=== PATIENT | female | born 1950 | race Caucasian/White ===

== ENCOUNTER 2024-01-26 17:37 | Emergency (ER) | payer MEDICARE, SELFPAY ==
[2024-01-26 17:51] VITALS: BP 110/70; PULSE 84; TEMP 36.5; O2SAT 95; BMI 40.6
--- NOTE | 2024-01-26 18:09 | XR_ITS ---
[place] [address] Patient Name: VICKY GARCIA MRN: [id number] date: 1950 Sex: F Assigned Patient Location: ER Current Patient Location: ER Accession/Order Number: [id number] Exam Date: 01/26/2024 18:22 Report Date: 01/26/2024 18:50 At the request of: OBINNA HOLLIDAY Procedure: XR knee LT 4V STUDY: XR knee LT 4V, [id number] HISTORY: pain, injury COMPARISON: None FINDINGS: No acute fracture, dislocation, or suspicious osseous lesion. Severe osteoarthritis of the left knee. Medium-sized knee joint effusion without layering fluid level. Several possible small calcified joint bodies. XR/XR knee LT 4V IMPRESSION: Medium-sized knee joint effusion without acute fracture demonstrated. Electronically authenticated by: KELLI MANJARREZ Date: 01/26/2024 18:50
--- NOTE | 2024-01-26 18:13 | ED_ITS ---
HPI HPI - Extremity Injury (Lower) General Chief Complaint: Extremity Injury, Lower Stated Complaint: FALL Time Seen by Provider: 01/26/24 17:51 Source: patient and family (Daughter) Mode of arrival: Wheelchair Limitations: physical limitation History of Present Illness HPI Narrative: 73-year-old female presents to the emergency department with her mother with complaint of left knee pain. Patient states she had a fall 2 days ago. Patient states she walks with a cane, canes which caused her to fall and land directly on the knee. Since then has been having persistent pain. She does take oxycodone which has given her some relief. Also states that her daughter's dog jumped on her, scratching her knee and has an infection. Has been on cephalexin for this. However, ADLs and mobility have been impaired due to the injury to her knee he came in for further evaluation. States she does have history of arthritis, usus-po-rcby. Has received knee injections in the past. Denies a ny motor or sensory changes, paresthesias. Quality:?Blunt trauma Severity:, Moderate Timing:?As above, const Context: Normal setting and activity? Modifying factors:?Pain worse with palpation, movement Associated symptoms: As above Related Data Previous Rx's ?Medication ?Instructions ?Recorded walker #1 ea 01/26/24 Allergies Allergy/AdvReac Type Severity Reaction Status Date / Time ciprofloxacin [From Cipro] AdvReac Severe Verified 01/26/24 17:51 doxycycline AdvReac Severe Verified 01/26/24 17:51 Opioid HPI Opioid Management Most Recent Pain and Opioid Data: No Data to Display Review of Systems ROS Narrative CONST: Denies activity change, weakness MS: +arthralgias.? Denies joint swelling, myalgias, gait problem SKIN: + Redness NEURO: Denies numbness, paresthesias, weakness Exam Narrative Exam Narrative: Vital signs noted Nurses notes reviewed CONST: Nontoxic, well appearing, well nourished, in no distress.? HENT: normocephalic, atraumatic. CV: 2+ palpable left DP pulse MS: Left knee: Patient has some erythema, abrasion to the lateral, inferior, anterior aspect of her kneecap. Patient has some tenderness just inferior and lateral to the kneecap and to the lateral joint line. Range of motion somewhat limited with flexion due to pain. Able to get it to almost 90 degrees. Able to fully extend the knee. No laxity. No ecchymosis, crepitus, deformity, i nstability, warmth.? Strength 5/5 NEURO: Sensory intact throughout and distal to the injury SKIN: intact, warm, dry.? + abrasion PSYCHIATRIC: normal mood, affect Constitutional Vital Signs, click to edit/add: Last Vital Signs Temp 97.7 F 01/26/24 17:51 Pulse 84 01/26/24 17:51 Resp 18 01/26/24 17:51 BP 110/70 01/26/24 17:51 Pulse Ox 95 01/26/24 17:51 O2 Del Method Room Air 01/26/24 17:51 Course Reevaluation(s) Reevaluation #1: Discussed with patient and daughter results, plan, and disposition. They are agreeable with plan. Time: 19:28 Vital Signs Vital signs: Vital Signs Temperature 97.7 F 01/26/24 17:51 Pulse Rate 84 01/26/24 17:51 Respiratory Rate 18 01/26/24 17:51 Blood Pressure 110/70 01/26/24 17:51 Pulse Oximetry 95 01/26/24 17:51 Oxygen Delivery Method Room Air 01/26/24 17:51 Temperature 97.7 F 01/26/24 17:51 Pulse Rate 84 01/26/24 17:51 Respiratory Rate 18 01/26/24 17:51 Blood Pressure 110/70 01/26/24 17:51 Pulse Oximetry 95 01/26/24 17:51 Oxygen Delivery Method Room Air 01/26/24 17:51 MDM - Extremity Injury (Lower) MDM Narrative Medical decision making narrative: This is a pleasant 73-year-old female who presented to the emergency department with daughter with complaint of left knee pain. Complains of injury 2 days ago when she slipped, fell, landing directly on it. Has been having increased pain since making it difficult to perform ADLs. She also has some redness, swelling over the knee from where her dog scratched her. Has been on cephalexin for this. Denies any motor or sensory changes, paresthesias. States chronic history of knee problems. On arrival, afebrile, vital signs are all. On exam nontoxic, well-appearing patient in no distress. She has tenderness to the inferior, anterior lateral region just below her patella. She has some redness over the lateral aspect of the patella. This tissue is soft, not indurated, no fluctuance. MSPs otherwise intact. X-ray imaging of the left knee, per radiologist reveals no acute findings. Favor left knee contusion, internal derangement, history of arthritis Fracture, dislocation less likely based on imaging ED PROCEDURE NOTE: SPLINTING/STRAPPING The ED nurse applied a knee splint/immobilizer to the left knee of the patient. The area was examined post application and there was good alignment and good neurovascular function of the splinted/immobilized body part following the procedure. The patient tolerated the procedure well. Electronically verified by Ethan Gan PA-C Disposition ? The patient was discharged. Plan: Patient will be discharged to home. Condition at time of disposition: stable Prescription sent to pharmacy for a walker. Patient has pain medication at home (oxycodone). Advised to follow up with her orthopedic provider. Advised to return for any worsening and/or development of new, concerning signs or symptoms PLEASE NOTE: Portions of the medical record may have been produced using electronic citrix administrator and may contain errors with respect to translation of words which may not have been identified prior to finalization of the chart. Medical Records Attestation: I reviewed the patient's medical records. Imaging Data left knee xray: Radiologist's impression: ITS Impressions Knee X-Ray 01/26/24 18:09 IMPRESSION: Medium-sized knee joint effusion without acute fracture demonstrated. Electronically authenticated by: KELLI MANJARREZ Date: 01/26/2024 18:50 Discharge Plan Discharge Stand Alone Forms: Portal Instructions Chief Complaint: Extremity Injury, Lower Clinical Impression: Acute internal derangement of knee Qualifiers: Laterality: left Qualified Code(s): M23.92 - Unspecified internal derangement of left knee Contusion of knee Qualifiers: Encounter type: initial encounter Laterality: left Qualified Code(s): S80.02XA - Contusion of left knee, initial encounter Patient Disposition: Home, Self-Care Time of Disposition Decision: 19:26 Condition: Good Mode of Transportation: Private Vehicle Prescriptions / Home Meds: New (DME) walker Misc See Rx Instructions .Route Qty: 1 0RF Rx Instructions: As directed Print Language: Wolof Instructions: Contusion in Adults (ED) Referrals: JAQUAN RICHARD [Primary Care Provider] - 1 week
[2024-01-26 19:44] VITALS: BP 115/65; PULSE 73; O2SAT 98
--- NOTE | 2024-01-28 14:23 | PC.NURSE ---
pt calls and [facility] doesn't fill walker Rx, called [facility] and they don't fill either. Directed to [facility] which is in the same building in the [facility] on [address] in [place], [place]. They don't deal with insurance and it will be $64 in [place]ado.. this was relayed to the patient. Pt wants Rx sent. Prescription faxed to
== END 2024-01-26 19:44 | disposition home or self-care (01) ==
PROVIDERS: Emergency Provider Emergency Medicine; Family Provider Family Medicine; PCP Family Medicine
DX: S80.02XA Contusion of left knee, initial encounter (principal); M23.92 Unspecified internal derangement of left knee; W01.10XA Fall on same level from slipping, tripping and stumbling with subsequent striking against unspecified object, initial encounter
CPT/HCPCS: 73564; 99283

== ENCOUNTER 2024-06-22 18:11 | Emergency (ER) | payer MEDICARE, SELFPAY ==
[2024-06-22 18:36] VITALS: BP 180/110; PULSE 100; TEMP 36.4; O2SAT 96; BMI 40.6
--- OUTSIDE RECORDS SUMMARY | 2024-06-22 18:39 | XMS_ITS | CCD ---
Author Organization [facility] Care Team Providers Care Senior Policy Analyst Name Role Phone PHYSICIAN, DEFAULT Unavailable Unavailable PHYSICIAN, DEFAULT Unavailable Unavailable Vince Asencio Attending Provider Unavailable Jaquan Richard DO Primary Care Provider Jaquan Richard Unavailable Mikael Hughes II Unavailable Jaclyn Munoz Unavailable Kirk Aguilera Jr. Unavailable [phone] MD Vince Asencio Attending Provider DO Jaquan Richard Primary Care Provider DO Jaquan Richard Attending Provider Jaquan Richard DO Primary Care Provider [phone] DO Flex Atkinson Attending Provider [phone] Jaquan Richard DO Primary Care Provider [phone] MD Vince Asencio Attending Provider DO Jaquan Richard Primary Care Provider DO Flex Atkinson Attending Provider [phone] Jaquan Richard DO Primary Care Provider Shahid Cherry Unavailable DO Jaquan Richard Primary Care Provider DO Jaquan Richard Attending Provider Jaquan Richard DO Primary Care Provider [phone] DO Jaquan Richard Primary Care Provider DO Jaquan Richard Attending Provider [phone] DO Lei Saavedra Emergency Provider Free, Text Entry Unavailable Unavailable Brad Marcano Unavailable Unavailable Psych Consult Unavailable Unavailable Kieran Florez Unavailable Unavailable PROVIDER, UNKNOWN Attending Unavailable PROVIDER, UNKNOWN Admitting Unavailable Dr. Redd Corrigan Admitting Unavailab le Patient, Unavailable Referring Unavailable MD BRAD MARCANO Attending Unavaila ble Pending, Provider Primary Care Unavailable DO Jaquan Richard Primary Care Provider MD Mikael Hughes II Attending Provider DO Jaquan Richard Attending Provider [phone] DO Jaquan Richard Primary Care Provider DO Jaquan Richard Attending Provider Janneth, CARLENE Lo Emergency Provider DO Jaquan Richard Primary Care Provider Jaquan Richard DO Primary Care Provider [phone] Jaquan Richard Primary Care Physician KIERAN FLOREZ H Attending Unavailable GENERIC PROVIDER, NO ASSIGNED PCP Primary Care Unavailable DO Jaquan Richard Primary Care Provider [phone] Janneth, CASE MANAGEMENT RN Val Lo Emergency Provider DO Jaquan Richard Attending Provider WILLIAM HOPE Referring Unavailable JAQUAN RICHARD Primary Care Unavailable JAQUAN RICHARD Primary Care Unavailable KIRAN, JALIL Referring Unavailable QIANA, JALIL Attending Unavailable JAQUAN RICHARD Primary Care Unavailable YAMILET KIRANS Attending Unavailable JAQUAN RICHARD Primary Care Unavailable KEYANA SUMMERS Attending Unavailable JAQUAN RICHARD Primary Care Unavailable ALEX JEFFRIES Attending Unavailable QIANA, JALIL Referring Unavailable Jaquan Richard Primary Care Unavailable Val Lagunas Admitting Unavailable Val Lagunas Attending Unavailable Jaquan Richard Attending Unavailable Jaquan Richard Admitting Unavailable Jaquan Richard Primary Care Unavailable Jaquan Richard Attending Unavailable Jaquan Richard Admitting Unavailable Jaquan Richard Primary Care Unavailable Mikael Hughes II Admitting UnavailMikael Brooks II Attending Unavailabl e Jaquan Richard Primary Care Unavailable Lei Saavedra Admitting Unavailable Lei Saavedra Attending Unavailable Val Lagunas Admitting Unavailable Saffle, Val N Attending Unavailable Jaquan Richard Primary Care Unavailable Unavailable Unavailable Unavailable Allergies Allergy Classification Reported Allergen(s) Allergy Type Date of Onset Reaction(s) Facility (14 sources) Adhesive Tape; Translations: [adhesive tape] Propensity to adverse reactions 12-05-19 Redness of Skin; itching [facility] (20 sources) Ciprofloxacin; Translations: [CIPROFLOXACIN] Drug Allergy 04-12-20 17 Shortness of Breath, anaphylaxis, Unknown (qualifier value) [facility] Comment on above: shortness of breath (20 sources) Doxycycline; Translations: [DOXYCYCLINE] Drug Allergy 09-10-20 17 Intolerance, Unknown (qualifier value) [facility] (14 sources) Tetanus Vaccines and Toxoid; Translations: [Tetanus Vaccines and Toxoid] Allergy to substance 12-05-19 Unknown Reaction [facility] (20 sources) Phenytoin; Translations: [PHENYTOIN SODIUM EXTENDED] Drug Allergy 09-10-20 17 Swelling, anaphylaxis, Anaphylaxis (disorder) [facility] (19 sources) Tetanus immune globulin; Translations: [TETANUS IMMUNE GLOBULIN F(AB')2 (EQUINE)] Drug Allergy 09-10-[address] [facility] (20 sources) buPROPion; Translations: [Bupropion] Drug Allergy Unknown (qualifier value) [facility] (20 sources) Cephalexin; Translations: [Cephalexin] Drug Allergy Candidiasis (disorder), Nausea (finding), Diarrhea (finding) [facility] (20 sources) homatropine / HYDROcodone Drug Allergy kept pt awake/alert [facility] Other (20 sources) Lisinopril; Translations: [lisinopril] Drug Allergy 11-30-19 Swelling (morphologic abnormality) [facility] Other Comment on above: leg swelling (20 sources) tetanus toxoid vaccine, inactivated Drug Allergy 11-30-19 24 Unknown, Unknown Reaction [facility] (20 sources) metFORMIN; Translations: [metformin] Drug Allergy 11-30-19 Unknown (qualifier value) [facility] (7 sources) buPROPion Drug Allergy 11-30-19 24 Other, hx of seizures [facility] Comment on above: history of seizures (2 sources) Phenytoin Drug Allergy Swelling, anaphylaxis [facility] (1 source) Tetanus immune globulin Drug Allergy Other [facility] Comment on above: unknown (1 source) Ciprofloxacin Drug Allergy anaphylaxis [facility] Other (1 source) Doxycycline Drug Allergy rash/lips, tongue swollen [facility] Other (1 source) homatropine / HYDROcodone Drug Allergy kept pt awake/alert [facility] Other (1 source) metFORMIN Drug Allergy 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 (1 source) tetanus toxoid vaccine, inactivated; Translations: [tetanus toxoid] Drug Allergy Unknown (qualifier value) [facility] Medications Current Medications Medication Drug Class(es) Dates Sig (Normalized) Sig (Original) 0.25 MG, 0.5 MG Dose 3 ML semaglutide 0.68 MG/ML Pen Injector [Ozempic] (1 source) Start: 04-19-2024 Ozempic 2 mg/3 mL (0.25 mg or 0.5 mg dose) subcutaneous solution Refills(s) 0 Start Date: 04/19/24 Status: Ordered acetaminophen 500 mg oral tablet (5 sources) Start: 06-11-2021 take 1 tablet by mouth every twelve hours Acetaminophen 500 MG 1 tablet as needed Orally BID for 30 days May, Active acetaminophen 325 mg / HYDROcodone bitartrate 5 mg oral tablet (20 sources) Opioid Agonist Start: 04-14-2019 take 1 tablet by mouth four times daily Hydrocodone-Acetami nophen Active 1 TAB Oral Four times daily April 14, 2019 12:26pm Start: 04-14-2019 End: 05-21-2023 Hydrocodone-Acetaminophen Di scontinued 0.5 - 1 TAB PO every 6 to 8 hours April 14, 2019 12:00am May 21, 2023 9:24pm Start: 09-15-2018 [place] 5-325 MG 1/2 to 1 tablet Orally q 6-8 hrs Sep, Active Start: 09-15-2018 [place] 5-325 MG 1/2 to 1 tablet Orally q 6-8 hrs for 30 days Sep, Active Start: 09-15-2018 [place] 5-325 MG 1/2 to 1 tablet Orally q 6-8 hrs for 30 days Sep, Not-Taking End: 04-15-2024 HYDROcodone-Acetaminophen (V ICODIN) 5-300 mg tab Take by mouth as needed. 0 04/15/2024 Discontinued (Course of therapy completed) Comment on above: Take by mouth as nee ded. acetaminophen 325 mg / oxyCODONE hydrochloride 7.5 mg oral tablet (20 sources) Opioid Agonist Start: 04-19-2024 acetaminophen-oxycodo ne 325 mg-7.5 mg oral tablet Refill(s) 0 Start Date: 04/19/24 Status: Ordered Start: 04-11-2024 End: 05-17-2024 take 1 tablet by mouth four times daily Oxycodone-Acetaminophen Active 1 TAB PO Four times daily 09 04May 17, 2024 Start: 04-04-2024 End: 04-04-2024 take 1 tablet by mouth four times daily Oxycodone-Acetaminophen Discontinued 1 T AB PO Four times daily 09 04April 04, 2024 April 04, 2024 8:58am Start: 12-07-2023 End: 04-11-2024 take 1 tablet by mouth four times daily Oxycodone-Acetaminophen Discontinued 1 T AB PO Four times daily 09 04April 04, 2024 April 11, 2024 8:57am Start: 11-30-2023 End: 11-30-2023 take 1 tablet by mouth four times daily Oxycodone-Acetaminophen Discontinued 1 T AB PO Four times daily 09 04November 30, 2023 November 30, 2023 8:57am FreeTextSi tablet Orally qid; Note: Source Status: [id number]; Provider: Carlito Singleton Start: 10-26-2023 End: 12-07-2023 take 1 tablet by mouth four times daily Oxycodone-Acetaminophen Discontinued 1 T AB PO Four times daily 09 04October 26, 2023 November 02, 2023 10:07am FreeTextSi tablet Orally qid; Note: Source Status: [id number]; Provider: Carlito Singleton Start: 10-04-2023 take 1 tablet by isael th every six hours oxyCODONE-Acetaminophen 7.5-325 MG 1 tablet Orally qid for 7 days [id number] Oct, Active Start: 09-28-2023 take 1 tablet by isael th every six hours oxyCODONE-Acetaminophen 7.5-325 MG 1 tablet Orally qid for 7 days [id number] Sep, Active Start: 09-21-2023 take 1 tablet by isael th every six hours oxyCODONE-Acetaminophen 7.5-325 MG 1 tablet Orally qid for 7 days [email or web address] Sep, Active Start: 09-07-2023 take 1 tablet by isael th every six hours oxyCODONE-Acetaminophen 7.5-325 MG 1 tablet Orally qid for 7 days [email or web address] Aug, Active Start: 08-31-2023 take 1 tablet by isael th every six hours oxyCODONE-Acetaminophen 7.5-325 MG 1 tablet Orally qid for 7 days [email or web address] Aug, Active Start: 08-24-2023 take 1 tablet by isael th every six hours oxyCODONE-Acetaminophen 7.5-325 MG 1 tablet Orally qid for 7 days [email or web address] Aug, Active Start: 08-10-2023 take 1 tablet by isael th every six hours oxyCODONE-Acetaminophen 7.5-325 MG 1 tablet Orally qid for 7 days [id number] Jul, Active Start: 07-27-2023 take 1 tablet by isael th every six hours oxyCODONE-Acetaminophen 7.5-325 MG 1 tablet Orally qid for 7 days [id number] Jul, Active Start: 07-20-2023 take 1 tablet by isael th every six hours oxyCODONE-Acetaminophen 7.5-325 MG 1 tablet Orally qid for 7 days [email or web address] Jul, Active Start: 07-13-2023 take 1 tablet by isael th every six hours oxyCODONE-Acetaminophen 7.5-325 MG 1 tablet Orally qid for 7 days [email or web address] Jun, Active Start: 07-06-2023 take 1 tablet by isael th every six hours oxyCODONE-Acetaminophen 7.5-325 MG 1 tablet Orally qid for 7 days [email or web address] Jun, Active Start: 06-22-2023 take 1 tablet by isael th every six hours oxyCODONE-Acetaminophen 7.5-325 MG 1 tablet Orally qid for 7 days [email or web address] Jun, Active Start: 06-15-2023 take 1 tablet by isael th every six hours oxyCODONE-Acetaminophen 7.5-325 MG 1 tablet Orally qid for 7 days [id number] Jun, Active Start: 06-08-2023 take 1 tablet by isael th every six hours oxyCODONE-Acetaminophen 7.5-325 MG 1 tablet Orally qid for 7 days [email or web address] May, Active Start: 05-31-2023 take 1 tablet by isael th every six hours oxyCODONE-Acetaminophen 7.5-325 MG 1 tablet Orally qid for 7 days [email or web address] May, Active Start: 05-19-2023 take 1 tablet by isael th every six hours oxyCODONE-Acetaminophen 7.5-325 MG 1 tablet Orally qid for 7 days [email or web address] May, Active Start: 05-19-2023 End: 05-26-2023 take 1 tablet by mouth every six hours as needed oxycodone-acetaminophen 7.5 mg-300 mg or al tablet ; 1 tab(s) orally every 6 hours, As Needed Quantity: 0 Refills: 0 Ordered: 22-May-2023 Deng Mabry Start: 19-May-2023 End: 26-May-2023 Generic Substitution Allowed Start: 05-12-2023 take 1 tablet by isael th every six hours oxyCODONE-Acetaminophen 7.5-325 MG 1 tablet Orally qid for 7 days [email or web address] Apr, Active Start: 05-05-2023 take 1 tablet by isael th every six hours oxyCODONE-Acetaminophen 7.5-325 MG 1 tablet Orally qid for 7 days [email or web address] Apr, Active Start: 04-28-2023 take 1 tablet by isael th every six hours oxyCODONE-Acetaminophen 7.5-325 MG 1 tablet Orally qid for 7 days [email or web address] Apr, Active Start: 04-15-2023 take 1 tablet by isael th every six hours oxyCODONE-Acetaminophen 7.5-325 MG 1 tablet Orally qid for 7 days [email or web address] Apr, Active Start: 03-23-2023 oxyCODONE-Acet aminophen 5-325 MG 1 tablet Orally q6-8 hrs as needed [email or web address] Mar, Active Start: 02-24-2023 oxyCODONE-Acet aminophen 5-325 MG 1 tablet Orally q6-8 hrs as needed for 30 days [email or web address] Feb, Active Start: 01-20-2023 oxyCODONE-Acet aminophen 5-325 MG 1 tablet Orally q6-8 hrs as needed for 30 days [email or web address] January, Active Start: 12-25-2022 oxyCODONE-Acet aminophen 5-325 MG 1 tablet Orally q6-8 hrs as needed for 30 days [email or web address] Dec, Active Start: 11-27-2022 oxyCODONE-Acet aminophen 5-325 MG 1 tablet Orally q6-8 hrs as needed for 30 days [email or web address] Nov, Active Start: 10-29-2022 oxyCODONE-Acet aminophen 5-325 MG 1 tablet Orally q6-8 hrs as needed for 30 days [email or web address] Oct, Active Start: 09-28-2022 oxyCODONE-Acet aminophen 5-325 MG 1 tablet Orally q6-8 hrs as needed [email or web address] Sep, Active Start: 07-31-2022 oxyCODONE-Acet aminophen 5-325 MG 1 tablet Orally q6-8 hrs as needed for 30 days [email or web address] Jul, Active Start: 07-02-2022 oxyCODONE-Acet aminophen 5-325 MG 1 tablet Orally q6-8 hrs as needed [email or web address] 20 Jun, 2022 Active Start: 03-25-2022 Percocet 5-325 MG 1 tablet Orally q6-8 hrs as needed for 30 days Mar, Active [id number] actuat albuterol 0.09 mg/actuat metered dose inhaler (20 sources) beta2-Adrenergic Agonist Start: 01-21-2024 End: 04-26-2024 Albuterol Sulfate (Ventolin Hfa) 90 mcg/actuation HFA aerosol inhaler Active 2 INH INHALATION Every 4 hours April 26, 2024 11:14am Start: 11-10-2018 Ventolin HFA 1 08 (90 Base) MCG/ACT 2 inhalations Inhalation q4 hours prn prn Oct, Active Start: 06-29-2018 PROAIR HFA 90 mcg/actuation inhaler Start: 06-29-2018 End: 05-20-2024 PROAIR HFA 90 mcg/actuation inhaler take 1 [IU] by inhal ation every six hours as needed Albuterol Sulfate 0.083% 1 unit dose via nebulizer Inhalation q6 hrs PRN Active Albuterol (Eqv-ProAir HFA) 90 mcg/inh inhalation aerosol (1 source) Start: 04-19-2024 Albuterol (Eqv-ProAir HFA) 90 mcg/inh inhalation aerosol Refill(s) 0 Start Date: 04/19/24 Status: Ordered ALPRAZolam 0.5 mg oral tablet (20 sources) Benzodiazepine Start: 04-14-2019 take 0.5 mg by mouth once daily at bedtime Alprazolam Active 0.5 MG Oral Daily at bedtime April 14, 2019 12:26pm Start: 07-19-2018 End: 04-15-2024 take 1 tablet by mouth twice daily Alprazolam Discontinued 0.5 - 1 TAB PO Twice daily April 14, 2019 12:00am May 21, 2023 9:22pm Comment on above: Take 0.5 mg by mouth twice daily as needed. amoxicillin 875 mg oral tablet (19 sources) Penicillin-class Antibacterial Start: take 1 tablet by mouth every twelve hours Amoxicillin 875 MG 1 tablet Orally Twice a day for 10 day(s) Mar, Active Start: 09-15-2021 take 1 tablet by isael th every twelve hours Amoxicillin 875 MG 1 tablet Orally Twice a day for 10 day(s) Sep, Not-Taking atorvastatin 10 mg oral tablet (20 sources) HMG-CoA Reductase Inhibitor Start: 04-26-2024 take 10 mg by mouth once daily Atorvastatin Active 10 MG PO Daily April 26, 2024 11:11am Start: 04-19-2024 atorvastatin 1 0 mg Tab Refills(s) 0 Start Date: 04/19/24 Status: Ordered Start: 11-01-2023 End: 04-26-2024 take 1 tablet by mouth once daily Atorvastatin Discontinued 0 .ROUTE .COMPLEX November 01, 2023 5:24pm April 26, 2024 11:13am Take 1 tablet by mouth once daily for 90 days Start: 11-01-2023 End: 11-01-2023 take 1 tablet by mouth once daily Atorvastatin Discontinued 1 TAB PO Daily November 01, 2023 1:00am November 01, 2023 5:25pm FreeTextSig: Take 1 tablet by mouth once daily; Note: Source Status: Continue; Provider: Gualberto Lyon Start: 04-14-2019 End: 05-21-2023 take 10 mg by mouth once daily at bedtime Atorvastatin Discontinued 10 MG PO Daily at bedtime April 14, 2019 12:00am May 21, 2023 9:22pm Comment on above: Take 10 mg by mouth once daily. cefdinir 300 mg oral capsule (5 sources) Cephalosporin Antibacterial Start: 05-16-2024 take 2 tablets by mouth once daily Cefdinir Active 300 MG PO Daily 06 22May 16, 2024 12:00am take two (300 mg) tablets together once a day for 10 days Start: 10-11-2023 take 2 capsules by m outh every twenty-four hours Cefdinir 300 MG 2 capsules Orally Once a day Sep, Active cholecalciferol 0.1 mg oral capsule (20 sources) Vitamin D Start: 04-14-2019 End: 02-12-2022 cholecalciferol, vitamin D3, 100 mcg (4,000 unit) cap Cholecalciferol (Vitamin D3) Active 4000 UNIT Oral Daily April 14, 2019 12:26pm 0 04/14/2019 Active take 1 capsule by mouth every we ek Vitamin D3 1250 mcg (50,000 intl units) oral capsule ; 1 cap(s) orally once a week Quantity: 0 Refills: 0 Ordered: 22-May-2023 Deng Mabry Generic Substitution Allowed Comment on above: Cholecalciferol (Vit lemus D3) Active 4000 UNIT Oral Daily April 14, 2019 12:26pm Take by mouth. Cholecalciferol (Vitamin D3) (Vitamin D3) 4,000 unit Capsule (1 source) Start: 019 take 1 capsule by mouth once daily Cholecalciferol (Vitamin D3) (Vitamin D3) 4,000 unit Capsule Active 4000 UNIT PO Daily April 14, 2019 12:00am clotrimazole 10 mg oral lozenge (6 sources) Azole Antifungal Start: Clotrimazole 10 MG dissolve 1 del Mouth/Throat five times a day for 7 day(s) Nov, Active 1 ml enoxaparin sodium 100 mg/ml prefilled syringe (17 sources) Low Molecular Weight Heparin Start: 023 End: 023 enoxaparin 100 mg/mL injectable solution ; 100 milligram(s) subcutaneously 2 times a day Quantity: 60 Refills: 1 Ordered: 26-May-2023 Tamiko Herrmann Start: 26-May-2023 End: 24-Jul-2023 Generic Substitution Allowed Comments: It is very important that you take or use this exactly as directed. Do not skip doses or discontinue unless directed by your doctor. Comment on above: It is very important that you take or use this exactly as directed. Do not skip doses or discontinue unless directed by your doctor. ergocalciferol 1.25 mg oral capsule (20 sources) Provitamin D2 Compound Start: 024 ergocalciferol 50,000 intl units Cap Refills(s) 0 Start Date: 04/19/24 Status: Ordered Start: 01-21-2024 End: 04-04-2024 take 1250 ug by mouth every week Ergocalciferol (Vitamin D2) Active 1250 MCG PO every week April 04, 2024 8:57am Start: 06-06-2020 End: 05-21-2023 take 1 capsule by mouth once daily Ergocalciferol (Vitamin D2) (Vitamin D2) 1,250 mcg (50,000 unit) capsule Discontinued 1250 MCG PO Daily June 06, 2020 12:00am May 21, 2023 9:24pm Comment on above: (take by mouth with food 3times a week, ONE CAPSULE ON Mondays, Wed, Fridays) FOR A TOTAL OF 8 WEEKS. folic acid 1 mg oral tablet (20 sources) Start: 04-17-2024 take 1 tablet by mouth once daily folic acid 1 mg tablet Indications: Inflammatory arthritis , DENG positive , Psoriasis Take 1 tablet by mouth once daily. 90 tablet 0 04/17/2024 Active Start: 05-21-2023 End: 01-21-2024 take 5 mg by mouth once daily Folic Acid Discontinued 5 MG PO Daily May 21, 2023 12:00am January 21, 2024 11:23am Start: 04-14-2019 End: 04-15-2024 take 1 mg by mouth once daily Folic Acid Discontinued 1 MG PO Daily April 14, 2019 12:00am May 21, 2023 9:24pm Comment on above: Take 1 tablet by isael th once daily. Take 1 tablet by isael th once daily levothyroxine sodium 0.112 mg oral tablet (20 sources) l-Thyroxine Start: take 1 tablet by mouth once daily in the morning Levothyroxine Active 112 MCG PO .COMPLEX April 26, 2024 11:11am 112 mcg orally TAKE 1 TABLET BY MOUTH ONCE DAILY IN THE MORNING ON AN EMPTY STOMACH; Start: 04-19-2024 levothyroxine 112 mcg (0.112 mg) Tab Refills(s) 0 Start Date: 04/19/24 Status: Ordered Start: 04-17-2024 End: 04-26-2024 take 1 tablet by mouth once daily in the morning Levothyroxine Discontinued 0 .ROUTE .COMPLEX April 17, 2024 3:41pm April 26, 2024 11:13am TAKE 1 TABLET BY MOUTH ONCE DAILY IN THE MORNING ON AN EMPTY STOMACH Start: 01-21-2024 End: 04-17-2024 take 112 ug by mouth once daily before breakfast Levothyroxine Discontinued 112 MCG PO Daily before breakfast January 21, 2024 12:00am April 17, 2024 3:42pm Start: 01-23-2020 End: 01-21-2024 take 100 ug by mouth once daily in the morning Levothyroxine Discontinued 100 MCG PO Every morning January 23, 2020 12:00am January 21, 2024 10:04am Start: 04-14-2019 End: 01-23-2020 take 112 ug by mouth once daily Levothyroxine Disconti nued 112 MCG PO Daily April 14, 2019 12:00am January 23, 2020 7:12pm take 1 tablet by isael th once daily in the morning Levothyroxine Sodium 112 MCG TAKE 1 TABLET BY MOUTH ONCE DAILY IN THE MORNING ON AN EMPTY STOMACH Active Levothyroxine So dium 100 MCG Oral Active Comment on above: Take 112 mcg by mout h daily before breakfast. losartan potassium 50 mg oral tablet (20 sources) Angiotensin 2 Receptor James Start: 05-16-2024 take 1 tablet by mouth twice daily Losartan Active 0 .ROUTE .COMPLEX 180 May 16, 2024 2:48pm Take 1 tablet by mouth twice daily Start: 01-21-2024 End: 05-16-2024 take 50 mg by mouth once daily Losartan Discontinued 5 0 MG PO Daily January 21, 2024 12:00am May 16, 2024 2:50pm Start: 06-15-2019 End: 07-25-2023 take 50 mg by mouth once daily in the morning Losartan Discontinued 50 MG PO Every morning January 23, 2020 12:00am May 21, 2023 9:24pm take 1 tablet by isael th twice daily Losartan Potassium 50 MG Take 1 tablet by mouth twice daily Active Comment on above: TAKE 1 TABLET BY IASEL TH ONCE DAILY FOR 90 DAYS magnesium gluconate 550 mg oral tablet (20 sources) take 1 tablet by mouth every twenty-four hours Magnesium 30 MG 1 tablet with a meal Orally Once a day Active melatonin 3 mg oral tablet (1 source) Start: 05-26-20 End: 06-24-20 23 take 1 tablet by mouth once daily at bedtime as needed melatonin 3 mg oral tablet ; 1 tab(s) orally once a day (at bedtime), As Needed Quantity: 30 Refills: 0 Ordered: 26-May-2023 Tamiko Herrmann Start: 26-May-2023 End: 24-Jun-2023 Generic Substitution Allowed meloxicam 7.5 mg oral tablet (5 sources) Nonsteroidal Anti-inflammatory Drug Start: 06-11-20 21 take 1 tablet by mouth every twenty-four hours Mobic 7.5 MG 1 tablet Orally Once a day for 30 day(s) May, Active methotrexate 2.5 mg oral tablet (20 sources) Folate Analog Metabolic Inhibitor Start: 04-17-20 24 take 8 tablets by mouth every week at mealtime methotrexate 2.5 mg tablet Indications: Inflammatory arthritis , DENG positive , Psoriasis TAKE 8 TABLETS BY MOUTH ONCE A WEEK WITH FOOD. NO ALCOHOL. HOLD IF ILL OR ON ANTIBIOTICS 40 tablet 11 04/17/2024 Active Start: 04-14-2019 End: 05-21-2023 take 1 tablet by mouth every week Methotrexate Sodium Discontinued 10 TAB PO every week April 14, 2019 12:00am May 21, 2023 9:24pm Start: 04-14-2019 End: 04-15-2024 methotrexate 2.5 mg tablet Indications: Inflammatory arthritis , DENG positive , Psoriasis TAKE 10 TABLETS BY MOUTH ONCE A WEEK WITH FOOD. NO ALCOHOL. HOLD IF ILL OR ON ANTIBIOTICS 40 tablet 11 02/14/2022 04/15/2024 Discontinued (Course of therapy completed) Start: 04-14-2019 End: 02-12-2022 methotrexate 2.5 mg tablet Indications: Inflammatory arthritis , DENG positive , Psoriasis TAKE 10 TABLETS BY MOUTH ONCE A WEEK WITH FOOD. NO ALCOHOL. HOLD IF ILL OR ON ANTIBIOTICS 120 tablet 0 11/12/2021 02/12/2022 Discontinued Start: 04-14-2019 End: 02-13-2022 take 3 tablets by mouth every week at mealtime methotrexate 2.5 mg tablet Indications: Inflammatory arthritis , DENG positive , Psoriasis TAKE 10 TABLETS BY MOUTH ONCE A WEEK WITH FOOD. NO ALCOHOL. HOLD IF ILL OR ON ANTIBIOTICS 120 tablet 3 02/12/2022 02/13/2022 Discontinued Comment on above: TAKE 10 TABLETS BY M OUTH ONCE A WEEK WITH FOOD. NO ALCOHOL. HOLD IF ILL OR ON ANTIBIOTICS ozempic (0.25 or 0.5 mg/dose) 2 mg/3ml solution pen-injector (2 sources) Start: 4 Ozempic (0.25 or 0.5 MG/DOSE) 2 MG/3ML 0.25 MG Subcutaneous once weekly for 28 days Oct, Active PARoxetine hydrochloride 10 mg oral tablet (20 sources) Serotonin Reuptake Inhibitor Start: 3 End: 3 take 1 tablet by mouth once daily PARoxetine 10 mg oral tablet ; 1 tab(s) orally once a day Quantity: 30 Refills: 0 Ordered: 26-May-2023 Tamiko Herrmann Start: 26-May-2023 End: 24-Jun-2023 Generic Substitution Allowed Comments: Do not drink alcoholic beverages when taking this medication.Do not take this drug if you are .It is very important that you take or use this exactly as directed. Do not skip doses or discontinue unless directed by your doctor.May cause drowsiness. Alcohol may intensify this effect. Use care when operating dangerous machinery.Obtain medical advice before taking any non-prescription drugs as some may affect the action of this medication.This drug may impair the ability to drive or operate machinery. Use care until you become familiar with its effects. Start: 06-06-2020 End: 01-21-2024 take 20 mg by mouth once daily in the morning Paroxetine Hcl Discontinued 20 MG PO Every morning June 06, 2020 12:00am January 21, 2024 11:24am Start: 06-06-2020 take 30 mg by mouth once daily in the morning Paroxetine Hcl Active 30 MG PO Every morning June 06, 2020 12:00am Start: 04-14-2019 End: 04-15-2024 take 20 mg by mouth once daily in the morning Paroxetine Hcl Discontinued 20 MG PO Every morning April 14, 2019 12:00am June 06, 2020 4:18pm Comment on above: Take 20 mg by mouth once daily. Do not drink alcohol ic beverages when taking this medication.Do not take this drug if you are .It is very important that you take or use this exactly as directed. Do not skip doses or discontinue unless directed by your doctor.May cause drowsiness. Alcohol may intensify this effect. Use care when operating dangerous machinery.Obtain medical advice before taking any non-prescription drugs as some may affect the action of this medication.This drug may impair the ability to drive or operate machinery. Use care until you become familiar with its effects. polyethylene glycol 3350 [id number] mg powder for oral solution (1 source) Osmotic Laxative Start: 3 End: polyethylene glycol 3350 oral powder for reconstitution ; 17 gram(s) orally once a day Quantity: 1 Refills: 0 Ordered: 26-May-2023 Tamiko Herrmann Start: 26-May-2023 End: 24-Jun-2023 Generic Substitution Allowed rivaroxaban 20 mg oral tablet (20 sources) Factor Xa Inhibitor Start: take 1 tablet by mouth once daily Rivaroxaban (Xarelto) 20 mg tablet Active 20 MG PO Daily January 21, 2024 12:00am Xarelto 20 20 On ce PO Daily Active sertraline 25 mg oral tablet (20 sources) Serotonin Reuptake Inhibitor Start: 04-26-2024 take 37.5 mg by mouth once daily Sertraline Active 37.5 MG PO Daily April 26, 2024 11:12am Start: 04-19-2024 sertraline 25 mg Tab Refills(s) 0 Start Date: 04/19/24 Status: Ordered Start: 01-07-2024 End: 04-26-2024 take 1 tablet by mouth once daily Sertraline Discontinued 0 .ROUTE .COMPLEX 45 January 07, 2024 10:30am April 26, 2024 11:13am TAKE 1 & 1/2 (ONE & ONE-HALF) TABLETS BY MOUTH ONCE DAILY Start: 01-07-2024 End: 01-07-2024 take 1 tablet by mouth once daily Sertraline Discontinued 0 PO Daily January 07, 2024 10:29am January 07, 2024 10:31am take 1 and 1/2 of a 25 MG tablet orally daily; Start: 01-07-2024 End: 01-07-2024 take 25 mg by mouth once daily Sertraline Discontinued 25 MG PO Daily January 07, 2024 12:00am January 07, 2024 10:30am Start: 05-26-2023 End: 06-24-2023 Zoloft 25 MG take 1 and 1/2 tablets Orally Once a day for 30 days May, Active Vitamin B12 1000 MCG (20 sources) Start: 03-07-2019 take 1 tablet by isael th once daily Vitamin B12 1000 MCG 1 tablet Orally Once a day Feb, Active Vitamin D 41019 UNIT (20 sources) take 1 capsule by mouth every week Vitamin D 25521 UNIT 1 capsule Orally once a week Active take 1 capsule by mouth once Vit lemus D 96592 UNIT 1 capsule Orally Active Completed/Discontinued Medications Medication Drug Class(es) Dates Sig (Normalized) Sig (Original) amoxicillin 875 mg / clavulanate 125 mg oral tablet (20 sources) Penicillin-class Antibacterial Start: 11-16-2023 End: 01-21-2024 take 1 tablet by mouth twice daily at mealtime Amoxicillin-Pot Clavulanate Discontinued 1 TAB PO Twice daily November 16, 2023 1:00am January 21, 2024 11:22am take with food Start: 10-02-2021 take 1 tablet by isael th twice daily at mealtime Amoxicillin-Pot Clavulanate 875-125 MG 1 tablet Orally two times a day with food for 10 day(s) Sep, Active Calcium Carbonate / vitamin D3 (1 source) End: 02-12-2022 take 2 tablets by mouth once daily CALCIUM CARBONATE/VITAMIN D3 (CALCIUM + D ORAL) Take 2 tablets by mouth once daily. 0 02/12/2022 Discontinued (Discontinued by Patient) Comment on above: Take 2 tablets by mouth once daily. cephalexin 500 mg oral capsule (5 sources) Cephalosporin Antibacterial Start: 01-21-2024 End: 04-26-2024 take 500 mg by mouth four times daily Cephalexin Discontinued 500 MG PO Four times daily 40 January 21, 2024 12:00am April 26, 2024 1:08pm Diclofenac (20 sources) Nonsteroidal Anti-inflammatory Drug Start: 02-17-2022 Voltaren 1 % apply 3-4 grams to the affected area Externally 4-5 times a day for 30 days Feb, Not-Taking/PRN Start: 02-17-2022 Voltaren 1 % a pply 3-4 grams to the affected area Externally 4-5 times a day for 30 days Feb, Not-Taking Start: 02-17-2022 Voltaren 1 % a pply 3-4 grams to the affected area Externally 4-5 times a day for 30 days Feb, Not-Taking furosemide 40 mg oral tablet (20 sources) Loop Diuretic Start: 06-06-2020 End: 05-21-2023 take 40 mg by mouth once daily in the morning Furosemide Discontinued 40 MG PO Every morning June 06, 2020 12:00am May 21, 2023 9:24pm 3 ml sodium hyaluronate 20 mg/ml prefilled syringe (4 sources) Start: 02-29-2024 End: 02-29-2024 hyaluronate sodium, stabilized syrg 3 mL (DUROLANE) hydroCHLOROthiazide 12.5 mg oral tablet (20 sources) Thiazide Diuretic Start: 06-15-2019 End: 04-15-2024 take 12.5 mg by mouth once daily in the morning Hydrochlorothiazide Discontinued 12.5 MG PO Every morning January 23, 2020 12:00am January 21, 2024 11:24am Comment on above: TAKE 1 TABLET BY ISAEL TH ONCE DAILY IN THE MORNING FOR 90 DAYS hydroCHLOROthiazide 12.5 mg / losartan potassium 50 mg oral tablet (20 sources) Thiazide Diuretic, Angiotensin 2 Receptor James Start: 04-14-2019 End: 01-23-2020 take 1 tablet by mouth once daily Losartan-Hydrochloroth iazide Discontinued 1 TAB PO Daily April 14, 2019 12:00am January 23, 2020 7:19pm Start: 06-28-2018 End: 04-15-2024 losartan-hydrochlorothiazide (HYZAAR) 50-12.5 mg per tablet 10 ml lidocaine hydrochloride 10 mg/ml injection (8 sources) Antiarrhythmic, Amide Local Anesthetic Start: 12-22-2023 End: 12-22-2023 lidocaine (PF) 10 mg/mL (1 %) 4 mL injection (XYLOCAINE) Start: 04-20-2023 End: 04-20-2023 lidocaine (PF) 10 mg/mL (1 % ) 4 mL injection (XYLOCAINE) Start: 09-03-2022 End: 09-03-2022 lidocaine (PF) 10 mg/mL (1 % ) 4 mL injection (XYLOCAINE) Start: 09-03-2022 End: 09-03-2022 lidocaine (PF) 10 mg/mL (1 % ) 4 mL injection (XYLOCAINE) Start: 05-27-2022 End: 05-27-2022 lidocaine (PF) 10 mg/mL (1 % ) 4 mL injection (XYLOCAINE) Start: 05-27-2022 End: 05-27-2022 lidocaine (PF) 10 mg/mL (1 % ) 4 mL injection (XYLOCAINE) microencapsulated potassium chloride 10 meq extended release oral tablet (20 sources) Start: 06-06-2020 End: 05-21-2023 take 10-20 mEq by mouth once daily Potassium Chloride Discontinued 10 - 20 MEQ PO Daily June 06, 2020 12:00am May 21, 2023 9:24pm take 1-2 tablets by mouth once daily at mealtime as needed K-Dur 10 meq 1-2 tabs oral qd with food prn prn Not-Taking/PRN predniSONE 20 mg oral tablet (20 sources) Start: 11-05-2023 End: 01-21-2024 take 3 tablets by mouth once daily at mealtime, then take 2 tablets by mouth once daily, then take 1 tablet by mouth once daily at mealtime Prednisone Discontinued 0 PO .with food or milk 31 05December 15, 2023 4:29pm January 21, 2024 10:08am take 3 tablets a day x3 days, 2 tabs a day x3 days and then 1 tab a day x3 days orally WITH FOOD OR MILK; Start: 10-11-2023 take 2 tablets by mo [facility] once daily at mealtime predniSONE 20 MG 2 tablets Orally qd with food or milk for 5 days Oct, Active Start: 07-27-2023 take 1 tablet by isael once daily at mealtime predniSONE 10 MG 1 tablet Orally qd with food or milk for 30 days Jul, Active Start: 07-19-2023 predniSONE 20 MG take 3 tablets Orally x3 days, then 2 tabs x3 days then 1 tab a day x3 days with food or milk for 9 days Jul, Active Start: 05-27-2023 End: 05-30-2023 take 2 tablets by mouth every twenty-four hours predniSONE 20 mg oral tablet ; 2 tab(s) orally every 24 hours -.ADOD 05/27 - .Meds to Beds Quantity: 8 Refills: 0 Ordered: 27-May-2023 Nkechi Cisneros Start: 27-May-2023 End: 30-May-2023 Generic Substitution Allowed Start: 04-15-2023 take 1 tablet by isael th every twenty-four hours predniSONE 20 MG 1 tablet Orally Once a day for 30 days Apr, Not-Taking/PRN Start: 09-30-2022 predniSONE 20 MG 2 tablets a day Orally x5 days with food or milk for 5 days Sep, Active 0.25 mg, 0.5 mg dose 1.5 ml semaglutide 1.34 mg/ml pen injector (20 sources) Start: 07-22-2021 Ozempic (0.25 or 0.5 MG/DOSE) 2 MG/1.5ML 0.25 mg for one month and then increase to 0.5 mg dose Subcutaneous weekly for 30 days Jul, Not-Taking Semaglutide (5 sources) Start: 01-21-2024 End: 04-26-2024 Semaglutide (Ozempic) 0.25 m g or 0.5 mg (2 mg/3 mL) pen injector Discontinued 0.25 MG SUBCUT Once a week January 21, 2024 12:00am April 26, 2024 1:08pm FreeTextSi.25 MG Subcutaneous once weekly; Note: Source Status: Start; Refills: 2; Qty: 3 ml; Provider: Carlito Singleton Start: 01-21-2024 Semaglutide (O zempic) 0.25 mg or 0.5 mg (2 mg/3 mL) pen injector Active 0.25 MG SUBCUT Once a week January 21, 2024 12:00am FreeTextSi.25 MG Subcutaneous once weekly; Note: Source Status: Start; Refills: 2; Qty: 3 ml; Provider: Carlito Singleton sulfamethoxazole 800 mg / trimethoprim 160 mg oral tablet (6 sources) Dihydrofolate Reductase Inhibitor Antibacterial, Sulfonamide Antimicrobial Start: 11-30-2023 End: 01-21-2024 take 1 tablet by mouth twice daily Sulfamethoxazole-Trimethoprim (Bactrim Ds) 800-160 mg tablet Discontinued 1 TAB PO Twice daily 02 07November 30, 2023 12:00am January 21, 2024 11:25am 1 ml triamcinolone acetonide 40 mg/ml injection (20 sources) Corticosteroid Start: 12-22-2023 End: 12-22-2023 triamcinolone acetonide 40 m g injection (KeNALog 40) Start: 04-20-2023 End: 04-20-2023 triamcinolone acetonide 40 m g injection (KeNALog 40) Start: 09-03-2022 End: 09-03-2022 triamcinolone acetonide 40 m g injection (KeNALog 40) Start: 09-03-2022 End: 09-03-2022 triamcinolone acetonide 40 m g injection (KeNALog 40) Start: 05-27-2022 End: 05-27-2022 triamcinolone acetonide 40 m g injection (KeNALog 40) Start: 05-27-2022 End: 05-27-2022 triamcinolone acetonide 40 m g injection (KeNALog 40) Start: 02-17-2022 Kenalog-40 Aug, 80 mg Start: 11-13-2021 Kenalog -40 mg Nov, 120 mg Start: 08-28-2021 Kenalog -40 mg Aug, 120 mg Start: 06-11-2021 Kenalog -40 mg May, 120 mg vit B complex no.12/niacin,B3, (VITAMIN B COMPLEX NO.12-NIACIN ORAL) (1 source) End: 02-12-2022 vit B complex no.12/niacin,B3, (VITAMIN B COMPLEX NO.12-NIACIN ORAL) Take by mouth. 0 02/12/2022 Discontinued (Discontinued by Patient) Comment on above: Take by mouth. vitamin b12 0.1 mg oral tablet (20 sources) Vitamin B12 Start: 04-14-2019 End: 05-21-2023 take 1 tablet by mouth once daily Cyanocobalamin (Vitamin B-12) (Vitamin B-12) 100 mcg Tablet Discontinued 100 MCG PO Daily April 14, 2019 12:00am May 21, 2023 9:24pm Start: 03-07-2019 take 1 tablet by isael th every twenty-four hours Vitamin B12 1000 MCG 1 tablet Orally Once a day Feb, Active take 1 tablet by mouth once isma y Vitamin B12 1000 mcg oral tablet ; 1 tab(s) orally once a day Quantity: 0 Refills: 0 Ordered: 22-May-2023 Deng Mabry Generic Substitution Allowed Problems Active Problems Problem Classification Problem Date Documented Da te Episodic/Chronic Allergic reactions (3 sources) Allergy status to other antibiotic agents status; Translations: [Allergy status to other drugs, medicaments and biological substances status] Onset: 05-27-2023 Episodic Anxiety disorders (20 sources) Anxiety; Translations: [Anxiety disorder, unspecified] Onset: 06-23-2021 Resolved: 03-25-2022 Chronic Asthma (20 sources) Asthma; Translations: [Unspecified asthma, uncomplicated] Onset: 09-01-2021 Resolved: 03-18-2022 Chronic Biliary tract disease (1 source) Gallstone 04-19-2024 Episodic Cardiac dysrhythmias (20 sources) Atrial fibrillation; Translations: [Unspecified atrial fibrillation] Onset: 09-01-2021 Resolved: 09-01-2021 Chronic Congestive heart failure; nonhypertensive (8 sources) Right ventricular failure; Translations: [Right heart failure, unspecified] 05-22-2023 Chronic Coronary atherosclerosis and other heart disease (1 source) Other forms of acute ischemic heart disease; Translations: [Other forms of acute ischemic heart disease] Onset: 05-27-2023 Chronic Deficiency and other anemia (2 sources) Anemia of chronic disease; Translations: [Anemia in other chronic diseases classified elsewhere] Chronic Deficiency and other anemia (1 source) Anemia in other chronic diseases classified elsewhere; Translations: [Anemia of chronic disease] Onset: 04-13-2024 Chronic Diabetes mellitus with complications (2 sources) Diabetes mellitus with complications 05-22-2023 Diabetes mellitus without complication (20 sources) Type 2 diabetes mellitus without complication; Translations: [Type 2 diabetes mellitus without complications] Onset: 07-22-2021 Resolved: 11-13-2021 Chronic Diseases of white blood cells (20 sources) Leukocytosis; Translations: [Elevated white blood cell count, unspecified] Onset: 09-01-2021 Resolved: 09-01-2021 Chronic Disorders of lipid metabolism (20 sources) Hyperlipidemia; Translations: [Hyperlipidemia, unspecified] Onset: 07-22-2021 Resolved: 03-25-2022 Chronic Epilepsy; convulsions (20 sources) Seizure disorder; Translations: [Epilepsy, unspecified, not intractable, without status epilepticus] Onset: 07-22-2021 Resolved: 07-22-2021 Chronic Essential hypertension (20 sources) Hypertensive disorder; Translations: [Essential (primary) hypertension] Onset: 07-22-2021 Resolved: 12-03-2021 Chronic Genitourinary symptoms and ill-defined conditions (2 sources) Hematuria, unspecified Onset: 09-01-2021 Resolved: 09-01-2021 Episodic Gout and other crystal arthropathies (1 source) Gout 04-19-2024 Chronic Headache; including migraine (12 sources) Tension-type headache; Translations: [Tension-type headache, unspecified, not intractable] 12-05-2021 Chronic Malaise and fatigue (20 sources) Chronic fatigue syndrome; Translations: [Chronic fatigue, unspecified] Chronic Malaise and fatigue (4 sources) Asthenia; Translations: [Weakness] 05-02-2024 Episodic Menopausal disorders (1 source) Hormone replacement therapy; Translations: [Hormone replacement therapy] Onset: 05-27-2023 Episodic Mood disorders (20 sources) Major depressive disorder, single episode, unspecified; Translations: [Depression] Onset: 11-20-2021 Resolved: 03-25-2022 Chronic Nutritional deficiencies (20 sources) Vitamin D deficiency; Translations: [Vitamin D deficiency, unspecified] Onset: 08-28-2021 Resolved: 11-13-2021 Chronic Nutritional deficiencies (2 sources) Cobalamin deficiency; Translations: [Deficiency of other specified B group vitamins] Onset: 04-13-2024 02-03-2024 Episodic Osteoarthritis (20 sources) Arthritis; Translations: [Unspecified osteoarthritis, unspecified site] Onset: 04-12-2017 Resolved: 11-13-2021 Chronic Other aftercare (1 source) Patient encounter status; Translations: [Encounter for therapeutic drug monitoring] 05-24-2023 Episodic Other aftercare (10 sources) Long-term current use of systemic steroid; Translations: [retirement (current) use of systemic steroids] Episodic Other aftercare (1 source) retirement (current) use of systemic steroids Episodic Other and ill-defined heart disease (1 source) Hemodynamic instability 05-23-2023 Chronic Other circulatory disease (12 sources) Orthostatic hypotension; Translations: [Orthostatic hypotension] 12-05-2021 Episodic Other circulatory disease (1 source) Hemodynamic instability; Translations: [Other symptoms involving cardiovascular system] 05-23-2023 Episodic Other connective tissue disease (20 sources) Fibromyalgia; Translations: [Fibromyalgia] Onset: 04-12-2017 Episodic Other connective tissue disease (12 sources) Swelling of lower limb; Translations: [Other specified soft tissue disorders] 01-23-2020 Episodic Other connective tissue disease (2 sources) Fibromyalgia; Translations: [Fibromyalgia] Onset: 05-27-2023 Episodic Other connective tissue disease (1 source) Synovial cyst of popliteal space [Solares], left knee Episodic Other connective tissue disease (1 source) Synovial cyst of knee; Translations: [Synovial cyst of popliteal space [Solares], unspecified knee] 02-04-2024 Episodic Other connective tissue disease (3 sources) Synovial cyst of popliteal space [Solares], unspecified knee; Translations: [Synovial cyst of popliteal space] 02-12-2024 Episodic Other connective tissue disease (2 sources) Rotator cuff arthropathy of right shoulder; Translations: [Unspecified rotator cuff tear or rupture of right shoulder, not specified as traumatic] 05-02-2024 Episodic Other connective tissue disease (2 sources) Unspecified rotator cuff tear or rupture of right shoulder, not specified as traumatic; Translations: [Other specified arthropathy, shoulder region] 05-02-2024 Episodic Other diseases of bladder and urethra (20 sources) Overactive bladder; Translations: [Other specified disorders of bladder] Chronic Other ear and sense organ disorders (1 source) Hearing loss 04-19-2024 Chronic Other female genital disorders (20 sources) Vaginal bleeding; Translations: [Abnormal uterine and vaginal bleeding, unspecified] Chronic Other female genital disorders (20 sources) Endometrial hyperplasia; Translations: [Endometrial hyperplasia, unspecified] Chronic Other gastrointestinal disorders (1 source) Diarrhea, unspecified; Translations: [Diarrhea, unspecified] Onset: 05-27-2023 Episodic Other hematologic conditions (20 sources) Macrocytosis; Translations: [Other specified diseases of blood and blood-forming organs] Chronic Other hematologic conditions (5 sources) Other specified diseases of blood and blood-forming organs; Translations: [Other specified diseases of blood and blood-forming organs] Onset: 09-01-2021 Resolved: 09-01-2021 Chronic Other inflammatory condition of skin (20 sources) Psoriasis; Translations: [Psoriasis, unspecified] Onset: 04-12-2017 Chronic Other inflammatory condition of skin (20 sources) Psoriatic arthritis; Translations: [Arthropathic psoriasis, unspecified] 04-19-2024 Chronic Other inflammatory condition of skin (11 sources) Arthropathic psoriasis, unspecified; Translations: [Psoriatic arthropathy] Onset: 09-01-2021 Resolved: 09-01-2021 Chronic Other inflammatory condition of skin (1 source) Psoriasis, unspecified; Translations: [Psoriasis, unspecified] Onset: 05-27-2023 Chronic Other injuries and conditions due to external causes (5 sources) Abrasion; Translations: [Other injury of unspecified body region, initial encounter] 01-21-2024 Episodic Other injuries and conditions due to external causes (2 sources) Other injury of unspecified body region, initial encounter; Translations: [Abrasion or friction burn of other, multiple, and unspecified sites, without mention of infection] 01-21-2024 Episodic Other lower respiratory disease (8 sources) Hypoxia; Translations: [Hypoxemia] 05-22-2023 Episodic Other lower respiratory disease (6 sources) Cough; Translations: [Cough] 04-26-2024 Episodic Other nervous system disorders (1 source) Other chronic pain; Translations: [Other chronic pain] Onset: 05-27-2023 Chronic Other nervous system disorders (20 sources) Nervous system symptoms; Translations: [Other abnormalities of gait and mobility] Episodic Other nervous system disorders (20 sources) Abnormal gait; Translations: [Unsteadiness on feet] 05-02-2024 Episodic Other nervous system disorders (5 sources) Impairment of balance; Translations: [Other abnormalities of gait and mobility] 01-21-2024 Episodic Other nervous system disorders (2 sources) Other abnormalities of gait and mobility; Translations: [Other symptoms involving nervous and musculoskeletal systems] 01-21-2024 Episodic Other nervous system disorders (2 sources) Unsteadiness on feet; Translations: [Abnormality of gait] 05-02-2024 Episodic Other non-traumatic joint disorders (2 sources) Multiple stiff joints; Translations: [Stiffness of unspecified joint, not elsewhere classified] Episodic Other non-traumatic joint disorders (1 source) Shoulder pain; Translations: [Pain in right shoulder] Episodic Other non-traumatic joint disorders (20 sources) Pain in right knee; Translations: [Pain in joint, lower leg] Onset: 09-11-2017 Episodic Other non-traumatic joint disorders (4 sources) Pain in unspecified knee Onset: 11-20-2021 Resolved: 03-25-2022 Episodic Other non-traumatic joint disorders (2 sources) Pain in unspecified joint Episodic Other non-traumatic joint disorders (5 sources) Pain in left knee; Translations: [Pain in joint, lower leg] 01-21-2024 Episodic Other non-traumatic joint disorders (6 sources) Pain in right shoulder; Translations: [Right shoulder pain] 04-26-2024 Episodic Other nutritional; endocrine; and metabolic disorders (20 sources) Body mass index 40+ - severely obese; Translations: [Body mass index (BMI) 40.0-44.9, adult] Chronic Other nutritional; endocrine; and metabolic disorders (20 sources) Metabolic syndrome X; Translations: [Metabolic syndrome] Chronic Other nutritional; endocrine; and metabolic disorders (1 source) Metabolic syndrome Onset: 07-22-2021 Resolved: 07-22-2021 Chronic Other nutritional; endocrine; and metabolic disorders (1 source) Body mass index (BMI) 40.0-44.9, adult; Translations: [Body mass index [BMI] 40.0-44.9, adult] Onset: 05-27-2023 Chronic Other nutritional; endocrine; and metabolic disorders (1 source) Morbid (severe) obesity due to excess calories; Translations: [Morbid (severe) obesity due to excess calories] Onset: 05-27-2023 Chronic Other screening for suspected conditions (not mental disorders or infectious disease) (6 sources) Other specified abnormal findings of blood chemistry; Translations: [Other abnormal blood chemistry] Onset: 04-13-2024 Episodic Other upper respiratory infections (4 sources) Acute sinusitis, unspecified; Translations: [Acute pharyngitis, unspecified] Onset: 10-02-2021 Resolved: 03-25-2022 Episodic Pulmonary heart disease (11 sources) Saddle embolus of pulmonary artery; Translations: [Saddle embolus of pulmonary artery without acute cor pulmonale] Onset: 05-27-2023 05-22-2023 Chronic Pulmonary heart disease (17 sources) Pulmonary embolism; Translations: [Other pulmonary embolism and infarction] Onset: 05-22-2023 05-22-2023 Episodic Residual codes; unclassified (20 sources) Obstructive sleep apnea syndrome; Translations: [Obstructive sleep apnea (adult) (pediatric)] Chronic Residual codes; unclassified (4 sources) Obstructive sleep apnea (adult) (pediatric); Translations: [Obstructive sleep apnea (adult) (pediatric)] Onset: 07-22-2021 Resolved: 11-13-2021 Chronic Residual codes; unclassified (1 source) Sleep apnea 04-19-2024 Chronic Residual codes; unclassified (20 sources) Amnesia; Translations: [Other amnesia] Episodic Residual codes; unclassified (4 sources) Edema, unspecified Onset: 09-01-2021 Resolved: 11-20-2021 Episodic Residual codes; unclassified (1 source) Acquired absence of other specified parts of digestive tract; Translations: [Acquired absence of other specified parts of digestive tract] Onset: 05-27-2023 Episodic Respiratory failure; insufficiency; arrest (adult) (1 source) Acute respiratory failure with hypoxia; Translations: [Acute respiratory failure with hypoxia] Onset: 05-27-2023 Episodic Rheumatoid arthritis and related disease (6 sources) Rheumatoid arthritis; Translations: [Rheumatoid arthritis, unspecified] 04-26-2024 Chronic Screening and history of mental health and substance abuse codes (1 source) Personal history of nicotine dependence; Translations: [Personal history of nicotine dependence] Onset: 05-27-2023 Episodic Skin and subcutaneous tissue infections (6 sources) Cellulitis and abscess of finger; Translations: [Cellulitis of unspecified finger] 11-30-2023 Episodic Spondylosis; intervertebral disc disorders; other back problems (5 sources) Degeneration of intervertebral disc; Translations: [Cervical spondylosis] 04-19-2024 Chronic Spondylosis; intervertebral disc disorders; other back problems (20 sources) Chronic low back pain; Translations: [Chronic bilateral low back pain without sciatica] Onset: 04-12-2017 Resolved: 10-29-2021 Episodic Substance-related disorders (17 sources) Tobacco dependence in remission; Translations: [Nicotine dependence, cigarettes, in remission] Onset: 04-12-2017 04-12-2017 Chronic Substance-related disorders (1 source) Opioid use, unspecified, uncomplicated Episodic Syncope (12 sources) Near syncope; Translations: [Syncope and collapse] 12-05-2021 Episodic Thyroid disorders (20 sources) Hypothyroidism; Translations: [Hypothyroidism, unspecified] Onset: 07-22-2021 Resolved: 09-01-2021 Chronic Unclassified (2 sources) PULMONARY EMBOLUS 05-22-2023 Comment on above: PULMONARY EMBOLUS Unclassified (2 sources) Body mass index [BMI] 40.0-44.9, adult 05-24-2023 Unclassified (1 source) [facility] DC 9//PE WITH RV STRAIN, GOING HOME WITH LOVENOX FOR 4-6 WEEKS, WITH PLANNED TRANS/SEE SOARIAN 05-26-2023 Comment on above: [facility] DC 9/13/PE WITH RV STRAIN, GOING HOME WITH LOVENOX FOR 4-6 WEEKS, WITH PLANNED TRANS/SEE SOARIAN Unclassified (1 source) Pulmonary embolism with acute cor pulmonale 05-22-2023 Unclassified (1 source) Anticoagulation management encounter 05-24-2023 Unclassified (1 source) Acidosis, unspecified; Translations: [Acidosis, unspecified] Onset: 05-27-2023 Unclassified (1 source) Unilateral primary osteoarthritis, right knee; Translations: [Unilateral primary osteoarthritis, right knee] Onset: 08-27-2023 Past or Other Problems Problem Classification Problem Date Documented Date Episodic/Chronic Diabetes mellitus without complication (4 sources) Hyperglycemia, unspecified; Translations: [Hyperglycemia, unspecified] Onset: 09-01-2021 Resolved: 09-01-2021 Episodic Headache; including migraine (1 source) Headache; including migraine Onset: 09-01-2021 Resolved: 09-01-2021 Immunizations and screening for infectious disease (20 sources) Anti-nuclear factor positive; Translations: [Other specified abnormal immunological findings in serum] Onset: 04-12-2017 Episodic Nonspecific chest pain (2 sources) Chest pain, unspecified; Translations: [Chest pain, unspecified] Onset: 05-21-2023 Episodic Other aftercare (18 sources) H/O: high risk medication; Translations: [Other termination clerk (current) drug therapy] Onset: 04-12-2017 Episodic Other aftercare (5 sources) Other termination clerk (current) drug therapy; Translations: [Other correction (current) drug therapy] Onset: 05-27-2023 Episodic Other connective tissue disease (19 sources) Pain of bilateral hands; Translations: [Pain in right hand] Onset: 04-12-2017 Episodic Other hematologic conditions (20 sources) ESR raised; Translations: [Elevated erythrocyte sedimentation rate] Onset: 04-12-2017 Episodic Other hematologic conditions (1 source) Elevated erythrocyte sedimentation rate; Translations: [Elevated sed rate] Onset: 04-12-2017 Episodic Other lower respiratory disease (1 source) Shortness of breath; Translations: [Shortness of breath] Onset: 05-21-2023 Episodic Other non-traumatic joint disorders (18 sources) Bilateral wrist pain; Translations: [Pain in right wrist] Onset: 06-13-2018 Episodic Other nutritional; endocrine; and metabolic disorders (18 sources) Hyperuricemia; Translations: [Hyperuricemia without signs of inflammatory arthritis and tophaceous disease] Onset: 04-12-2017 04-12-2017 Episodic Other nutritional; endocrine; and metabolic disorders (1 source) Abnormal weight gain Onset: 07-22-2021 Resolved: 07-22-2021 Episodic Other nutritional; endocrine; and metabolic disorders (1 source) Hyperuricemia without signs of inflammatory arthritis and tophaceous disease; Translations: [Hyperuricemia] Onset: 04-12-2017 Episodic Unclassified (20 sources) Lumbar pain M54.50 Onset: 11-20-2021 Resolved: 05-04-2022 Unclassified (1 source) Cough R05.9 Onset: 10-02-2021 Resolved: 10-02-2021 Unclassified (1 source) Other low back pain M54.59 Results Test Name Value Interpretation Reference Range Facility A1C with Estimated Average G luon 05-18-2024 Glucose [Mass/Vol] 143 mg/dL Normal [facility] Comment on above: Result Comment: PERF ORMED BY: [place] [address] PATHOLOGIST MEDICAL PHYSICS TEACHER RENNY PEREZ M.D. Performed By: #### C MP, CK, HS TROP, CBC, BNP #### [facility] [address] [place] [address] HbA1c (Bld) [Mass fraction] 6.6 % High 4.3-5.6 [facility] Comment on above: Result Comment: Incr eased risk for diabetes: 5.7 - 6.4 diabetes: >6.4 glycemic control for adults with diabetes: <7.0 Performed By: #### C MP, CK, HS TROP, CBC, BNP #### [facility] [address] [place] [address] Cholesterol [Mass/volume] in Serum or PlasmaOrdered By: Jaquan Richard on 05-18-2024 Cholesterol [Mass/Vol] 195 mg/dL Normal 140-200 [facility] Comment on above: Chol less than 200 m g/dl low riskChol 201-239 mg/dl borderline riskChol 240 mg/dl and greater high risk Result Comment: Chol less than 200 mg/dl low risk Chol 201-239 mg/dl borderline risk Chol 240 mg/dl and greater high risk Performed By: #### F OL, LIPID, T3F, A1C WTH eA, T4F, TSH3 #### [facility] [address] [place] [address] [place] Cholesterol in LDL Calc [Mas s/Vol]Ordered By: Jaquan Richard on 05-18-2024 Cholesterol in LDL [Mass/Vol] 108 mg/dL High 0-100 [facility] Comment on above: LDL ATP III CLASSIFI CATIONLDL less than 100 mg/dL OptimalLDL 100-129 mg/dL Near or above optimalLDL 130-159 mg/dL Borderline highLDL 160-189 mg/dL HighLDL greater than 189 mg/dL Very high Cholesterol in VLDL Calc [Ma ss/Vol]Ordered By: Jaquan Richard on 05-18-2024 Cholesterol in VLDL [Mass/Vol] 26 mg/dL [facility] Folateon 05-18-2024 Folate 15.4 ng/mL Normal >5.9 [facility] Comment on above: Result Comment: Katie te reference range: >5.9 ng/ml The WHO technical consultation on folate and vitamin b12 deficiencies has determined that folate concentrations less than 4 ng/ml are considered deficient. Performed By: #### F OL, LIPID, T3F, A1C WTH eA, T4F, TSH3 #### [facility] [address] [place] [id number] [facility] Folate [Mass/volume] in Seru m or PlasmaOrdered By: Jaquan Richard on 05-18-2024 Folate [Mass/Vol] 15.4 ng/mL >5.9 [facility] Comment on above: Folate reference ran ge: >5.9 ng/mlThe WHO technical consultation on folate and vitamin [id number] has determined that folate concentrations lessthan 4 ng/ml are considered deficient. Lipid Panelon 05-18-2024 LDL Cholesterol,Calculated 108 mg/dL High 0-100 [facility] Comment on above: Result Comment: LDL ATP III CLASSIFICATION LDL less than 100 mg/dL Optimal LDL 100-129 mg/dL Near or above optimal LDL 130-159 mg/dL Borderline high LDL 160-189 mg/dL High LDL greater than 189 mg/dL Very high Performed By: #### F OL, LIPID, T3F, A1C WTH eA, T4F, TSH3 #### [facility] [address] [place] [address] [place] Triglyceride w/Reflex 134 mg/dL Normal 0-149 [facility] Comment on above: Result Comment: TRIG ATP III CLASSIFICATION TRIG less than 150 mg/dL Normal TRIG 150-199 mg/dL Borderline high TRIG 200-500 mg/dL High TRIG greater than 500 mg/dL Very high Standard traceable to the Center for Disease Conrtrol and Prevention (CDC) test method. Performed By: #### F OL, LIPID, T3F, A1C WTH eA, T4F, TSH3 #### [facility] [address] VLDL CHOLESTEROL 26 mg/dL Normal [facility] Comment on above: Performed By: #### F OL, LIPID, T3F, A1C WTH eA, T4F, TSH3 #### [facility] [address] Serum or plasma high density lipoprotein (HDL) cholesterol measurementOrdered By: Jaquan Richard on 05-18-2024 Cholesterol in HDL [Mass/Vol] 60 mg/dL Normal 23-92 [facility] Comment on above: HDL CHOL ATP-III CLA SSIFICATION Cardiovascular RiskHDL > or equal to 60 mg/dL LOWHDL < 40 mg/dL HIGH Result Comment: HDL CHOL ATP-III CLASSIFICATION Cardiovascular Risk HDL > or equal to 60 mg/dL LOW HDL < 40 mg/dL HIGH Performed By: #### F OL, LIPID, T3F, A1C WTH eA, T4F, TSH3 #### [facility] [address] Serum or plasma total choles terol/high density lipoprotein (HDL) cholesterol mass ratOrdered By: Jaquan Richard on 05-18-2024 Cholesterol.total/Chol esterol in HDL [Mass ratio] 3.3 {ratio} Normal <5.0 [facility] Comment on above: Performed By: #### F OL, LIPID, T3F, A1C WTH eA, T4F, TSH3 #### [facility] [address] Thyrotropin [Units/volume] i n Serum or PlasmaOrdered By: Jaquan Richard on 05-18-2024 TSH Qn 1.69 m[IU]/L Normal 0.45-5.33 [facility] Comment on above: Result Comment: PERF ORMED BY: [place] [address] PATHOLOGIST MEDICAL PHYSICS TEACHER RENNY PEREZ M.D. Performed By: #### C MP, CK, HS TROP, CBC, BNP #### [facility] [address] Thyroxine (T4) free [Mass/vo lume] in Serum or PlasmaOrdered By: Jaquan Richard on 05-18-2024 Free T4 [Mass/Vol] 0.95 ng/dL Normal 0.61-1.12 [facility] Comment on above: Performed By: #### F OL, LIPID, T3F, A1C WTH eA, T4F, TSH3 #### [address] Triglyceride [Mass/volume] i n Serum or PlasmaOrdered By: Jaquan Richard on 05-18-2024 Triglyceride [Mass/Vol] 134 mg/dL 0-149 [facility] Comment on above: TRIG ATP III CLASSIF ICATIONTRIG less than 150 mg/dL NormalTRIG 150-199 mg/dL Borderline highTRIG 200-500 mg/dL High TRIG greater than 500 mg/dL Very highStandard traceable to the Center for Disease Conrtrol and Prevention (CDC) test method. Triiodothyronine (T3) Freeon 05-18-2024 Triiodothyronine (T3) Free 3.66 pg/mL Normal 2.50-3.90 [facility] Comment on above: Result Comment: PERF ORMED BY: [facility] [address] [place] [address] PATHOLOGIST MEDICAL PHYSICS TEACHER RENNY PEREZ M.D. Performed By: #### C MP, CK, HS TROP, CBC, BNP #### [address] Triiodothyronine (T3) Free [ Mass/volume] in Serum or PlasmaOrdered By: Jaquan Richard on 05-18-2024 Free T3 [Mass/Vol] 3.66 pg/mL 2.50-3.90 [facility] CNPNon 04-15-2024 JANNETN Telephone (CHANTALCARMELITA) -------- BEBA GARCIA ([id number]) 1950 F Date Time Provider Department 04/15/24 WILLIAM HOPE During your visit today, we recorded the following information about you: William Hope MD 04/15/2024 4:23 PM Addendum Please Call patient if MyChart note not read to review results/released to My Chart if tests completed at [facility]: One mildly high inflammatory test- maybe associated with being off rheumatology medication, will monitor. Stable rest of labs. Continue same daily vitamin D with food. Happy to further review and discuss at follow up visit. Continue rest of treatment plan per instructions at last office visit. Thank you. 04/13/24 high esr 44, uric acid 6.5;normal cbc, cmp, crp 0.7, vitamin D 42.4, vitamin b12-418; 04/13/24 saw pain clinic equivocal benefit of gel injections of knees, thus trial a LEFT and RIGHT knee genicular block 02/29/24 saw ortho b/l knee 3 mL hyaluronate sodium, stabilized 60 mg/3 mL 02/22/24 patient quit methotrexate due to cancer risk 02/03/24 saw rheum worsening L>R knee pain/swelling 02/12/22 high esr 35(27);NL cbc, cmp, crp 0.7, uric acid 6.1, vitamin D 53.7; Dimitry Moe MA 04/17/2024 9:53 AM Signed Spoke to pt aware of results and recommendations. Pt states she would like to get back on the mtx because she is having a lot of pain and stiffness. William Hope MD 04/17/2024 2:00 PM Signed Please call patient. Thank you for the update. Sorry to hear about your discomfort. May restart methotrexate 8tabs once a week, daily folic acid. New script sent to pharmacy. Notify office if medication change is not tolerated. Recheck nonfasting labs in 1month, orders have been placed. Hope you feel better soon! Warm regards, :) Patient's request for medication is as follows: Requested Prescriptions Signed Prescriptions Disp Refills methotrexate 2.5 mg tablet 40 tablet 11 Sig: TAKE 8 TABLETS BY MOUTH ONCE A WEEK WITH FOOD. NO ALCOHOL. HOLD IF ILL OR ON ANTIBIOTICS Authorizing Provider: WILLIAM HOPE folic acid 1 mg tablet 90 tablet 0 Sig: Take 1 tablet by mouth once daily. Authorizing Provider: WILLIAM HOPE Prescription(s) as above. Please process accordingly. MD Noy Keene Laura, RN 04/17/2024 2:22 PM Signed Pt identified by name and Pt given message below Stated understanding Will walkin for labs Deanna Ortega 05/17/2024 2:19 PM Signed Pts nurse Christin calling in requesting orders for labs to be faxed to her for the blood draw to be completed Please fax to Dimitry Moe MA 05/17/2024 2:38 PM Signed Lab orders have been faxed. Allergies As of Date: 04/15/2024 Noted Allergy Reaction CIPROFLOXACIN 04/12/2017 12 - Shortness of Breath DILANTIN (PHENYTOIN SODIUM EXTEND*09/10/2017 7 - Swelling DOXYCYCLINE 09/10/2017 5 - Intolerance Comments: mouth sores TETANUS IMMUNE GLOBULIN F(AB')2 (*09/10/2017 16 - Unknown Date Reviewed: 04/13/2024 Reviewed by: Alex Jeffries MD - Fully Assessed Reason for Visit: Results [95] Primary Visit Diagnosis:Elevated LFTs [R79.89] Other Visit Diagnoses:Inflammatory arthritis [M19.90] DENG positive [R76.8] Psoriasis [L40.9] Anemia of chronic disease [D63.8] Elevated sed rate [R70.0] Elevated C-reactive protein (CRP) [R79.82] Order(s):methotrexate 2.5 mg tabletTAKE 8 TABLETS BY MOUTH ONCE A WEEK WITH FOOD. NO ALCOHOL. HOLD IF ILL OR ON ANTIBIOTICSDisp: 40 tabletRfl: 11 folic acid 1 mg tabletTake 1 tablet by mouth once daily.Disp: 90 tabletRfl: 0 COMPREHENSIVE METABOLIC PANEL [SQCMP] Order #: [id number] FUTURE COMPLETE BLOOD COUNT [SQCBC] Order #: [id number] FUTURE SEDIMENTATION RATE, WESTERGREN [SQWSR] Order #: [id number] FUTURE C-REACTIVE PROTEIN [SQCRP] Order #: [id number] FUTURE Prescriptions as of 05/17/2024 - methotrexate 2.5 mg tablet TAKE 8 TABLETS BY MOUTH ONCE A WEEK WITH FOOD. NO ALCOHOL. HOLD IF ILL OR ON ANTIBIOTICS - folic acid 1 mg tablet Take 1 tablet by mouth once daily. - cholecalciferol, vitamin D3, 100 mcg (4,000 unit) cap Cholecalciferol (Vitamin D3) Active 4000 UNIT Oral Daily April 14, 2019 12:26pm - losartan (COZAAR) 50 mg tablet TAKE 1 TABLET BY MOUTH ONCE DAILY FOR 90 DAYS - PROAIR HFA 90 mcg/actuation inhaler - atorvastatin (LIPITOR) 10 mg tablet Take 10 mg by mouth once daily. - levothyroxine (SYNTHROID) 112 mcg tablet Take 112 mcg by mouth daily before breakfast. Medication notes this encounter METHOTREXATE SODIUM 2.5 MG TABLET >> William Hope MD 04/15/2024 4:18 PM patient quit med Problem List As Of Date 04/15/2024 Noted Resolved Inflammatory arthritis [M19.90] 04/12/2017 DENG positive [R76.8] 04/12/2017 Psoriasis [L40.9] 04/12/2017 Chronic bilateral low back pain without sciatic*04/12/2017 Bilateral hand pain [M79.641, M79.642] 04/12/2017 Cigarette (more content not included)... Normal [facility] 25(OH)D3 Nic-lori 2023 25-hydroxyvitamin D3 [Mass/Vol] 42.4 ng/mL Normal 31.0-80.0 [facility] Comment on above: Order Comment: Speci men Type: BLOOD SPECIMENOrdering Facility: [facility] Address: [address] [place] [id number] Result Comment: Clas sification of 25 [place] Vitamin D status: Deficiency/Insufficiency: < or = 30 ng/ml. Sufficiency/Optimal Levels: 31-80 ng/mL Toxicity: > 100 ng/mL. Test performed by chemiluminescent immunoassay. Performed By: #### 1 989-3 ####[facility] [id number] [place] [address] [place] Basophils Auto (Bld) [#/Vol] on 04-13-2024 Basophils (Bld) [#/Vol] 0.06 10*3/uL <0.11 [facility] Basophils/100 WBC Auto (Bld) on 04-13-2024 Basophils/100 WBC (Bld) 0.9 % [facility] Blood manual differential co mment interpretation narrativeon 04-13-2024 Manual differential comment Angel (Bld) [Interp] Auto [facility] CBC W Auto Differential pane l (Bld)on 04-13-2024 Basophils (Bld) [#/Vol] 0.06 10*3/uL Normal <0.11 [facility] Comment on above: Order Comment: Speci men Type: BLOOD SPECIMENOrdering Facility: [facility] Address: [address] [place] [address] Performed By: #### 5 7021-8, 4536-7 ####[facility] [id number] [address] [place] Basophils/100 WBC (Bld) 0.9 % Normal [facility] Comment on above: Order Comment: Speci men Type: BLOOD SPECIMENOrdering Facility: [facility] Address: [address] [place] [address] Performed By: #### 5 7021-8, 4537-7 ####[facility] [id number] [place] [address] [place] Differential cell count method Nom (Bld) Auto Normal [facility] Comment on above: Order Comment: Speci men Type: BLOOD SPECIMENOrdering Facility: [facility] Address: [address] [place] [address] Performed By: #### 5 7021-8, 4537-7 ####[facility] [id number] [place] [address] [place] Eosinophils (Bld) [#/Vol] 0.33 10*3/uL Normal <0.46 [facility] Comment on above: Order Comment: Speci men Type: BLOOD SPECIMENOrdering Facility: [facility] Address: [address] [place] [address] Performed By: #### 5 7021-8, 7-7 ####[facility] [id number] [place] [address] [place] Eosinophils/100 WBC (Bld) 4.7 % Normal [facility] Comment on above: Order Comment: Speci men Type: BLOOD SPECIMENOrdering Facility: [facility] Address: [address] [place] [address] Performed By: #### 5 7021-8, 4536-7 ####[facility] [id number] [place] [address] [place] Erythrocyte distribution width (RBC) [Ratio] 14.0 % Normal 11.5-15.0 [facility] Comment on above: Order Comment: Speci men Type: BLOOD SPECIMENOrdering Facility: [facility] Address: [address] [place] [address] Performed By: #### 5 7021-8, 7-7 ####[facility] [id number] [place] [address] [place] Hematocrit (Bld) [Volume fraction] 46.0 % Normal 36.0-46.0 [facility] Comment on above: Order Comment: Speci men Type: BLOOD SPECIMENOrdering Facility: [facility] Address: [address] [place] [address] Performed By: #### 5 7021-8, 7-7 ####[facility] [id number] [place] [address] [place] Hemoglobin (Bld) [Mass/Vol] 14.6 g/dL Normal 11.5-15.5 [facility] Comment on above: Order Comment: Speci men Type: BLOOD SPECIMENOrdering Facility: [facility] Address: [address] [place] [address] Performed By: #### 5 7021-8, 4536-7 ####[facility] [id number] [place] [address] [place] Immature granulocytes (Bld) [#/Vol] 0.04 10*3/uL Normal <0.10 [facility] Comment on above: Order Comment: Speci men Type: BLOOD SPECIMENOrdering Facility: [facility] Address: [address] [place] [address] Performed By: #### 5 7021-8, 4536-7 ####[facility] [id number] [place] [address] [place] Immature granulocytes/100 WBC (Bld) 0.6 % Normal [facility] Comment on above: Order Comment: Speci men Type: BLOOD SPECIMENOrdering Facility: [facility] Address: [address] [place] [address] Performed By: #### 5 7021-8, 7 ####[facility] [id number] [place] [address] [place] Lymphocytes (Bld) [#/Vol] 1.79 10*3/uL Normal 1.00-4.00 [facility] Comment on above: Order Comment: Speci men Type: BLOOD SPECIMENOrdering Facility: [facility] Address: [address] [place] [address] Performed By: #### 5 7021-8, 4536-7 ####[facility] [id number] [place] [address] [place] Lymphocytes/100 WBC (Bld) 25.6 % Normal [facility] Comment on above: Order Comment: Speci men Type: BLOOD SPECIMENOrdering Facility: [facility] Address: [address] [place] [address] Performed By: #### 5 7021-8, 4537-7 ####[facility] [id number] [place] [address] [place] MCH (RBC) [Entitic mass] 31.6 pg Normal 26.0-34.0 [facility] Comment on above: Order Comment: Speci men Type: BLOOD SPECIMENOrdering Facility: [facility] Address: [address] [place] [address] Performed By: #### 5 7021-8, 4537-7 ####[facility] [id number] [place] [address] [place] MCHC (RBC) [Mass/Vol] 31.7 g/dL Normal 30.5-36.0 [facility] Comment on above: Order Comment: Speci men Type: BLOOD SPECIMENOrdering Facility: [facility] Address: [address] [place] [address] Performed By: #### 5 7021-8, 4537-7 ####[facility] [id number] [place] [address] [place] MCV (RBC) [Entitic vol] 99.6 fL Normal 80.0-100.0 [facility] Comment on above: Order Comment: Speci men Type: BLOOD SPECIMENOrdering Facility: [facility] Address: [address] [place] [address] Performed By: #### 5 7021-8, 4537-7 ####[facility] [id number] [place] [address] [place] Monocytes (Bld) [#/Vol] 1.02 10*3/uL High <0.87 [facility] Comment on above: Order Comment: Speci men Type: BLOOD SPECIMENOrdering Facility: [facility] Address: [address] [place] [address] Performed By: #### 5 7021-8, 4536-7 ####[facility] [id number] [place] [address] [place] Monocytes/100 WBC (Bld) 14.6 % Normal [facility] Comment on above: Order Comment: Speci men Type: BLOOD SPECIMENOrdering Facility: [facility] Address: [address] [place] [address] Performed By: #### 5 7021-8, 4536-7 ####[facility] [id number] [place] [address] [place] Neutrophils (Bld) [#/Vol] 3.74 10*3/uL Normal 1.45-7.50 [facility] Comment on above: Order Comment: Speci men Type: BLOOD SPECIMENOrdering Facility: [facility] Address: [address] [place] [address] Performed By: #### 5 7021-8, 4536-7 ####[facility] [id number] [place] [address] [place] Neutrophils/100 WBC (Bld) 53.6 % Normal [facility] Comment on above: Order Comment: Speci men Type: BLOOD SPECIMENOrdering Facility: [facility] Address: [address] [place] [address] Performed By: #### 5 7021-8, 4536-7 ####[facility] [id number] [place] [address] [place] Nucleated RBC (Bld) [#/Vol] 10*3/uL Normal <0.01 [facility] Comment on above: Order Comment: Speci men Type: BLOOD SPECIMENOrdering Facility: [facility] Address: [address] [place] [address] Performed By: #### 5 7021-8, 7-7 ####[facility] [id number] [place] [address] [place] Nucleated RBC/100 WBC (Bld) [Ratio] 0.0 /100 WBC Normal [facility] Comment on above: Order Comment: Speci men Type: BLOOD SPECIMENOrdering Facility: [facility] Address: [address] [place] [address] Performed By: #### 5 7021-8, 4537-7 ####[facility] [facility] [id number] [place] [address] [place] Platelet mean volume (Bld) [Entitic vol] 10.5 fL Normal 9.0-12.7 [facility] Comment on above: Order Comment: Speci men Type: BLOOD SPECIMENOrdering Facility: [facility] Address: [address] [place] [address] Performed By: #### 5 7021-8, 4537-7 ####[facility] LABIA [id number] [place] [address] [place] Platelets (Bld) [#/Vol] 301 10*3/uL Normal 150-400 [facility] Comment on above: Order Comment: Speci men Type: BLOOD SPECIMENOrdering Facility: [facility] Address: [address] [place] [address] Performed By: #### 5 7021-8, 7-7 ####[facility] LABIA [id number] [place] [address] [place] RBC (Bld) [#/Vol] 4.62 10*6/uL Normal 3.90-5.20 [facility] Comment on above: Order Comment: Speci men Type: BLOOD SPECIMENOrdering Facility: [facility] Address: [address] [place] [address] Performed By: #### 5 7021-8, 4537-7 ####[facility] LABCLIA [id number] [place] [address] [place] WBC (Bld) [#/Vol] 6.98 10*3/uL Normal 3.70-11.00 [facility] Comment on above: Order Comment: Speci men Type: BLOOD SPECIMENOrdering Facility: [facility] Address: [address] [place] [address] Performed By: #### 5 7021-8, 4537-7 ####[facility] LABCLIA [id number] [id number] [place] [address] [place] CNOVon 04-13-2024 CNOV Office Visit (PAINLN ) -------- BEBA GARCIA ([id number]) 1950 F Date Time Provider Department 04/13/24 11:30 AM ALEX JEFFRIES PAINLN During your visit today, we recorded the following information about you: Pulse Height 67/minute 1.613 m Alex Jeffries MD 04/21/2024 4:03 PM Signed SUBJECTIVE: Ms. Garcia a 73 year old female referred by Jalil Schilling DO presents with the complaint of bilateral knee pain. Patient reports the date of onset of symptoms as years and describes the location of the pain as both knees. The pain is chronic, aching, burning, cramping, sharp, and shooting, and rated as moderate, without radiation. PAIN RATIO: (back:leg): left knee is greater Patient reports that pain is increased by standing and walking and relieved by sitting. Ambulation distance (before needing to sit): not at all Standing time (before needing to sit): not at all OTHER BACK PAIN SYMPTOMS: NIGHT PAIN: Yes - unable to stay asleep PARESTHESIA: No POOR SLEEP: Yes BOWEL/BLADDER INCONTINENCE OR RETENTION: No ACTIVITY LIMITATIONS: ADLs PREVIOUS TREATMENTS LASTING SIX WEEKS IN THE LAST SIX MONTHS Active conservative therapy lasting 6 weeks in the last six months (see below) 1. Physical therapy: No 2. Home exercise program after PT: 3. Occupational therapy: No 4. A physician supervised home exercise program (HEP): No 5. Pants Busheler: No Passive conservative therapy lasting 6 weeks in the last six months (see below) 1. Medical devises: No 2. Acupuncture: No 3. Tens unit: No 4. Prescription pain medication: 5. 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 . MUSCULOSKELETAL: SKIN: Negative for lesions, rash, and itching PSYCH: Negative for sleep disturbance, mood disorder and recent psychosocial stressors. HEMATOLOGY/LYMPHOLOGY Negative for prolonged bleeding, bruising easily or swollen nodes ENDOCRINE: Negative for cold or heat intolerance, polyuria, polydipsia and goiter PAST MEDICAL HISTORY No date: Anxiety No date: Arthritis No date: Asthma No date: Borderline diabetes mellitus No date: COPD (chronic obstructive pulmonary disease) (HCC) No date: Fibromyalgia No date: High cholesterol No date: HTN (hypertension) No date: Hyperlipidemia No date: Post-menopausal bleeding No date: Thyroid disease PAST MEDICAL HISTORY No date: Anxiety No date: Arthritis No date: Asthma No date: Borderline diabetes mellitus No date: COPD (chronic obstructive pulmonary disease) (HCC) No date: Fibromyalgia No date: High cholesterol No date: HTN (hypertension) No date: Hyperlipidemia No date: Post-menopausal bleeding No date: Thyroid disease PAST SURGICAL HISTORY No date: ANESTH, SECTION Comment: x3 No date: APPENDECTOMY HX 04/18/2019: HYSTEROSCOPY No date: PAST SURGICAL HISTORY OF Comment: cervical spine surgery. No date: TONSILLECTOMY AND ADENOIDECTOMY HX EXAMINATION: Pulse 67 Ht 161.3 cm (5' 3.5 ) SpO2 97% BMI 43.59 kg/m? [id number]-[id number] OR: Scoliosis: No Pelvic Tilt: No Leg Length discrepancy: LATERAL: Cervical Lordosis: No Thoracic Kyphosis: No Lumbar Lordosis: No RANGE OF MOTION CERVICAL: Flexion: Not Limited Extension: Not Limited Rotation L: Not Limited Rotation R: Not Limited Side Bending R: Not Limited Side Bending L: Not Limited LUMBAR: Flexion: Not Limited Extension: Not Limited Rotation L: Not Limited Rotation R: Not Limited Side Bending R: Not Limited Side Bending L: Not Limited FINGER TO FLOOR DISTANCE: na Gait: antalgic REFLEXES R L symetric STRENGTH (0-5): R L no focal deficits SLR: Seated - Right Negative, Left Negative HIP: ROM without pain in flexion, and internal rotation. JENNY TEST 1) Tenderness: Appropriate 2) Simulation/Axial Loading/ROT: Appropriate 3) Distraction: Seated SLR: Appropriate 4) Reqional Disturbances: Appropriate 5) Overreaction: Appropriate PHYSICAL EXAMINATION: GENERAL APPEARANCE: Well appearing, in no acute distress SKIN: Skin color, texture, turgor normal. No rashes or lesions. HEAD: Normocephalic. No masses, lesions, tenderness or abnormalities EYES: Conjunctivae/corneas clear. Pupils are equally round and reactive to light. Extraocular movements are intact. NECK: Neck supple, no adenopathy; thyroid symmetri (more content not included)... Normal [facility] CRP SerPl-mCncon 04-13-2024 CRP [Mass/Vol] 0.7 mg/dL Normal <0.9 [facility] Comment on above: Order Comment: Speci men Type: BLOOD SPECIMENOrdering Facility: [facility] Address: [address] [place] [address] Performed By: #### 2 4323-8, 308-, 2132-05, 1988-01 ####[facility] LABCLIA [id number] [facility] [id number] [address] [place] Comprehensive metabolic 2000 panelon 04-13-2024 Albumin [Mass/Vol] 3.7 g/dL Low 3.9-4.9 [facility] Comment on above: Order Comment: Speci men Type: BLOOD SPECIMENOrdering Facility: [facility] Address: [address] [place] [address] Performed By: #### 2 4323-8, 3083-09, 2132-05, 1988-01 ####[facility] LABCLIA [id number] [address] [address] [place] ALP [Catalytic activity/Vol] 55 U/L Normal 34-123 [facility] Comment on above: Order Comment: Speci men Type: BLOOD SPECIMENOrdering Facility: [facility] Address: [address] [place], [place] [address] Performed By: #### 2 432-8, 3083-09, 2132-05, 1988-01 ####[facility] LABCLIA [id number] [address] [address] [place] ALT [Catalytic activity/Vol] 24 U/L Normal 7-38 [facility] Comment on above: Order Comment: Speci men Type: BLOOD SPECIMENOrdering Facility: [facility] Address: [address] [place] [address] Performed By: #### 2 4323-8, 3083-09, 2132-05, 1988-01 ####[facility] LABCLIA [id number] [address] [address] [place] Anion gap [Moles/Vol] 12 mmol/L Normal 8-15 [facility] Comment on above: Order Comment: Speci men Type: BLOOD SPECIMENOrdering Facility: [facility] Address: [address] [place] [address] Performed By: #### 2 4323-8, 3083-09, 2132-05, 1988-01 ####[facility] LABCLIA [id number] [address] [address] [place] AST [Catalytic activity/Vol] 33 U/L Normal 13-35 [facility] Comment on above: Order Comment: Speci men Type: BLOOD SPECIMENOrdering Facility: [facility] Address: [address] [place] [address] Performed By: #### 2 4323-8, 3083-09, 2132-05, 1988-01 ####[facility] LABCLIA [id number] [address] [address] [place] Bilirubin [Mass/Vol] 0.2 mg/dL Normal 0.2-1.3 [facility] Comment on above: Order Comment: Speci men Type: BLOOD SPECIMENOrdering Facility: [facility] Address: [address] [place] [address] Performed By: #### 2 4323-8, 3083-09, 2132-05, 1988-01 ####[facility] LABCLIA [id number] [address] [address] [place] Calcium [Mass/Vol] 9.4 mg/dL Normal 8.5-10.2 [facility] Comment on above: Order Comment: Speci men Type: BLOOD SPECIMENOrdering Facility: [facility] Address: [address] [place] [address] Performed By: #### 2 4323-8, 3083-09, 2132-05, 1988-01 ####[facility] LABCLIA [id number] [place] [id number] [place] Chloride [Moles/Vol] 102 mmol/L Normal 98-107 [facility] Comment on above: Order Comment: Speci men Type: BLOOD SPECIMENOrdering Facility: [facility] Address: [address] [place], [place] [address] Performed By: #### 2 4323-8, 3083-09, 1988-01 ####[facility] LABCLIA [id number] [address] [address] [place] CO2 [Moles/Vol] 27 mmol/L Normal 22-30 [facility] Comment on above: Order Comment: Speci men Type: BLOOD SPECIMENOrdering Facility: [facility] Address: [address] [place], [place] [address] Performed By: #### 2 4323-8, 30812-12, 2132-05, 1988-01 ####[facility] LABCLIA [id number] [address] [address] [place] Creatinine [Mass/Vol] 0.76 mg/dL Normal 0.58-0.96 [facility] Comment on above: Order Comment: Oumar nye Type: BLOOD SPECIMENOrdering Facility: [facility] Address: [address] [place] [id number] Performed By: #### 2 4323-8, 3083-1, 2132-05, 1988-01 ####[facility] LABIA [id number] [place] [id number] [place] Creatinine and Glomerular filtration rate.predicted panel (S/P/Bld) 83 mL/min/1.73m??? Normal >=60 [facility] Comment on above: Order Comment: Oumar nye Type: BLOOD SPECIMENOrdering Facility: [facility] Address: [address] [place] [address] Result Comment: Lolis mated Glomerular Filtration Rate (eGFR) is calculated using the 2020 CKD-EPI creatinine equation. This equation utilizes serum creatinine, sex, and age as parameters. The creatinine assay has traceable calibration to isotope dilution-mass spectrometry. Refer to KDIGO guidelines for clinical interpretation. In patients with unstable renal function, e.g. those with acute kidney injury, the eGFR may not accurately reflect actual GFR. Performed By: #### 2 4323-8, 3083-, 2132-05, 1988-01 ####[facility] LABIA [id number] [place] [id number] [place] Glucose [Mass/Vol] 95 mg/dL Normal 74-99 [facility] Comment on above: Order Comment: Oumar popeye Type: BLOOD SPECIMENOrdering Facility: [facility] Address: [address] [place] [address] Result Comment: The [place] Diabetes [employer] (ADA) provides guidance for cutoff values for fasting glucose and random glucose. The ADA defines fasting as no caloric intake for at least 8 hours. Fasting plasma glucose results between 100 to 125 mg/dL indicate increased risk for diabetes (prediabetes). Fasting plasma glucose results greater than or equal to 126 mg/dL meet the criteria for diagnosis of diabetes. In the absence of unequivocal hyperglycemia, results should be confirmed by repeat testing. In a patient with classic symptoms of hyperglycemia or hyperglycemic crisis, random plasma glucose results greater than or equal to 200 mg/dL meet the criteria for diagnosis of diabetes. Reference: Standards of Medical Care in Diabetes 2016, [place] Diabetes Association. Diabetes Care. 2016.39(Suppl 1). Performed By: #### 2 4323-8, 3083-09, 1988-01 ####[facility] LABCLIA [id number] [address] [address] [place] Potassium [Moles/Vol] 4.4 mmol/L Normal 3.7-5.1 [facility] Comment on above: Order Comment: Speci men Type: BLOOD SPECIMENOrdering Facility: [facility] Address: [address] [place] [address] Performed By: #### 2 4323-8, 3083-09, 1988-01 ####[facility] LABIA [id number] [place] [id number] [place] Protein [Mass/Vol] 6.5 g/dL Normal 6.3-8.0 [facility] Comment on above: Order Comment: Savii popeye Type: BLOOD SPECIMENOrdering Facility: [facility] Address: [address] [place], [place] [address] Performed By: #### 2 4323-8, 3083-09, 1988-01 ####[facility] LABCLIA [id number] [address] [address] [place] Sodium [Moles/Vol] 141 mmol/L Normal 136-144 [facility] Comment on above: Order Comment: Speci men Type: BLOOD SPECIMENOrdering Facility: [facility] Address: [address] [place], [place] [address] Performed By: #### 2 4323-8, 30812-12, 1988-01 ####[facility] LABCLIA [id number] [place] [address] [place] Urea nitrogen [Mass/Vol] 11 mg/dL Normal 7-21 [facility] Comment on above: Order Comment: Speci men Type: BLOOD SPECIMENOrdering Facility: [facility] Address: [address] [place] [address] Performed By: #### 2 4323-8, 3084-1, 2132-9, 1988-01 ####[facility] [id number] [place] [address] [place] ESR Westergren method (Bld) [Velocity]on 04-13-2024 ESR (Bld) [Velocity] 44 mm/h High 0-20 [facility] Comment on above: Order Comment: Speci men Type: BLOOD SPECIMENOrdering Facility: [facility] Address: [address] [place] [address] Performed By: #### 5 7021-8, 4537-7 ####[facility] [id number] [place] [address] [place] Eosinophils/100 WBC Auto (Bl d)on 04-13-2024 Eosinophils/100 WBC (Bld) 4.7 % [facility] Erythrocyte distribution wid th Auto (RBC) [Ratio]on 04-13-2024 Erythrocyte distribution width (RBC) [Ratio] 14.0 % 11.5-15.0 [facility] Hematocrit Auto (Bld) [Volum e fraction]on 04-13-2024 Hematocrit (Bld) [Volume fraction] 46.0 % 36.0-46.0 [facility] Hemoglobin [Mass/volume] in Bloodon 04-13-2024 Hemoglobin (Bld) [Mass/Vol] 14.6 g/dL 11.5-15.5 [facility] Laboratory - Chemistry and C hemistry - challengeon 04-13-2024 Albumin [Mass/Vol] 3.7 g/dL Low 3.9-4.9 [facility] ALP [Catalytic activity/Vol] 55 U/L 34-123 [facility] ALT [Catalytic activity/Vol] 24 U/L 7-38 [facility] AST [Catalytic activity/Vol] 33 U/L 13-35 [facility] Bilirubin [Mass/Vol] 0.2 mg/dL 0.2-1.3 [facility] Calcium [Mass/Vol] 9.4 mg/dL 8.5-10.2 [facility] Chloride [Moles/Vol] 102 mmol/L 98-107 [facility] CO2 [Moles/Vol] 27 mmol/L 22-30 [facility] Cobalamin (Vitamin B12) [Mass/Vol] 518 pg/mL 232-1245 [facility] Creatinine [Mass/Vol] 0.76 mg/dL 0.58-0.96 [facility] Glucose [Mass/Vol] 95 mg/dL 74-99 [facility] Comment on above: The [place] Diabete s Association (ADA) provides guidance for cutoff values for fasting glucose and random glucose. The ADA defines fasting as no caloric intake for at least 8 hours. Fasting plasma glucose results between 100 to 125 mg/dL indicate increased risk for diabetes (prediabetes).Fasting plasma glucose results greater than or equal to 126 mg/dL meet the criteria for diagnosis of diabetes. In the absence of unequivocal hyperglycemia, results should be confirmed by repeat testing. In a patient with classic symptoms of hyperglycemia or hyperglycemic crisis, random plasma glucose results greater than or equal to 200 mg/dL meet the criteria for diagnosis of diabetes.Reference: Standards of Medical Care in Diabetes 2016, [place] Diabetes [employer]. Diabetes Care. 2016.39(Suppl 1). Potassium [Moles/Vol] 4.4 mmol/L 3.7-5.1 [facility] Sodium [Moles/Vol] 141 mmol/L 136-144 [facility] Urate [Mass/Vol] 6.5 mg/dL 2.5-6.6 [facility] Urea nitrogen [Mass/Vol] 11 mg/dL 7-21 [facility] Laboratory - Hematology and Cell countson 04-13-2024 Eosinophils (Bld) [#/Vol] 0.33 10*3/uL <0.46 [facility] ESR (Bld) [Velocity] 44 mm/h High 0-20 [facility] Immature granulocytes (Bld) [#/Vol] 0.04 10*3/uL <0.10 [facility] Immature granulocytes/100 WBC (Bld) 0.6 % [facility] Leukocytes [#/volume] correc minoo for nucleated erythrocytes in Blood by Automated counon 04-13-2024 WBC corrected for nucl RBC Auto (Bld) [#/Vol] 6.98 k/uL 3.70-11.00 [facility] Lymphocytes Auto (Bld) [#/Vo l]on 04-13-2024 Lymphocytes (Bld) [#/Vol] 1.79 10*3/uL 1.00-4.00 [facility] Lymphocytes/100 WBC Auto (Bl d)on 04-13-2024 Lymphocytes/100 WBC (Bld) 25.6 % [facility] MCH Auto (RBC) [Entitic mass ]on 04-13-2024 MCH (RBC) [Entitic mass] 31.6 pg 26.0-34.0 [facility] MCHC Auto (RBC) [Mass/Vol]on 04-13-2024 MCHC (RBC) [Mass/Vol] 31.7 g/dL 30.5-36.0 [facility] MCV Auto (RBC) [Entitic vol] on 04-13-2024 MCV (RBC) [Entitic vol] 99.6 fL 80.0-100.0 [facility] Monocytes Auto (Bld) [#/Vol] on 04-13-2024 Monocytes (Bld) [#/Vol] 1.02 10*3/uL High <0.87 [facility] Monocytes/100 WBC Auto (Bld) on 04-13-2024 Monocytes/100 WBC (Bld) 14.6 % [facility] Neutrophils Auto (Bld) [#/Vo l]on 04-13-2024 Neutrophils (Bld) [#/Vol] 3.74 10*3/uL 1.45-7.50 [facility] Neutrophils/100 WBC Auto (Bl d)on 04-13-2024 Neutrophils/100 WBC (Bld) 53.6 % [facility] No Panel Informationon 04-13 C-Reactive Protein, Quantitative 0.7 mg/dL <0.9 [facility] Estimated GFR (CKD-EPI) 83 mL/min/1.73m??? >=60 [facility] Comment on above: Estimated Glomerular Filtration Rate (eGFR) is calculated using the 2020 CKD-EPI creatinine equation. This equation utilizes serum creatinine, sex, and age as parameters. The creatinine assay has traceable calibration to isotope dilution-mass spectrometry. Refer to KDIGO guidelines for clinical interpretation. In patients with unstable renal function, e.g. those with acute kidney injury, the eGFR may not accurately reflect actual GFR. Nucleated RBC Auto (Bld) [#/ Vol]on 04-13-2024 Nucleated RBC (Bld) [#/Vol] 10*3/uL <0.01 [facility] Nucleated erythrocytes [Pres ence] in Blood by Automated counton 04-13-2024 Nucleated RBC Auto Ql (Bld) 0.0 /100{WBC} [facility] Platelet mean volume Auto (B ld) [Entitic vol]on 04-13-2024 Platelet mean volume (Bld) [Entitic vol] 10.5 fL 9.0-12.7 [facility] Platelets Auto (Bld) [#/Vol] on 04-13-2024 Platelets (Bld) [#/Vol] 301 10*3/uL 150-400 [facility] Protein [Mass/volume] in Ser um or Plasmaon 04-13-2024 Protein [Mass/Vol] 6.5 g/dL 6.3-8.0 [facility] RBC Auto (Bld) [#/Vol]on RBC (Bld) [#/Vol] 4.62 10*6/uL 3.90-5.20 [facility] Serum or plasma anion gap de terminationon 04-13-2024 Anion gap [Moles/Vol] 12 mmol/L 8-15 [facility] Serum or plasma calcidiol me asurement (mass/volume)on 04-13-2024 25-hydroxyvitamin D3 [Mass/Vol] 42.4 ng/mL 31.0-80.0 [facility] Comment on above: Classification of 25 [place] Vitamin D status: Deficiency/Insufficiency: < or = 30 ng/ml.Sufficiency/Optimal Levels: 31-80 ng/mLToxicity: > 100 ng/mL. Test performed by chemiluminescent immunoassay. Urate [facility] 4 Urate [Mass/Vol] 6.5 mg/dL Normal 2.5-6.6 [facility] Comment on above: Order Comment: Speci men Type: BLOOD SPECIMENOrdering Facility: [facility] Address: [address] [place] [address] Performed By: #### 2 4323-8, 308-, 2132-05, 1988-01 ####[facility] [id number] [place] [address] [place] Vit B12 [facility] 024 Cobalamin (Vitamin B12) [Mass/Vol] 518 pg/mL Normal 232-1245 [facility] Comment on above: Order Comment: Speci men Type: BLOOD SPECIMENOrdering Facility: [facility] Address: [address] [place] [address] Performed By: #### 2 4323-8, 30812-12, 2132-05, 1988-01 ####[facility] LABIA [id number] [place] [address] [place] Outside Records Officeon Outside Records Office [id number]#[id number] FF Normal [facility] Radiology Outside Office Engineering Inspection Assistant yon 03-08-2024 Radiology Outside Office Copy [id number]#[id number] FF Normal [facility] Referrals Officeon 4 Referrals Office [id number]#[id number] FF Normal [facility] CNOVon 02-29-2024 CNOV Office Visit (LOORRM ) -------- BEBA GARCIA ([id number]) 1950 F Date Time Provider Department 02/29/24 2:00 PM JALIL KIRAN LOORRM During your visit today, we recorded the following information about you: Jalil Kiran DO 02/29/2024 2:27 PM Signed Patient presents for a bilateral knee durolane injection. Large Joint Arthro/Inj: bilateral knee joints Informed Consent Consent Obtained: Verbal [place] Protocol A moment to CARE was completed. SIGN IN Personnel directly involved with the procedure wore the appropriate PPE. Special Equipment: N/A Patient/Surrogate Stated/Verified: Patient name, Date of , Relevant allergies and Intended procedure TIME OUT Intended patient and procedure match the source document(s). Relevant labs, photos, and/or imaging studies have been reviewed. Correct side/site marked and visible. Medications required for procedure verified. No fire risk assessment and interventions applicable. No implant(s) inserted. 02/29/2024 2:27 PM The procedure site was prepped in the usual sterile fashion. Site: bilateral knee joints Medications (Right): 3 mL hyaluronate sodium, stabilized 60 mg/3 mL Medications (Left): 3 mL hyaluronate sodium, stabilized 60 mg/3 mL Outcome: Tolerated well, no immediate complications Post-injection instructions were reviewed with the patient and the patient voiced understanding of these instructions. SIGN OUT All instruments, equipment, possible retained foreign bodies accounted for. Post-procedure follow-up management communicated and Plan of Care Visit completed when applicable (M17.0) Primary osteoarthritis of both knees (primary encounter diagnosis) Jalil Kiran DO 02/29/2024 Referring Provider: JALIL KIRAN [[id number]] Allergies As of Date: 02/29/2024 Noted Allergy Reaction CIPROFLOXACIN 04/12/2017 12 - Shortness of Breath DILANTIN (PHENYTOIN SODIUM EXTEND*09/10/2017 7 - Swelling DOXYCYCLINE 09/10/2017 5 - Intolerance Comments: mouth sores TETANUS IMMUNE GLOBULIN F(AB')2 (*09/10/2017 16 - Unknown Date Reviewed: 02/29/2024 Reviewed by: Jalil Kiran DO - Fully Assessed Reason for Visit: Knee Pain [132] Knee Pain [132] Primary Visit Diagnosis:Primary osteoarthritis of both knees [M17.0] Order(s):CONSULT TO PAIN MGT [19991219] Order #: [id number]: 1 FUTURE Large Joint Arthro/Inj: bilateral knee joints [SHK257] Order #: [id number] [] hyaluronate sodium, stabilized syrg 3 mL (DUROLANE)Disp: Rfl: [] hyaluronate sodium, stabilized syrg 3 mL (DUROLANE)Disp: Rfl: Prescriptions as of 02/29/2024 - folic acid 1 mg tablet Take 1 tablet by mouth once daily - methotrexate 2.5 mg tablet TAKE 10 TABLETS BY MOUTH ONCE A WEEK WITH FOOD. NO ALCOHOL. HOLD IF ILL OR ON ANTIBIOTICS - cholecalciferol, vitamin D3, 100 mcg (4,000 unit) cap Cholecalciferol (Vitamin D3) Active 4000 UNIT Oral Daily April 14, 2019 12:26pm - hydroCHLOROthiazide (HYDRODIURIL, ESIDRIX) 12.5 mg tablet TAKE 1 TABLET BY MOUTH ONCE DAILY IN THE MORNING FOR 90 DAYS - losartan (COZAAR) 50 mg tablet TAKE 1 TABLET BY MOUTH ONCE DAILY FOR 90 DAYS - PROAIR HFA 90 mcg/actuation inhaler - losartan-hydrochlorothia zide (HYZAAR) 50-12.5 mg per tablet - atorvastatin (LIPITOR) 10 mg tablet Take 10 mg by mouth once daily. - HYDROcodone-Acetaminophe n (VICODIN) 5-300 mg tab Take by mouth as needed. - levothyroxine (SYNTHROID) 112 mcg tablet Take 112 mcg by mouth daily before breakfast. - ALPRAZolam (XANAX) 0.5 mg tablet Take 0.5 mg by mouth twice daily as needed. - PARoxetine (PAXIL) 20 mg tablet Take 20 mg by mouth once daily. Problem List As Of Date 02/29/2024 Noted Resolved Inflammatory arthritis [M19.90] 04/12/2017 DENG positive [R76.8] 04/12/2017 Psoriasis [L40.9] 04/12/2017 Chronic bilateral low back pain without sciatic*04/12/2017 Bilateral hand pain [M79.641, M79.642] 04/12/2017 Cigarette nicotine dependence in remission [F17*04/12/2017 Elevated sed rate [R70.0] 04/12/2017 Hyperuricemia [E79.0] 04/12/2017 Fibromyalgia [M79.7] 04/12/2017 Long-term use of high-risk medication [Z79.899] 04/12/2017 Chronic pain of both knees [M25.561, M25.562, G*09/11/2017 Primary osteoarthritis of knees, bilateral [M17*09/20/2017 Bilateral wrist pain [M25.531, M25.532] 06/13/2018 Prescriptions ordered this encounter Disp Refills Start End HYALURONATE SODIUM, STABILIZED 60 MG* 02/29/2024 02/29/2024 Route: Inj-ORTHO HYALURONATE SODIUM, STABILIZED 60 MG* 02/29/2024 02/29/2024 Route: Inj-ORTHO Encounter Status:Closed by JALIL KIRAN on 02/29/24 [facility] Large Joint Arthro/Inj: bila teral knee jointson 02-29-2024 Jalil Kiran, DO 02/29/2024 2:27 PM Large Joint Arthro/Inj: bilateral knee joints Informed Consent Consent Obtained: Verbal [place] Protocol A moment to CARE was completed. SIGN IN Personnel directly involved with the procedure wore the appropriate PPE. Special Equipment: N/A Patient/Surrogate Stated/Verified: Patient name, Date of , Relevant allergies and Intended procedure TIME OUT Intended patient and procedure match the source document(s). Relevant labs, photos, and/or imaging studies have been reviewed. Correct side/site marked and visible. Medications required for procedure verified. No fire risk assessment and interventions applicable. No implant(s) inserted. 02/29/2024 2:27 PM The procedure site was prepped in the usual sterile fashion. Site: bilateral knee joints Medications (Right): 3 mL hyaluronate sodium, stabilized 60 mg/3 mL Medications (Left): 3 mL hyaluronate sodium, stabilized 60 mg/3 mL Outcome: Tolerated well, no immediate complications Post-injection instructions were reviewed with the patient and the patient voiced understanding of these instructions. SIGN OUT All instruments, equipment, possible retained foreign bodies accounted for. Post-procedure follow-up management communicated and Plan of Care Visit completed when applicable [facility] XR knee LT 4V*on 02-04-2024 XR knee LT 4V* [facility] [place] [address] XRay Report Signed Patient: Beba Garcia MR#: [id number] 97 : 1950 Acct:[id number] Age/Sex: 73 / F ADM Date: 02/04/24 Loc: ER Room: Type: [facility] ER Attending Dr: Copies to: CARLENE Xiong APRN Ordering Provider: Rosendo Banks APRN Date of Service: 02/04/24 XR/XR knee LT 4V*: Extremity Injury, Lower LEFT KNEE - 4 views CLINICAL HISTORY: Left knee pain for months. COMPARISON: Knee series 08/27/2023 FINDINGS: Small knee joint effusion. Moderate degenerative changes with calcified loose bodies. No acute bony process. Anterior soft tissue swelling. Likely Solares's cyst. XR/XR knee LT 4V* IMPRESSION: MODERATE DEGENERATIVE CHANGES OF THE LEFT KNEE WITH ANTERIOR SOFT TISSUE SWELLING AND LIKELY SOLARES'S CYST. NO ACUTE FRACTURE. Impression dictated by: Alfonzo Madrid Jr., D.OMaury02/04/2024 7:25 PM Dictation Location: [facility] Transcribed By: [facility] 02/04/241924 Dictated By: Alfonzo Madrid Jr, DO 02/04/24 185 Signed By: 02/04/241924 Normal [facility] 02-03-2024 HINA Telephone (MARTHA) -------- BEBA GARCIA ([id number]) 1950 F Date Time Provider Department 02/03/24 WILLIAM HOPE During your visit today, we recorded the following information about you: Kita Johnson 02/03/2024 2:50 PM Signed Return labs in 2 weeks, for soonest with Dr. Hope per patient request Spoke with Beba and was able to schedule lab appointment. No sooner appointment w/ Dr. Hope available. Added to waitlist. Beba wanted Keyana to know that she missed her knee appointment today. Just wasn't able to get up and ready in time. She states she will go to the ER tomorrow. Kita Johnson, [facility] Keyana Summers, CASE MANAGEMENT RN.GEOLOGICAL SURVEY FIELD ASSISTANT 02/03/2024 4:52 PM Signed I spoke with patient Patient will need to be seen in ER Painful left knee , redness, swelling, sore on knee she is unsure where this is from She will update office after to schedule below Allergies As of Date: 02/03/2024 Noted Allergy Reaction CIPROFLOXACIN 04/12/2017 12 - Shortness of Breath DILANTIN (PHENYTOIN SODIUM EXTEND*09/10/2017 7 - Swelling DOXYCYCLINE 09/10/2017 5 - Intolerance Comments: mouth sores TETANUS IMMUNE GLOBULIN F(AB')2 (*09/10/2017 16 - Unknown Date Reviewed: 02/03/2024 Reviewed by: Keyana Summers, CASE MANAGEMENT RN.GEOLOGICAL SURVEY FIELD ASSISTANT - Fully Assessed Prescriptions as of 02/03/2024 - folic acid 1 mg tablet Take 1 tablet by mouth once daily - methotrexate 2.5 mg tablet TAKE 10 TABLETS BY MOUTH ONCE A WEEK WITH FOOD. NO ALCOHOL. HOLD IF ILL OR ON ANTIBIOTICS - cholecalciferol, vitamin D3, 100 mcg (4,000 unit) cap Cholecalciferol (Vitamin D3) Active 4000 UNIT Oral Daily April 14, 2019 12:26pm - hydroCHLOROthiazide (HYDRODIURIL, ESIDRIX) 12.5 mg tablet TAKE 1 TABLET BY MOUTH ONCE DAILY IN THE MORNING FOR 90 DAYS - losartan (COZAAR) 50 mg tablet TAKE 1 TABLET BY MOUTH ONCE DAILY FOR 90 DAYS - PROAIR HFA 90 mcg/actuation inhaler - losartan-hydrochlorothia zide (HYZAAR) 50-12.5 mg per tablet - atorvastatin (LIPITOR) 10 mg tablet Take 10 mg by mouth once daily. - HYDROcodone-Acetaminophe n (VICODIN) 5-300 mg tab Take by mouth as needed. - levothyroxine (SYNTHROID) 112 mcg tablet Take 112 mcg by mouth daily before breakfast. - ALPRAZolam (XANAX) 0.5 mg tablet Take 0.5 mg by mouth twice daily as needed. - PARoxetine (PAXIL) 20 mg tablet Take 20 mg by mouth once daily. Problem List As Of Date 02/03/2024 Noted Resolved Inflammatory arthritis [M19.90] 04/12/2017 DENG positive [R76.8] 04/12/2017 Psoriasis [L40.9] 04/12/2017 Chronic bilateral low back pain without sciatic*04/12/2017 Bilateral hand pain [M79.641, M79.642] 04/12/2017 Cigarette nicotine dependence in remission [F17*04/12/2017 Elevated sed rate [R70.0] 04/12/2017 Hyperuricemia [E79.0] 04/12/2017 Fibromyalgia [M79.7] 04/12/2017 Long-term use of high-risk medication [Z79.899] 04/12/2017 Chronic pain of both knees [M25.561, M25.562, G*09/11/2017 Primary osteoarthritis of knees, bilateral [M17*09/20/2017 Bilateral wrist pain [M25.531, M25.532] 06/13/2018 Encounter Status:Closed by KEYANA SUMMERS [facility] Office Visit (LOORRM ) -------- JOSEBEBA ([id number]) 1950 F Date Time Provider Department 12/22/23 1:00 PM JALIL KIRAN LOORRM During your visit today, we recorded the following information about you: Jalil Kiran DO 12/22/2023 1:37 PM Signed Beba Garcia is a patient of Jaquan Richard DO. CHIEF COMPLAINT: Beba Garcia is a 73 year old female who presents today for follow up of bilateral knee pain. HISTORY OF PRESENT ILLNESS: PAIN EVALUATION 12/22/2023 1308 Pain Level: 9 Pain Location: Knee-Left right knee Description: Aching;Burning;Sharp;Sor e;Stabbing;Stiffness;Tig htness Duration Amount of Time: 1 Duration Units: Weeks Frequency: Continuous Intervention/Comfort measure: Medication Comments: Started predisone last week Follow-up of the bilateral knees Last seen about 8 months ago Received CSI at that time Helped temporarily About 1 month after CSI, she was found to have pulmonary embolus PHYSICAL EXAMINATION: Specific MSK Exam No effusion noted TTP over the medial joint lines No decreased ROM of the knees IMAGING: No imaging was performed today. CLINICAL IMPRESSION / ASSESSMENT: (M17.0) Primary osteoarthritis of knees, bilateral (primary encounter diagnosis) PLAN: Discussed with her about treatment options Will proceed with CSI to both knees at this time Will also obtain approval for visco as well Follow-up as needed Large Joint Arthro/Inj: bilateral knee joints Informed Consent Consent Obtained: Verbal [place] Protocol A moment to CARE was completed. SIGN IN Personnel directly involved with the procedure wore the appropriate PPE. Special Equipment: N/A Patient/Surrogate Stated/Verified: Patient name, Date of , Relevant allergies and Intended procedure TIME OUT Intended patient and procedure match the source document(s). Relevant labs, photos, and/or imaging studies have been reviewed. Correct side/site marked and visible. Medications required for procedure verified. No fire risk assessment and interventions applicable. No implant(s) inserted. 12/22/2023 1:36 PM The procedure site was prepped in the usual sterile fashion. Site: bilateral knee joints Medications (Right): 40 mg triamcinolone acetonide 40 mg/mL Medications (Left): 40 mg triamcinolone acetonide 40 mg/mL Anesthetics (Right): 4 mL lidocaine (PF) 10 mg/mL (1 %) Anesthetics (Left): 4 mL lidocaine (PF) 10 mg/mL (1 %) Outcome: Tolerated well, no immediate complications Post-injection instructions were reviewed with the patient and the patient voiced understanding of these instructions. SIGN OUT All instruments, equipment, possible retained foreign bodies accounted for. Post-procedure follow-up management communicated and Plan of Care Visit completed when applicable Rationale for Viscosupplementation: Renewal Request As a part of a multimodal treatment plan, we are requesting authorization of hyaluronic acid viscosupplementation injections for the improvement of symptoms related to osteoarthritis. Authorization is being requested for treatment of Bilateral knees. Rationale for authorization of these injections is based on the following elements: Signs and Symptoms Length of symptoms > 3 months Pain interferes with ADLs? Yes Radiographic evidence of OA? Yes Previous Treatments Bracing attempted? No Formal Physical Therapy (PT)/ Home Exercise Program (HEP) attempted? Patient completed a comprehensive PT program with compliance to HEP NSAID medication attempted? Yes Corticosteroid injection attempted? Patient has had a previous CSI with intermittent relief Weight management attempted? Yes Prior Viscosupplementation Prior viscosupplementation? Yes Prior viscosupplementation improved symptoms? Yes Prior viscosupplementation improved symptoms at least 6 months? Yes Patient continues to be symptomatic despite above treatment attempts. Requested Viscosupplementation Preferred product: Durolane Alternative product: Euflexxa or payor preferred Jalil Kiran DO Allergies As of Date: 12/22/2023 Noted Allergy Reaction CIPROFLOXACIN 04/12/2017 12 - Shortness of Breath DILANTIN (PHENYTOIN SODIUM EXTEND*09/10/2017 7 - Swelling DOXYCYCLINE 09/10/2017 5 - Intolerance Comments: mouth sores TETANUS IMMUNE GLOBULIN F(AB')2 (*09/10/2017 16 - Unknown Date Reviewed: 12/22/2023 Reviewed by: Kitty Ballesteros MA - Fully Assessed Reason for Visit: Knee Pain [132] Primary Visit Diagnosis:Primary osteoarthritis of knees, bilateral [M17.0] Order(s):Large Joint Arthro/Inj: bilateral knee joints [LWF962] Order #: [id number] [] lidocaine (PF) 10 mg/mL (1 %) 4 mL injection (XYLOCAINE)Disp: Rfl: [] lidocaine (PF) 10 mg/mL (1 %) 4 mL injection (XYLOCAINE)Disp: Rfl: [] triamcinolone acetonide 40 mg injection (KeNALog 40)Disp: Rfl: (more content not included)... Normal [facility] 12-06-2023 HINA Telephone (LOORRM) -------- BEBA GARCIA ([id number]) 1950 F Date Time Provider Department 12/06/23 JALIL KIRAN LOORRAutumn During your visit today, we recorded the following information about you: Kamryn Knapp 12/06/2023 4:05 PM Signed Beba is calling Jalil Kiran DO today saying she had injections in her knees around last April and in May she was hospitalized with lung embolisms and they thought it might be from injections but they did not know. Patient is in a lot of pain with her knees and wants to know what you think about other injections for her knees. Please advise. Patient has been identified by name and birthdate. Duration of symptoms: N/A Person calling: self Call patient at: on cell [phone] (cell) Was an appointment scheduled: No Closing statement: Results or non-symptom based questions: Thank you for calling [facility], your call will be returned within the next business day. Jalil Meeks DO 12/07/2023 7:29 AM Signed It is not likely the injections caused blood clots 1 month later. I would be fine with doing injections again if she wants to proceed. DO Favian Almaguer Cindy, MA 12/07/2023 9:05 AM Signed Spoke with patient and gave her the message. She would like to proceed with the injections. I will have Maty reach out to her to schedule. She expressed understanding. Julissa Jain 12/07/2023 9:07 AM Signed Pt calling back as she forgot to mention that she is currently taking Xarelto. Wanting to make sure this would not interfere with injections. Maty Romero 12/07/2023 9:28 AM Signed Contacted patient and scheduled an appointment with Dr. Kiran on 12/22/23. Allergies As of Date: 12/06/2023 Noted Allergy Reaction CIPROFLOXACIN 04/12/2017 12 - Shortness of Breath DILANTIN (PHENYTOIN SODIUM EXTEND*09/10/2017 7 - Swelling DOXYCYCLINE 09/10/2017 5 - Intolerance Comments: mouth sores TETANUS IMMUNE GLOBULIN F(AB')2 (*09/10/2017 16 - Unknown Date Reviewed: 04/20/2023 Reviewed by: Sarah Lara LPN - Fully Assessed Reason for Visit: Patient Question [8491] Prescriptions as of 12/07/2023 - folic acid 1 mg tablet Take 1 tablet by mouth once daily - methotrexate 2.5 mg tablet TAKE 10 TABLETS BY MOUTH ONCE A WEEK WITH FOOD. NO ALCOHOL. HOLD IF ILL OR ON ANTIBIOTICS - cholecalciferol, vitamin D3, 100 mcg (4,000 unit) cap Cholecalciferol (Vitamin D3) Active 4000 UNIT Oral Daily April 14, 2019 12:26pm - hydroCHLOROthiazide (HYDRODIURIL, ESIDRIX) 12.5 mg tablet TAKE 1 TABLET BY MOUTH ONCE DAILY IN THE MORNING FOR 90 DAYS - losartan (COZAAR) 50 mg tablet TAKE 1 TABLET BY MOUTH ONCE DAILY FOR 90 DAYS - PROAIR HFA 90 mcg/actuation inhaler - losartan-hydrochlorothia zide (HYZAAR) 50-12.5 mg per tablet - atorvastatin (LIPITOR) 10 mg tablet Take 10 mg by mouth once daily. - HYDROcodone-Acetaminophe n (VICODIN) 5-300 mg tab Take by mouth as needed. - levothyroxine (SYNTHROID) 112 mcg tablet Take 112 mcg by mouth daily before breakfast. - ALPRAZolam (XANAX) 0.5 mg tablet Take 0.5 mg by mouth twice daily as needed. - PARoxetine (PAXIL) 20 mg tablet Take 20 mg by mouth once daily. Problem List As Of Date 12/06/2023 Noted Resolved Inflammatory arthritis [M19.90] 04/12/2017 DENG positive [R76.8] 04/12/2017 Psoriasis [L40.9] 04/12/2017 Chronic bilateral low back pain without sciatic*04/12/2017 Bilateral hand pain [M79.641, M79.642] 04/12/2017 Cigarette nicotine dependence in remission [F17*04/12/2017 Elevated sed rate [R70.0] 04/12/2017 Hyperuricemia [E79.0] 04/12/2017 Fibromyalgia [M79.7] 04/12/2017 Long-term use of high-risk medication [Z79.899] 04/12/2017 Chronic pain of both knees [M25.561, M25.562, G*09/11/2017 Primary osteoarthritis of knees, bilateral [M17*09/20/2017 Bilateral wrist pain [M25.531, M25.532] 06/13/2018 Encounter Status:Closed by KITTY BALLESTEROS on 12/07/23 Normal [facility] Automated basophil %Ordered By: Val Lagunas on 11-30-2023 Basophils/100 WBC (Bld) 1.2 % Normal . [facility] Comment on above: Performed By: #### C MP, CK, HS TROP, CBC, BNP #### [address] Automated basophil countOrde red By: Val Lagunas on 11-30-2023 Basophils (Bld) [#/Vol] 0.1 10*3/uL Normal 0.0-0.2 [facility] Comment on above: Result Comment: PERF ORMED BY: [place] [address] PATHOLOGIST MEDICAL PHYSICS TEACHER RENNY PEREZ M.D. Performed By: #### C MP, CK, HS TROP, CBC, BNP #### [address] Automated blood monocyte cou ntOrdered By: Val Lagunas on 11-30-2023 Monocytes (Bld) [#/Vol] 0.9 10*3/uL High 0.0-0.8 [facility] Comment on above: Performed By: #### C MP, CK, HS TROP, CBC, BNP #### [facility] [address] [place] [address] Automated eosinophil %Ordere d By: Val Lagunas on 11-30-2023 Eosinophils/100 WBC (Bld) 2.8 % Normal . [facility] Comment on above: Performed By: #### C MP, CK, HS TROP, CBC, BNP #### [address] Automated eosinophil countOr dered By: Val Lagunas on 11-30-2023 Eosinophils (Bld) [#/Vol] 0.2 10*3/uL Normal 0.0-0.45 [facility] Comment on above: Performed By: #### C MP, CK, HS TROP, CBC, BNP #### [address] Automated monocyte %Ordered By: Val Betorob on 11-30-2023 Monocytes/100 WBC (Bld) 10.4 % Normal . [facility] Comment on above: Performed By: #### C MP, CK, HS TROP, CBC, BNP #### [address] Automated neutrophil %Ordere d By: Val Lagunas on 11-30-2023 Neutrophils/100 WBC (Bld) 60.4 % Normal . [facility] Comment on above: Performed By: #### C MP, CK, HS TROP, CBC, BNP #### [address] Basic Metabolic Panelon 11-11 Creatinine Clr Calc Pharmacy 71.82 Normal [facility] Comment on above: Result Comment: PERF ORMED BY: [place] [address] PATHOLOGIST MEDICAL PHYSICS TEACHER RENNY PEREZ M.D. Performed By: #### C MP, CK, HS TROP, CBC, BNP #### [address] GFR/1.73 sq M.predicted MDRD (S/P/Bld) [Vol rate/Area] mL/min/{1.73_m2} Normal [facility] Comment on above: Performed By: #### C MP, CK, HS TROP, CBC, BNP #### [address] Calcium [Mass/volume] in Ser um or PlasmaOrdered By: Val Lagunas on 11-30-2023 Calcium [Mass/Vol] 9.6 mg/dL Normal 8.6-10.3 [facility] Comment on above: Performed By: #### C MP, CK, HS TROP, CBC, BNP #### [address] Carbon dioxide, total [Moles /volume] in Serum or PlasmaOrdered By: Val Lagunas on 11-30-2023 CO2 [Moles/Vol] 29.2 mmol/L Normal 21.0-31.0 [facility] Comment on above: Performed By: #### C MP, CK, HS TROP, CBC, BNP #### [address] Chloride [Moles/volume] in S rex or PlasmaOrdered By: Val Lagunas on 11-30-2023 Chloride [Moles/Vol] 105 mmol/L Normal 98-107 [facility] Comment on above: Performed By: #### C MP, CK, HS TROP, CBC, BNP #### [address] Complete Blood Count Auto Di ffon 11-30-2023 Mean Corpuscular HGB Conc 32.6 g/dL Normal 32.0-35.0 [facility] Comment on above: Performed By: #### C MP, CK, HS TROP, CBC, BNP #### [address] Monocytes/100 WBC (Bld) 18.62 % Normal 0.00-20.00 [facility] Comment on above: Performed By: #### C MP, CK, HS TROP, CBC, BNP #### [address] NRBC% 0.1 /100{WBC} Normal 0-0.5 [facility] Comment on above: Performed By: #### C MP, CK, HS TROP, CBC, BNP #### [address] Creatinine [Mass/volume] in Serum or PlasmaOrdered By: Val Lagunas on 11-30-2023 Creatinine [Mass/Vol] 0.70 mg/dL Normal 0.60-1.20 [facility] Comment on above: Performed By: #### C MP, CK, HS TROP, CBC, BNP #### [facility] [address] Erythrocyte distribution wid th [Ratio] by Automated countOrdered By: Val Lagunas on 11-30-2023 Erythrocyte distribution width (RBC) [Ratio] 17.5 % High 11.9-15.3 [facility] Comment on above: Performed By: #### C MP, CK, HS TROP, CBC, BNP #### [facility] [address] Erythrocytes [#/volume] in B lood by Automated countOrdered By: Val Lagunas on 11-30-2023 RBC (Bld) [#/Vol] 4.82 10*6/uL Normal 3.60-5.00 [facility] Comment on above: Performed By: #### C MP, CK, HS TROP, CBC, BNP #### [facility] [address] Glucose [Mass/volume] in Ser um or PlasmaOrdered By: Val Lagunas on 11-30-2023 Glucose [Mass/Vol] 94 mg/dL Normal 70-100 [facility] Comment on above: ADA recommended refe rence rangeRandom Glucose Reference Range is dependent on time and content of last meal. Glucose of more than 200 mg/dL in a nonstressed, ambulatory subject supports the diagnosis of Diabetes Mellitus. Result Comment: [place] Glucose Reference Range is dependent on time and content of last meal. Glucose of more than 200 mg/dL in a nonstressed, ambulatory subject supports the diagnosis of Diabetes Mellitus. ADA recommended reference range Performed By: #### C MP, CK, HS TROP, CBC, BNP #### [facility] [address] Hematocrit [Volume Fraction] of Blood by Automated countOrdered By: Val Lagunas on 11-30-2023 Hematocrit (Bld) [Volume fraction] 45.2 % Normal 34.0-46.4 [facility] Comment on above: Performed By: #### C MP, CK, HS TROP, CBC, BNP #### [address] Hemoglobin [Mass/volume] in BloodOrdered By: Val Lagunas on 11-30-2023 Hemoglobin (Bld) [Mass/Vol] 14.7 g/dL Normal 11.8-15.4 [facility] Comment on above: Performed By: #### C MP, CK, HS TROP, CBC, BNP #### [facility] [address] [place] [address] [place] Lactate [Moles/volume] in Se rum or PlasmaOrdered By: Val Lagunas on 11-30-2023 Lactate [Moles/Vol] 1.1 mmol/L Normal 0.5-2.2 [facility] Comment on above: Result Comment: PERF ORMED BY: [place] [address] PATHOLOGIST MEDICAL PHYSICS TEACHER RENNY PEREZ M.D. Performed By: #### C MP, CK, HS TROP, CBC, BNP #### [address] Leukocytes [#/volume] correc minoo for nucleated erythrocytes in Blood by Automated counOrdered By: Val Lagunas on 11-30-2023 WBC corrected for nucl RBC Auto (Bld) [#/Vol] 8.3 10*3/uL 3.8-11.6 [facility] Leukocytes [#/volume] in Blo od by Automated countOrdered By: Val Lagunas on 11-30-2023 WBC (Bld) [#/Vol] 8.3 10*3/uL Normal 3.8-11.6 [facility] Comment on above: Performed By: #### C MP, CK, HS TROP, CBC, BNP #### [place] [address] [place] Lymphocytes [#/volume] in Bl ood by Automated countOrdered By: Val Lagunas on 11-30-2023 Lymphocytes (Bld) [#/Vol] 2.1 10*3/uL Normal 1.00-4.8 [facility] Comment on above: Performed By: #### C MP, CK, HS TROP, CBC, BNP #### [address] Lymphocytes/100 leukocytes i n Blood by Automated countOrdered By: Val Lagunas on 11-30-2023 Lymphocytes/100 WBC (Bld) 25.2 % Normal . [facility] Comment on above: Performed By: #### C MP, CK, HS TROP, CBC, BNP #### [address] MCH [Entitic mass] by Automa minoo countOrdered By: Val Lagunas on 11-30-2023 MCH (RBC) [Entitic mass] 30.5 pg Normal 24.7-34.3 [facility] Comment on above: Performed By: #### C MP, CK, HS TROP, CBC, BNP #### [address] MCHC Auto (RBC) [Mass/Vol]Or dered By: Val Lagunas on 11-30-2023 MCHC (RBC) [Mass/Vol] 32.6 g/dL 32.0-35.0 [facility] MCV [Entitic volume] by Auto mated countOrdered By: Val Lagunas on 11-30-2023 MCV (RBC) [Entitic vol] 93.8 fL Normal 80-100 [facility] Comment on above: Performed By: #### C MP, CK, HS TROP, CBC, BNP #### [address] Monocyte distribution width [Entitic volume] in Blood by AutomatedOrdered By: Val Lagunas on 11-30-2023 Monocyte distribution width Auto (Bld) [Entitic vol] 18.62 % 0.00-20.00 [facility] Neutrophils [#/volume] in Bl ood by Automated countOrdered By: Val Lagunas on 11-30-2023 Neutrophils (Bld) [#/Vol] 5.0 10*3/uL Normal 1.8-7.7 [facility] Comment on above: Performed By: #### C MP, CK, HS TROP, CBC, BNP #### [facility] [address] No Panel InformationOrdered By: Val Lagunas on 11-30-2023 Estimated GFR (CKD-EPI) > 60.0 mL/Min [facility] Creatinine Clearance (Chem 71.82 [facility] Nucleated erythrocytes [Pres ence] in Blood by Automated countOrdered By: Val Lagunas on 11-30-2023 Nucleated RBC Auto Ql (Bld) 0.1 /100{WBC} 0-0.5 [facility] Platelet mean volume [Entiti c volume] in Blood by Automated countOrdered By: Val Lagunas on 11-30-2023 Platelet mean volume (Bld) [Entitic vol] 7.5 fL Normal 6.3-10.7 [facility] Comment on above: Performed By: #### C MP, CK, HS TROP, CBC, BNP #### [address] Platelets [#/volume] in Bloo d by Automated countOrdered By: Vla Lagunas on 11-30-2023 Platelets (Bld) [#/Vol] 366 10*3/uL Normal 150-450 [facility] Comment on above: Performed By: #### C MP, CK, HS TROP, CBC, BNP #### [address] Potassium [Moles/volume] in Serum or PlasmaOrdered By: Val Lagunas on 11-30-2023 Potassium [Moles/Vol] 3.7 mmol/L Normal 3.5-5.1 [facility] Comment on above: Performed By: #### C MP, CK, HS TROP, CBC, BNP #### [address] Serum or plasma anion gap de terminationOrdered By: Val Lagunas on 11-30-2023 Anion gap [Moles/Vol] 10.5 mmol/L Normal 6.0-15.0 [facility] Comment on above: Performed By: #### C MP, CK, HS TROP, CBC, BNP #### [facility] [address] [place] [address] [place] Sodium [Moles/volume] in Ser um or PlasmaOrdered By: Val Lagunas on 11-30-2023 Sodium [Moles/Vol] 141 mmol/L Normal 136-145 [facility] Comment on above: Performed By: #### C MP, CK, HS TROP, CBC, BNP #### [facility] [address] Urea nitrogen [Mass/volume] in Serum or PlasmaOrdered By: Val Lagunas on 11-30-2023 Urea nitrogen [Mass/Vol] 9 mg/dL Normal 7-25 [facility] Comment on above: Performed By: #### C MP, CK, HS TROP, CBC, BNP #### [place] [address] [place] XR hand RT min 3V*on 024 XR hand RT min 3V* [facility] [place] [address] [place] [address] XRay Report Signed Patient: Beba Garcia MR#: [id number] [birth year] : 1950 Acct:[id number] Age/Sex: 73 / F ADM Date: 11/30/23 Loc: ER Room: Type: [facility] ER Attending Dr: Copies to: Val Lagunas APRN Ordering Provider: Val Lagunas APRN Date of Service: 11/30/23 XR/XR hand RT min 3V*: Extremity Injury, Upper RIGHT HAND - 3 views CLINICAL DATA: Infection at the right first digit COMPARISON: None AP, lateral and oblique views were obtained. There is no acute fracture or dislocation. No bony destruction is noted. There is marginal spurring at the distal interphalangeal joints. There is al so mild hypertrophic degenerative change involving the first carpal metacarpal joint. No prominent soft tissue swelling is seen. No radiopaque foreign bodies are noted. XR/XR hand RT min 3V* IMPRESSION: DEGENERATIVE CHANGES. NO ACUTE BONY FINDINGS. Impression dictated by: Lili Jackson M.D.11/30/2023 8:14 PM Dictation Location: [place] [address] Transcribed By: [facility] 11/30/232013 Dictated By: Lili Jackson MD 11/30/232009 Signed By: 11/30/232013 Normal [facility] A1C with Estimated Average G radha 10-12-2023 Glucose [Mass/Vol] 183 mg/dL Normal [facility] Comment on above: Order Comment: Reaso n for Exam Hyperglycemia Result Comment: PERF ORMED BY: [place] [address] PATHOLOGIST MEDICAL PHYSICS TEACHER RENNY PEREZ M.D. Performed By: #### A 1C [facility] #### [address] Alanine aminotransferase [En zymatic activity/volume] in Serum or PlasmaOrdered By: Jaquan Richard on 10-12-2023 ALT [Catalytic activity/Vol] 20 U/L Normal 7-52 [facility] Comment on above: Order Comment: Reaso n for Exam Hyperlipidemia Reason for Exam Macrocytosis Reason for Exam Hypothyroidism Reason for Exam Vitamin D deficiency Reason for Exam Other termination clerk (current) drug therapy Performed By: #### C MP, CK, HS TROP, CBC, BNP #### [place] [address] [place] Albumin [Mass/volume] in Ser um or Plasma by Bromocresol green (BCG) dye binding methoOrdered By: Jaquan Richard on 10-12-2023 Albumin BCG dye [Mass/Vol] 3.6 g/dL 3.5-5.7 [facility] Alkaline phosphatase [Enzyma tic activity/volume] in Serum or PlasmaOrdered By: Jaquan Richard on 10-12-2023 ALP [Catalytic activity/Vol] 55 U/L Normal 34-104 [facility] Comment on above: Order Comment: Reaso n for Exam Hyperlipidemia Reason for Exam Macrocytosis Reason for Exam Hypothyroidism Reason for Exam Vitamin D deficiency Reason for Exam Other termination clerk (current) drug therapy Performed By: #### C MP, CK, HS TROP, CBC, BNP #### [place] [address] Aspartate aminotransferase [ Enzymatic activity/volume] in Serum or PlasmaOrdered By: Jaquan Richard on 10-12-2023 AST [Catalytic activity/Vol] 19 U/L Normal 13-39 [facility] Comment on above: Order Comment: Reaso n for Exam Hyperlipidemia Reason for Exam Macrocytosis Reason for Exam Hypothyroidism Reason for Exam Vitamin D deficiency Reason for Exam Other correction (current) drug therapy Performed By: #### C MP, CK, HS TROP, CBC, BNP #### [address] Automated basophil %Ordered By: Jaquan Richard on 10-12-2023 Basophils/100 WBC (Bld) 0.8 % Normal . [facility] Comment on above: Order Comment: Reaso n for Exam Other correction (current) drug therapy Performed By: #### C BC #### [address] Automated basophil countOrde red By: Jaquan Richard on 10-12-2023 Basophils (Bld) [#/Vol] 0.1 10*3/uL Normal 0.0-0.2 [facility] Comment on above: Order Comment: Reaso n for Exam Other correction (current) drug therapy Result Comment: PERF ORMED BY: [place] [address] PATHOLOGIST MEDICAL PHYSICS TEACHER RENNY PEREZ M.D. Performed By: #### C BC #### [address] Automated blood monocyte cou ntOrdered By: Jaquan Richard on 10-12-2023 Monocytes (Bld) [#/Vol] 0.8 10*3/uL Normal 0.0-0.8 [facility] Comment on above: Order Comment: Reaso n for Exam Other correction (current) drug therapy Performed By: #### C BC #### [address] Automated eosinophil %Ordere d By: Jaquan Richard on 10-12-2023 Eosinophils/100 WBC (Bld) 0.5 % Normal . [facility] Comment on above: Order Comment: Reaso n for Exam Other correction (current) drug therapy Performed By: #### C BC #### [address] Automated eosinophil countOr dered By: Jaquan Richard on 10-12-2023 Eosinophils (Bld) [#/Vol] 0.0 10*3/uL Normal 0.0-0.45 [facility] Comment on above: Order Comment: Reaso n for Exam Other correction (current) drug therapy Performed By: #### C BC #### [address] Automated monocyte %Ordered By: Jaquan Richard on 10-12-2023 Monocytes/100 WBC (Bld) 9.0 % Normal . [facility] Comment on above: Order Comment: Reaso n for Exam Other correction (current) drug therapy Performed By: #### C BC #### [address] Automated neutrophil %Ordere d By: Jaquan Richard on 10-12-2023 Neutrophils/100 WBC (Bld) 61.2 % Normal . [facility] Comment on above: Order Comment: Reaso n for Exam Other termination clerk (current) drug therapy Performed By: #### C BC #### [address] Bilirubin.total [Mass/volume ] in Serum or PlasmaOrdered By: Jaquan Richard on 10-12-2023 Bilirubin [Mass/Vol] 0.5 mg/dL Normal 0.3-1.0 [facility] Comment on above: Order Comment: Reaso n for Exam Hyperlipidemia Reason for Exam Macrocytosis Reason for Exam Hypothyroidism Reason for Exam Vitamin D deficiency Reason for Exam Other termination clerk (current) drug therapy Performed By: #### C MP, CK, HS TROP, CBC, BNP #### [address] Calcium [Mass/volume] in Ser um or PlasmaOrdered By: Jaquan Richard on 10-12-2023 Calcium [Mass/Vol] 9.2 mg/dL Normal 8.6-10.3 [facility] Comment on above: Order Comment: Reaso n for Exam Hyperlipidemia Reason for Exam Macrocytosis Reason for Exam Hypothyroidism Reason for Exam Vitamin D deficiency Reason for Exam Other termination clerk (current) drug therapy Performed By: #### C MP, CK, HS TROP, CBC, BNP #### [facility] [address] Carbon dioxide, total [Moles /volume] in Serum or PlasmaOrdered By: Jaquan Richard on 10-12-2023 CO2 [Moles/Vol] 27.4 mmol/L Normal 21.0-31.0 [facility] Comment on above: Order Comment: Reaso n for Exam Hyperlipidemia Reason for Exam Macrocytosis Reason for Exam Hypothyroidism Reason for Exam Vitamin D deficiency Reason for Exam Other correction (current) drug therapy Performed By: #### C MP, CK, HS TROP, CBC, BNP #### [facility] [address] Chloride [Moles/volume] in S rex or PlasmaOrdered By: Jaquan Richard on 10-12-2023 Chloride [Moles/Vol] 105 mmol/L Normal 98-107 [facility] Comment on above: Order Comment: Reaso n for Exam Hyperlipidemia Reason for Exam Macrocytosis Reason for Exam Hypothyroidism Reason for Exam Vitamin D deficiency Reason for Exam Other correction (current) drug therapy Performed By: #### C MP, CK, HS TROP, CBC, BNP #### [facility] [address] Cholesterol [Mass/volume] in Serum or PlasmaOrdered By: Jaquan Richard on 10-12-2023 Cholesterol [Mass/Vol] 225 mg/dL High 140-200 [facility] Comment on above: Chol less than 200 m g/dl low riskChol 201-239 mg/dl borderline riskChol 240 mg/dl and greater high risk Order Comment: Reaso n for Exam Hyperlipidemia Reason for Exam Macrocytosis Reason for Exam Hypothyroidism Reason for Exam Vitamin D deficiency Reason for Exam Other correction (current) drug therapy Result Comment: Chol less than 200 mg/dl low risk Chol 201-239 mg/dl borderline risk Chol 240 mg/dl and greater high risk Performed By: #### C MP, CK, HS TROP, CBC, BNP #### [facility] [address] Cholesterol in LDL Calc [Mas s/Vol]Ordered By: Jaquan Richard on 10-12-2023 Cholesterol in LDL [Mass/Vol] 121 mg/dL 0-100 [facility] Comment on above: LDL ATP III CLASSIFI CATIONLDL less than 100 mg/dL OptimalLDL 100-129 mg/dL Near or above optimalLDL 130-159 mg/dL Borderline highLDL 160-189 mg/dL HighLDL greater than 189 mg/dL Very high Cholesterol in VLDL Calc [Ma ss/Vol]Ordered By: Jaquan Richard on 10-12-2023 Cholesterol in VLDL [Mass/Vol] 33 mg/dL [facility] Complete Blood Count Auto Di ffon 10-12-2023 Mean Corpuscular HGB Conc 32.7 g/dL Normal 32.0-35.0 [facility] Comment on above: Order Comment: Reaso n for Exam Other termination clerk (current) drug therapy Performed By: #### C BC #### [address] NRBC% 0.1 /100{WBC} Normal 0-0.5 [facility] Comment on above: Order Comment: Reaso n for Exam Other correction (current) drug therapy Performed By: #### C BC #### [address] Comprehensive Metabolic Pane [place] 10-12-2023 Albumin [Mass/Vol] 3.6 g/dL Normal 3.5-5.7 [facility] Comment on above: Order Comment: Reaso n for Exam Hyperlipidemia Reason for Exam Macrocytosis Reason for Exam Hypothyroidism Reason for Exam Vitamin D deficiency Reason for Exam Other correction (current) drug therapy Performed By: #### C MP, CK, HS TROP, CBC, BNP #### [address] GFR/1.73 sq M.predicted MDRD (S/P/Bld) [Vol rate/Area] mL/min/{1.73_m2} Normal [facility] Comment on above: Order Comment: Reaso n for Exam Hyperlipidemia Reason for Exam Macrocytosis Reason for Exam Hypothyroidism Reason for Exam Vitamin D deficiency Reason for Exam Other correction (current) drug therapy Performed By: #### C MP, CK, HS TROP, CBC, BNP #### [facility] [address] Creatinine [Mass/volume] in Serum or PlasmaOrdered By: Jaquan Richard on 10-12-2023 Creatinine [Mass/Vol] 0.81 mg/dL Normal 0.60-1.20 [facility] Comment on above: Order Comment: Reaso n for Exam Hyperlipidemia Reason for Exam Macrocytosis Reason for Exam Hypothyroidism Reason for Exam Vitamin D deficiency Reason for Exam Other correction (current) drug therapy Performed By: #### C MP, CK, HS TROP, CBC, BNP #### [facility] [address] [place] [address] Erythrocyte distribution wid th [Ratio] by Automated countOrdered By: Jaquan Richard on 10-12-2023 Erythrocyte distribution width (RBC) [Ratio] 15.7 % High 11.9-15.3 [facility] Comment on above: Order Comment: Reaso n for Exam Other termination clerk (current) drug therapy Performed By: #### C BC #### [facility] [address] [place] [address] Erythrocytes [#/volume] in B lood by Automated countOrdered By: Jaquan Richard on 10-12-2023 RBC (Bld) [#/Vol] 4.82 10*6/uL Normal 3.60-5.00 [facility] Comment on above: Order Comment: Reaso n for Exam Other termination clerk (current) drug therapy Performed By: #### C BC #### [facility] [address] [place] [address] Folateon 10-12-2023 Folate 17.7 ng/mL Normal >5.9 [facility] Comment on above: Order Comment: Reaso n for Exam Hyperlipidemia Reason for Exam Macrocytosis Reason for Exam Hypothyroidism Reason for Exam Vitamin D deficiency Reason for Exam Other correction (current) drug therapy Result Comment: [place] te reference range: >5.9 ng/ml The WHO technical consultation on folate and vitamin b12 deficiencies has determined that folate concentrations less than 4 ng/ml are considered deficient. Performed By: #### C MP, CK, HS TROP, CBC, BNP #### [facility] [address] Folate [Mass/volume] in Seru m or PlasmaOrdered By: Jaquan Richard on 10-12-2023 Folate [Mass/Vol] 17.7 ng/mL >5.9 [facility] Comment on above: Folate reference ran ge: >5.9 ng/mlThe WHO technical consultation on folate and vitamin [id number] has determined that folate concentrations lessthan 4 ng/ml are considered deficient. Glucose [Mass/volume] in Ser um or PlasmaOrdered By: Jaquan Richard on 10-12-2023 Glucose [Mass/Vol] 127 mg/dL High 70-100 [facility] Comment on above: ADA recommended refe rence rangeRandom Glucose Reference Range is dependent on time and content of last meal. Glucose of more than 200 mg/dL in a nonstressed, ambulatory subject supports the diagnosis of Diabetes Mellitus. Order Comment: Reaso n for Exam Hyperlipidemia Reason for Exam Macrocytosis Reason for Exam Hypothyroidism Reason for Exam Vitamin D deficiency Reason for Exam Other termination clerk (current) drug therapy Result Comment: [place] om Glucose Reference Range is dependent on time and content of last meal. Glucose of more than 200 mg/dL in a nonstressed, ambulatory subject supports the diagnosis of Diabetes Mellitus. ADA recommended reference range Performed By: #### C MP, CK, HS TROP, CBC, BNP #### [facility] [address] [place] [id number] [facility] Glucose mean value [Mass/vol ume] in Blood Estimated from glycated hemoglobinOrdered By: Jaquan Richard on 10-12-2023 Average glucose Estimated from glycated hemoglobin (Bld) [Mass/Vol] 183 mg/dL [facility] Hematocrit [Volume Fraction] of Blood by Automated countOrdered By: Jaquan Richard on 10-12-2023 Hematocrit (Bld) [Volume fraction] 43.9 % Normal 34.0-46.4 [facility] Comment on above: Order Comment: Reaso n for Exam Other termination clerk (current) drug therapy Performed By: #### C BC #### [address] Hemoglobin A1c percentageOrd ered By: Jaquan Richard on 10-12-2023 HbA1c (Bld) [Mass fraction] 8.0 % High 4.3-5.6 [facility] Comment on above: Increased risk for d iabetes: 5.7 - 6.4diabetes: >6.4glycemic control for adults with diabetes: <7.0 Order Comment: Reaso n for Exam Hyperglycemia Result Comment: Incr eased risk for diabetes: 5.7 - 6.4 diabetes: >6.4 glycemic control for adults with diabetes: <7.0 Performed By: #### A 1C [facility] e[facility] #### [address] Hemoglobin [Mass/volume] in BloodOrdered By: Jaquan Richard on 10-12-2023 Hemoglobin (Bld) [Mass/Vol] 14.3 g/dL Normal 11.8-15.4 [facility] Comment on above: Order Comment: Reaso n for Exam Other termination clerk (current) drug therapy Performed By: #### C BC #### [address] Leukocytes [#/volume] correc minoo for nucleated erythrocytes in Blood by Automated counOrdered By: Jaquan Richard on 10-12-2023 WBC corrected for nucl RBC Auto (Bld) [#/Vol] 9.0 10*3/uL 3.8-11.6 [facility] Leukocytes [#/volume] in Blo od by Automated countOrdered By: Jaquan Richard on 10-12-2023 WBC (Bld) [#/Vol] 9.0 10*3/uL Normal 3.8-11.6 [facility] Comment on above: Order Comment: Reaso n for Exam Other correction (current) drug therapy Performed By: #### C BC #### [address] Lipid Panelon 10-12-2023 LDL Cholesterol,Calculated 121 mg/dL High 0-100 [facility] Comment on above: Order Comment: Reaso n for Exam Hyperlipidemia Reason for Exam Macrocytosis Reason for Exam Hypothyroidism Reason for Exam Vitamin D deficiency Reason for Exam Other correction (current) drug therapy Result Comment: LDL ATP III CLASSIFICATION LDL less than 100 mg/dL Optimal LDL 100-129 mg/dL Near or above optimal LDL 130-159 mg/dL Borderline high LDL 160-189 mg/dL High LDL greater than 189 mg/dL Very high Performed By: #### C MP, CK, HS TROP, CBC, BNP #### [facility] [address] Triglyceride w/Reflex 165 mg/dL High 0-149 [facility] Comment on above: Order Comment: Reaso n for Exam Hyperlipidemia Reason for Exam Macrocytosis Reason for Exam Hypothyroidism Reason for Exam Vitamin D deficiency Reason for Exam Other correction (current) drug therapy Result Comment: TRIG ATP III CLASSIFICATION TRIG less than 150 mg/dL Normal TRIG 150-199 mg/dL Borderline high TRIG 200-500 mg/dL High TRIG greater than 500 mg/dL Very high Standard traceable to the Center for Disease Conrtrol and Prevention (CDC) test method. Performed By: #### C MP, CK, HS TROP, CBC, BNP #### [facility] [address] [place] [id number] [facility] VLDL CHOLESTEROL 33 mg/dL Normal [facility] Comment on above: Order Comment: Reaso n for Exam Hyperlipidemia Reason for Exam Macrocytosis Reason for Exam Hypothyroidism Reason for Exam Vitamin D deficiency Reason for Exam Other termination clerk (current) drug therapy Performed By: #### C MP, CK, HS TROP, CBC, BNP #### [facility] [address] [place] [id number] [place] Lymphocytes [#/volume] in Bl ood by Automated countOrdered By: Jaquan Richard on 10-12-2023 Lymphocytes (Bld) [#/Vol] 2.6 10*3/uL Normal 1.00-4.8 [facility] Comment on above: Order Comment: Reaso n for Exam Other termination clerk (current) drug therapy Performed By: #### C BC #### [facility] [address] [place] [id number] [place] Lymphocytes/100 leukocytes i n Blood by Automated countOrdered By: Jaquan Richard on 10-12-2023 Lymphocytes/100 WBC (Bld) 28.5 % Normal . [facility] Comment on above: Order Comment: Reaso n for Exam Other correction (current) drug therapy Performed By: #### C BC #### [facility] [address] [place] [address] MCH [Entitic mass] by Automa minoo countOrdered By: Jaquan Richard on 10-12-2023 MCH (RBC) [Entitic mass] 29.7 pg Normal 24.7-34.3 [facility] Comment on above: Order Comment: Reaso n for Exam Other correction (current) drug therapy Performed By: #### C BC #### [address] MCHC Auto (RBC) [Mass/Vol]Or dered By: Jaquan Richard on 10-12-2023 MCHC (RBC) [Mass/Vol] 32.7 g/dL 32.0-35.0 [facility] MCV [Entitic volume] by Auto mated countOrdered By: Jaquan Richard on 10-12-2023 MCV (RBC) [Entitic vol] 91.0 fL Normal 80-100 [facility] Comment on above: Order Comment: Reaso n for Exam Other termination clerk (current) drug therapy Performed By: #### C BC #### [address] Neutrophils [#/volume] in Bl ood by Automated countOrdered By: Jaquan Richard on 10-12-2023 Neutrophils (Bld) [#/Vol] 5.5 10*3/uL Normal 1.8-7.7 [facility] Comment on above: Order Comment: Reaso n for Exam Other correction (current) drug therapy Performed By: #### C BC #### [address] No Panel InformationOrdered By: Jaquan Richard on 10-12-2023 Estimated GFR (CKD-EPI) > 60.0 mL/Min [facility] Creatinine Clearance (Chem N/A [facility] Nucleated erythrocytes [Pres ence] in Blood by Automated countOrdered By: Jaquan Richard on 10-12-2023 Nucleated RBC Auto Ql (Bld) 0.1 /100{WBC} 0-0.5 [facility] Platelet mean volume [Entiti c volume] in Blood by Automated countOrdered By: Jaquan Richard on 10-12-2023 Platelet mean volume (Bld) [Entitic vol] 8.8 fL Normal 6.3-10.7 [facility] Comment on above: Order Comment: Reaso n for Exam Other correction (current) drug therapy Performed By: #### C BC #### [facility] [address] Platelets [#/volume] in Bloo d by Automated countOrdered By: Jaquan Richard on 10-12-2023 Platelets (Bld) [#/Vol] 346 10*3/uL Normal 150-450 [facility] Comment on above: Order Comment: Reaso n for Exam Other termination clerk (current) drug therapy Performed By: #### C BC #### [facility] [address] [place] [id number] [facility] Potassium [Moles/volume] in Serum or PlasmaOrdered By: Jaquan Richard on 10-12-2023 Potassium [Moles/Vol] 4.0 mmol/L Normal 3.5-5.1 [facility] Comment on above: Order Comment: Reaso n for Exam Hyperlipidemia Reason for Exam Macrocytosis Reason for Exam Hypothyroidism Reason for Exam Vitamin D deficiency Reason for Exam Other termination clerk (current) drug therapy Performed By: #### C MP, CK, HS TROP, CBC, BNP #### [facility] [address] [place] [phone] [place] Protein [Mass/volume] in Ser um or PlasmaOrdered By: Jaquan Richard on 10-12-2023 Protein [Mass/Vol] 6.5 g/dL Normal 6.4-8.9 [facility] Comment on above: Order Comment: Reaso n for Exam Hyperlipidemia Reason for Exam Macrocytosis Reason for Exam Hypothyroidism Reason for Exam Vitamin D deficiency Reason for Exam Other correction (current) drug therapy Performed By: #### C MP, CK, HS TROP, CBC, BNP #### [facility] [address] [place] [phone] [facility] Serum globulin measurement b y calculation (mass/volume)Ordered By: Jaquan Richard on 10-12-2023 Globulin (S) [Mass/Vol] 2.9 g/dL [facility] Comment on above: Order Comment: Reaso n for Exam Hyperlipidemia Reason for Exam Macrocytosis Reason for Exam Hypothyroidism Reason for Exam Vitamin D deficiency Reason for Exam Other termination clerk (current) drug therapy Performed By: #### C MP, CK, HS TROP, CBC, BNP #### [facility] [address] Serum or plasma albumin/glob ulin mass ratioOrdered By: Jaquan Richard on 10-12-2023 Albumin/Globulin [Mass ratio] 1.2 {ratio} [facility] Comment on above: Order Comment: Reaso n for Exam Hyperlipidemia Reason for Exam Macrocytosis Reason for Exam Hypothyroidism Reason for Exam Vitamin D deficiency Reason for Exam Other correction (current) drug therapy Performed By: #### C MP, CK, HS TROP, CBC, BNP #### [facility] [address] Serum or plasma anion gap de terminationOrdered By: Jaquan Richard on 10-12-2023 Anion gap [Moles/Vol] 12.6 mmol/L Normal 6.0-15.0 [facility] Comment on above: Order Comment: Reaso n for Exam Hyperlipidemia Reason for Exam Macrocytosis Reason for Exam Hypothyroidism Reason for Exam Vitamin D deficiency Reason for Exam Other correction (current) drug therapy Performed By: #### C MP, CK, HS TROP, CBC, BNP #### [facility] [address] Serum or plasma high density lipoprotein (HDL) cholesterol measurementOrdered By: Jaquan Richard on 10-12-2023 Cholesterol in HDL [Mass/Vol] 71 mg/dL Normal 23-92 [facility] Comment on above: HDL CHOL ATP-III CLA SSIFICATION Cardiovascular RiskHDL > or equal to 60 mg/dL LOWHDL < 40 mg/dL HIGH Order Comment: Reaso n for Exam Hyperlipidemia Reason for Exam Macrocytosis Reason for Exam Hypothyroidism Reason for Exam Vitamin D deficiency Reason for Exam Other correction (current) drug therapy Result Comment: HDL CHOL ATP-III CLASSIFICATION Cardiovascular Risk HDL > or equal to 60 mg/dL LOW HDL < 40 mg/dL HIGH Performed By: #### C MP, CK, HS TROP, CBC, BNP #### [facility] [address] Serum or plasma total choles terol/high density lipoprotein (HDL) cholesterol mass ratOrdered By: Jaquan Richard on 10-12-2023 Cholesterol.total/Chol esterol in HDL [Mass ratio] 3.2 {ratio} Normal <5.0 [facility] Comment on above: Order Comment: Reaso n for Exam Hyperlipidemia Reason for Exam Macrocytosis Reason for Exam Hypothyroidism Reason for Exam Vitamin D deficiency Reason for Exam Other correction (current) drug therapy Performed By: #### C MP, CK, HS TROP, CBC, BNP #### [address] Sodium [Moles/volume] in Ser um or PlasmaOrdered By: Jaquan Richard on 10-12-2023 Sodium [Moles/Vol] 141 mmol/L Normal 136-145 [facility] Comment on above: Order Comment: Reaso n for Exam Hyperlipidemia Reason for Exam Macrocytosis Reason for Exam Hypothyroidism Reason for Exam Vitamin D deficiency Reason for Exam Other correction (current) drug therapy Performed By: #### C MP, CK, HS TROP, CBC, BNP #### [facility] [address] [place] [address] Thyrotropin [Units/volume] i n Serum or PlasmaOrdered By: Jaquan Richard on 10-12-2023 TSH Qn 1.35 m[IU]/L Normal 0.45-5.33 [facility] Comment on above: Order Comment: Reaso n for Exam Hyperlipidemia Reason for Exam Macrocytosis Reason for Exam Hypothyroidism Reason for Exam Vitamin D deficiency Reason for Exam Other correction (current) drug therapy Performed By: #### C MP, CK, HS TROP, CBC, BNP #### [facility] [address] [place] [address] Thyroxine (T4) free [Mass/vo lume] in Serum or PlasmaOrdered By: Jaquan Richard on 10-12-2023 Free T4 [Mass/Vol] 1.05 ng/dL Normal 0.61-1.12 [facility] Comment on above: Order Comment: Reaso n for Exam Hyperlipidemia Reason for Exam Macrocytosis Reason for Exam Hypothyroidism Reason for Exam Vitamin D deficiency Reason for Exam Other termination clerk (current) drug therapy Performed By: #### C MP, CK, HS TROP, CBC, BNP #### [facility] [address] Triglyceride [Mass/volume] i n Serum or PlasmaOrdered By: Jaquan Richard on 10-12-2023 Triglyceride [Mass/Vol] 165 mg/dL 0-149 [facility] Comment on above: TRIG ATP III CLASSIF ICATIONTRIG less than 150 mg/dL NormalTRIG 150-199 mg/dL Borderline highTRIG 200-500 mg/dL High TRIG greater than 500 mg/dL Very highStandard traceable to the Center for Disease Conrtrol and Prevention (CDC) test method. Triiodothyronine (T3) Freeon 10-12-2023 Triiodothyronine (T3) Free 2.86 pg/mL Normal 2.50-3.90 [facility] Comment on above: Order Comment: Reaso n for Exam Hypothyroidism Result Comment: PERF ORMED BY: [place] [address] PATHOLOGIST MEDICAL PHYSICS TEACHER RENNY PEREZ M.D. Performed By: #### C MP, CK, HS TROP, CBC, BNP #### [address] Triiodothyronine (T3) Free [ Mass/volume] in Serum or PlasmaOrdered By: Jaquan Richard on 10-12-2023 Free T3 [Mass/Vol] 2.86 pg/mL 2.50-3.90 [facility] Urea nitrogen [Mass/volume] in Serum or PlasmaOrdered By: Jaquan Richard on 10-12-2023 Urea nitrogen [Mass/Vol] 13 mg/dL Normal 7-25 [facility] Comment on above: Order Comment: Reaso n for Exam Hyperlipidemia Reason for Exam Macrocytosis Reason for Exam Hypothyroidism Reason for Exam Vitamin D deficiency Reason for Exam Other correction (current) drug therapy Performed By: #### C MP, CK, HS TROP, CBC, BNP #### [facility] [address] [place] [id number] [facility] Vitamin B12 ser/plasOrdered By: Jaquan Richard on 10-12-2023 Cobalamin (Vitamin B12) [Mass/Vol] 429 pg/mL Normal 180-914 [facility] Comment on above: Order Comment: Reaso n for Exam Hyperlipidemia Reason for Exam Macrocytosis Reason for Exam Hypothyroidism Reason for Exam Vitamin D deficiency Reason for Exam Other termination clerk (current) drug therapy Performed By: #### C MP, CK, HS TROP, CBC, BNP #### [place] [id number] [facility] Vitamin D 25 Hydroxy Totalon 10-12-2023 Vitamin D 25 Hydroxy Total 43.4 ng/mL Normal 30-100 [facility] Comment on above: Order Comment: Reaso n for Exam Hyperlipidemia Reason for Exam Macrocytosis Reason for Exam Hypothyroidism Reason for Exam Vitamin D deficiency Reason for Exam Other correction (current) drug therapy Result Comment: ALEX MIN D STATUS 25(OH)VITAMIN D RANGE (ng/mL) Deficient <20 Insufficient 20 to <30 Sufficient 30 to 100 Reference: Dominique Bocanegra, Nikky RICHARD, et al. Evaluation,treatment, and prevention of vitamin D deficiency; an Endocrine Society clinical practice guideline. JCEM. 2010; 96(7):1911-30. PERFORMED BY: [place] [address] PATHOLOGIST MEDICAL PHYSICS TEACHER RENNY PEREZ M.D. Performed By: #### C MP, CK, HS TROP, CBC, BNP #### [place] [id number] [facility] Vitamin D+Metabolites [Mass/ volume] in Serum or PlasmaOrdered By: Jaquan Richard on 10-12-2023 Vitamin D+Metabolites [Mass/Vol] 43.4 ng/mL 30-100 [facility] Comment on above: VITAMIN D STATUS 25( [place])VITAMIN D RANGE (ng/mL) Deficient <20 Insufficient 20 to <30Sufficient 30 to 100Reference: Dominique Bocanegra, Nikky RICHARD, et al. Evaluation,treatment, and prevention of vitamin D deficiency; an Endocrine Society clinical practice guideline. JCEM. 2010; 96(7):0021-30. CNCOon 10-06-2023 CNCO Letter Text Normal [facility] XR knee BI 4Von 08-27-2023 XR knee BI 4V [facility] Main [address] [address] XRay Report Signed Patient: Beba Garcia MR#: [id number] [birth year] : 1950 Acct:[id number] Age/Sex: 73 / F ADM Date: 08/27/23 Loc: SOXD Room: Type: REG CLI Attending Dr: Mikael Hughes II, MD Copies to: Mikael Hughes MD Ordering Provider: Mikael Hughes MD Date of Service: 08/27/23 XR/XR knee BI 4V: Primary osteoarthritis of right knee;Primary osteoarthritis 4 views both knee plain film COMPARISON: 06/11/2021 HISTORY: Bilateral knee pain for months ACUTE FINDINGS: No acute findings DEGENERATIVE CHANGE: [id number] contact of the medial compartment of the left knee. 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 Additional compartments of mild degeneration. Similar degenerative angulation. SOFT TISSUE FINDINGS: Unremarkable JOINT EFFUSION: None POSTOP CHANGES: None BONE MINERALIZATION: Adequate XR/XR knee BI 4V IMPRESSION: Progressed [id number] contact the left medial compartment degeneration. Similar extensive left patellofemoral degeneration. Impression dictated by: Conrado Hendricks M.D.08/27/2023 3:26 PM Dictation Location: [place] [address] Transcribed By: [facility] 08/27/23 1526 Dictated By: Conrado Hendricks DO 08/27/23 1520 Signed By: 08/27/23 1526 Normal [facility] XR pelvis 1-2Von 08-27-2023 XR pelvis 1-2V [address] [address] XRay Report Signed Patient: Beba Garcia MR#: [id number] [birth year] : 1950 Acct:[id number] Age/Sex: 73 / F ADM Date: 08/27/23 Loc: SOXD Room: Type: REG CLI Attending Dr: Mikael Hughes II, MD Copies to: Mikael Hughes MD Ordering Provider: Mikael Hughes MD Date of Service: 08/27/23 XR/XR pelvis 1-2V: Primary osteoarthritis of right knee;Primary osteoarthritis Single view of the pelvis plain film HISTORY: Bilateral knee pain. COMPARISON: None ACUTE FINDINGS: None BONY ALIGNMENT: Adequate SOFT TISSUES: Unremarkable DEGENERATIVE CHANGE:Unremarkable hips. Spurring of the greater trochanters. Lower lumbar and SI joint degenerative change. INTRAPELVIC STRUCTURES: Unremarkable POSTSURGICAL CHANGES:Pelvic surgical clips. XR/XR pelvis 1-2V IMPRESSION:Unremarkable hips. Spurring of the greater trochanters. Lumbar and SI joint degeneration. Impression dictated by: Conrado Hendricks M.D.08/27/2023 3:20 PM Dictation Location: [place] [address] Transcribed By: [facility] 08/27/23 1520 Dictated By: Conrado Hendricks DO 08/27/23 1513 Signed By: 08/27/23 1520 Normal [facility] CNCOon 08-09-2023 CNCO Letter Text Normal [facility] Clinical Note - Pharmacy v2- Discharge Med Counselingon 05-27-2023 Clinical Note - Pharmacy v2-Discharge Med Counseling Clinical Note - Pharmacy v2: Discharge Meds: Document TopicDischarge Med Counseling Time [id number] - 60 minutes 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 Medications Home Medications Review Status for Reconciliation: Complete Med Status: Patient Currently Takes Medications Drug Name: PARoxetine 10 mg oral tablet Instructions: 1 tab(s) orally once a day Drug Name: enoxaparin 100 mg/mL injectable solution Instructions: 100 milligram(s) subcutaneously 2 times a day Drug Name: sertraline 25 mg oral tablet Instructions: 1 tab(s) orally once a day Drug Name: melatonin 3 mg oral tablet Instructions: 1 tab(s) orally once a day (at bedtime), As Needed Drug Name: polyethylene glycol 3350 oral powder for reconstitution Instructions: 17 gram(s) orally once a day Drug Name: losartan 50 mg oral tablet Instructions: 1 tab(s) orally once a day Drug Name: ProAir HFA 90 mcg/inh inhalation aerosol Instructions: 2 puff(s) inhaled every 6 hours, As Needed -.Meds to Beds - .ADOD 05/27 Drug Name: predniSONE 20 mg oral tablet Instructions: 2 tab(s) orally every 24 hours -.ADOD 05/27 - .Meds to Beds Medications DeliveredSee above Medications Delivered Topatient Delivery Date/[id number] 11:34 Medications ReviewedSee above (home medications reviewed section ) Education TopicADR counseling; dosage, frequency, storage; medication indication; medication interactions; refills Learnerpatient Barriers to Learningnone Methodvideo Outcome Evaluation2=meets goals/outcomes Additional Notes-Reviewed enoxaparin injection directions, side effects (bleeding/bruising, injection site pain/redness), potential drug interactions (sertraline and paroxetine-increase chance of bleed, avoid NSAIDs), and discussed proper injection technique/administration of product. -Counseled on paroxetine and sertraline medication purpose (antidepressant/anxiolyt ic), potential side effects (dizziness, affects on sleep and headache), time to effect expectations (up to 4 weeks), as well as monitoring for signs or symptoms of serotonin syndrome (shakiness, increased sweating, changes in heart rate, etc.) Instructed pt. to seek medical attention or contact primary care provider immediately with concerns. -Prednisone prescription was changed AFTER delivery to patient (quantity of 8 tablets instead of 4 and taking over 4 days). Old prescription removed from pt. delivery bag by nursing team, brought to pharmacy, and new prescription filled was picked up by floor nurse. -Advised pt. to take prednisone early in the day and with food. -Discussed purpose of melatonin (sleep aid) and PEG 3350 (constipation). Counseled to monitor for diarrhea or stomach discomfort when using PEG 3350. -Losartan directions, dose, and potential side effects (dizziness, possible fatigue, etc.) discussed with pt. -All questions were answered at time of encounter and pt. acknowledged understanding Allergy: Allergies Summary Allergy Allergen: ciprofloxacin Type: Drug Reaction: Resp Distress Allergen: Dilantin Type: Drug Reaction: Swelling/Edema Allergen: lisinopril Type: Drug Reaction: Other Allergen: tetanus immune globulin Type: Drug Reaction: Other Allergen: Wellbutrin SR Type: Drug Reaction: Other Intolerance Allergen: Keflex Type: Drug Reaction: GI Upset Allergen: doxycycline Type: Drug Reaction: Unknown Electronic Signatures: [facility] (Signed 27-May-2023 17:43) Entered: Discharge Meds, Allergy Authored: Allergy, Discharge Meds Iván Augustine ([facility]) (Signed 02-Jun-2023 09:14) Co-Signer: Discharge Meds, Allergy Last Updated: 02-Jun-2023 09:14 by Iván Augustine ([facility]) Normal [facility] CBC AND DIFFERENTIALon 05-26 % AUTOMATED IMMATURE GRAN 1.7 % High 0.0 - 0.9 [facility] Comment on above: Result Comment: Brandy ture Granulocyte Count (IG) includes promyelocytes, myelocytes and metamyelocytes but does not include bands. Percent differential counts (%) should be interpreted in the context of the absolute cell counts (cells/L). Performed By: #### [facility] #### [facility] [address] [place] [address] Basophils (Bld) [#/Vol] 0.06 10*3/uL Normal 0.00 - 0.10 [facility] Comment on above: Performed By: #### [facility] #### [facility] [address] [place] [address] Basophils/100 WBC (Bld) 0.8 % Normal 0.0 - 2.0 [facility] Comment on above: Performed By: #### [facility] #### [facility] [address] [place] [address] Eosinophils (Bld) [#/Vol] 0.23 10*3/uL Normal 0.00 - 0.40 [facility] Comment on above: Performed By: #### [facility] #### [facility] [address] [place] [address] Eosinophils/100 WBC (Bld) 3.0 % Normal 0.0 - 6.0 [facility] Comment on above: Performed By: #### T RP #### [facility] [address] [place] [address] Erythrocyte distribution width (RBC) [Ratio] 14.6 % High 11.5 - 14.5 [facility] Comment on above: Performed By: #### T RP #### [facility] [address] [place] [address] Hematocrit (Bld) [Volume fraction] 37.6 % Normal 36.0 - 46.0 [facility] Comment on above: Performed By: #### T RP #### [facility] [address] [place] [address] Hemoglobin (Bld) [Mass/Vol] 11.7 g/dL Low 12.0 - 16.0 [facility] Comment on above: Performed By: #### T RP #### [facility] [address] [place] [address] Lymphocytes (Bld) [#/Vol] 2.14 10*3/uL Normal 0.80 - 3.00 [facility] Comment on above: Performed By: #### T RP #### [facility] [address] [place] [address] Lymphocytes/100 WBC (Bld) 27.8 % Normal 13.0 - 44.0 [facility] Comment on above: Performed By: #### T RP #### [facility] [address] [place] [address] MCHC (RBC) [Mass/Vol] 31.1 g/dL Low 32.0 - 36.0 [facility] Comment on above: Performed By: #### T RP #### [facility] [address] [place] [address] MCV (RBC) [Entitic vol] 100 fL Normal 80 - 100 [facility] Comment on above: Performed By: #### T RP #### [facility] [address] [place] [address] Monocytes (Bld) [#/Vol] 0.77 10*3/uL Normal 0.05 - 0.80 [facility] Comment on above: Performed By: #### T RP #### [facility] [address] [place] [address] Monocytes/100 WBC (Bld) 10.0 % Normal 2.0 - 10.0 [facility] Comment on above: Performed By: #### T RPHS #### [facility] [address] [place] [address] Neutrophils (Bld) [#/Vol] 4.36 10*3/uL Normal 1.60 - 5.50 [facility] Comment on above: Performed By: #### T RP #### [facility] [address] [place] [address] Neutrophils/100 WBC (Bld) 56.7 % Normal 40.0 - 80.0 [facility] Comment on above: Performed By: #### T RP #### [facility] [address] [place] [address] NUCLEATED RBC 0.4 /100 WBC Normal 0.0-0.0 [facility] Comment on above: Performed By: #### T RP #### [facility] [address] [place] [address] Platelets (Bld) [#/Vol] 243 10*3/uL Normal 150 - 450 [facility] Comment on above: Performed By: #### T RP #### [facility] [address] [place] [address] RBC 3.77 x10E12/L Low 4.00 - 5.20 [facility] Comment on above: Performed By: #### T RP #### [facility] [address] [place] [address] WBC (Bld) [#/Vol] 7.7 10*3/uL Normal 4.4 - 11.3 [facility] Comment on above: Performed By: #### T RP #### [facility] [address] [place] [address] Clinical Event Note-Walking pulse oxon 05-26-2023 Clinical Event Note-Walking pulse ox Clinical Event: Clinical Event Note: TopicWalking pulse ox Details Completed at 1120, 05/26/23 Sp02 on RA at rest 93%, HR 107 Sp02 on RA while standing 91%, HR 115 Sp02 on RA with exertion, 91%, HR 120 Rimma Mayes RN Electronic Signatures: Rimma Mayes ([place]) (Signed 26-May-2023 11:28) Authored: Clinical Event Note Last Updated: 26-May-2023 11:28 by Rimma Mayes) Normal [facility] Daily Progress Note - Psychi carlos 05-26-2023 Daily Progress Note - Psychiatry Subjective Data: BEBA GARCIA is a 72 year old Female who is Hospital Day # 5. On interview this morning, patient is observed sitting up in bed. She reports sleeping well last night. She reports that her mood is okay now but explains that she cries often throughout the day. She notes that she has felt this way since 2008 when her daughter . Throughout the interview, she reports the loss of many family members and friends close to her including her daughter, son, and best friend. She also notes the recent loss of her granddaughter, explaining that yesterday was the anniversary of her . She remarks that she got through the day okay, better than I would have at home. She reports feeling unsupported at home because although she lives with her brother, nephew and daughter, everyone is going through their own grief. When discussing whether she would be open to counseling, she notes having tried it in the past but felt that the suggestions of her therapists were not helpful. She denies medication side effects at this time. She reports that when paroxetine was previously titrated years ago, she experienced shock-like sensations. She denies experiencing these sensations since decreasing her dose yesterday. She reports that she has not experienced any changes in physical symptoms or mood since the medication change yesterday. She denies SI/AVH. Objective: Objective Information: T PRBPMAPSpO2 [id number]% Date/Time05/26 8: 8: 8: 8: 8: 8:13 Range(36.3C - 36.8C ) (85 - 108 ) (16 - 20 ) (121 - 150 )/ (71 - 98 ) (93 - 110 ) (89% - 97% ) Mental Status Exam: General: Patient observed sitting up in bed in no acute distress. Appearance: Elderly woman wearing hospital attire, sitting upright in hospital bed. Attitude: Calm, cooperative, and engaged in conversation. Behavior: Appropriate eye contact. Motor Activity: No psychomotor agitation or retardation. No abnormal movements, tremors, or tics noted. Unable to assess gait due to patient's seated position. Speech: Regular rate, rhythm, and tone. Spontaneous, coherent. Mood: Okay now ; I cry all the time Affect: Dysphoric, low range. Intermittently tearful when discussing deaths of family members. Thought Process: Linear, logical, and goal-directed. No loose associations or gross thought disorganization. Thought Content: Denies suicidal ideation. Does not endorse homicidal ideation. No delusions elicited. Thought Perception: Denies auditory or visual hallucinations, and does not appear to be responding to any hallucinatory stimuli. Cognition: Alert and oriented to person, place, time and circumstance. No deficits in attention, concentration or language. Able to answer questions appropriately throughout interview. Insight: Full Judgment: Good Medications: ALTERNATIVE MEDICINES: 1. Melatonin: 5 mg Oral Daily 1800 PRN CENTRAL NERVOUS SYSTEM AGENTS: 1. Acetaminophen: 975 mg Oral Every 6 Hours PRN 2. oxyCODONE Immediate Release: 5 mg Oral Every 6 Hours PRN COAGULATION MODIFIERS: 1. Enoxaparin SubCutaneous: 100 mg SubCutaneous Every 12 Hours GASTROINTESTINAL AGENTS: 1. Polyethylene Glycol: 17 gram(s) Oral Daily HORMONES/HORMONE MODIFIERS: 1. Levothyroxine: 112 microgram(s) Oral Daily IMMUNOLOGIC AGENTS: 1. Pneumococcal 23-Valent (PNEUMOVAX) Vaccine: 0.5 mL IntraMuscular Once METABOLIC AGENTS: 1. Atorvastatin: 10 mg Oral Daily NUTRITIONAL PRODUCTS: 1. Cholecalciferol (Vitamin D3): 1000 International Unit(s) Oral Daily 2. Cyanocobalamin: 1000 microgram(s) Oral Daily 3. Folic Acid: 1 mg Oral Daily PSYCHOTHERAPEUTIC AGENTS: 1. PARoxetine: 10 mg Oral Daily 2. Sertraline: 25 mg Oral Daily RESPIRATORY AGENTS: 1. Albuterol 2.5 mg/ 3 mL Nebulizer Soln: 1.5 mL Inhalation Every 6 Hours PRN Conditional Medication Orders -------- 1. Perflutren Lipid Microsphere (Activated) 1.3 mL / NaCL 0.9% T.V. 10 mL Injectable: 0.5 mL IntraVenous Push Once Recent Lab Results: Results: I have reviewed these laboratory results: Complete Blood Count + Differential 23-May-2023 01:20:00 ResultValue White Blood Cell Count 9.4 Nucleated Erythrocyte Count 0.0 Red Blood Cell Count 4.63 HGB 14.5 HCT 45.2 MCV 98 MCHC 32.1 PLT 239 RDW-CV 14.5 Neutrophil % 53.4 Immature Granulocytes % 0.9 Lymphocyte % 31.6 Monocyte % 12.2 Eosinophil % 1.3 Basophil % 0.6 Neutrophil Count 5.03 Lymphocyte Count 2.97 Monocyte Count 1.15 H Eosinophil Count 0.12 Basophil Count 0.06 Renal Function Panel 23-May-2023 01:20:00 ResultValue Glucose, Serum 132 H NA 142 K 4.0 CL 105 Bicarbonate, Serum 28 Anion Gap, Serum 13 BUN 11 CREAT 0.66 GFR Female >90 Calcium, Serum 9.0 Phosphorus, Serum 3.9 ALB 3.2 L Magnesium, Serum 23-May-2023 01:20:00 (more content not included)... Normal [facility] Daily Progress Note-Medicine on 05-26-2023 Daily Progress Note-Medicine Service: Medicine Subjective Data: BEBA GARCIA is a 72 year old Female who is Hospital Day # 5. No acute events overnight. Patient reports she continues to have some shortness of breath. Denies any fevers, chills, nausea/vomiting, chest pain. Objective Data: Objective Information: T PRBPMAPSpO2 [id number]% Date/Time05/26 8: 8: 8: 8: 8:139 8:13 Range(36.3C - 36.8C ) (85 - 108 ) (16 - 20 ) (121 - 150 )/ (71 - 98 ) (93 - 110 ) (89% - 97% ) Pain reported at 05/26 10:25: 7 = Severe Physical Exam Narrative: Physical Exam: General: awake, alert, conversant, appears stated age HEENT: pupils equal and round, no scleral icterus Skin: no suspect lesions or rashes noted on visible skin Chest: ctab, not on supplemental oxygen, mild expiratory wheezing appreciated on exam bilaterally Cardiac: regular rate, normal s1, s2, no M/R/G Abdomen: soft, ND, NT, no involuntary guarding : no flank pain or indwelling urinary catheter EXT: no peripheral edema, no asymmetry noted MSK: no focal joint swelling noted Neuro: AOx4, moving all limbs spontaneously, follows commands Psych: coherent thought process, appropriate mood and affect Medication: Medications: Continuous Medications -------- No continuous medications are active Scheduled Medications -------- 1. Atorvastatin: 10 mg Oral Daily 2. Cholecalciferol (Vitamin D3): 1000 International Unit(s) Oral Daily 3. Cyanocobalamin: 1000 microgram(s) Oral Daily 4. Enoxaparin SubCutaneous: 100 mg SubCutaneous Every 12 Hours 5. Folic Acid: 1 mg Oral Daily 6. Levothyroxine: 112 microgram(s) Oral Daily 7. PARoxetine: 10 mg Oral Daily 8. Pneumococcal 23-Valent (PNEUMOVAX) Vaccine: 0.5 mL IntraMuscular Once 9. Polyethylene Glycol: 17 gram(s) Oral Daily 10. Sertraline: 25 mg Oral Daily PRN Medications -------- 1. Acetaminophen: 975 mg Oral Every 6 Hours 2. Albuterol 2.5 mg/ 3 mL Nebulizer Soln: 1.5 mL Inhalation Every 6 Hours 3. Melatonin: 5 mg Oral Daily 1800 4. oxyCODONE Immediate Release: 5 mg Oral Every 6 Hours Conditional Medication Orders -------- 1. Perflutren Lipid Microsphere (Activated) 1.3 mL / NaCL 0.9% T.V. 10 mL Injectable: 0.5 mL IntraVenous Push Once Recent Lab Results: Results: CBC: 05/26/2023 10:26 \ Hgb / \ 11.7 L / WBC Plt 7.7 243 / Hct \ / 37.6 \ RBC: 3.77 L MCV: 100 Neutrophil %: 56.7 RFP: 05/26/2023 10:26 NA+ Cl- BUN / 141 106 12 / -------- Glucose --- 127 H K+ HCO3- Creat \ 4.2 24 0.62 \ Calcium : 9.1Anion Gap : 15 Albumin : 3.5 Phos : 4.4 Assessment and Plan: Comorbidities: ComorbidityOther Code Status: Code StatusFull Code Assessment: Ms. Beba Garcia is a 72 year old female with PMH of DENG positive joint pain/psoriasis (dx >30 years ago), on methotrexate, depression, cataracts, fibromyalgia, and osteoarthritis who presented to OSH 05/22 with SOB and calf pain and found to have submassive PE with evidence of right heart strain. Transferred to [facility] for evaluation for mechanical thrombectomy following PERT call, performed on 05/23/23. Psych following for severe depression. Updates 05/26: - walking pulse ox today, recorded in chart - appears patient does not qualify for need for homegoing O2 - Pt transitioned to Lovenox and will go home with lovenox for anticoagulation #Pulmonary embolism with evidence of right heart strain ::PESI 112-high risk ::MARIA ALEJANDRA score 5- high risk (10% mortality in 30 days, 42% risk PE-related complications) ::Echo 05/22: LV systolic fxn normal, RV volume overload, severely enlarged RV, severely reduced RV systolic fxn - S/p mechanical thrombectomy 05/23 with interventional cards - continue heparin gtt - Patient will need age/gender appropriate cancer screening with PCP - Walking pulse ox performed - no indication for homegoing O2 - Albuterol nebulizer ordered for PRN symptoms - Continue lovenox q12hrs - patient will go home with lovenox and duration of anticoagulation will be determined at outpatient follow up with Vascular Medicine team #Elevated troponin resolved, likely 2/2 demand ischemia - s/p mechanical thrombectomy 05/24/2023 - vascular medicine and interventional cardiology following - DVT US negative - heparin assay normal - Per vascular med and interventional cardiology: - continue heparin gtt, please ensure Xa is a peripheral draw, from the contralateral arm to where the heparin is running -- Very close monitoring to VS at rest and with movement --Anti-cardiolipin, B2-Glycoprotein antibodies normal #HTN -holding home losartan and hydrochlorothiazide -consider giving lasix (home med) if SOB persists or worsens #HLD -continue home atorv (more content not included)... Normal [facility] Daily Progress Note-Vascular Medicineon 05-26-2023 Daily Progress Note-Vascular Medicine Consult Type: subsequent visit/care Service: Vascular Medicine Subjective Data: BEBA GARCIA is a 72 year old Female who is Hospital Day # 5. Patient reports plan for DC tomorrow. Denies c/o CP, SOB or bleeding. Additional Information: Vascular Medicine Service following for acute PE with RVS. Transitioned to Lovenox 100mg q12 hours yesterday. There are no overt signs of bleeding. Objective Data: Objective Information: T PRBPMAPSpO2 [id number]% Date/Time05/26 8: 8: 8: 8: 8: 8:13 Range(36.3C - 36.8C ) (85 - 108 ) (16 - 20 ) (121 - 150 )/ (71 - 98 ) (93 - 110 ) (89% - 97% ) Pain reported at 05/26 10:25: 7 = Severe Physical Exam by System: Constitutional: Sitting up in chair in NAD. Respiratory/Thorax: Respirations are full and easy with symmetrical chest expansion; breath sounds clear all anterolateral lung villanueva; on RA Cardiovascular: Normal heart sounds with regular rate and rhythm; not tachycardic; no audible rubs, gallops or murmurs; vital signs are stable. Musculoskeletal: GARVIN strongly and equally Extremities: warm to touch; palpable bilateral radial and DP pulses; PIV in place; no evidence of BLE or BUE swelling Neurological: awake, alert and conversant Psychological: calm, cooperative and pleasant Skin: warm and dry Medication: Medications: Continuous Medications -------- No continuous medications are active Scheduled Medications -------- 1. Atorvastatin: 10 mg Oral Daily 2. Cholecalciferol (Vitamin D3): 1000 International Unit(s) Oral Daily 3. Cyanocobalamin: 1000 microgram(s) Oral Daily 4. Enoxaparin SubCutaneous: 100 mg SubCutaneous Every 12 Hours 5. Folic Acid: 1 mg Oral Daily 6. Levothyroxine: 112 microgram(s) Oral Daily 7. PARoxetine: 10 mg Oral Daily 8. Pneumococcal 23-Valent (PNEUMOVAX) Vaccine: 0.5 mL IntraMuscular Once 9. Polyethylene Glycol: 17 gram(s) Oral Daily 10. Sertraline: 25 mg Oral Daily PRN Medications -------- 1. Acetaminophen: 975 mg Oral Every 6 Hours 2. Albuterol 2.5 mg/ 3 mL Nebulizer Soln: 1.5 mL Inhalation Every 6 Hours 3. Melatonin: 5 mg Oral Daily 1800 4. oxyCODONE Immediate Release: 5 mg Oral Every 6 Hours Conditional Medication Orders -------- 1. Perflutren Lipid Microsphere (Activated) 1.3 mL / NaCL 0.9% T.V. 10 mL Injectable: 0.5 mL IntraVenous Push Once Recent Lab Results: Results: CBC: 05/26/2023 10:26 \ Hgb / \ 11.7 L / WBC Plt 7.7 243 / Hct \ / 37.6 \ RBC: 3.77 L MCV: 100 Neutrophil %: 56.7 RFP: 05/26/2023 10:26 NA+ Cl- BUN / 141 106 12 / -------- Glucose --- 127 H K+ HCO3- Creat \ 4.2 24 0.62 \ Calcium : 9.1Anion Gap : 15 Albumin : 3.5 Phos : 4.4 Assessment and Plan: Code Status: Code StatusFull Code Assessment: 72 year old female with medical history significant for depression, fibromyalgia, HTN, OA, MARYANN, psoriasis and T2DM. Presented to OSH with 3 day history of progressive SOB, chest tightness, chest palpitations and calf pain, with imaging significant for submassive PE with RHS. Underwent percutaneous mechanical thrombectomy fo submassive PE 05/23/23. At this time the PE is considered to be unprovoked. Review of labs today shows stable hemoglobin 11.7 grams, stable platelets 243K, and stable serum creatinine 0.62. Started weight based Lovenox 100 mg q12 hours last night. Patient reports she has not been able to self administer Lovenox, and would like to learn prior to DC. Underwent desaturation study with RN today with mild decrease in saturation from sitting RA 93% to walking RA 91%. Patient given Lovenox Med-Alert bracelet. Recommendations: ~Continue Lovenox 100mg q12 hours; administer Lovenox at 8p/8a; duration of anticoagulation to be determined at out-patient follow up with Vascular Medicine team. ~Monitor for bleeding. ~Please have bedside RN instruct patient how to self administer Lovenox; patient should be monitored for appropriate injection technique with remaining Lovenox doses here in the hospital ~Will need outpatient age/gender cancer screening as outpatient; can be coordinated with PCP ~Outpatient follow up with the Vascular Medicine Service has been scheduled and the DC profile has been updated. Vascular Medicine team will sign off for now; please call for any questions, or if patient status changes. Plan of care discussed with Dr. Mira Long - Vascular Medicine attending Plan of care discussed with Dr. Srini Deleon from the [facility] Gabriella Bonds CASE MANAGEMENT RN-GEOLOGICAL SURVEY FIELD ASSISTANT Nurse Practitioner for Vascular Medicine Vascular Medicine Team pager [phone] DocHalo: Gabriella Bonds Attestation: Note Completion: Provider/Team Pager #[phone] (more content not included)... Normal [facility] MAGNESIUMon 05-26-2023 Magnesium [Mass/Vol] 2.22 mg/dL Normal 1.60 - 2.40 [facility] Comment on above: Performed By: #### T [facility] #### [facility] [address] [place] [address] Order Reconciliationon 05-26 Order Reconciliation Page 1 Discharge Reconciliation Document Reconciliation Type: Discharge requested on behalf of Nkechi Cisneros (Resident) done by Nkechi Cisneros ( (Resident)) Discharge - Partial Reconciliation: 26-May-2023 09:13 by: Nkechi Cisneros ( (Resident)) Discharge - Partial Reconciliation: 26-May-2023 13:47 by: Tamiko Herrmann ([facility]) Discharge - Reconciliation: 27-May-2023 05:54 by: Tamiko Herrmann ([facility]) Discharge - Reset to Incomplete: 27-May-2023 09:36 by: Tamiko Herrmann ([facility]) Discharge - Partial Reconciliation: 27-May-2023 09:37 by: Tamiko Herrmann ([facility]) Discharge - Reconciliation: 27-May-2023 09:38 by: Tamiko Herrmann ([facility]) Discharge - Reset to Incomplete: 27-May-2023 10:37 by: Nkechi Cisneros ( (Resident)) Discharge - Reconciliation: 27-May-2023 10:41 by: Nkechi Cisneros ( (Resident)) Discharge - Reset to Incomplete: 27-May-2023 12:58 by: Nkechi Cisneros ( (Resident)) Discharge - Reconciliation: 27-May-2023 13:00 by: Nkechi Cisneros ( (Resident)) Home Medications EnteredHOME MEDICATIONS AT DISCHARGE DateReconciliation Comment/ Additional Information atorvastatin 10 mg oral tablet 1 tab(s) orally once a day 22-May-2023 03:17 atorvastatin 10 mg oral tablet 1 tab(s) orally once a day 22-May-2023 03:17 atorvastatin 10 mg oral tablet is continued as atorvastatin 10 mg oral tablet folic acid 1 mg oral tablet 1 tab(s) orally once a day 22-May-2023 03:17 folic acid 1 mg oral tablet 1 tab(s) orally once a day 22-May-2023 03:17 folic acid 1 mg oral tablet is continued as folic acid 1 mg oral tablet hydroCHLOROthiazide 12.5 mg oral capsule 1 cap(s) orally once a day 22-May-2023 03:15 Discontinued; Discontinue from ORM hydroCHLOROthiazide 12.5 mg oral capsule is not required Lasix 40 mg oral tablet 1 tab(s) orally once a day, As Needed 22-May-2023 03:17 Discontinued; Discontinue from ORM Lasix 40 mg oral tablet is not required levothyroxine 112 mcg (0.112 mg) oral tablet 1 tab(s) orally once a day 22-May-2023 03:16 levothyroxine 112 mcg (0.112 mg) oral tablet 1 tab(s) orally once a day 22-May-2023 03:16 levothyroxine 112 mcg (0.112 mg) oral tablet is continued as levothyroxine 112 mcg (0.112 mg) oral tablet losartan 50 mg oral tablet 1 tab(s) orally 2 times a day 22-May-2023 03:15 Discontinued; Discontinue from ORM losartan 50 mg oral tablet is not required oxycodone-acetaminophen 7.5 mg-300 mg oral tablet 1 tab(s) orally every 6 hours, As Needed 19-May-2023 03:17 oxycodone-acetaminophen 7.5 mg-300 mg oral tablet 1 tab(s) orally every 6 hours, As Needed 19-May-2023 03:17 oxycodone-acetaminophen 7.5 mg-300 mg oral tablet is continued as oxycodone-acetaminophen 7.5 mg-300 mg oral tablet PARoxetine 20 mg oral tablet 1 tab(s) orally once a day 22-May-2023 03:16 Discontinued; Discontinue from ORM PARoxetine 20 mg oral tablet is not required ProAir HFA 90 mcg/inh inhalation aerosol 2 puff(s) inhaled every 6 hours, As Needed 22-May-2023 03:16 ProAir HFA 90 mcg/inh inhalation aerosol 2 puff(s) inhaled every 6 hours, As Needed -.Meds to Beds - .ADOD 27-May-2023 10:39 Discontinued; Copy/Discontinue Prescription is created for ProAir HFA 90 mcg/inh inhalation aerosol Vitamin B12 1000 mcg oral tablet 1 tab(s) orally once a day 22-May-2023 03:15 Vitamin B12 1000 mcg oral tablet 1 tab(s) orally once a day 22-May-2023 03:15 Vitamin B12 1000 mcg oral tablet is continued as Vitamin B12 1000 mcg oral tablet Vitamin D3 1250 mcg (50,000 intl units) oral capsule 1 cap(s) orally once a week 22-May-2023 03:15 Vitamin D3 1250 mcg (50,000 intl units) oral capsule 1 cap(s) orally once a week 22-May-2023 03:15 Vitamin D3 1250 mcg (50,000 intl units) oral capsule is continued as Vitamin D3 1250 mcg (50,000 intl units) oral capsule Current OrdersDateHOME MEDICATIONS AT DISCHARGE DateReconciliation Comment/ Additional Information Acetaminophen Tablet (TYLENOL)DOSE = 975 mg Oral Every 6 Hours, PRN Pain Mild to Severe (1-10) 24-May-2023 19:11 Acetaminophen is not required Albuterol 2.5 mg/ 3 mL Nebulizer Soln (PROVENTIL)DOSE = 1.5 mL Inhalation Every 6 Hours via Nebulizer, PRN Shortness of Breath 22-May-2023 03:19 ProAir HFA 90 mcg/inh inhalation aerosol 2 puff(s) inhaled every 6 hours, As Needed -.Meds to Beds - .ADOD 27-May-2023 10:39 Albuterol 2.5 mg/ 3 mL Nebulizer Soln reconciled with the existing ProAir HFA 90 mcg/inh inhalation aerosol Atorvastatin Tablet (LIPITOR)DOSE = 10 mg Oral Daily 22-May-2023 03:19 atorvastatin 10 mg oral tablet 1 tab(s) orally once a day Atorvastatin reconciled with the existing atorvastatin 10 mg oral tablet Cholecalciferol (Vitamin D3) TabletDOSE = 1,000 International Unit(s Oral DailyNotes from Pharmacy: 1,000 units equivalent to 25 micrograms 23-May-2023 15:17 Vitamin D3 1250 mcg (50,000 intl units) oral capsule 1 cap(s) orally once a week Cholecalciferol (Vitamin D3) reconciled with the existing Vitamin D3 1250 mcg (50,000 i (more content not included)... Normal [facility] RENAL FUNCTION PANELon 05-26 Albumin [Mass/Vol] 3.5 g/dL Normal 3.4 - 5.0 [facility] Comment on above: Performed By: #### R ENAL #### [facility] [address] [place] [address] Anion gap [Moles/Vol] 15 mmol/L Normal 10 - 20 [facility] Comment on above: Performed By: #### R ENAL #### [facility] [address] [place] [address] Calcium [Mass/Vol] 9.1 mg/dL Normal 8.6 - 10.6 [facility] Comment on above: Performed By: #### R ENAL #### [facility] [address] [place] [address] Chloride [Moles/Vol] 106 mmol/L Normal 98 - 107 [facility] Comment on above: Performed By: #### R ENAL #### [facility] [address] [place] [address] Creatinine [Mass/Vol] 0.62 mg/dL Normal 0.50 - 1.05 [facility] Comment on above: Performed By: #### R ENAL #### [facility] [address] [place] [address] eGFR FEMALE >90 Normal >90 [facility] Comment on above: Result Comment: CALC ULATIONS OF ESTIMATED GFR ARE PERFORMED USING THE 2020 CKD-EPI STUDY REFIT EQUATION WITHOUT THE RACE VARIABLE FOR THE IDMS-TRACEABLE CREATININE METHODS. https://jasn.asnjournals.org/content//ASN.31293 16301 Performed By: #### R ENAL #### [facility] [address] [place] [address] Glucose [Mass/Vol] 127 mg/dL High 74 - 99 [facility] Comment on above: Performed By: #### R ENAL #### [facility] [address] [place] [address] HCO3 (Bld) [Moles/Vol] 24 mmol/L Normal 21 - 32 [facility] Comment on above: Performed By: #### R ENAL #### [facility] [address] [place] [address] Phosphate [Mass/Vol] 4.4 mg/dL Normal 2.5 - 4.9 [facility] Comment on above: Result Comment: The performance characteristics of phosphorus testing in heparinized plasma have been validated by the individual laboratory site where testing is performed. Testing on heparinized plasma is not approved by the FDA; however, such approval is not necessary. Performed By: #### R ENAL #### [facility] [address] [place] [address] Potassium [Moles/Vol] 4.2 mmol/L Normal 3.5 - 5.3 [facility] Comment on above: Performed By: #### R ENAL #### [facility] [address] [place] [address] Sodium [Moles/Vol] 141 mmol/L Normal 136 - 145 [facility] Comment on above: Performed By: #### R ENAL #### [facility] [address] [place] [address] Urea nitrogen [Mass/Vol] 12 mg/dL Normal 6 - 23 [facility] Comment on above: Performed By: #### R ENAL #### [place] [address] [place] [address] CBCon 05-25-2023 Erythrocyte distribution width (RBC) [Ratio] 14.1 % Normal 11.5 - 14.5 [facility] Comment on above: Performed By: #### C BCDF #### [place] [address] [place] [address] Hematocrit (Bld) [Volume fraction] 34.1 % Low 36.0 - 46.0 [facility] Comment on above: Performed By: #### C BCDF #### [facility] [address] [place] [address] Hemoglobin (Bld) [Mass/Vol] 10.8 g/dL Low 12.0 - 16.0 [facility] Comment on above: Performed By: #### C BCDF #### [facility] [address] [place] [address] MCHC (RBC) [Mass/Vol] 31.7 g/dL Low 32.0 - 36.0 [facility] Comment on above: Performed By: #### C BCDF #### [facility] [address] [place] [address] MCV (RBC) [Entitic vol] 101 fL High 80 - 100 [facility] Comment on above: Performed By: #### C BCDF #### [facility] [address] [place] [address] NUCLEATED RBC 0.3 /100 WBC Normal 0.0-0.0 [facility] Comment on above: Performed By: #### C BCDF #### [facility] [address] [place] [address] Platelets (Bld) [#/Vol] 200 10*3/uL Normal 150 - 450 [facility] Comment on above: Performed By: #### C BCDF #### [facility] [address] [place] [address] RBC 3.38 x10E12/L Low 4.00 - 5.20 [facility] Comment on above: Performed By: #### C BCDF #### [facility] [address] [place] [address] WBC (Bld) [#/Vol] 7.0 10*3/uL Normal 4.4 - 11.3 [facility] Comment on above: Performed By: #### C BCDF #### [facility] [address] [place] [address] COMPREHENSIVE PANELon 2022 Albumin [Mass/Vol] 2.9 g/dL Low 3.4 - 5.0 [facility] Comment on above: Performed By: #### H AUF #### [facility] [address] [place] [address] ALP [Catalytic activity/Vol] 39 U/L Normal 33 - 136 [facility] Comment on above: Performed By: #### H AUF #### [facility] [address] [place] [address] ALT [Catalytic activity/Vol] 15 U/L Normal 7 - 45 [facility] Comment on above: Result Comment: Marah ents treated with Sulfasalazine may generate falsely decreased results for ALT. Performed By: #### H AUF #### [facility] [address] [place] [address] Anion gap [Moles/Vol] 11 mmol/L Normal 10 - 20 [facility] Comment on above: Performed By: #### H AUF #### [facility] [address] [place] [address] AST [Catalytic activity/Vol] 15 U/L Normal 9 - 39 [facility] Comment on above: Performed By: #### H AUF #### [facility] [address] [place] [address] Bilirubin [Mass/Vol] 0.2 mg/dL Normal 0.0 - 1.2 [facility] Comment on above: Performed By: #### H AUF #### [facility] [address] [place] [address] Calcium [Mass/Vol] 8.3 mg/dL Low 8.6 - 10.6 [facility] Comment on above: Performed By: #### H AUF #### [facility] [address] [place] [address] Chloride [Moles/Vol] 106 mmol/L Normal 98 - 107 [facility] Comment on above: Performed By: #### H AUF #### [facility] [address] [place] [address] Creatinine [Mass/Vol] 0.61 mg/dL Normal 0.50 - 1.05 [facility] Comment on above: Performed By: #### H AUF #### [facility] [address] [place] [address] eGFR FEMALE >90 Normal >90 [facility] Comment on above: Result Comment: CALC ULATIONS OF ESTIMATED GFR ARE PERFORMED USING THE 2020 CKD-EPI STUDY REFIT EQUATION WITHOUT THE RACE VARIABLE FOR THE IDMS-TRACEABLE CREATININE METHODS. https://jasn.asnjournals.org/content/early//ASN.65186 55643 Performed By: #### H AUF #### [facility] [address] [place] [address] Glucose [Mass/Vol] 135 mg/dL High 74 - 99 [facility] Comment on above: Performed By: #### H AUF #### [facility] [address] [place] [address] HCO3 (Bld) [Moles/Vol] 29 mmol/L Normal 21 - 32 [facility] Comment on above: Performed By: #### H AUF #### [facility] [address] [place] [address] Potassium [Moles/Vol] 4.0 mmol/L Normal 3.5 - 5.3 [facility] Comment on above: Performed By: #### H AUF #### [facility] [address] [place] [address] Protein [Mass/Vol] 4.9 g/dL Low 6.4 - 8.2 [facility] Comment on above: Performed By: #### H AUF #### [facility] [address] [place] [address] Sodium [Moles/Vol] 142 mmol/L Normal 136 - 145 [facility] Comment on above: Performed By: #### H AUF #### [facility] [address] [place] [address] Urea nitrogen [Mass/Vol] 9 mg/dL Normal 6 - 23 [facility] Comment on above: Performed By: #### H AUF #### [facility] [address] [place] [address] Daily Progress Note-Medicine on 05-25-2023 Daily Progress Note-Medicine Service: Medicine Subjective Data: BEBA GARCIA is a 72 year old Female who is Hospital Day # 4. No acute events overnight. Patient reports she continues to have some shortness of breath. Denies any fevers, chills, nausea/vomiting, chest pain. Objective Data: Objective Information: T PRBPMAPSpO2 [id number] % Date/Time05/25 7: 7: 7: 7: 7: 7:11 Range(36.1C - 37.1C ) (85 - 124 ) (10 - 20 ) (112 - 150 )/ (67 - 94 ) (81 - 107 ) (91% - 95% ) As of 24-May-2023 04:00:00, patient is on 2 L/min of oxygen via room air. Highest temp of 37.1 C was recorded at 05/24 12:00 Pain reported at 05/25 12:30: 7 = Severe ---- Intake and Output ----- [facility], [facility] 10:00 [id number] The Intake and Output Totals for the last 24 hours are: IntakeOutCritical access [facility] [id number] Physical Exam Narrative: Physical Exam: General: awake, alert, conversant, appears stated age HEENT: pupils equal and round, no scleral icterus Skin: no suspect lesions or rashes noted on visible skin Chest: ctab, not on supplemental oxygen, mild expiratory wheezing appreciated on exam bilaterally Cardiac: regular rate, normal s1, s2, no M/R/G Abdomen: soft, ND, NT, no involuntary guarding : no flank pain or indwelling urinary catheter EXT: no peripheral edema, no asymmetry noted MSK: no focal joint swelling noted Neuro: AOx4, moving all limbs spontaneously, follows commands Psych: coherent thought process, appropriate mood and affect Medication: Medications: Continuous Medications -------- 1. Heparin 25,000 units/ D5W 250 mL Infusion..: 2000 units/hr IntraVenous Scheduled Medications -------- 1. Atorvastatin: 10 mg Oral Daily 2. Cholecalciferol (Vitamin D3): 1000 International Unit(s) Oral Daily 3. Cyanocobalamin: 1000 microgram(s) Oral Daily 4. Folic Acid: 1 mg Oral Daily 5. Heparin (Repeat Bolus) Injectable: 6000 unit(s) IntraVenous Push Every 4 Hours 6. Levothyroxine: 112 microgram(s) Oral Daily 7. PARoxetine: 10 mg Oral Daily 8. Pneumococcal 23-Valent (PNEUMOVAX) Vaccine: 0.5 mL IntraMuscular Once 9. Polyethylene Glycol: 17 gram(s) Oral Daily 10. Sertraline: 25 mg Oral Daily PRN Medications -------- 1. Acetaminophen: 975 mg Oral Every 6 Hours 2. Albuterol 2.5 mg/ 3 mL Nebulizer Soln: 1.5 mL Inhalation Every 6 Hours 3. Melatonin: 5 mg Oral Daily 1800 4. oxyCODONE Immediate Release: 5 mg Oral Every 6 Hours Conditional Medication Orders -------- 1. Perflutren Lipid Microsphere (Activated) 1.3 mL / NaCL 0.9% T.V. 10 mL Injectable: 0.5 mL IntraVenous Push Once Recent Lab Results: Results: CBC: 05/25/2023 07:07 \ Hgb / \ 10.8 L / WBC Plt 7.0 200 / Hct \ / 34.1 L \ RBC: 3.38 L MCV: 101 H CMP: 05/25/2023 07:07 NA+ Cl- BUN / 142 106 9 / -------- Glucose --- 135 H K+ HCO3- Creat \ 4.0 29 0.61 \ \ T Bili / \ 0.2 / AST x ---- x ALT 15 x ---- x 15 / Alk P \ / 39 \ Calcium : 8.3 L Anion Gap : 11 Albumin : 2.9 L T Protein : 4.9 L Coagulation: 05/25/2023 07:23 PT / / -------< INR < PTT\ \ Heparin Assay: 0.5 Assessment and Plan: Comorbidities: ComorbidityOther Code Status: Code StatusFull Code Assessment: Ms. Beba Garcia is a 72 year old female with PMH of DENG positive joint pain/psoriasis (dx >30 years ago), on methotrexate, depression, cataracts, fibromyalgia, and osteoarthritis who presented to OSH 05/22 with SOB and calf pain and found to have submassive PE with evidence of right heart strain. Transferred to [facility] for evaluation for mechanical thrombectomy following PERT call, performed on 05/23/23. Psych following for severe depression. Updates 05/25: - walking pulse ox today - f/u vas medicine for oral outpt regimen #Pulmonary embolism with evidence of right heart strain ::PESI 112-high risk ::MARIA ALEJANDRA score 5- high risk (10% mortality in 30 days, 42% risk PE-related complications) ::Echo 05/22: LV systolic fxn normal, RV volume overload, severely enlarged RV, severely reduced RV systolic fxn - S/p mechanical thrombectomy 05/23 with interventional cards - continue heparin gtt - Patient will need age/gender appropriate cancer screening with PCP - Will perform walking pulse ox today to determine homegoing O2 needs - Albuterol nebulizer ordered for PRN symptoms - F/u with [facility] medicine regarding outpt oral anticoag regimen #Elevated troponin resolved, likely 2/2 demand ischemia - s/p mechanical thrombectomy 05/24/2023 - vascular medicine and interventional cardiology following - DVT US negative - heparin assay normal - Per vascular med and interventional cardiology: - continue heparin gtt, please ensure Xa is a periphera (more content not included)... Normal [facility] Daily Progress Note-Vascular Medicineon 05-25-2023 Daily Progress Note-Vascular Medicine Consult Type: subsequent visit/care Service: Vascular Medicine Subjective Data: BEBA GARCIA is a 72 year old Female who is Hospital Day # 4. patient reports feeling better today. Denies c/o CP, SOB or bleeding. Additional Information: Vascular Medicine Service following for acute PE with RVS. Continues with Heparin infusion with therapeutic assay today. There are no overt signs of bleeding. Objective Data: Objective Information: T PRBPMAPSpO2 [id number]/[id number]% Date/Time05/25 15:589 15:5805/25 7:119/12 15:589 15:5805/25 15:58 Range(36.1C - 37.1C ) (85 - 124 ) (10 - 20 ) (112 - 150 )/ (67 - 94 ) (81 - 107 ) (89% - 95% ) As of 24-May-2023 04:00:00, patient is on 2 L/min of oxygen via room air. Highest temp of 37.1 C was recorded at 05/24 12:00 Pain reported at 05/25 12:30: 7 = Severe ---- Intake and Output ----- Mn/Dy/Year TimeIntakeOutCritical access hospital May 24, 2023 10:00 [id number] The Intake and Output Totals for the last 24 hours are: IntakeOutputNet [id number] Physical Exam by System: Constitutional: Sitting up in chair eating lunch in NAD. Respiratory/Thorax: Respirations are full and easy with symmetrical chest expansion; breath sounds clear all anterolateral lung villanueva; on RA Cardiovascular: Normal heart sounds with regular rate and rhythm; tachycardia to 100 bpm; no audible rubs, gallops or murmurs; vital signs are stable. Musculoskeletal: GARVIN strongly and equally Extremities: warm to touch; palpable bilateral radial and DP pulses; PIV in place; no evidence of BLE or BUE swelling Neurological: awake, alert and conversant Psychological: calm, cooperative and pleasant Skin: warm and dry Medication: Medications: Continuous Medications -------- 1. Heparin 25,000 units/ D5W 250 mL Infusion..: 2000 units/hr IntraVenous Scheduled Medications -------- 1. Atorvastatin: 10 mg Oral Daily 2. Cholecalciferol (Vitamin D3): 1000 International Unit(s) Oral Daily 3. Cyanocobalamin: 1000 microgram(s) Oral Daily 4. Folic Acid: 1 mg Oral Daily 5. Heparin (Repeat Bolus) Injectable: 6000 unit(s) IntraVenous Push Every 4 Hours 6. Levothyroxine: 112 microgram(s) Oral Daily 7. PARoxetine: 10 mg Oral Daily 8. Pneumococcal 23-Valent (PNEUMOVAX) Vaccine: 0.5 mL IntraMuscular Once 9. Polyethylene Glycol: 17 gram(s) Oral Daily 10. Sertraline: 25 mg Oral Daily PRN Medications -------- 1. Acetaminophen: 975 mg Oral Every 6 Hours 2. Albuterol 2.5 mg/ 3 mL Nebulizer Soln: 1.5 mL Inhalation Every 6 Hours 3. Melatonin: 5 mg Oral Daily 1800 4. oxyCODONE Immediate Release: 5 mg Oral Every 6 Hours Conditional Medication Orders -------- 1. Perflutren Lipid Microsphere (Activated) 1.3 mL / NaCL 0.9% T.V. 10 mL Injectable: 0.5 mL IntraVenous Push Once Recent Lab Results: Results: CBC: 05/25/2023 07:07 \ Hgb / \ 10.8 L / WBC Plt 7.0 200 / Hct \ / 34.1 L \ RBC: 3.38 L MCV: 101 H CMP: 05/25/2023 07:07 NA+ Cl- BUN / 142 106 9 / -------- Glucose --- 135 H K+ HCO3- Creat \ 4.0 29 0.61 \ \ T Bili / \ 0.2 / AST x ---- x ALT 15 x ---- x 15 / Alk P \ / 39 \ Calcium : 8.3 L Anion Gap : 11 Albumin : 2.9 L T Protein : 4.9 L Coagulation: 05/25/2023 07:23 PT / / -------< INR < PTT\ \ Heparin Assay: 0.5 Assessment and Plan: Code Status: Code StatusFull Code Assessment: 72 year old female with medical history significant for depression, fibromyalgia, HTN, OA, MARYANN, psoriasis and T2DM. Presented to OSH with 3 day history of progressive SOB, chest tightness, chest palpitations and calf pain, with imaging significant for submassive PE with RHS. PERT call convened with plan for transfer to [facility] for further evaluation and possible thrombectomy. Underwent percutaneous mechanical thrombectomy fo submassive PE 05/23/[address] access; per op-note a significant amount of clot was retrieved. At this time the PE is considered to be unprovoked. Review of labs today shows decreased hemoglobin from 12.3 grams to 10.8 grams, stable platelets 200K, and stable serum creatinine 0.61. Discussed outpatient anticoagulation plan of care: weight based Lovenox q12 hours for 4-6 weeks, with transition to Eliquis for duration of anticoagulation. Recommendations: ~Continue Heparin infusion for now; follow nomogram to achieve therapeutic assay 0.3-0.7 ~START weight based Lovenox (patient weight is 107kg) 100mg at 2000; STOP Heparin infusion 1 hour after initial dose of Lovenox; administer Lovenox at 8p/8a schedule to avoid needing dose in the middle of the night ~Patient will need instruction regarding self administration of Lovenox prior to discharge to home ~Monitor for bleedi (more content not included)... Normal [facility] Discharge [id number] Discharge Profile2 Discharge Orders: Anticipated Discharge Date: Anticipated Discharge [id number] Anticipated Discharge Time14:30 Hospital Providers: Provider RoleProvider Name ConsultingPsych Consult Brad White PrimaryCorrect Info, Needed Code Status: Code Status at Discharge: Full Code DNR Order Additional Instructions (peds only): Activity: activity with assistance. Diet: Dietregular Additional Orders: Additional Instructions Dear Ms. Garcia and family, You were admitted to [facility] for management of your pulmonary embolism. You originally presented to an outside hospital on 05/22 with complaints of shortness of breath and calf pain. Imaging revealed that you had a large blood clot in your lungs. Here you underwent a procedure called a mechanical thrombectomy where they go in and suck out the blood clot from the lungs. After this procedure, your breathing significantly improved and you reported to us that you were feeling much better. You were also seen by our vascular medicine service who decided to start a blood thinner medication called lovenox, which you will inject twice a day at 8am and 8pm at home. Our nursing staff gave you teaching on how to do this yourself and luckily your daughter is a nurse who agreed to help you as well. You will stay on this medication for about 4-6 weeks and follow up in vascular medicine clinic after youre discharged. Psychiatry also saw you while you were hospitalized and recommended a change in your medications to help with your depression; we will discharge you home on these changes. Additionally, it is important that you follow up with your primary care doctor and complete your cancer screenings, such as a colonoscopy and mammogram. Below I have detailed all of your new medications and upcoming appointments. New medications: - Paroxetine 10mg daily (decreased from home 20mg) - Sertraline 25mg daily - Lovenox 100mg BID (for blood clot) - Prednisone 40mg for 5 days - Albuterol inhaler as needed for shortness of breath - Losartan 50mg ONCE daily (changed from home twice daily) Medications stopped: - Hydrochlorothiazide 12.5mg - Lasix 40mg as needed Upcoming appointments: - Primary care physician: Dr. Richard. We placed an order to schedule a follow up appointment, however if you do not hear from the schedulers, please call to make an appointment. The number is [phone] or [phone] - Vascular medicine: 06/28/23 @11:10am with Dr. Florez at [facility] - Psychiatry: office requests patient to call to schedule appointment and office will schedule closest location to patient, so call [phone] to schedule appointment If you develop any new or concerning symptoms, please feel free to come back to the emergency room and we would be happy to treat you. Take care, Your Care Team Enoxaparin (Lovenox) is a blood thinner used to treat blood clots. Enoxaparin (Lovenox) is administered only by injection under the skin using a small needle and syringe. Injections will be given twice a day. It is important that you give the injections at the same time each day. It is important that you continue your Enoxaparin injections until told to stop. Let everyone involved in your care, such as a dentist or other provider, know that you are taking Enoxaparin (Lovenox). Side Effects: - Skin bruises, itching, and bleeding around the injection site, can occur. - If bleeding does occur, it may take a little longer than usual to stop. Let your doctor know if you develop a rash of dark red spots under the skin. Signs of bleeding that you should call your doctor: - Gums that bleed after brushing your teeth lasting more than 15 minutes. - A nose bleed that lasts for more than 15 minutes. - Bleeding from a cut that does not stop in 15 minutes. - Urine that looks red, or urine that is dark like coffee. - Stool (BMs) that are covered with blood, or are black. - Vomit that is bright red or vomit that looks like coffee. How to administer the injection: 1. Wash your hands with soap and water. Dry your hands. 2. Sit down or lie flat in a comfortable position. 3. Select an area on the right or left side of your stomach (at least 2 inches away from your belly button), the back of your upper arm or side of your upper thigh. 4. Clean the area with an alcohol swabs. Allow the area to dry. 5. Carefully pull off the needle cap from the syringe and discard cap. Leave the air bubble in the syringe. 6. Hold the syringe like a pencil in the hand you write with. 7. With your other hand, gently pinch around the cleansed area to make a fold in the skin. Continue to hold the skin fold throughout the injection. 8. Press the needle straight down and all the way into the skin fold. 9. Press down on the plunger as far as it will go with your finger until the syringe (more content not included)... Normal [facility] HEPARIN ASSAY,UFHon 05-25-20 23 HEPARIN ASSAY,UFH 0.5 IU/mL Normal [facility] Comment on above: Result Comment: The therapeutic reference range for UFH may be either 0.3-0.6 IU/mL or 0.3-0.7 IU/mL based on the clinical setting for anticoagulant therapy and the associated nomogram used. For heparin dosing guidelines based on clinical scenario and Heparin Assay results, please refer to local Pharmacy and the [facility] Guidelines for Anticoagulation therapy available on the [facility] intranet at: [email or web address] Performed By: #### M G #### [facility] [address] [place] [address] MAGNESIUMon 05-25-2023 Magnesium [Mass/Vol] 2.15 mg/dL Normal 1.60 - 2.40 [facility] Comment on above: Performed By: #### H AUF #### [facility] [address] [place] [address] PT Evaluation v2-individual therapyon 05-25-2023 PT Evaluation v2-individual therapy Rehab: Info: Mode of Treatmentphysical therapy; individual therapy Time IN11:27 Time OUT11:47 Total Treatment [id number] Patient in ... at end of sessionchair; alarm off; not on at start of visit Communicated with ... at end of sessionbedside nurse Patient Effortgood Symptoms Noted During/After Treatmentnone Patient Profile Reviewedyes Onset of Illness/Injury or Date of [id number] Reason for ReferralSOB and found submassive PE General Observations of PatientPatient supine in bed and agreeable to therapy, RN cleared. patient cooperative with encouragement as patient reporting she has been very depressed at home. Patient required CGA-min A for mobility. Dc rec mod but may progress Pertinent History of Current Functional ProblemNA positive joint pain/psoriasis (dx >30 years ago), on methotrexate, depression, cataracts, fibromyalgia, and osteoarthritis. Hearing Precautions/LimitationsW FL Precautions/Limitationsf all precautions Ambulation Skills - Previous Level of Functionneeds device pt reports she has mostly been laying in bed, only ambulating to her bathroom. may use cane or rollator Transfer Skills - Previous Level of Functionneeds device ADL Skills - Previous Level of Functionindependent; pt reports she often is not completing ADL's due to depression but when she does would be indep in dressing/bathing. Patient reports she barely ate but when she did it was whatever anyone threw at me Work/Leisure Activity - Previous Level of Function- drive, family get groceries Living Arrangementshouse Lives Withbrother who is disabled, nephew and grandson Home Accessibilitystairs to enter home; first floor set up available; pt bed/bathroom on first floor Number of Stairs to Enter Home5 Type of Equipment Currently In the Homestraight cane; Rollator; bath bench Line and TubesIV; purewick Pre Treatment Patient Positionsupine Pre Treatment Heart Rate (beats/min)90 Pre Treatment SpO2 (%)97 % Pre Treatment Oxygen Deliveryroom air During Treatment Patient Positionsitting During Treatment Heart Rate (beats/min)90 During Treatment SpO2 (%)95 % During Treatment Oxygen Deliveryroom air Post Treatment Heart Rate (beats/min)99 Post Treatment SpO2 (%)99 % Post Treatment Oxygen Deliveryroom air Vision/Cognition: Affect/Mental Status (Cognitive)flat/blunted affect; sad/depressed affect Orientation Status (Cognition)oriented x 4 ROM: Lower Extremity: Range of Motionleft lower extremity ROM WFL; right lower extremity ROM WFL MMT: Lower Extremity: Manual Muscle Testing (MMT)left lower extremity strength WFL; right lower extremity strength WFL Mobility/Tone: Bed Mobility Assessment/Interventions supine to sit [id number]-[id number]-Koa Greenlee (Bed Mobility)contact guard; 1 person assist; verbal cues Comment, Bed MobilityHOB elevated Transfer Assessment/Interventions sit to stand transfer; stand to sit transfer Comment, Transferspt stood from EOB using FWW, cueing for hand placement with min A Sit-Stand Greenlee (Transfers)minimum assist (75% patient effort); 1 person assist; verbal cues Sit-Stand Assistive Device (Transfers)walker, front-wheeled Stand-Sit Greenlee (Transfers)1 person assist; minimum assist (75% patient effort); verbal cues Stand-Sit Assistive Device (Transfers)walker, front-wheeled Gait/Stairs Locomotiongait/ambulatio n independence; gait/ambulation assistive device; distance ambulated; gait deviations Gait Locomotion (Gait)moderate assist (50% patient effort); 1 person assist; min-mod A Assistive Device (Gait Training)walker, front-wheeled Distance in Feet (Gait Training)3' to chair Gait Deviations Identified (Gait)decreased marlen; decreased step length Comment, Gait/Stairs TrainingPatient ambulated to chair 3' with min-mod A, shakey and somewhat unsteady with ambulation. One LOB when turning to look back at the change and begin to step back, mod A to correct. Safety Issues Impacting Function (Mobility)insight into deficits/self awareness; judgment; awareness of need for assistance Impairments Impacting Function (Mobility)balance; endurance/activity tolerance; strength Motor: Vnq-it-Sqzza (Balance)Malik FWW Standing, Dynamic (Balance)min; one instance of mod A when going towards chair Sensory: Comment, Pre/Post Treatment Pain not much reported Sensory General Assessmenttingling in bilateral hands Impression: Criteria for Skilled Therapeutic Interventions Met (PT Eval)yes; treatment indicated PT Diagnosisimpaired mobility Patient/Family Goals Statement (PT Eval)to get better System Pathology/Pathophysiolog y Noted (PT Eval)musculoskeletal Impairments Found (PT Eval)gait, locomotion, and balance Functional Limitations in Following Categoriesmobility/gait; stairs Assessment (PT Eval)Patient is a 72yo F presenting with SOB and submassive PE. Pt lives with family and has battling depression which has decr (more content not included)... Normal [facility] CBC AND DIFFERENTIALon 05-24 % AUTOMATED IMMATURE GRAN 1.2 % High 0.0 - 0.9 [facility] Comment on above: Result Comment: Brandy ture Granulocyte Count (IG) includes promyelocytes, myelocytes and metamyelocytes but does not include bands. Percent differential counts (%) should be interpreted in the context of the absolute cell counts (cells/L). Performed By: #### [facility] #### [facility] [address] [place] [address] Basophils (Bld) [#/Vol] 0.05 10*3/uL Normal 0.00 - 0.10 [facility] Comment on above: Performed By: #### [facility] #### [facility] [address] [place] [address] Basophils/100 WBC (Bld) 0.5 % Normal 0.0 - 2.0 [facility] Comment on above: Performed By: #### [facility] #### [facility] [address] [place] [address] Eosinophils (Bld) [#/Vol] 0.15 10*3/uL Normal 0.00 - 0.40 [facility] Comment on above: Performed By: #### [facility] #### [facility] [address] [place] [address] Eosinophils/100 WBC (Bld) 1.6 % Normal 0.0 - 6.0 [facility] Comment on above: Performed By: #### [facility] #### [facility] [address] [place] [address] Erythrocyte distribution width (RBC) [Ratio] 13.7 % Normal 11.5 - 14.5 [facility] Comment on above: Performed By: #### [facility] #### [facility] [address] [place] [address] Hematocrit (Bld) [Volume fraction] 36.6 % Normal 36.0 - 46.0 [facility] Comment on above: Performed By: #### T RP #### [facility] [address] [place] [address] Hemoglobin (Bld) [Mass/Vol] 12.3 g/dL Normal 12.0 - 16.0 [facility] Comment on above: Performed By: #### T RP #### [facility] [address] [place] [address] Lymphocytes (Bld) [#/Vol] 1.78 10*3/uL Normal 0.80 - 3.00 [facility] Comment on above: Performed By: #### T RP #### [facility] [address] [place] [address] Lymphocytes/100 WBC (Bld) 18.9 % Normal 13.0 - 44.0 [facility] Comment on above: Performed By: #### T RP #### [facility] [address] [place] [address] MCHC (RBC) [Mass/Vol] 33.6 g/dL Normal 32.0 - 36.0 [facility] Comment on above: Performed By: #### T RP #### [facility] [address] [place] [address] MCV (RBC) [Entitic vol] 96 fL Normal 80 - 100 [facility] Comment on above: Performed By: #### T RP #### [facility] [address] [place] [address] Monocytes (Bld) [#/Vol] 0.83 10*3/uL High 0.05 - 0.80 [facility] Comment on above: Performed By: #### T RP #### [facility] [address] [place] [address] Monocytes/100 WBC (Bld) 8.8 % Normal 2.0 - 10.0 [facility] Comment on above: Performed By: #### T RPHS #### [facility] [address] [place] [address] Neutrophils (Bld) [#/Vol] 6.52 10*3/uL High 1.60 - 5.50 [facility] Comment on above: Performed By: #### T RP #### [facility] [address] [place] [address] Neutrophils/100 WBC (Bld) 69.0 % Normal 40.0 - 80.0 [facility] Comment on above: Performed By: #### T RP #### [facility] [address] [place] [address] NUCLEATED RBC 0.0 /100 WBC Normal 0.0-0.0 [facility] Comment on above: Performed By: #### T RP #### [facility] [address] [place] [address] Platelets (Bld) [#/Vol] 220 10*3/uL Normal 150 - 450 [facility] Comment on above: Performed By: #### T RP #### [facility] [address] [place] [address] RBC 3.83 x10E12/L Low 4.00 - 5.20 [facility] Comment on above: Performed By: #### T RP #### [facility] [address] [place] [address] WBC (Bld) [#/Vol] 9.4 10*3/uL Normal 4.4 - 11.3 [facility] Comment on above: Performed By: #### T RP #### [facility] [address] [place] [address] Daily Progress Note-Medicine on 05-24-2023 Daily Progress Note-Medicine Service: Medicine Subjective Data: BEBA GARCIA is a 72 year old Female who is Hospital Day # 3. Patient well. Only inquiring as to whether she can have her Tylenol and Oxy at the same time. Additional Information: Hospital Course per Transfer Note: 72 year old female with past medical history of DENG positive joint pain/psoriasis (dx >30 years ago), on methotrexate, depression, cataracts, fibromyalgia, and osteoarthritis. She presented to OSH with 1 week of progressively worsening shortness of breath and associated calf pain. She was saturating 79% on room air with HR 130s on arrival to ED. Found to have submassive PE with evidence of right heart strain on CT, PERT team called and transferred to [facility] for evaluation for mechanical thrombectomy after PERT call. CT PE showed saddle embolism. Case was evaluated by PERT team overnight. On heparin IV. Heparin assay normal/ Decision was to continue medical management. Vascular and interventional cardiology consulted and recommend continue heparin, no thrombectomy at this time. Per their recs, anticardiolipin and beta glycoprotein ordered. DVT US negative. While in the MICU, patient has been on 2 to 3 L nasal cannula (was previously on 6 L) saturating well, respiratory rate 14 to 15 breaths/min stable blood pressure. Flat troponins around 530 and lactic acid. Downtrended trops. Echo overnight- with normal left ventricular systolic function, right ventricular volume overload, severely enlarged right ventricle, severely reduced RV systolic function. Has severe depression due to multiple family deaths, and she is on sertraline at home. Immobility risk for PE. Psych consulted and recommended music therapy consult. Patient received a mechanical thrombectomy yesterday 05/24/2023 due to persistent tachycardia to the 120s and reports she can breathe better and feels better now. Objective Data: Objective Information: T PRBPMAPSpO2 [id number] % Date/Time05/24 15: 15: 12: 15: 15: 15:46 Range(35.9C - 37.1C ) (96 - 124 ) (10 - 22 ) (103 - 140 )/ (66 - 90 ) (81 - 101 ) (91% - 100% ) As of 24-May-2023 04:00:00, patient is on 2 L/min of oxygen via room air. Highest temp of 37.1 C was recorded at 05/24 12:00 Pain reported at 05/24 18:00: 8 = Severe ---- Intake and Output ----- Mn/Dy/Year TimeIntakeOutputNet May 24, 2023 2:00 [id number] May 24, 2023 6:00 [id number] May 23, 2023 10:00 [id number] The Intake and Output Totals for the last 24 hours are: IntakeOutputNet [id number] Physical Exam Narrative: Physical Exam: General: NAD, awake, alert, conversant, appears stated age HENT: NCAT, MMM Eyes: PERRL, no scleral icterus or conjunctival pallor Skin: no suspect lesions or rashes noted on visible skin Cardiac: RRR, normal S1, S2, no M/R/G, palpable b/l radial pulses Pulm: CTAB, normal respiratory effort, symmetric chest rise, on 2L O2 viai NC Abd: soft, ND, NT, no involuntary guarding or rebound tenderness : no CVA tenderness or indwelling urinary catheter EXT: b/l LE w/ trade pitting edema to calf MSK: no focal joint swelling noted, sensation and strength intact 5/5 in all extremities b/l Neuro: AOx3, able to follow commands, no gross FND Psych: coherent thought process, appropriate mood and affect Medication: Medications: Continuous Medications -------- 1. Heparin 25,000 units/ D5W 250 mL Infusion..: 2000 units/hr IntraVenous Scheduled Medications -------- 1. Atorvastatin: 10 mg Oral Daily 2. Cholecalciferol (Vitamin D3): 1000 International Unit(s) Oral Daily 3. Cyanocobalamin: 1000 microgram(s) Oral Daily 4. Folic Acid: 1 mg Oral Daily 5. Heparin (Repeat Bolus) Injectable: 6000 unit(s) IntraVenous Push Every 4 Hours 6. Levothyroxine: 112 microgram(s) Oral Daily 7. Loperamide: 4 mg Oral Once 8. PARoxetine: 20 mg Oral Daily 9. Pneumococcal 23-Valent (PNEUMOVAX) Vaccine: 0.5 mL IntraMuscular Once 10. Polyethylene Glycol: 17 gram(s) Oral Daily PRN Medications -------- 1. Acetaminophen: 975 mg Oral Every 6 Hours 2. Albuterol 2.5 mg/ 3 mL Nebulizer Soln: 1.5 mL Inhalation Every 6 Hours 3. Melatonin: 5 mg Oral Daily 1800 4. oxyCODONE Immediate Release: 5 mg Oral Every 6 Hours Conditional Medication Orders -------- 1. Perflutren Lipid Microsphere (Activated) 1.3 mL / NaCL 0.9% T.V. 10 mL Injectable: 0.5 mL IntraVenous Push Once Recent Lab Results: Results: CBC: 05/24/2023 04:35 \ Hgb / \ 12.3 / WBC Plt 9.4 220 / Hct \ / 36.6 \ RBC: 3.83 L MCV: 96 Neutrophil %: 69.0 RFP: 05/24/2023 04:35 NA+ Cl- BUN / 142 106 12 / -------- Glucose --- 138 H K+ HCO3- Creat \ 4.3 29 0.68 \ Calcium : 8.3 LAnion Gap : 11 Album (more content not included)... Normal [facility] Daily Progress Note-Vascular Medicineon 05-24-2023 Daily Progress Note-Vascular Medicine Consult Type: subsequent visit/care Service: Vascular Medicine Subjective Data: BEBA GARCIA is a 72 year old Female who is Hospital Day # 3. Patient reports that she arrived in room in [facility] an hour ago. Reports feels better today. Denies c/o CP, SOB or bleeding. Additional Information: Vascular Medicine Service following for acute PE with RVS. Continues with Heparin infusion with therapeutic assay today. There are no overt signs of bleeding. Objective Data: Objective Information: T PRBPMAPSpO2 [id number] % Date/Time05/24 12: 12: 12: 12: 9: 12:00 Range(35.9C - 37.1C ) (96 - 124 ) (10 - 22 ) (103 - 140 )/ (66 - 90 ) (81 - 101 ) (91% - 100% ) As of 24-May-2023 04:00:00, patient is on 2 L/min of oxygen via room air. Highest temp of 37.1 C was recorded at 05/24 12:00 Pain reported at 05/24 11:15: 7 = Severe ---- Intake and Output ----- Mn/Dy/Year TimeIntakeOutputNet May 24, 2023 6:00 [id number] May 23, 2023 10:00 [id number] May 23, 2023 2:00 [id number] The Intake and Output Totals for the last 24 hours are: IntakeOutCritical access hospital [id number] Physical Exam by System: Constitutional: Resting in bed in NAD. Respiratory/Thorax: Respirations are full and easy with symmetrical chest expansion; breath sounds clear all anterolateral lung villanueva; on RA Cardiovascular: Normal heart sounds with regular rate and rhythm; tachycardia to 100 bpm; no audible rubs, gallops or murmurs; vital signs are stable. Gastrointestinal: Abdomen soft, nondistended, nontender to palpation Musculoskeletal: GARVIN strongly and equally Extremities: warm to touch; palpable bilateral radial and DP pulses; PIV in place; no evidence of BLE or BUE swelling Neurological: awake, alert and convesant Psychological: calm, cooperative and pleasant Skin: warm and dry; No evidence of sores, rashes, ulcers or skin lesions Medication: Medications: Continuous Medications -------- 1. Heparin 25,000 units/ D5W 250 mL Infusion..: 2000 units/hr IntraVenous Scheduled Medications -------- 1. Acetaminophen: 975 mg Oral Every 8 Hours 2. Atorvastatin: 10 mg Oral Daily 3. Cholecalciferol (Vitamin D3): 1000 International Unit(s) Oral Daily 4. Cyanocobalamin: 1000 microgram(s) Oral Daily 5. Folic Acid: 1 mg Oral Daily 6. Heparin (Repeat Bolus) Injectable: 6000 unit(s) IntraVenous Push Every 4 Hours 7. Levothyroxine: 112 microgram(s) Oral Daily 8. Loperamide: 4 mg Oral Once 9. PARoxetine: 20 mg Oral Daily 10. Pneumococcal 23-Valent (PNEUMOVAX) Vaccine: 0.5 mL IntraMuscular Once 11. Polyethylene Glycol: 17 gram(s) Oral Daily PRN Medications -------- 1. Albuterol 2.5 mg/ 3 mL Nebulizer Soln: 1.5 mL Inhalation Every 6 Hours 2. Melatonin: 5 mg Oral Daily 1800 3. oxyCODONE Immediate Release: 5 mg Oral Every 6 Hours Conditional Medication Orders -------- 1. Perflutren Lipid Microsphere (Activated) 1.3 mL / NaCL 0.9% T.V. 10 mL Injectable: 0.5 mL IntraVenous Push Once Recent Lab Results: Results: CBC: 05/24/2023 04:35 \ Hgb / \ 12.3 / WBC Plt 9.4 220 / Hct \ / 36.6 \ RBC: 3.83 L MCV: 96 Neutrophil %: 69.0 RFP: 05/24/2023 04:35 NA+ Cl- BUN / 142 106 12 / -------- Glucose --- 138 H K+ HCO3- Creat \ 4.3 29 0.68 \ Calcium : 8.3 LAnion Gap : 11 Albumin : 3.0 L Phos : 4.0 Coagulation: 05/24/2023 09:32 PT / / -------< INR < PTT\ \ Heparin Assay: 0.5 Radiology Results: Results: Impression: 1. No sonographic evidence for deep vein thrombosis within the evaluated veins of bilateral lower extremities. 2. Small avascular fluid collection in the left popliteal fossa, likely a popliteal cyst. US Venous Duplex Lower Extremity Veins Bilateral [Sep 9 2023 3:57PM] Assessment and Plan: Code Status: Code StatusFull Code Assessment: 72 year old female with medical history significant for depression, fibromyalgia, HTN, OA, MARYANN, psoriasis and T2DM. Presented to OSH with 3 day history of progressive SOB, chest tightness, chest palpitations and calf pain. Imaging significant for submassive PE with RHS. PERT call convened with plan for transfer to [facility] for further evaluation and possible thrombectomy. Underwent percutaneous mechanical thrombectomy fo submassive PE 05/23/[address] access; per op-note a significant amount of clot was retrieved. At this time the PE is considered to be unprovoked. Psychiatry Service was consulted for symptoms of depression, and diagnosed with major depressive disorder, with plan for medication adjustment. Review of labs today shows stable hemoglobin 12.3 grams, stable platelets 220K, and stable serum creatinine 0.68. Ant (more content not included)... Normal [facility] EMR ADDONon 05-24-2023 ADDON CONFIRMATION REQUEST REC'D Normal [facility] Comment on above: Performed By: #### M G #### [facility] [address] [place] [address] HEPARIN ASSAY,UFHon 05-24-20 HEPARIN ASSAY,UFH 0.5 IU/mL Normal [facility] Comment on above: Result Comment: The therapeutic reference range for UFH may be either 0.3-0.6 IU/mL or 0.3-0.7 IU/mL based on the clinical setting for anticoagulant therapy and the associated nomogram used. For heparin dosing guidelines based on clinical scenario and Heparin Assay results, please refer to local Pharmacy and the [facility] Guidelines for Anticoagulation therapy available on the [facility] intranet at: [email or web address]_ [email or web address] [email or web address] Performed By: #### T RPHS #### [facility] [address] [place] [address] HEPARIN ASSAY,UFH 0.4 IU/mL Normal [facility] Comment on above: Result Comment: The therapeutic reference range for UFH may be either 0.3-0.6 IU/mL or 0.3-0.7 IU/mL based on the clinical setting for anticoagulant therapy and the associated nomogram used. For heparin dosing guidelines based on clinical scenario and Heparin Assay results, please refer to local Pharmacy and the [facility] Guidelines for Anticoagulation therapy available on the [facility] intranet at: [email or web address] Performed By: #### T [facility] #### [facility] [address] [place] [address] HEPARIN ASSAY,UFH Canceled Normal [facility] Comment on above: Order Comment: TEST HEPARIN ASSAY,UFH WAS CANCELLED, 05/24/2023 05:28 QNS, PLEASE RESUBMIT.. Result Comment: The therapeutic reference range for UFH may be either 0.3-0.6 IU/mL or 0.3-0.7 IU/mL based on the clinical setting for anticoagulant therapy and the associated nomogram used. For heparin dosing guidelines based on clinical scenario and Heparin Assay results, please refer to local Pharmacy and [facility] Guidelines for Anticoagulation therapy available on the [facility] intranet at: [email or web address]_ [email or web address] elines_for_[email or web address].aspx Performed By: #### H AUF ####[id number] [place] [address] MAGNESIUMon 05-24-2023 Magnesium [Mass/Vol] 2.26 mg/dL Normal 1.60 - 2.40 [facility] Comment on above: Performed By: #### M G ####[id number] [place] [address] PT Evaluation v2-attemptedon 05-24-2023 PT Evaluation v2-attempted Rehab: Info: Mode of Treatmentattempted Evaluation Not Performedpatient transferred to [facility]; PT will re-attempt as time and schedule allows and as medically appropriate. Electronic Signatures: Marielena Jenkins (PT) (Signed 24-May-2023 13:07) Authored: Info Last Updated: 24-May-2023 13:07 by Marielena Jenkins (PT) Normal [facility] RENAL FUNCTION PANELon 05-24 Albumin [Mass/Vol] 3.0 g/dL Low 3.4 - 5.0 [facility] Comment on above: Performed By: #### M G #### [place] [id number] [place] [address] Anion gap [Moles/Vol] 11 mmol/L Normal 10 - 20 [facility] Comment on above: Performed By: #### M G #### [place] [id number] [place] [address] Calcium [Mass/Vol] 8.3 mg/dL Low 8.6 - 10.6 [facility] Comment on above: Performed By: #### M G #### [place] [id number] [place] [address] Chloride [Moles/Vol] 106 mmol/L Normal 98 - 107 [facility] Comment on above: Performed By: #### M G #### [facility] [address] [place] [address] Creatinine [Mass/Vol] 0.68 mg/dL Normal 0.50 - 1.05 [facility] Comment on above: Performed By: #### M G #### [facility] [address] [place] [address] eGFR FEMALE >90 Normal >90 [facility] Comment on above: Result Comment: CALC ULATIONS OF ESTIMATED GFR ARE PERFORMED USING THE 2020 CKD-EPI STUDY REFIT EQUATION WITHOUT THE RACE VARIABLE FOR THE IDMS-TRACEABLE CREATININE METHODS. https://jasn.asnjournals.org/content/early//ASN.46659 23765 Performed By: #### M G #### [facility] [address] [place] [address] Glucose [Mass/Vol] 138 mg/dL High 74 - 99 [facility] Comment on above: Performed By: #### M G #### [facility] [address] [place] [address] HCO3 (Bld) [Moles/Vol] 29 mmol/L Normal 21 - 32 [facility] Comment on above: Performed By: #### M G #### [facility] [address] [place] [address] Phosphate [Mass/Vol] 4.0 mg/dL Normal 2.5 - 4.9 [facility] Comment on above: Result Comment: The performance characteristics of phosphorus testing in heparinized plasma have been validated by the individual laboratory site where testing is performed. Testing on heparinized plasma is not approved by the FDA; however, such approval is not necessary. Performed By: #### M G #### [facility] [address] [place] [address] Potassium [Moles/Vol] 4.3 mmol/L Normal 3.5 - 5.3 [facility] Comment on above: Performed By: #### M G #### [facility] [address] [place] [address] Sodium [Moles/Vol] 142 mmol/L Normal 136 - 145 [facility] Comment on above: Performed By: #### M G #### [facility] [address] [place] [address] Urea nitrogen [Mass/Vol] 12 mg/dL Normal 6 - 23 [facility] Comment on above: Performed By: #### M G #### [facility] [address] [place] [address] TSHon 05-24-2023 TSH Qn 0.72 m[IU]/L Normal 0.44 - 3.98 [facility] Comment on above: Result Comment: TSH testing is performed using different testing methodology at [facility] than at other [facility]. Direct result comparisons should only be made within the same method. Performed By: #### H AUF #### [facility] [address] [place] [address] Transfer/Off Service Noteon 05-24-2023 Transfer/Off Service Note Subjective: Hospital Course: Hospital Course: 72 year old female with past medical history of DENG positive joint pain/psoriasis (dx >30 years ago), on methotrexate, depression, cataracts, fibromyalgia, and osteoarthritis. She presented to OSH with 1 week of progressively worsening shortness of breath and associated calf pain. She was saturating 79% on room air with HR 130s on arrival to ED. Found to have submassive PE with evidence of right heart strain on CT, PERT team called and transferred to [facility] for evaluation for mechanical thrombectomy after PERT call. CT PE showed saddle embolism. Case was evaluated by PERT team overnight. On heparin IV. Heparin assay normal/ Decision was to continue medical management. Vascular and interventional cardiology consulted and recommend continue heparin, no thrombectomy at this time. Per their recs, anticardiolipin and beta glycoprotein ordered. DVT US negative. While in the MICU, patient has been on 2 to 3 L nasal cannula (was previously on 6 L) saturating well, respiratory rate 14 to 15 breaths/min stable blood pressure. Flat troponins around 530 and lactic acid. Downtrended trops. Echo overnight- with normal left ventricular systolic function, right ventricular volume overload, severely enlarged right ventricle, severely reduced RV systolic function. Has severe depression due to multiple family deaths, and she is on sertraline at home. Immobility risk for PE. Psych consulted and recommended music therapy consult. Patient received a mechanical thrombectomy yesterday 05/24/2023 due to persistent tachycardia to the 120s and reports she can breathe better and feels better now. Objective Data: Objective Information: Objective Information: T PRBPMAPSpO2 [id number]% Date/Time05/24 4: 6: 6: 6: 6: 6:00 Range(35.9C - 36.6C ) (96 - 118 ) (10 - 22 ) (103 - 140 )/ (66 - 90 ) (81 - 101 ) (91% - 100% ) As of 24-May-2023 04:00:00, patient is on 2 L/min of oxygen via nasal cannula. Pain reported at 05/24 5:28: sleeping ---- Intake and Output ----- Mn/Dy/Year TimeIntakeOutputNet May 24, 2023 6:00 [id number] May 23, 2023 10:00 [id number] May 23, 2023 2:00 [id number] The Intake and Output Totals for the last 24 hours are: IntakeOutCritical access hospital [id number] Physical Exam Narrative: Physical Exam: Constitutional: obese elderly female, lying in bed in NAD, non-toxic appearing HEENT: sclerae anicteric, EOM grossly intact, MMM, 2L NC in place CV: RRR, no murmurs noted Pulm: CTAB, no increased WOB on 2L NC, no conversational dyspnea GI: abd soft, NT, ND. +BS Skin: cool and dry, no rashes or wounds Ext: bilateral LE with 1+ pitting edema to calf. Left calf tender to palpation bedhind the knee. No asymmetry between legs noted. No skin color changes. Neuro: alert and conversant Psych: affect appropriate, occasionally tearful Recent Lab Results: Results: CBC: 05/24/2023 04:35 \ Hgb / \ 12.3 / WBC Plt 9.4 220 / Hct \ / 36.6 \ RBC: 3.83 L MCV: 96 Neutrophil %: 69.0 RFP: 05/24/2023 04:35 NA+ Cl- BUN / 142 106 12 / -------- Glucose --- 138 H K+ HCO3- Creat \ 4.3 29 0.68 \ Calcium : 8.3 LAnion Gap : 11 Albumin : 3.0 L Phos : 4.0 Coagulation: 05/24/2023 06:00 PT / / -------< INR < PTT\ \ Heparin Assay: 0.4 Radiology Results: Results: DVT US 05/22/23 IMPRESSION: 1. No sonographic evidence for deep vein thrombosis within the evaluated veins of bilateral lower extremities. 2. Small avascular fluid collection in the left popliteal fossa, likely a popliteal cyst. Echo 05/22/23 CONCLUSIONS: 1. Left ventricular systolic function is normal. 2. Right ventricular volume overload. 3. Severely enlarged right ventricle. 4. There is severely reduced right ventricular systolic function. 5. Left ventricular cavity size is decreased. 6. Limited fellow echo. Assessment and Plan: Impression and Plan 1-5: Assessment: Ms. Beba Garcia is a 72 year old female with PMH of DENG positive joint pain/psoriasis (dx >30 years ago), on methotrexate, depression, cataracts, fibromyalgia, and osteoarthritis who presented to OSH 05/22 with SOB and calf pain and found to have submassive PE with evidence of right heart strain. Transferred to [facility] for evaluation for mechanical thrombectomy following PERT call, performed on 05/23/23. Psych following for severe depression. NEUROLOGIC #Depression -continue home paroxetine - psych following - TSH normal. B12 and D level ordered - music therapy consulted - consider COW for opioid withdrawal given percocet use (few years) and oxy (1 year) prescribed and taken in past CARDIOVASCULAR #Elevated troponin resolved, likely 2/2 demand ischemia - s/p mechanical thrombectomy 05/24/2023 - vascular medicine and in (more content not included)... Normal [facility] VITAMIN B12on 05-24-2023 Cobalamin (Vitamin B12) [Mass/Vol] 728 pg/mL Normal 211 - 911 [facility] Comment on above: Performed By: #### H AUF #### [facility] [address] [place] [address] VITAMIN D, 25-HYDROXYon 05-14 VITAMIN D, 25-HYDROXY 60 ng/mL Normal [facility] Comment on above: Result Comment: . DEFICIENCY: < 20 NG/ML INSUFFICIENCY: 20-29 NG/ML SUFFICIENCY: 30-100 NG/ML THIS ASSAY ACCURATELY QUANTIFIES THE SUM OF VITAMIN D3, 25-HYDROXY AND VIT D2,25-HYDROXY. Performed By: #### M G #### [facility] [address] [place] [address] ACT-LOW RANGEon 05-23-2023 ACT-LOW RANGE 229 SECONDS High 89 - 169 [facility] Comment on above: Result Comment: Note new reference range as of 12/16/2018. Target ACT range will vary based on the patient population, clinical status, and surgical intervention occurring. Performed By: #### M G #### [facility] [address] [place] [address] ANTICARDIOLIPIN ABon 023 KATELIN IGG <1.6 Normal 0.0 - 20.0 [facility] Comment on above: Result Comment: Elev ated levels of IgG anti-cardiolipin on 2 occasions at least 12 weeks apart are laboratory criteria for anti-phospholipid syndrome according to an international consensus (J Thromb Haemost 2006 4:295). Performed By: #### A CA2 ####[id number] [place] [address] KATELIN IGM 4.8 MPL U/mL Normal 0.0 - 20.0 [facility] Comment on above: Result Comment: Elev ated levels of IgM anti-cardiolipin on 2 occasions at least 12 weeks apart are laboratory criteria for anti-phospholipid syndrome according to an international consensus (J Thromb Haemost 2006 4:295). IgM anti-cardiolipin tends to give false positive results in the low positive range, especially in the presence of rheumatoid factor or cryoglobulins. Performed By: #### A CA2 ####[id number] [place] [address] KATELIN IGA 1.0 APL U/mL Normal 0.0 - 20.0 [facility] Comment on above: Result Comment: Elev ated levels of IgA anti-cardiolipin have not been included in the laboratory criteria for anti-phospholipid syndrome according to an international consensus (J Thromb Haemost 2006 4:295). It may be helpful in identifying subgroups of patients at risk for specific clinical manifestations of anti-phospholipid syndrome. Performed By: #### A CA2 ####[id number] [place] [address] BETA 2 GLYCOPROTEIN ABon B2 GLYCOPROTEIN AB IGG <1.4 Normal 0.0 - 20.0 [facility] Comment on above: Result Comment: Elev ated levels of IgG anti-Beta 2 Glycoprotein-I on 2 occasions at least 12 weeks apart are laboratory criteria for anti-phospholipid syndrome according to an international consensus (J Thromb Haemost 2006 4:295). Performed By: #### M G #### [facility] [address] [place] [address] B2 GLYCOPROTEIN AB IGM 4.3 U/mL Normal 0.0 - 20.0 [facility] Comment on above: Result Comment: Elev ated levels of IgM anti-Beta 2 Glycoprotein-I on 2 occasions at least 12 weeks apart are laboratory criteria for anti-phospholipid syndrome according to an international consensus (J Thromb Haemost 2006 4:295). IgM anti-Beta 2 Glycoprotein-I tends to give false positive results in the low positive range, especially in the presence of rheumatoid factor or cryoglobulins. Performed By: #### M G #### [facility] [address] [place] [address] B2 GLYCOPROTEIN AB IGA 0.8 U/mL Normal 0.0 - 20.0 [facility] Comment on above: Result Comment: Elev ated levels of IgA anti-Beta 2 Glycoprotein-I have not been included in the laboratory criteria for anti-phospholipid syndrome according to an international consensus (J Thromb Haemost 2006 4:295). It may be helpful in identifying subgroups of patients at risk for specific clinical manifestations of anti-phospholipid syndrome. A significant proportion of IgA anti-Beta 2 Glycoprotein- positive tests has no apparent association with any clinical manifestation of anti-phospholipid syndrome. Performed By: #### M G #### [facility] [address] [place] [address] CBC AND DIFFERENTIALon 05-23 % AUTOMATED IMMATURE GRAN 0.9 % Normal 0.0 - 0.9 [facility] Comment on above: Result Comment: Brandy ture Granulocyte Count (IG) includes promyelocytes, myelocytes and metamyelocytes but does not include bands. Percent differential counts (%) should be interpreted in the context of the absolute cell counts (cells/L). Performed By: #### C BCDF #### [facility] [address] [place] [address] Basophils (Bld) [#/Vol] 0.06 10*3/uL Normal 0.00 - 0.10 [facility] Comment on above: Performed By: #### C BCDF #### [facility] [address] [place] [address] Basophils/100 WBC (Bld) 0.6 % Normal 0.0 - 2.0 [facility] Comment on above: Performed By: #### C BCDF #### [facility] [address] [place] [address] Eosinophils (Bld) [#/Vol] 0.12 10*3/uL Normal 0.00 - 0.40 [facility] Comment on above: Performed By: #### C BCDF #### [facility] [address] [place] [address] Eosinophils/100 WBC (Bld) 1.3 % Normal 0.0 - 6.0 [facility] Comment on above: Performed By: #### C BCDF #### [facility] [address] [place] [address] Erythrocyte distribution width (RBC) [Ratio] 14.5 % Normal 11.5 - 14.5 [facility] Comment on above: Performed By: #### C BCDF #### [facility] [address] [place] [address] Hematocrit (Bld) [Volume fraction] 45.2 % Normal 36.0 - 46.0 [facility] Comment on above: Performed By: #### C BCDF #### [facility] [address] [place] [address] Hemoglobin (Bld) [Mass/Vol] 14.5 g/dL Normal 12.0 - 16.0 [facility] Comment on above: Performed By: #### C BCDF #### [facility] [address] [place] [address] Lymphocytes (Bld) [#/Vol] 2.97 10*3/uL Normal 0.80 - 3.00 [facility] Comment on above: Performed By: #### C BCDF #### [facility] [address] [place] [address] Lymphocytes/100 WBC (Bld) 31.6 % Normal 13.0 - 44.0 [facility] Comment on above: Performed By: #### C BCDF #### [facility] [address] [place] [address] MCHC (RBC) [Mass/Vol] 32.1 g/dL Normal 32.0 - 36.0 [facility] Comment on above: Performed By: #### C BCDF #### [facility] [address] [place] [address] MCV (RBC) [Entitic vol] 98 fL Normal 80 - 100 [facility] Comment on above: Performed By: #### C BCDF #### [facility] [address] [place] [address] Monocytes (Bld) [#/Vol] 1.15 10*3/uL High 0.05 - 0.80 [facility] Comment on above: Performed By: #### C BCDF #### [facility] [address] [place] [address] Monocytes/100 WBC (Bld) 12.2 % Normal 2.0 - 10.0 [facility] Comment on above: Performed By: #### C BCDF #### [facility] [address] [place] [address] Neutrophils (Bld) [#/Vol] 5.03 10*3/uL Normal 1.60 - 5.50 [facility] Comment on above: Performed By: #### C BCDF #### [facility] [address] [place] [address] Neutrophils/100 WBC (Bld) 53.4 % Normal 40.0 - 80.0 [facility] Comment on above: Performed By: #### C BCDF #### [facility] [address] [place] [address] NUCLEATED RBC 0.0 /100 WBC Normal 0.0-0.0 [facility] Comment on above: Performed By: #### C BCDF #### [facility] [address] [place] [address] Platelets (Bld) [#/Vol] 239 10*3/uL Normal 150 - 450 [facility] Comment on above: Performed By: #### C BCDF #### [facility] [address] [place] [address] RBC 4.63 x10E12/L Normal 4.00 - 5.20 [facility] Comment on above: Performed By: #### C BCDF #### [facility] [address] [place] [address] WBC (Bld) [#/Vol] 9.4 10*3/uL Normal 4.4 - 11.3 [facility] Comment on above: Performed By: #### C BCDF #### [facility] [address] [place] [address] Daily Progress Note - Critic al Care-MICUon 05-23-2023 Daily Progress Note - Critical Care-MICU Service: Critical Care Service: ServiceMICU Subjective Data: ID Statement: BEBA GARCIA is a 72 year old Female who is Hospital Day # 2 and ICU Day #2. NAEON Today, patient denies concerns. Objective Data: Objective Information T PRBPMAPSpO2 [id number]% Date/Time05/23 4: 5: 5: 4: 4: 5:00 Range(35.3C - 36.4C ) (97 - 120 ) (9 - 22 ) (104 - 157 )/ (68 - 131 ) (82 - 138 ) (82% - 99% ) As of 23-May-2023 04:00:00, patient is on 2 L/min of oxygen via nasal cannula. Pain reported at 05/23 4:00: sleeping ---- Intake and Output ----- Mn/Dy/Year TimeIntakeOutholy cross hospitalNet May 23, 2023 6:00 [id number] May 22, 2023 10:00 [id number] May 22, 2023 2:00 [id number] The Intake and Output Totals for the last 24 hours are: IntakeOutputNet [id number] Date: Weight/Scale Type: 22-May-2023 02:57023.8 kg / bed Physical Exam Narrative: Physical Exam: Constitutional: obese elderly female, lying in bed in NAD, non-toxic appearing HEENT: sclerae anicteric, EOM grossly intact, MMM, 2L NC in place CV: RRR, no murmurs noted Pulm: CTAB, no increased WOB on 2L NC, no conversational dyspnea GI: abd soft, NT, ND. +BS Skin: cool and dry, no rashes or wounds Ext: bilateral LE with 1+ pitting edema to calf. Left calf tender to palpation bedhind the knee. No asymmetry between legs noted. No skin color changes. Neuro: alert and conversant Psych: affect appropriate, occasionally tearful Allergies: Allergies: ciprofloxacin: Other (Mild) Dilantin: Swelling/Edema doxycycline: Other lisinopril: Other tetanus immune globulin: Other Keflex: Other Wellbutrin SR: Other Hycodan: Other Medications: Medications: Continuous Medications -------- 1. Heparin 25,000 units/ D5W 250 mL Infusion..: 2000 units/hr IntraVenous Scheduled Medications -------- 1. Acetaminophen: 975 mg Oral Every 8 Hours 2. Atorvastatin: 10 mg Oral Daily 3. Cyanocobalamin: 1000 microgram(s) Oral Daily 4. Folic Acid: 1 mg Oral Daily 5. Heparin (Repeat Bolus) Injectable: 6000 unit(s) IntraVenous Push Every 4 Hours 6. Influenza Virus (Inactive) HIGH DOSE Adult Vaccine: 0.7 mL IntraMuscular Once 7. Levothyroxine: 112 microgram(s) Oral Daily 8. PARoxetine: 20 mg Oral Daily 9. Pneumococcal 23-Valent (PNEUMOVAX) Vaccine: 0.5 mL IntraMuscular Once 10. Polyethylene Glycol: 17 gram(s) Oral Daily PRN Medications -------- 1. Albuterol 2.5 mg/ 3 mL Nebulizer Soln: 1.5 mL Inhalation Every 6 Hours 2. oxyCODONE Immediate Release: 5 mg Oral Every 6 Hours Conditional Medication Orders -------- 1. Perflutren Lipid Microsphere (Activated) 1.3 mL / NaCL 0.9% T.V. 10 mL Injectable: 0.5 mL IntraVenous Push Once Recent Lab Results: Results: CBC: 05/23/2023 01:20 \ Hgb / \ 14.5 / WBC Plt 9.4 239 / Hct \ / 45.2 \ RBC: 4.63 MCV: 98 Neutrophil %: 53.4 RFP: 05/23/2023 01:20 NA+ Cl- BUN / 142 105 11 / -------- Glucose --- 132 H K+ HCO3- Creat \ 4.0 28 0.66 \ Calcium : 9.0Anion Gap : 13 Albumin : 3.2 L Phos : 3.9 Coagulation: 05/23/2023 01:20 PT / / -------< INR < PTT\ \ Heparin Assay: 0.4 Results: DVT US 05/22/23 IMPRESSION: 1. No sonographic evidence for deep vein thrombosis within the evaluated veins of bilateral lower extremities. 2. Small avascular fluid collection in the left popliteal fossa, likely a popliteal cyst. Echo 05/22/23 CONCLUSIONS: 1. Left ventricular systolic function is normal. 2. Right ventricular volume overload. 3. Severely enlarged right ventricle. 4. There is severely reduced right ventricular systolic function. 5. Left ventricular cavity size is decreased. 6. Limited fellow echo. Assessment and Plan: Daily Risk Screen: Does patient have a central lineno Does patient have an indwelling urinary catheterno Is the patient intubatedno Assessment/Plan: Assessment/Plan: Ms. Beba Garcia is a 72 year old female with PMH of DENG positive joint pain/psoriasis (dx >30 years ago), on methotrexate, depression, cataracts, fibromyalgia, and osteoarthritis who presented to OSH 05/22 with SOB and calf pain and found to have submassive PE with evidence of right heart strain. Transferred to [facility] for evaluation for mechanical thrombectomy following PERT call. Patient has severe depression causing her to be immobile for months, likely contributing risk factor for PE. Psych consulted to assess patient. labor crew supervisor activated today and will do a thrombectomy (). NEUROLOGIC #Depression - psych consulted -continue home paroxetine - start Vit D, B12, order TSH -start melatonin - patient would like to talk to mathematics education professor CARDIOVASCULAR #Elevated troponin (more content not included)... Normal [facility] EMR ADDONon 09-10-2023 ADDON CONFIRMATION REQUEST REC'D Normal [facility] Comment on above: Performed By: #### M G #### [facility] [address] [place] [address] HEPARIN ASSAY,UFHon 05-23-20 23 HEPARIN ASSAY,UFH 0.4 IU/mL Normal [facility] Comment on above: Result Comment: The therapeutic reference range for UFH may be either 0.3-0.6 IU/mL or 0.3-0.7 IU/mL based on the clinical setting for anticoagulant therapy and the associated nomogram used. For heparin dosing guidelines based on clinical scenario and Heparin Assay results, please refer to local Pharmacy and the [facility] Guidelines for Anticoagulation therapy available on the [facility] intranet at: [email or web address] [email or web address] Performed By: #### M G #### [facility] [address] [place] [address] HEPARIN ASSAY,UFH Canceled Normal [facility] Comment on above: Order Comment: TEST HEPARIN ASSAY,UFH WAS CANCELLED, 05/22/2023 23:43 DUPLICATE ORDER see [id number]. Result Comment: The therapeutic reference range for UFH may be either 0.3-0.6 IU/mL or 0.3-0.7 IU/mL based on the clinical setting for anticoagulant therapy and the associated nomogram used. For heparin dosing guidelines based on clinical scenario and Heparin Assay results, please refer to local Pharmacy and the [facility] Guidelines for Anticoagulation therapy available on the [facility] intranet at: [email or web address] elines_[email or web address] Performed By: #### H AUF #### [facility] [address] [place] [address] MAGNESIUMon 05-23-2023 Magnesium [Mass/Vol] 2.33 mg/dL Normal 1.60 - 2.40 [facility] Comment on above: Performed By: #### M G #### [facility] [address] [place] [id number] Pulmonary Interventionon Pulmonary Intervention [facility], [place] [place], [address] [place] [address] Cardiovascular Catheterization Report Patient Name: BEBA GARCIA Performing Physician: [id number] Chris Saez MD Study Date: 05/23/2023 Verifying Physician: [id number] Chris Saez MD MRN/PID: [id number] Police Or Patrol Park Officer/Co-scrub: Accession/Order#: [id number] Fellow: [id number] Barry Walter MD Date of : 1950 Fellow: Gender: F Referring Physician: CHRIS SAEZ Study: Pulmonary Intervention Indications: BEBA GARCIA is a 73 year old female who presents with Submassive PE. Procedure Description: After infiltration of local anesthetic, the right femoral vein was identified with two dimensional ultrasound. Under direct ultrasound visualization, the right femoral vein was cannulated with a micropuncture technique. A 5 Serbian sheath was placed in the vein. Post-procedure, the venous sheath was left intact and sutured in place. Pulmonary Embolism: We predilated with a 20F Brenda dilator, and placed a 24F sheath into the vein. Post-procedure, the venous sheath was pulled and pressure was applied to the site via figure-of-8. Patient was heparinized. Triever 24 along with Triever 20 curved (mother-daughter fashion) to left lower lobe branches of left main pulmonary artery over Amplatz Super Stiff wire. Multiple sections were performed and significant amount of clot was retrieved. Angiogram showed minimal residual thrombosis with reperfusion and entire left lung. Then we redirected our Triever 24 catheter along with Triever 16 catheter (mother-daughter fashion) to right lower lobe branches of right main pulmonary artery and multiple sections were performed with significant amount of clot was retrieved. Repeat angiogram showed moderate amount of clot burden in right lower lobe branch of right pulmonary artery. After multiple attempts with unable to retrieve. Considering patient has significant improvement in perfusion in entire left lung and reasonable improvement in perfusion in right lung, we decided to stop the procedure at this point in time. Hemo Personnel: + +-- + Name Duty + +-- + Chris Saez MD, MD 1 + +-- + Sue Bridges RN PROC NURSE 1 + +-- + Brittany Benjamin RN PROC NURSE 2 + +-- + Beronica Frederick PROC OPERATIONS RECRUITER 1 + +-- + Barry Walter MD FELLOW PHYS 1 + +-- + Sedation Time: + -+ + Sedation Start/End Times Time + -+ + Start 05/23/2023 15:34:12 + -+ + Drugs Fentanyl 25 mcg IV per physician for sed + -+ + End 05/23/2023 15:42:54 + -+ + Equipment Used: + +-- -------+ Date/Time Description + +-- -------+ 05/23/2023 2:30:58 PM {5Fr C Catheters} [employer] 5 Fr FR4 Impulse x 125cm - Qty: 1 Each Part #: [id number] + +-- -------+ 05/23/2023 2:31:06 PM {Diagnostic Wires} Blanco Hi-Torque Versacore .035mm x 260cm Hi-Torque Floppy - Qty: 1 Each Part #: [id number] + +-- -------+ 05/23/2023 2:31:13 PM {4F Sheaths} [facility] 4fr x 10cm S-IMELDA Mini Access Kit - Qty: 1 Each Part #: [id number] + +-- -------+ 05/23/2023 2:31:16 PM {5F Sheaths} [employer] 5 Fr x 10cm [place] Sheath - Qty: 1 Each Part #: [id number] + +-- -------+ 05/23/2023 2:36:35 PM {Infusion/Embolic/Thromb ectomy} - Jexvhgu08, 24Fr x 95cm Thrombectomy Catheter - Qty: 1 Each Part #: [id number] + +-- -------+ 05/23/2023 2:37:40 PM {Diagnostic Wires} - Amplatzer 0.035mm x 260cm Guidewire \EANDE\ Noodlewire, super stiff, 1.5mm modified J-tip - Qty: 1 Each Part #: [id number] + +-- -------+ 05/23/2023 2:38:06 PM {Infusion/Embolic/Thromb ectomy} - Inari ClotTriever Sheath - Qty: 1 Each Part #: [id number] + +-- -------+ 05/23/2023 2:44:36 PM Triever 20 Curve + +-- -------+ 05/23/2023 2:44:41 PM Inari Flow saver (more content not included)... Normal [facility] RENAL FUNCTION PANELon 05-23 Albumin [Mass/Vol] 3.2 g/dL Low 3.4 - 5.0 [facility] Comment on above: Performed By: #### T [facility] #### [facility] [address] [place] [address] Anion gap [Moles/Vol] 13 mmol/L Normal - [facility] Comment on above: Performed By: #### T [facility] #### [facility] [address] [place] [address] Calcium [Mass/Vol] 9.0 mg/dL Normal 8.6 - 10.6 [facility] Comment on above: Performed By: #### T RP #### [facility] [address] [place] [address] Chloride [Moles/Vol] 105 mmol/L Normal 98 - 107 [facility] Comment on above: Performed By: #### T RP #### [place] [address] [place] [address] Creatinine [Mass/Vol] 0.66 mg/dL Normal 0.50 - 1.05 [facility] Comment on above: Performed By: #### T RP #### [facility] [address] [place] [address] eGFR FEMALE >90 Normal >90 [facility] Comment on above: Result Comment: CALC ULATIONS OF ESTIMATED GFR ARE PERFORMED USING THE 2020 CKD-EPI STUDY REFIT EQUATION WITHOUT THE RACE VARIABLE FOR THE IDMS-TRACEABLE CREATININE METHODS. https://jasn.asnjournals.org/content/early/ASN.04402 90357 Performed By: #### T RP #### [facility] [address] [place] [address] Glucose [Mass/Vol] 132 mg/dL High 74 - 99 [facility] Comment on above: Performed By: #### T RP #### [facility] [address] [place] [address] HCO3 (Bld) [Moles/Vol] 28 mmol/L Normal 21 - 32 [facility] Comment on above: Performed By: #### T RP #### [facility] [address] [place] [address] Phosphate [Mass/Vol] 3.9 mg/dL Normal 2.5 - 4.9 [facility] Comment on above: Result Comment: The performance characteristics of phosphorus testing in heparinized plasma have been validated by the individual laboratory site where testing is performed. Testing on heparinized plasma is not approved by the FDA; however, such approval is not necessary. Performed By: #### T RPHS #### [facility] [address] [place] [address] Potassium [Moles/Vol] 4.0 mmol/L Normal 3.5 - 5.3 [facility] Comment on above: Performed By: #### T RP #### [facility] [address] [place] [address] Sodium [Moles/Vol] 142 mmol/L Normal 136 - 145 [facility] Comment on above: Performed By: #### T RPHS #### [facility] [address] [place] [address] Urea nitrogen [Mass/Vol] 11 mg/dL Normal 6 - 23 [facility] Comment on above: Performed By: #### T RP #### [facility] [address] [place] [address] Transfer/Off Service Noteon 05-23-2023 Transfer/Off Service Note This report has been cancelled. Normal [facility] Admission Risk Screen - Adul ton 05-22-2023 Admission Risk Screen - Adult Allergies: Allergies: ciprofloxacin: Other (Mild) Dilantin: Swelling/Edema doxycycline: Other lisinopril: Other tetanus immune globulin: Other Keflex: Other Wellbutrin SR: Other Hycodan: Other Patient Verification: New W ID Band Applied in my Departmentyes Patient Identity Verified Bypatient ID Band FULL Name, include Middle, spelling matches patient's ID used for verificationyes ID Band Matches Patient ID used for Verficationyes ID Band MRN Matches EMR MRNyes Visitor Restriction: Coronavirus Visitor Restriction: Reasonable restrictions to in-person visitors will be observed due to current coronavirus pandemic. Travel History: COVID-19 Screening Completedno exposure or symptoms Travel or Exposure Past 30 DaysNO travel to International locations in the past 30 days Ebola AlertFor Ebola-like Symptoms: Isolate Patient and Notify Provider/Cleaning Staff Supervisor For Contact: Notify Provider/Cleaning Staff Supervisor Advance Directive: Advance Directive/DNRno Advance Directive Information Givenpatient/family declined [place] Fall Screen: History of falling (immediate or previous)no (0) Secondary Diagnosisyes (15) Intravenous Therapy/ Heparin/Saline Lockyes (20) Gait/Transferringweak (10) Ambulatory Aidsnone/bedrest/nurse assist (0) Mental Statusoriented to own ability (0) Score: Low risk (<25). Moderate risk (25-44). High risk (>44).45 Galdamez InterventionsHIGH INTERVENTIONS *Low and Moderate Interventions Plus: * supervised toileting at all times Family Violence Screen: Are you or have you been threatened or abused physically, emotionally, or sexually by anyoneno Do you feel UNSAFE going back to the place where you are livingno Clinical assessment: Are there any apparent signs of injuries/behaviors that could be related to abuse/neglectno Social Service Consult for abuse/neglect needed this visitno Functional Screen: Functional Screen: In the recent/past 2-4 weeks, patient or family have noticedno issues that require a speech/language consult at this time AM-PAC- Basic Mobility/Daily Activity: Patient baseline bedboundno Learning Assessment (Patient): Patient is Able to be Assessed for Learningyes Factors Influencing Readiness to Learnacuteness of illness Factors that Impact Ability to Learnnone Devices/Methods Used to Communicatenone Learning Preferencesverbal instruction Cultural Considerationsnone Developmental Considerationsnone Amish Considerationsnone Learning Assessment (Other Learner): Other learner availableno Depression Screen: During the past month, have you often been bothered by feeling down, depressed or hopelessno During the past month, have you often had little interest or pleasure in doing thingsno Have you had any thoughts of harming anyone elseno [place] Suicide: Risk Screen Not Applicable/Able to Answerable to be screened In the Past Month: Have you wished you were or could go to sleep and not wake upno In the Past Month: Have you had any actual thoughts of killing yourselfno Lifetime: Have you ever done, started to do, or prepared to do anything to end your lifeno [place] Suicide Risknegative Adult Nutrition Screen: Have you recently lost weight without tryingno Have you been eating poorly because of a decreased appetiteno Malnutrition Screening Tool Score0 Malnutrition Screening Tool RiskMST = 0 or 1 Not at risk. Eating well with little or no weight loss Nutrition Consult needed this visitno Can Patient Participate in Room Serviceyes Patient requires Paper Dishes/Plastic Utensilsno Pain Screen: Pain Scalenumerical 0-10 Pain Scale Educationteaching provided Current Pain Level0 = None Acceptable Pain Level0 = None Expression of Pain (nonverbal)none Chronic Painno Spiritual Screen: Are there any cultural, spiritual, temple practices/values/needs that are important for us to knowno CAGE: Is this an injured patient at a Trauma Center ([facility]/[place] /[place]): no Vaccinations: Vaccination - Influenza Vaccination Screen: Is it flu season (between and December 11)Yes Screening for identified contraindications to influenza vaccinationno contraindications identified Influenza vaccine indicatedyes Vaccination - Pneumonia Vaccination Screen: Patient has received a previous pneumonia vaccine:yes (given before age 65) Pneumonia vaccine NOT indicated due to:No contraindications to vaccine Pneumonia vaccine indicatedyes Mayur: Skin - Mayur Scale: Mayur: Sensory Perception (response to environment)(4) no impairment Mayur: Moisture (degree skin exposed to moisture)(3) occasionally moist Mayur: Activity (ability to walk)(1) bedfast Mayur: Mobility (amount/control of body movement)(3) slightly limited Mayur: Nutrition (quality of food intake)(3) adequate Mayur: Friction and Shear(3) no apparent pr (more content not included)... Normal [facility] BNPon 05-22-2023 Natriuretic peptide B (Bld) [Mass/Vol] 65 pg/mL Normal 0 - 99 [facility] Comment on above: Result Comment: . <1 00 pg/mL - Heart failure unlikely 100-299 pg/mL - Intermediate probability of acute heart . failure exacerbation. Correlate with clinical . context and patient history. >=300 pg/mL - Heart Failure likely. Correlate with clinical . context and patient history. Biotin interference may cause falsely decreased results. Patients taking a Biotin dose of up to 5 mg/day should refrain from taking Biotin for 24 hours before sample collection. Providers may contact their local laboratory for further information. Performed By: #### M G #### [facility] [address] [place] [address] CBC AND DIFFERENTIALon 05-22 % AUTOMATED IMMATURE GRAN 0.8 % Normal 0.0 - 0.9 [facility] Comment on above: Result Comment: Brandy ture Granulocyte Count (IG) includes promyelocytes, myelocytes and metamyelocytes but does not include bands. Percent differential counts (%) should be interpreted in the context of the absolute cell counts (cells/L). Performed By: #### C BCDF #### [facility] [address] [place] [address] Basophils (Bld) [#/Vol] 0.07 10*3/uL Normal 0.00 - 0.10 [facility] Comment on above: Performed By: #### C BCDF #### [facility] [place] [address] [place] [address] Basophils/100 WBC (Bld) 0.6 % Normal 0.0 - 2.0 [facility] Comment on above: Performed By: #### C BCDF #### [facility] [place] [address] [place] [address] Eosinophils (Bld) [#/Vol] 0.11 10*3/uL Normal 0.00 - 0.40 [facility] Comment on above: Performed By: #### C BCDF #### [facility] [place] [address] [place] [address] Eosinophils/100 WBC (Bld) 0.9 % Normal 0.0 - 6.0 [facility] Comment on above: Performed By: #### C BCDF #### [facility] [place] [address] [place] [address] Erythrocyte distribution width (RBC) [Ratio] 13.9 % Normal 11.5 - 14.5 [facility] Comment on above: Performed By: #### C BCDF #### [facility] [place] [address] [place] [address] Hematocrit (Bld) [Volume fraction] 46.3 % High 36.0 - 46.0 [facility] Comment on above: Performed By: #### C BCDF #### [facility] [place] [address] [place] [address] Hemoglobin (Bld) [Mass/Vol] 15.1 g/dL Normal 12.0 - 16.0 [facility] Comment on above: Performed By: #### C BCDF #### [facility] [place] [address] [place] [address] Lymphocytes (Bld) [#/Vol] 2.27 10*3/uL Normal 0.80 - 3.00 [facility] Comment on above: Performed By: #### C BCDF #### [facility] [place] [address] [place] [address] Lymphocytes/100 WBC (Bld) 19.0 % Normal 13.0 - 44.0 [facility] Comment on above: Performed By: #### C BCDF #### [facility] [place] [address] [place] [address] MCHC (RBC) [Mass/Vol] 32.6 g/dL Normal 32.0 - 36.0 [facility] Comment on above: Performed By: #### C BCDF #### [facility] [place] [address] [place] [address] MCV (RBC) [Entitic vol] 98 fL Normal 80 - 100 [facility] Comment on above: Performed By: #### C BCDF #### [facility] [place] [address] [place] [address] Monocytes (Bld) [#/Vol] 1.06 10*3/uL High 0.05 - 0.80 [facility] Comment on above: Performed By: #### C BCDF #### [facility] [place] [address] [place] [address] Monocytes/100 WBC (Bld) 8.9 % Normal 2.0 - 10.0 [facility] Comment on above: Performed By: #### C BCDF #### [facility] [place] [address] [place] [address] Neutrophils (Bld) [#/Vol] 8.33 10*3/uL High 1.60 - 5.50 [facility] Comment on above: Performed By: #### C BCDF #### [facility] [place] [address] [place] [address] Neutrophils/100 WBC (Bld) 69.8 % Normal 40.0 - 80.0 [facility] Comment on above: Performed By: #### C BCDF #### [facility] [place] [address] [place] [address] NUCLEATED RBC 0.0 /100 WBC Normal 0.0-0.0 [facility] Comment on above: Performed By: #### C BCDF #### [facility] [place] [address] [place] [address] Platelets (Bld) [#/Vol] 247 10*3/uL Normal 150 - 450 [facility] Comment on above: Performed By: #### C BCDF #### [facility] [place] [address] [place] [address] RBC 4.72 x10E12/L Normal 4.00 - 5.20 [facility] Comment on above: Performed By: #### C BCDF #### [place] [address] [place] [address] WBC (Bld) [#/Vol] 11.9 10*3/uL High 4.4 - 11.3 [facility] Comment on above: Performed By: #### C BCDF #### [facility] [place] [address] [place] [address] COAGULATION SCREENon 023 aPTT Coag (Bld) [Time] 124 s Critically high 27 - 38 [facility] Comment on above: Order Comment: APTT Called- RB to GOYO MOORE , 05/22/2023 07:07 Result Comment: Note new reference range as of 03/02/2023 at 10:00am. . APTT Called- RB to GOYO MOORE , 05/22/2023 07:07 Performed By: #### T RP #### [facility] [place] [address] [place] [address] PT Coag (PPP) [Time] 11.8 s Normal 9.8 - 12.8 [facility] Comment on above: Order Comment: APTT Called- RB to GOYO MOORE , 05/22/2023 07:07 Result Comment: Note new reference range as of 03/02/2023 at 10:00am. Performed By: #### T RPHS #### [facility] [place] [address] [place] [address] PT, INR 1.0 Normal 0.9 - 1.1 [facility] Comment on above: Order Comment: APTT Called- RB to GOYO MOORE , 05/22/2023 07:07 Performed By: #### T RPHS #### [facility] [address] [place] [address] CT angio chest PE protocolon 05-22-2023 CT angio chest PE protocol [facility] [address] [place] [address] [place], [place] [id number] CT Scan Report Signed Patient: Beba Garcai MR#: [id number] 97 : 1950 Acct:[id number] Age/Sex: 72 / F ADM Date: 05/21/23 Loc: ER Room: Type: [facility] Attending Dr: Copies to: Lei Saavedra DO Ordering Provider: Lei Saavedra DO Date of Service: 05/21/23 CT/CT angio chest PE protocol: f CT PULMONARY ANGIOGRAM WITH CONTRAST CLINICAL HISTORY: Shortness breath and left-sided chest pain radiating to the shoulder. COMPARISON: 12/22/2007 TECHNIQUE: Spiral images were obtained through the chest following intravenous administration of 90 mL of Isovue-370. Images were reviewed using both narrow and wide window settings. Sagittal, coronal and 3 D volume-rendered reconstructions were performed and reviewed. This CT exam was performed using one or more following dose reduction techniques: Automated exposure control, adjustment of the mA and/or kV according to patient size, or use of iterative reconstruction technique. FINDINGS: The heart is top normal in size. There is no pericardial effusion. No aortic aneurysm or dissection is seen. There is adequate opacification of the pulmonary arteries. There is a saddle embolus with distal main, segmental and subsegmental pulmonary emboli bilaterally. There is suspected right heart strain. No pathologic lymphadenopathy is seen. There are right hilar calcified granulomas. There is prior lower cervical fusion. There are large thoracic endplate spurs. There is minor atelectasis and/or scarring. There are some areas of patchy groundglass opacity, greater on the right. There is a calcified right lower lobe granuloma. No ascites or pneumothorax is seen. Limited cuts through the upper abdomen show cholelithiasis. There are calcified splenic granulomas. CT/CT angio chest PE protocol IMPRESSION: PULMONARY EMBOLI INCLUDING SADDLE EMBOLUS WITH SUSPECTED RIGHT STRAIN. MINOR PARENCHYMAL CHANGES, DESCRIBED. CHOLELITHIASIS. Impression dictated by: Lili Jackson M.D.05/22/2023 8:39 AM Dictation Location: [place] [address] Transcribed By: [facility] 05/22/23 0839 Dictated By: Lili Jackson MD 05/22/23 0833 Signed By: 05/22/23 0839 Normal [facility] Clinical Event Note-PERT Act ivationon 05-22-2023 Clinical Event Note-PERT Activation Clinical Event: Clinical Event Note: TopicPERT Activation Details PERT activated for patient in [facility]. Patient is a 72 yo woman with PMHx s/f DENG positive joint pain/psoriasis, depression, fibromyalgia who presented to the ER with complaints of SOB and calf pain. VS initially remarkable for HR 130s, SpO2 70s on RA->90s on 6L NC, BP 110s/60s. Troponin 180s, BNP wnl, lactate 2.5. CT PE study showed saddle PE with extension bilaterally, RV:LV ratio >1.5. Patient was started on heparin infusion. Multidisciplinary discussion completed, at this time recommendation for continued systemic anticoagulation with heparin infusion, transfer to [facility] for re-evaluation if thrombectomy is needed. Echo and re-katy from interventional cardiology after arrival. Recommendations communicated to ER team. Electronic Signatures: Sharda Mcnally) (Signed 22-May-2023 07:25) Authored: Clinical Event Note Last Updated: 22-May-2023 07:25 by Sharda Mcnally) Normal [facility] Clinical Event Note-Stat TTE on 05-22-2023 Clinical Event Note-Stat TTE Clinical Event: Clinical Event Note: TopicStat TTE Details TTE with hyperdynamic LV (EF 70-75%). LV small in size. LVOT VTI 8 - likely reduced due to obstructive shock from saddle PE RV severely dilated (RV>LV) with moderately reduced RV function. +ve Butt's sign Septum flattened in end systole which is consistent with RV pressure overload Unable to visualize IVC Electronic Signatures: Molly Rainey (Fellow)) (Signed 22-May-2023 03:58) Authored: Clinical Event Note Last Updated: 22-May-2023 03:58 by Molly Rainey (Fellow)) Normal [facility] Consult-Vascular Medicineon 05-22-2023 Consult-Vascular Medicine Service: Service: Vascular Medicine History of Present Illness: HPI: BEBA GARCIA is a 72 year old Female with past medical history of hypertension, DM, MARYANN, hypothyroidism, psoriasis, depression, fibromyalgia, OA and Ex-smoker. Patient presented to [facility] ED with progressive shortness of breath for 3 days, associated with chest tightness, episodes of palpitations and calf pain On arrival to the ED her oxygen saturation was down to 79%, heart rate in the 130s, with no drop in blood pressure CT PE completed with evidence of acute PE and RV strain Lactate 2.1 Heparin GTT was started and PERT was activated overnight, with plans to transfer to [facility] for close monitoring and possible intervention ECHO done with evidence of RV strain as well Today patient's symptoms has improved at rest. Blood pressure continues to be stable, heart rate down to 100-110s, satting well on 3 L nasal cannula She was seen by interventional cardiology in the a.m., with plans to continue monitoring on heparin No prior h/o VTE +AGE No Surgery, Trauma, infection, hospitalization within 3ms of the event No COVID dx within 6-8 weeks +No Immobilization for >48hrs within 1m of the event, but she does have depression due to losing her daughter, son, granddaughter, and best friend c/b spells where she stays in bed for 4-5 days and only goes to the bathroom as needed, but she has been doing this for years No prolonged travelling within 2 weeks No HRT use within 6 ms +Not UTD on cancer screening No central venous catheters Not a smoker ROS: as above, chronic back pain PMHx: as noted above PSHx: appendectomy, spine surgery, carpal tunnel release, tonsillectomy/adenoidect elio, SH: Ex-smoker FH: no h/o VTE Review Family/Social History and ROS: Social History: Smoking Status: never smoker (1) Allergies: ciprofloxacin: Other (Mild) Dilantin: Swelling/Edema doxycycline: Other lisinopril: Other tetanus immune globulin: Other Keflex: Other Wellbutrin SR: Other Hycodan: Other Objective: Objective Information: T PRBPMAPSpO2 [id number] % Date/Time05/22 12: 12: 12: 12: 12: 12:00 Range(35.3C - 36.4C ) (103 - 120 ) (9 - 22 ) (104 - 157 )/ (72 - 124 ) (84 - 131 ) (93% - 99% ) As of 22-May-2023 12:00:00, patient is on 3 L/min of oxygen via nasal cannula. Weights 05/22 2:39: Weight in kg (Weight (kg)) 108 05/22 2:39: Weight in lbs ((lbs)) 238 05/22 2:39: BMI (kg/m2) (BMI (kg/m2)) 42.293 Physical Exam by System: Constitutional: no distress, alert and cooperative, overweight Eyes: clear sclera Respiratory/Thorax: CTAB, good chest expansion Cardiovascular: Regular tachycardia Gastrointestinal: soft, non-tender Extremities: Taiwo trace edema Neurological: awake/alert/oriented x3 Psychological: Pleasant but depressed Medications: Medications: Continuous Medications -------- 1. Heparin 25,000 units/ D5W 250 mL Infusion..: 2000 units/hr IntraVenous Scheduled Medications -------- 1. Acetaminophen: 975 mg Oral Every 8 Hours 2. Atorvastatin: 10 mg Oral Daily 3. Cyanocobalamin: 1000 microgram(s) Oral Daily 4. Folic Acid: 1 mg Oral Daily 5. Heparin (Repeat Bolus) Injectable: 6000 unit(s) IntraVenous Push Every 4 Hours 6. Levothyroxine: 112 microgram(s) Oral Daily 7. PARoxetine: 20 mg Oral Daily 8. Polyethylene Glycol: 17 gram(s) Oral Daily PRN Medications -------- 1. Albuterol 2.5 mg/ 3 mL Nebulizer Soln: 1.5 mL Inhalation Every 6 Hours 2. oxyCODONE Immediate Release: 5 mg Oral Every 6 Hours Conditional Medication Orders -------- 1. Perflutren Lipid Microsphere (Activated) 1.3 mL / NaCL 0.9% T.V. 10 mL Injectable: 0.5 mL IntraVenous Push Once Recent Lab Results: Results: I have reviewed these laboratory results: Heparin assay, UFH 22-May-2023 09:44:00 ResultValue Heparin assay, UFH 0.8 Troponin I, High Sensitivity Trending View [id number] 05:22:00 22-May-2023 02:41:00 Troponin I, High [id number] H 596 HH Lab Comment: Called- RB to CARLY NORMAN, 05/22/2023 04:44 Lactate, Level 22-May-2023 02:41:00 ResultValue Lactate, Level 2.0 Brain Natriuretic Peptide 22-May-2023 02:41:00 ResultValue Brain Natriuretic Peptide 65 Radiology Results: Results: Conclusion: CONCLUSIONS: 1. Left ventricular systolic function is normal. 2. Right ventricular volume overload. 3. Severely enlarged right ventricle. 4. There is severely reduced right ventricular systolic function. 5. Left ventricular cavity size is decreased. 6. Limited fellow echo. QUANTITATIVE DATA SUMMARY: AORTIC VALVE: Normal Ranges: LVOT Max Bret: 0.63 m/s (<=1.1m/s) LVOT VTI: 7.98 cm RIGHT VENTRICLE: RV s' 0.05 m/s TRICUSPID VALVE (more content not included)... Normal [facility] Daily Progress Note - Critic al Care-MICUon 05-22-2023 Daily Progress Note - Critical Care-MICU Service: Critical Care Service: ServiceMICU Subjective Data: ID Statement: BEBA GARCIA is a 72 year old Female who is Hospital Day # 1 and ICU Day #1. Today, patient reports pain controlled, denies other concerns. Plan discussed with patient. Objective Data: Objective Information T PRBPMAPSpO2 [id number] 98% Date/Time05/22 4: 6: 6: 6: 6: 6:00 Range(35.3C - 35.6C ) (109 - 120 ) (9 - 21 ) (104 - 157 )/ (72 - 124 ) (84 - 131 ) (97% - 99% ) As of 22-May-2023 02:39:00, patient is on 3 L/min of oxygen via nasal cannula. Pain reported at 05/22 2:39: 3 = Mild ---- Intake and Output ----- [facility] 22[facility] 2023 6:00 [id number] The Intake and Output Totals for the last 24 hours are: [facility]OutCritical [facility] 42nullnull Date: Weight/Scale Type: 22-May-2023 02:89975.8 kg / bed Physical Exam Narrative: Physical Exam: Constitutional: obese elderly female, lying in bed in NAD, non-toxic appearing HEENT: sclerae anicteric, EOM grossly intact, MMM, 2L NC in place CV: RRR, no murmurs noted Pulm: CTAB, no increased WOB on 2L NC, no conversational dyspnea GI: abd soft, NT, ND. +BS Skin: cool and dry, no rashes or wounds Ext: bilateral LE with 1+ pitting edema to calf. Left calf tender to palpation bedhind the knee. No asymmetry between legs noted. No skin color changes. Neuro: alert and conversant Psych: affect appropriate, occasionally tearful Allergies: Allergies: ciprofloxacin: Other (Mild) Dilantin: Swelling/Edema lisinopril: Other tetanus immune globulin: Other Wellbutrin SR: Other Hycodan: Other Keflex: Other doxycycline: Other Medications: Medications: Continuous Medications -------- 1. Heparin 25,000 units/ D5W 250 mL Infusion..: 2000 units/hr IntraVenous Scheduled Medications -------- 1. Acetaminophen: 975 mg Oral Every 8 Hours 2. Atorvastatin: 10 mg Oral Daily 3. Cyanocobalamin: 1000 microgram(s) Oral Daily 4. Folic Acid: 1 mg Oral Daily 5. Heparin (Repeat Bolus) Injectable: 6000 unit(s) IntraVenous Push Every 4 Hours 6. Levothyroxine: 112 microgram(s) Oral Daily 7. PARoxetine: 20 mg Oral Daily 8. Polyethylene Glycol: 17 gram(s) Oral Daily PRN Medications -------- 1. Albuterol 2.5 mg/ 3 mL Nebulizer Soln: 1.5 mL Inhalation Every 6 Hours 2. oxyCODONE Immediate Release: 5 mg Oral Every 6 Hours Conditional Medication Orders -------- 1. Perflutren Lipid Microsphere (Activated) 1.3 mL / NaCL 0.9% T.V. 10 mL Injectable: 0.5 mL IntraVenous Push Once Recent Lab Results: Results: CBC: 05/22/2023 02:41 \ Hgb / \ 15.1 / WBC Plt 11.9 H 247 / Hct \ / 46.3 H \ RBC: 4.72 MCV: 98 Neutrophil %: 69.8 RFP: 05/22/2023 02:41 NA+ Cl- BUN / 143 103 8 / -------- Glucose --- 162 H K+ HCO3- Creat \ 4.2 26 0.64 \ Calcium : 9.4Anion Gap : 18 Albumin : 3.8 Phos : 3.6 Coagulation: 05/22/2023 05:22 PT / 11.8 / -------< INR < 1.0 PTT\ 124 HH \ Heparin Assay: 1.0 Assessment and Plan: Daily Risk Screen: Does patient have a central lineno Does patient have an indwelling urinary catheterno Is the patient intubatedno Assessment/Plan: Assessment/Plan: Ms. Beba Garcia is a 72 year old female with PMH of DENG positive joint pain/psoriasis (dx >30 years ago), on methotrexate, depression, cataracts, fibromyalgia, and osteoarthritis who presented to OSH 05/22 with SOB and calf pain and found to have submassive PE with evidence of right heart strain. Transferred to [facility] for evaluation for mechanical thrombectomy following PERT call. NEUROLOGIC #Depression -continue home paroxetine CARDIOVASCULAR #Elevated troponin resolved, likely 2/2 demand ischemia - vascular medicine and interventional cardiology following. Per their recs, no intervention currently, may consider intervention based on DVT US - DVT US negative - heparin assay normal #HTN -holding home losartan and hydrochlorothiazide -holding home lasix #HLD -continue home atorvastatin PULMONARY #Pulmonary embolism with evidence of right heart strain ::PESI 112-high risk ::MARIA ALEJANDRA score 5- high risk (10% mortality in 30 days, 42% risk PE-related complications) -follow up echo -continue heparin gtt RENAL/ #Lactic acidosis improved, lactate 2 CRIS GASTROINTESTINAL CRIS ENDOCRINE #Hypothyroidism -continue levothyroxine HEME/ONC CRIS INFECTIOUS DISEASE CRIS MSK/DERM #Chronic joint pain (psoriatic arthritis vs osteoarthritis) -continue home folic acid -if becomes hemodynamically unstable, likely PE burden, start on levophed and consult cardiology, avoid IVF given right heart strain -tylenol 975 q8h, 5mg oxycodone (more content not included)... Normal [facility] Discharge Planning [id number] 05-22-2023 Discharge Planning Note2 Discharge Planning: Discharge Barriersnone Planned Dispositionhome Discharge Destinationhome [facility] < 20yes Home Health Consultedno; patient refusing home health care Discharge [facility] Anticipated Discharge [id number] Discharge Planning Patient is admitted with a PE. Discharge needs are unknown at this time. Nini RN 05/24/2023 1207 SOCIAL WORK NOTE SW met with patient at bedside for assessment. Per notes, patient's , son, daughter, and sibling are decreased. Patient reports that she lives ta home and is mostly independent, but occasionally needs help for example, getting in and out of the car. She is guardian to 17 YO grandson. She expressed interest in meals on wheels. SW to follow up with [facility] for possible referral ( left [phone]). Social work to follow. PINKY Galindo, BARBI-S (doc halo) or [id number] 05/25/23 1300 Transitional Care Coordination Progress Note: Patient discussed during interdisciplinary rounds. Team members present: TANESHA BONILLA Plan per Medical/Surgical team: PE Discharge disposition: new HC Status-Inpatient Payer-[employer] Potential Barriers: none ADOD: 2-3 days Met with patient at bedside, provided introduction of self and role. Discussed with patient PT recommendations for moderate intensity therapy at discharge. Discussed differences between acute rehab, detention facility, home health care and outpatient therapy. Patient states she does not want to go to a detention facility and states she does not feel she needs home health care. Patient states she will discuss with her daughters and asked that this TCC f/u with her tomorrow. MD updated. Will continue to follow for discharge planning needs. Peg Veras RN, TCC (doc halo) 05/26/23 5280 Patient Surgical Physician Assistant Note Per TCC, patient is refusing both SNF and homecare. No PCN needs at this time. AUGUSTO Lilly, PCN [phone] 05/26/23 7992 Transitional Travel Manager Note: Met with patient at bedside to discuss home health care services. Patient states her daughters will assist her at home and she is refusing home health care. MD updated. Ambulatory pulse ox completed by RN, patient does not qualify for home going oxygen. Patient states she is unaware if family will be able to provide transport home tomorrow. Transport arranged via [facility] wheelchair for 4pm, will f/u with patient/family in the morning and cancel transport if family able to pick her up. Will continue to monitor for discharge planning needs. Peg Veras RN, TCC (doc halo) Assessment: Discharge Planning Assessment [id number] Discharge Planning Assessment Completed byPINKY Galindo, ANTHONYS (doc halo) or [id number] Primary Contact Name and NumberDaughter Beronica [phone] Daughter Kaylie Brother Ed Prior Level of Functioningindependent Lives Withsibling(s) Stated Reason for Admissionper notes SOB Arrived [facility]hospital [facility]/ [facility]/ Need Assist with Ambulationdenied falls, uses cane Equipment Currently Used at [place], quad/straight; shower chair DME Supplier Name/Numberdenied Home Care Agency/Support Servicesdenied Diabetic/Supplies Neededdenied, but listed in H&P Hemodialysis Scheduledenied Other Needsdenied Resource/Environmental Concernsnone Readmission Within the Last 30 Daysno previous admission in last 30 days InsuranceHueduardo Mahan Social Determinants of Health Identifieddenied Special Considerationsdenied Medication Adherence/Afford/Obtainy es O2 LPMdenied Home O2 Supplierdenied Discharge Documentation: Code StatusCode Status order at time of discharge: Full Code Electronic Signatures: Nini Sellers (RN) (Signed 22-May-2023 02:39) Authored: Discharge Planning, Assessment Shira Boyce (SW) (Signed 24-May-2023 12:24) Authored: Discharge Planning, Assessment Arabella Vargas (PCN) (Signed 26-May-2023 11:33) Authored: Discharge Planning Peg Veras) (Signed 26-May-2023 15:50) Authored: Discharge Planning, Discharge Documentation Last Updated: 26-May-2023 15:50 by Peg Veras ([place]) Normal [facility] Echocardiogramon 05-22-[address] [facility], [address] [place] [address] and TRANSTHORACIC ECHOCARDIOGRAM REPORT Patient Name: BEBA GUTIERREZFIELD Keli Physician: [id number] Meghna Alcaraz MD Study Date: 05/22/2023 Referring DENG MABRY Physician: MRN/PID: [id number] PCP: Accession/Order#: [id number] [address] Location: Date of : 1950 Fellow: Gender: F Nurse: Admit Date: 05/22/2023 [place] Operator: Anny Hodge [facility] Admission Status: Inpatient - Additional Staff: Critical/Stat (within 1-3 hours) Height: 157.48 cm CC Report to: [facility] Weight: 107.50 kg Study Type: Echocardiogram BSA: 2.05 m2 Blood Pressure: 138 /84 mmHg Diagnosis/ICD: I26.99-Other pulmonary embolism without acute cor pulmonale Indication: RV strain with new PE Procedure/CPT: Echo Complete w Full Doppler-[id number] Patient History: Pertinent History: SOB, DM, MARYANN, HTN, HLD, submassive PE. Study Detail: The following Echo studies were performed: 2D, M-Mode, Doppler and color flow. Technically challenging study due to poor acoustic windows, prominent lung artifact, the patient's lack of cooperation, body habitus and patient lying in supine position. Definity used as a contrast agent for endocardial border definition and agitated saline used as a contrast agent for intraseptal flow evaluation. Total contrast used for this procedure was 3.0 mL via IV push. Unable to obtain suprasternal notch view. Patient's heart rhythm is sinus tachycardia. PHYSICIAN INTERPRETATION: Left Ventricle: The left ventricular systolic function is normal. The left ventricular cavity size is decreased. The interventricular septum is flattened in diastole ('D' shaped left ventricle), consistent with right ventricular volume overload. Left ventricular diastolic filling was not assessed. Left Atrium: The left atrium is normal in size. Right Ventricle: The right ventricle is severely enlarged. There is severely reduced right ventricular systolic function. Right Atrium: The right atrium is normal in size. Aortic Valve: The aortic valve appears structurally normal. There is no evidence of aortic valve regurgitation. The peak instantaneous gradient of the aortic valve is 6.2 mmHg. Mitral Valve: The mitral valve is normal in structure. There is trace mitral valve regurgitation. Tricuspid Valve: The tricuspid valve is structurally normal. There is mild tricuspid regurgitation. The Doppler estimated RVSP is moderately elevated at 49.7 mmHg. Pulmonic Valve: The pulmonic valve is structurally normal. There is no indication of pulmonic valve regurgitation. Pericardium: There is a trivial pericardial effusion. Aorta: The aortic root is normal. Systemic Veins: The inferior vena cava appears dilated. The hepatic vein shows a normal flow pattern. In comparison to the previous echocardiogram(s): There are no prior studies on this patient for comparison purposes. CONCLUSIONS: 1. Left ventricular systolic function is normal. 2. Poorly visualized anatomical structures due to suboptimal image quality. 3. Right ventricular volume overload. 4. Severely enlarged right ventricle. 5. There is severely reduced right ventricular systolic function. 6. Moderately elevated right ventricular systolic pressure. 7. Left ventricular cavity size is decreased. QUANTITATIVE DATA SUMMARY: 2D MEASUREMENTS: Normal Ranges: Ao Root d: 3.00 cm (2.0-3.7cm) RA VOLUME BY A/L METHOD: Normal Ranges: RA Area A4C: 11.5 cm2 AORTA MEASUREMENTS: Normal Ranges: Asc Ao, d: 3.10 cm (2.1-3.4cm) AORTIC VALVE: Normal Ranges: AoV Vmax: 1.24 m/s (<=1.7m/s) AoV Peak P.2 mmHg (<20mmHg) LVOT Max Bret: 0.75 m/s (<=1.1m/s) LVOT VTI: 11.90 cm LVOT Diameter: 2.10 cm (1.8-2.4cm) AoV Area,Vmax: 2.10 cm2 (2.5-4.5cm2) RIGHT VENTRICLE: RV Basal 4.70 cm RV Mid 4.30 cm RV Major 5.8 cm TAPSE: 13.4 mm RV s' 0.07 m/s TRICUSPID VALVE/RVSP: Normal Ranges: Peak TR Velocity: 3.23 m/s RV Syst Pressure: 49.7 mmHg (< 30mmHg) IVC Diam: 3.30 cm PULMONIC VALVE: Normal Ranges: PV Max Bret: 0.8 m/s (0.6-0.9m/s) PV Max P.3 mmHg [id number] Meghna Alcaraz MD Electronically signed on 05/22/2023 at 11:41:37 AM Final Normal [facility] Echocardiography [facility], [address] [place] [address] and TRANSTHORACIC ECHOCARDIOGRAM REPORT Patient Name: BEBA King [place] Reading Physician: [id number] Meghna Alcaraz MD Study Date: 05/22/2023 Referring Physician: DENG MABRY MRN/PID: [id number] PCP: Accession/Order#: [id number] Department Location: [address] Date of : 1950 Fellow: Gender: F Nurse: Admit Date: Stroboroma Operator: MOLLY RAINEY Height: 160.00 cm CC Report to: Weight: 107.80 kg Study Type: Echocardiogram BSA: 2.08 m2 Blood Pressure: 138 /84 mmHg Diagnosis/ICD: I26.99-Other pulmonary embolism without acute cor pulmonale Indication: New PE, eval for R heart strain Procedure/CPT: Echo Limited-03693; Color Doppler-[id number]; Doppler Limited-39354 Study Detail: The following Echo studies were performed: 2D, M-Mode, Doppler and color flow. PHYSICIAN INTERPRETATION: Left Ventricle: The left ventricular systolic function is normal. There are no regional wall motion abnormalities. The left ventricular cavity size is decreased. The interventricular septum is flattened in diastole ('D' shaped left ventricle), consistent with right ventricular volume overload. Left ventricular diastolic filling was not assessed. Left Atrium: The left atrium is normal in size. Right Ventricle: The right ventricle is severely enlarged. There is severely reduced right ventricular systolic function. Right Atrium: The right atrium is normal in size. Aortic Valve: The aortic valve appears structurally normal. Aortic valve regurgitation was not assessed. Mitral Valve: The mitral valve is normal in structure. Mitral valve regurgitation was not assessed. Tricuspid Valve: The tricuspid valve is structurally normal. There is mild tricuspid regurgitation. Pulmonic Valve: The pulmonic valve was not assessed. Pulmonic valve regurgitation was not assessed. Pericardium: There is a trivial to small pericardial effusion. Aorta: The aortic root is normal. CONCLUSIONS: 1. Left ventricular systolic function is normal. 2. Right ventricular volume overload. 3. Severely enlarged right ventricle. 4. There is severely reduced right ventricular systolic function. 5. Left ventricular cavity size is decreased. 6. Limited fellow echo. QUANTITATIVE DATA SUMMARY: AORTIC VALVE: Normal Ranges: LVOT Max Bret: 0.63 m/s (<=1.1m/s) LVOT VTI: 7.98 cm RIGHT VENTRICLE: RV s' 0.05 m/s TRICUSPID VALVE/RVSP: Normal Ranges: Peak TR Velocity: 2.36 m/s RV Syst Pressure: 25.3 mmHg (< 30mmHg) [id number] Meghna Alcaraz MD Electronically signed on 05/22/2023 at 11:44:54 AM Final Normal [facility] GLUCOSE-POCTon 05-22-2023 Glucose [Mass/Vol] 170 mg/dL High 74 - 99 [facility] Comment on above: Performed By: #### [facility] #### [facility] [address] [place] [address] HEPARIN ASSAY,UFHon 05-22-20 23 HEPARIN ASSAY,UFH 0.4 IU/mL Normal [facility] Comment on above: Result Comment: The therapeutic reference range for UFH may be either 0.3-0.6 IU/mL or 0.3-0.7 IU/mL based on the clinical setting for anticoagulant therapy and the associated nomogram used. For heparin dosing guidelines based on clinical scenario and Heparin Assay results, please refer to local Pharmacy and the [facility] Guidelines for Anticoagulation therapy available on the [facility] intranet at: [email or web address] elines_[email or web address] Performed By: #### H AUF #### [facility] [address] [place] [address] HEPARIN ASSAY,UFH Canceled Normal [facility] Comment on above: Order Comment: TEST HEPARIN ASSAY,UFH WAS CANCELLED, 05/22/2023 16:38 UNLABELED/NationalPatient Safety Guidelines specify that all specimens must be labeled with 2unique identifiers. Specimen was received without 2 patient identifiers.. Result Comment: The therapeutic reference range for UFH may be either 0.3-0.6 IU/mL or 0.3-0.7 IU/mL based on the clinical setting for anticoagulant therapy and the associated nomogram used. For heparin dosing guidelines based on clinical scenario and Heparin Assay results, please refer to local Pharmacy and the [facility] Guidelines for Anticoagulation therapy available on the [facility] intranet at: [email or web address] [email or web address] Performed By: #### T RP #### [facility] [address] [place] [address] HEPARIN ASSAY,UFH 0.8 IU/mL Normal [facility] Comment on above: Result Comment: The therapeutic reference range for UFH may be either 0.3-0.6 IU/mL or 0.3-0.7 IU/mL based on the clinical setting for anticoagulant therapy and the associated nomogram used. For heparin dosing guidelines based on clinical scenario and Heparin Assay results, please refer to local Pharmacy and the [facility] Guidelines for Anticoagulation therapy available on the [facility] intranet at: [email or web address]saOh [email or web address]_ ospitals_Guid elines_for_Anticoagu.aspx Performed By: #### H AUF #### [place] [address] [place] [address] HEPARIN ASSAY,UFH 1.0 IU/mL Normal [facility] Comment on above: Result Comment: The therapeutic reference range for UFH may be either 0.3-0.6 IU/mL or 0.3-0.7 IU/mL based on the clinical setting for anticoagulant therapy and the associated nomogram used. For heparin dosing guidelines based on clinical scenario and Heparin Assay results, please refer to local Pharmacy and the [facility] Guidelines for Anticoagulation therapy available on the [facility] intranet at: [email or web address]_ ospitals_Rizwan sheldon_for_[email or web address].aspx Performed By: #### C BCDF #### [facility] [address] [place] [address] LACTATEon 05-22-2023 Lactate [Moles/Vol] 2.0 mmol/L Normal 0.4 - 2.0 [facility] Comment on above: Result Comment: Liana puncture immediately after or during the administration of Metamizole may lead to falsely low results. Testing should be performed immediately prior to Metamizole dosing. Performed By: #### M G #### [facility] [address] [place] [address] MAGNESIUMon 05-22-2023 Magnesium [Mass/Vol] 2.38 mg/dL Normal 1.60 - 2.40 [facility] Comment on above: Performed By: #### C BCDF #### [facility] [address] [place] [address] Order Reconciliationon 05-22 Order Reconciliation Page 1 Admission Reconciliation Document Reconciliation Type: Admission requested on behalf of Deng Mabry (Resident) done by Deng Mabry (Resident)) Admission - Reconciliation: 22-May-2023 03:19 by: Deng Mabry (Resident)) Home MedicationsEnteredLast Dose TakenReconciled with current Order Reconciliation Comment/ Additional Information atorvastatin 10 mg oral tablet 1 tab(s) orally once a [id number] Atorvastatin Tablet (LIPITOR)DOSE = 10 mg Oral Dailyatorvastatin 10 mg oral tablet continued as the inpatient order Atorvastatin folic acid 1 mg oral tablet 1 tab(s) orally once a [id number] Folic Acid TabletDOSE = 1 mg Oral Dailyfolic acid 1 mg oral tablet continued as the inpatient order Folic Acid hydroCHLOROthiazide 12.5 mg oral capsule 1 cap(s) orally once a [id number] Reviewed and Held Lasix 40 mg oral tablet 1 tab(s) orally once a day, As [id number] Reviewed and Held levothyroxine 112 mcg (0.112 mg) oral tablet 1 tab(s) orally once a day 22-May-2023 Levothyroxine TabletDOSE = 112 microgram(s) Oral Daily levothyroxine 112 mcg (0.112 mg) oral tablet continued as the inpatient order Levothyroxine losartan 50 mg oral tablet 1 tab(s) orally 2 times a [id number] Reviewed and Held oxycodone-acetaminophen 7.5 mg-300 mg oral tablet 1 tab(s) orally every 6 hours, As [id number] Reviewed and Held PARoxetine 20 mg oral tablet 1 tab(s) orally once a [id number] PARoxetine Tablet (PAXIL)DOSE = 20 mg Oral DailyPARoxetine 20 mg oral tablet continued as the inpatient order PARoxetine ProAir HFA 90 mcg/inh inhalation aerosol 2 puff(s) inhaled every 6 hours, As [id number] Albuterol 2.5 mg/ 3 mL Nebulizer Soln (PROVENTIL)DOSE = 1.5 mL Inhalation Every 6 Hours via Nebulizer, PRN Shortness of BreathProAir HFA 90 mcg/inh inhalation aerosol continued as the inpatient order Albuterol 2.5 mg/ 3 mL Nebulizer Soln Vitamin B12 1000 mcg oral tablet 1 tab(s) orally once a [id number] Cyanocobalamin TabletDOSE = 1,000 microgram(s) Oral DailyVitamin B12 1000 mcg oral tablet continued as the inpatient order Cyanocobalamin Vitamin D3 1250 mcg (50,000 intl units) oral capsule 1 cap(s) orally once a [id number] Reviewed and Held Additional Current Orders Heparin (Repeat Bolus) Injectable (High Intensity - VTE, CVT, Afib) IntraVenous Push Every 4 HoursRepeat Bolus Doses:If Heparin Assay is LESS than 0.1 Repeat Bolus of 6000 units.If Heparin Assay is between 0.1 and 0.2 Repeat Bolus of 3000 units.If Heparin Assay is between 0.3 and 0.7 (THERAPEUTIC) DO NOT BOLUS.If Heparin Assay is between 0.8 and 1.0 DO NOT BOLUS.If Heparin Assay is between 1.1 and 1.2 DO NOT BOLUS.If Heparin Assay is GREATER than 1.2 DO NOT BOLUS.If Heparin Assay is > 0.7, DO NOT BOLUS.Clinician Notes: Administer with Q 4 hour Heparin Assay result, beginning 4 hours after the drip initiation. Call physician with lab results. Heparin 25,000 units/ D5W 250 mL Infusion.. Solution (High Intensity - VTE, CVT, Afib)IntraVenous Admin Rate = 20 mL/hr DOSE Rate = 2,000 units/hrInfusion Rate Adjustments: If Heparin Assay is LESS than 0.1 INCREASE Infusion Rate by 300 units/ hr.If Heparin Assay is between 0.1 and 0.2 INCREASE Infusion Rate by 200 units/ hr. If Heparin Assay is between 0.3 and 0.7 (THERAPEUTIC) DO NOT CHANGE Infusion Rate.If Heparin Assay is between 0.8 and 1.0 REDUCE Infusion Rate by 200 units/ hr.If Heparin Assay is between 1.1 and 1.2 HOLD Infusion for 1 Hour then REDUCE Infusion Rate by 200 units/ hr.If Heparin Assay is GREATER than 1.2 HOLD infusion for 1 hour & repeat Heparin Assay: If repeat is between 0.3 and 0.7 REDUCE Infusion Rate by 300 units/ hr. If repeat is > 0.7, continue to HOLD INFUSION and Contact provider for further orders. Influenza Virus (Inactive) HIGH DOSE Adult Vaccine (FLUZONE HIGH DOSE)DOSE = 0.7 mL IntraMuscular OnceClinician Notes: :: Must be given prior to discharge. Order entered from Admission Screen. Perflutren Lipid Microsphere (Activated) 1.3 mL / NaCL 0.9% T.V. 10 mL Injectable DOSE = 0.5 mL IntraVenous Push OnceClinician Notes: 1. Dilute 1.3 mL of activated DEFINITY with 8.7 mL of normal saline in a 10 mL syringe.2. Inject 0.5 mL of diluted DEFINITY when notified the images/film are unclear to enhance view of Left Ventricular borders.3. Repeat 0.5 mL of DEFINITY until clear images are obtained, not to exceed 10 mLs.4. Once images are obtained or limit of medication is reached, flush line with 10 mL of Normal Saline. Pneumococcal 23-Valent (PNEUMOVAX) Vaccine DOSE = 0.5 mL IntraMuscular OnceClinician Notes: :: Must be given prior to discharge. Order entered from Admission Screen. Normal [facility] Patient Profile - Adult v2on 05-22-2023 Patient Profile - Adult v2 Profile: Initial Info: How to be AddressedSue Spoken Language PreferredEnglish Stated Reason for AdmissionPE Wants Family/Rep Notified of Admissionno Notify PCPdo not notify PCP Informed of Patient Visiting Rightsyes Arrived Fromhospital Patient [facility] Medications Brought to Hospitalno General Health: Weight in kg108 kilogram(s) Weight in uzl748 pound(s) Weight Methodactual (measured) Scale Typebed Height in cm159.8 centimeter(s) Height in feet5 feet Height in inches2.95 inch(es) Height Methodstated BMI (kg/m2)42.293 square meter RSP Based Care: How would you like to participate in your carebe updated What is the number one concern for you during this hospitalizationget better What is the most important thing we can do to support you during this hospitalizationget better Is there anything we need to know to best care for owen/a Substance: Smoking Statusnever smoker Health Mgmt: Symptoms/Conditions Managed at H[place]one Relationship/Environ: Resource/Environmental Concernsnone Primary Source of Support/Comfortextended family; child(brandyn) Lives Withother relative(s) Living Arrangementshouse Services Anticipated at Transitionnone Anticipated Transition Tohome Significant IndicatorsComplete Information Review: Allergies, Home Meds and Significant Events have been Reviewed and Verified with Patient/Familyyes ALLERGY, INTOLERANCE, ADVERSE EVENT: Allergies: ciprofloxacin: Drug, Other (Mild), Active Dilantin: Drug, Swelling/Edema, Active doxycycline: Drug, Other, Active lisinopril: Drug, Other, Active tetanus immune globulin: Drug, Other, Active Keflex: Drug, Other, Active Wellbutrin SR: Drug, Other, Active Hycodan: Drug, Other, Active Electronic Signatures: Nini Sellers ([place]) (Signed 22-May-2023 02:46) Authored: Initial Info, General Health, RSP Based Care, Substance, Health Mgmt, Relationship/Environ, Additional Information Last Updated: 22-May-2023 02:46 by Nini Sellers) Normal [facility] RENAL FUNCTION PANELon 05-22 Albumin [Mass/Vol] 3.8 g/dL Normal 3.4 - 5.0 [facility] Comment on above: Performed By: #### H AUF #### [facility] [address] [place] [address] Anion gap [Moles/Vol] 18 mmol/L Normal 10 - 20 [facility] Comment on above: Performed By: #### H AUF #### [facility] [address] [place] [address] Calcium [Mass/Vol] 9.4 mg/dL Normal 8.6 - 10.6 [facility] Comment on above: Performed By: #### H AUF #### [facility] [address] [place] [address] Chloride [Moles/Vol] 103 mmol/L Normal 98 - 107 [facility] Comment on above: Performed By: #### H AUF #### [facility] [address] [place] [address] Creatinine [Mass/Vol] 0.64 mg/dL Normal 0.50 - 1.05 [facility] Comment on above: Performed By: #### H AUF #### [facility] [address] [place] [address] eGFR FEMALE >90 Normal >90 [facility] Comment on above: Result Comment: CALC ULATIONS OF ESTIMATED GFR ARE PERFORMED USING THE 2020 CKD-EPI STUDY REFIT EQUATION WITHOUT THE RACE VARIABLE FOR THE IDMS-TRACEABLE CREATININE METHODS. https://jasn.asnjournals.org/content/early//ASN.90830 92551 Performed By: #### H AUF #### [facility] [address] [place] [address] Glucose [Mass/Vol] 162 mg/dL High 74 - 99 [facility] Comment on above: Performed By: #### H AUF #### [facility] [address] [place] [address] HCO3 (Bld) [Moles/Vol] 26 mmol/L Normal 21 - 32 [facility] Comment on above: Performed By: #### H AUF #### [facility] [address] [place] [address] Phosphate [Mass/Vol] 3.6 mg/dL Normal 2.5 - 4.9 [facility] Comment on above: Result Comment: The performance characteristics of phosphorus testing in heparinized plasma have been validated by the individual laboratory site where testing is performed. Testing on heparinized plasma is not approved by the FDA; however, such approval is not necessary. Performed By: #### H AUF #### [facility] [address] [place] [address] Potassium [Moles/Vol] 4.2 mmol/L Normal 3.5 - 5.3 [facility] Comment on above: Performed By: #### H AUF #### [facility] [address] [place] [address] Sodium [Moles/Vol] 143 mmol/L Normal 136 - 145 [facility] Comment on above: Performed By: #### H AUF #### [facility] [address] [place] [address] Urea nitrogen [Mass/Vol] 8 mg/dL Normal 6 - 23 [facility] Comment on above: Performed By: #### H AUF #### [facility] [address] [place] [address] TROPONIN I, HIGH SENSITIVITY on 05-22-2023 TROPONIN I, HIGH SENSITIVITY 539 ng/L High 0 - 34 [facility] Comment on above: Result Comment: . Less than 99th percentile of normal range cutoff- Female and children under 18 years old <35 ng/L; Male <54 ng/L: Negative Repeat testing should be performed if clinically indicated. . Female and children under 18 years old 35-120 ng/L; Male 54-120 ng/L: Consistent with possible cardiac damage and possible increased clinical risk. Serial measurements may help to assess extent of myocardial damage. . >120 ng/L: Consistent with cardiac damage, increased clinical risk and myocardial infarction. Serial measurements may help assess extent of myocardial damage. . NOTE: Children less than 1 year old may have higher baseline troponin levels and results should be interpreted in conjunction with the overall clinical context. . NOTE: Troponin I testing is performed using a different testing methodology at [facility] than at other [facility]. Direct result comparisons should only be made within the same method. This is a critical result. Per Laboratory policy, critical results for this test only qualify to the call list once per 24 hours. Performed By: #### [facility] #### [facility] [address] [place] [id number] TROPONIN I, HIGH SENSITIVITY 596 ng/L Critically high 0 - 34 [facility] Comment on above: Order Comment: Tapia d- RB to [facility], 05/22/2023 04:44 Result Comment: . Less than 99th percentile of normal range cutoff- Female and children under 18 years old <35 ng/L; Male <54 ng/L: Negative Repeat testing should be performed if clinically indicated. . Female and children under 18 years old 35-120 ng/L; Male 54-120 ng/L: Consistent with possible cardiac damage and possible increased clinical risk. Serial measurements may help to assess extent of myocardial damage. . >120 ng/L: Consistent with cardiac damage, increased clinical risk and myocardial infarction. Serial measurements may help assess extent of myocardial damage. . NOTE: Children less than 1 year old may have higher baseline troponin levels and results should be interpreted in conjunction with the overall clinical context. . NOTE: Troponin I testing is performed using a different testing methodology at [facility] than at other [facility]. Direct result comparisons should only be made within the same method. Called- RB to [facility], 05/22/2023 04:44 Performed By: #### H AUF #### [facility] [address] [place] [id number] TYPE + SCREENon 05-22-2023 ABO TYPE A Normal [facility] Comment on above: Performed By: #### C BCDF #### [facility] [address] [place] [address] RH TYPE Positive Normal [facility] Comment on above: Performed By: #### C BCDF #### [facility] [address] [place] [address] US VENOUS DUPLEX LOWER EXTRE MITY VEINS BILATERALon 05-22-2023 US VENOUS DUPLEX LOWER EXTREMITY VEINS BILATERAL Patient Name: BEBA GARCIA STUDY: DUPLEX LOWER EXTREMITY VEINS, BILATERAL; 05/22/2023 2:23 pm INDICATION: new submassive PE. eval for DVTs and proximity to determine need for IVC filter . COMPARISON: None. ACCESSION NUMBER(S): [id number] ORDERING CLINICIAN: DENG MABRY TECHNIQUE: Vascular ultrasound of the bilateral lower extremities was performed. Real-time compression views as well as Downs scale, color Doppler and spectral Doppler waveform analysis was performed. FINDINGS: Evaluation of the visualized portions of the bilateral common femoral vein, proximal, mid, and distal femoral vein, and popliteal vein were performed. Evaluation of the visualized portions of the posterior tibial and peroneal veins were also performed. Limitations: Evaluation is limited due to patient body habitus. The evaluated veins demonstrate normal compressibility. There is intact venous flow demonstrating normal respiratory variability and normal augmentation of flow with calf compression. Therefore, there is no ultrasonographic evidence for deep vein thrombosis within the evaluated veins. There is a small avascular hypoechoic fluid collection in the left popliteal fossa measuring 2.9 x 0.4 x 2.4 cm, likely a popliteal cyst. IMPRESSION: 1. No sonographic evidence for deep vein thrombosis within the evaluated veins of bilateral lower extremities. 2. Small avascular fluid collection in the left popliteal fossa, likely a popliteal cyst. I personally reviewed the images/study and I agree with the findings as stated by resident physician Dr. Faye Benson. MACRO: None Electronically signed by: MAHESH LARSEN MD Normal [facility] Alanine aminotransferase [En zymatic activity/volume] in Serum or PlasmaOrdered By: Lei Saavedra on 05-21-2023 ALT [Catalytic activity/Vol] 22 U/L Normal 7-52 [facility] Comment on above: Performed By: #### C MP, CK, HS TROP, CBC, BNP #### [facility] [address] [place] [address] Albumin [Mass/volume] in Ser um or Plasma by Bromocresol green (BCG) dye binding methoOrdered By: Lei Saavedra on 05-21-2023 Albumin BCG dye [Mass/Vol] 3.8 g/dL 3.5-5.7 [facility] Alkaline phosphatase [Enzyma tic activity/volume] in Serum or PlasmaOrdered By: eLi Saavedra on 05-21-2023 ALP [Catalytic activity/Vol] 51 U/L Normal 34-104 [facility] Comment on above: Performed By: #### C MP, CK, HS TROP, CBC, BNP #### [address] Aspartate aminotransferase [ Enzymatic activity/volume] in Serum or PlasmaOrdered By: Lei Saavedra on 05-21-2023 AST [Catalytic activity/Vol] 22 U/L Normal 13-39 [facility] Comment on above: Performed By: #### C MP, CK, HS TROP, CBC, BNP #### [address] Automated basophil %Ordered By: Lei Saavedra on 05-21-2023 Basophils/100 WBC (Bld) 1.0 % Normal . [facility] Comment on above: Performed By: #### C MP, CK, HS TROP, CBC, BNP #### [address] Automated basophil countOrde red By: Lei Saavedra on 05-21-2023 Basophils (Bld) [#/Vol] 0.1 10*3/uL Normal 0.0-0.2 [facility] Comment on above: Result Comment: PERF ORMED BY: [place] [address] PATHOLOGIST MEDICAL PHYSICS TEACHER RENNY PEREZ M.D. Performed By: #### C MP, CK, HS TROP, CBC, BNP #### [address] Automated blood monocyte cou ntOrdered By: Lei Saavedra on 05-21-2023 Monocytes (Bld) [#/Vol] 1.2 10*3/uL High 0.0-0.8 [facility] Comment on above: Performed By: #### C MP, CK, HS TROP, CBC, BNP #### [address] Automated eosinophil %Ordere d By: Lei Saavedra on 05-21-2023 Eosinophils/100 WBC (Bld) 1.8 % Normal . [facility] Comment on above: Performed By: #### C MP, CK, HS TROP, CBC, BNP #### [address] Automated eosinophil countOr dered By: Lei Saavedra on 05-21-2023 Eosinophils (Bld) [#/Vol] 0.2 10*3/uL Normal 0.0-0.45 [facility] Comment on above: Performed By: #### C MP, CK, HS TROP, CBC, BNP #### [address] Automated monocyte %Ordered By: Lei Saavedra on 05-21-2023 Monocytes/100 WBC (Bld) 10.4 % Normal . [facility] Comment on above: Performed By: #### C MP, CK, HS TROP, CBC, BNP #### [address] Automated neutrophil %Ordere d By: Lei Saavedra on 05-21-2023 Neutrophils/100 WBC (Bld) 64.8 % Normal . [facility] Comment on above: Performed By: #### C MP, CK, HS TROP, CBC, BNP #### [address] BNP ser/plasOrdered By: Lei Saavedra on 05-21-2023 Natriuretic peptide B (Bld) [Mass/Vol] 50.0 pg/mL Normal 5-100 [facility] Comment on above: Result Comment: PERF ORMED BY: [place] [address] PATHOLOGIST MEDICAL PHYSICS TEACHER RENNY PEREZ M.D. Performed By: #### C MP, CK, HS TROP, CBC, BNP #### [address] Bilirubin.total [Mass/volume ] in Serum or PlasmaOrdered By: Lei Saavedra on 05-21-2023 Bilirubin [Mass/Vol] 0.3 mg/dL Normal 0.3-1.0 [facility] Comment on above: Performed By: #### C MP, CK, HS TROP, CBC, BNP #### [facility] [address] [id number] [facility] BioFire Not Detectedon 05-21 BioFire Not Detected Not detected Normal Not Detecte [facility] Comment on above: Result Comment: This is a duplicate RP2.1 COVID (PCR) result to be used for statistical tracking purpose only. PERFORMED BY: [place] [address] PATHOLOGIST MEDICAL PHYSICS TEACHER RENNY PEREZ M.D. Performed By: #### C MP, CK, HS TROP, CBC, BNP #### [address] Blood Cultureon 05-21-2023 Bacteria identified Cx Nom (Bld) NO GROWTH 5 DAYS PERFORMED BY: [place] [address] PATHOLOGIST MEDICAL PHYSICS TEACHER RENNY PEREZ M.D. Normal [facility] Comment on above: Performed By: #### C MP, CK, HS TROP, CBC, BNP #### [address] Bacteria identified Cx Nom (Bld) BioFire BCID Panel results called at 0612 on 05/23/23 Gram Stain Gram Positive Cocci in Clusters ORGANISM: Staphylococcus epidermidis (O:STAEPI) Aerobic EMERSON Charge (PCMIC38) - SUSCEPTIBILITY ORGANISM: O:STAEPI ANTIBIOTIC INTERPRETATION EMERSON Azithromycin R >4 Ciprofloxacin S <1 Daptomycin S <0.5 Levofloxacin S <1 Linezolid S <1 Oxacillin S <0.25 Penicillin ARSENIO 0.5 Tetracycline S <4 Trimethoprim/Sulfamethox azole R >2 Vancomycin S 1 [employer] BCID Panel results called at 0612 on 05/23/23 Staphylococcus aureus DNA [Presence] by ADALBERTO with non-probe detection in Positive blood culture Not detected Bacteroides fragilis DNA [Presence] by ADALBERTO with non-probe detection in Positive blood culture Not detected Lakesha auris DNA [Presence] by ADALBERTO with non-probe detection in Positive blood culture Not detected Lakesha albicans DNA [Presence] by ADALBERTO with non-probe detection in Positive blood culture Not detected Acinetobacter calcoaceticus-baumannii complex DNA [Presence] by ADALBERTO with non-probe detection in Positive blood culture Not detected Cryptococcus neoformans or gattii 9002 Not detected Cephalosporin resistance blaCTX-M gene [Presence] by Molecular method Not Applicable Escherichia coli Not detected Enterobacterales DNA [Presence] by ADALBERTO with non-probe detection in Positive blood culture Not detected Enterobacter cloacae complex DNA [Presence] by ADALBERTO with non-probe detection in Positive blood culture Not detected Staphylococcus epidermidis DNA [Presence] by ADALBERTO with non-probe detection in Positive blood culture Detected Enterococcus faecalis DNA [Presence] by ADALBERTO with non-probe detection in Positive blood culture Not detected Enterococcus faecium DNA [Presence] by ADALBERTO with non-probe detection in Positive blood culture Not detected Lakesha glabrata DNA [Presence] by ADALBERTO with non-probe detection in Positive blood culture Not detected Haemophilus influenzae (reported as H flu) Not detected Carbapenem resistance blaIMP gene [Presence] by Molecular method Not Applicable Klebsiella aerogenes DNA [Presence] by ADALBERTO with non-probe detection in Positive blood culture Not detected Klebsiella pneumoniae+Klebsiella variicola+Klebsiella quasipneumoniae DNA [Presence] by ADALBERTO with non-probe detection in Positive blood culture Not detected Klebsiella oxytoca DNA [Presence] by ADALBERTO with non-probe detection in Positive blood culture Not detected Carbapenem resistance blaKPC gene [Presence] by Molecular method Not Applicable Lakesha krusei DNA [Presence] by ADALBERTO with non-probe detection in Positive blood culture Not detected Listeria monocytogenes (reported as listeriosis) Not detected Staphylococcus lugdunensis DNA [Presence] by ADALBERTO with non-probe detection in Positive blood culture Not detected Methicillin resistance mecA+mecC genes+SCCmec+OrfX junction [Presence] by Molecular method Not Applicable Carbapenem resistance blaNDM gene [Presence] by Molecular method Not Applicable Neisseria meningitidis - reported as meningococcal disease Not detected Carbapenem resistance kelli OXA-48-like gene [Presence] by Molecular method Not Applicable Lakesha parapsilosis DNA [Presence] by ADALBERTO with non-probe detection in Positive blood culture Not detected Streptococcus pneumoniae - reported at ISP Not detected Proteus sp DNA [Presence] by ADALBERTO with non-probe detection in Positive blood culture Not detected Pseudomonas aeruginosa DNA [Presence] by ADALBERTO with non-probe detection in Positive blood culture Not detected Salmonella sp DNA [Presence] by ADALBERTO with non-probe detection in Positive blood culture Not detected Serratia marcescens DNA [Presence] by ADALBERTO with non-probe detection in Positive blood culture Not detected Staphylococcus sp DNA [Presence] by ADALBERTO with non-probe detection in Positive blood culture Detected Stenotrophomonas maltophilia DNA [Presence] by ADALBERTO with non-probe detection in Positive blood culture Not detected Group A (Streptococcus pyogenes) [id number] Not detected Group B Strep (Streptococcus agalactiae) Not detected Streptococcus sp DNA [Presence] by ADALBERTO with non-probe detection in Positive blood culture Not detected Lakesha tropicalis DNA [Presence] by ADALBERTO with non-probe detection in Positive blood culture Not detected Vancomycin resistance Chanelle + vanB genes [Presence] by Molecular method Not Applicable Carbapenem resistance blaVIM gene [Presence] by Molecular method Not Applicable Colistin resistance mcr-1 gene [Presence] by Molecular method Not Applicable Methicillin resistance mecA+mecC genes [Presence] in Isolate or Specimen by Molecular genetics method Not detected RESIS. GENE COMMENT 1 Antimicrobial resistance can occur via multiple RESIS. GENE COMMENT 2 mechanisms. A Not Detected result for antimicrobial RESIS. GENE COMMENT 3 resistance gene(s) does not indicate (more content not included)... Normal [facility] Comment on above: Performed By: #### C MP, CK, HS TROP, CBC, BNP #### [facility] [address] COVID-19 Detected/Not Detect edOrdered By: Lei Saavedra on 05-21-2023 SARS-CoV-2 (COVID-19) RNA ADALBERTO+non-probe Ql (Nph) Not detected Not Detecte [facility] Comment on above: This is a duplicate RP2.1 COVID (PCR) result to be used for statistical tracking purpose only. Calcium [Mass/volume] in Ser um or PlasmaOrdered By: Lei Saavedra on 05-21-2023 Calcium [Mass/Vol] 9.4 mg/dL Normal 8.6-10.3 [facility] Comment on above: Performed By: #### C MP, CK, HS TROP, CBC, BNP #### [facility] [address] Carbon dioxide, total [Moles /volume] in Serum or PlasmaOrdered By: Lei Saavedra on 05-21-2023 CO2 [Moles/Vol] 32.2 mmol/L High 21.0-31.0 [facility] Comment on above: Performed By: #### C MP, CK, HS TROP, CBC, BNP #### [address] Chloride [Moles/volume] in S rex or PlasmaOrdered By: Lei Saavedra on 05-21-2023 Chloride [Moles/Vol] 101 mmol/L Normal 98-107 [facility] Comment on above: Performed By: #### C MP, CK, HS TROP, CBC, BNP #### [address] Complete Blood Count Auto Di ffon 05-21-2023 Mean Corpuscular HGB Conc 32.5 g/dL Normal 32.0-35.0 [facility] Comment on above: Performed By: #### C MP, CK, HS TROP, CBC, BNP #### [address] Monocytes/100 WBC (Bld) 19.20 % Normal 0.00-20.00 [facility] Comment on above: Performed By: #### C MP, CK, HS TROP, CBC, BNP #### [address] NRBC% 0.0 /100{WBC} Normal 0-0.5 [facility] Comment on above: Performed By: #### C MP, CK, HS TROP, CBC, BNP #### [address] Comprehensive Metabolic Pane [place] 05-21-2023 Albumin [Mass/Vol] 3.8 g/dL Normal 3.5-5.7 [facility] Comment on above: Performed By: #### C MP, CK, HS TROP, CBC, BNP #### [address] Creatinine Clr Calc Pharmacy 71.51 Normal [facility] Comment on above: Result Comment: PERF ORMED BY: [place] [address] PATHOLOGIST MEDICAL PHYSICS TEACHER RENNY PEREZ M.D. Performed By: #### C MP, CK, HS TROP, CBC, BNP #### [address] GFR/1.73 sq M.predicted MDRD (S/P/Bld) [Vol rate/Area] mL/min/{1.73_m2} Normal [facility] Comment on above: Performed By: #### C MP, CK, HS TROP, CBC, BNP #### [address] Creatine kinase [Enzymatic a ctivity/volume] in Serum or PlasmaOrdered By: Lei Saavedra on 05-21-2023 CK [Catalytic activity/Vol] 54 U/L Normal 30-223 [facility] Comment on above: Performed By: #### C MP, CK, HS TROP, CBC, BNP #### [address] Creatinine [Mass/volume] in Serum or PlasmaOrdered By: Lei Saavedra on 05-21-2023 Creatinine [Mass/Vol] 0.85 mg/dL Normal 0.60-1.20 [facility] Comment on above: Performed By: #### C MP, CK, HS TROP, CBC, BNP #### [address] ECG 12 lead ECGon 05-21-2023 ECG 12 lead ECG [facility] [place] [address] Electrocardiograph Report Signed Patient: Beba Garcia MR#: [id number] [birth year] : 1950 Acct:[id number] Age/Sex: 72 / F ADM Date: 05/21/23 Loc: ER Room: [place] [facility] [place] Dr: Ordering Provider: Lei Saavedra DO Date of Service: 05/21/2305/05/2126 ECG/ECG 12 lead ECG: Shortness of Breath/Dyspnea Copies to: Test Reason : Blood Pressure : 116/084 mmHG Vent. Rate : 123 BPM Atrial Rate : 123 BPM P-R Int : 168 ms QRS Dur : 072 ms QT Int : 298 ms P-R-T Axes : 037 -46 020 degrees QTc Int : 426 ms Sinus tachycardia Left axis deviation Low voltage QRS Inferior infarct , age undetermined Possible Anterolateral infarct (cited on or before 21-MAY-2023) Abnormal ECG When compared with ECG of 04-DEC-2021 19:34, Inferior infarct is now present Questionable change in initial forces of Lateral leads Confirmed by LEI SAAVEDRA DO ([id number]) on 05/22/2023 2:12:22 AM Referred By: Electronically Signed By:LEI SAAVEDRA DO Transcribed By: MUS Signed By Lei Saavedra DO 05/22 0212 Normal [facility] Erythrocyte distribution wid th [Ratio] by Automated countOrdered By: Lei Saavedra on 05-21-2023 Erythrocyte distribution width (RBC) [Ratio] 14.2 % Normal 11.9-15.3 [facility] Comment on above: Performed By: #### C MP, CK, HS TROP, CBC, BNP #### [facility] [address] Erythrocytes [#/volume] in B lood by Automated countOrdered By: Lei Saavedra on 05-21-2023 RBC (Bld) [#/Vol] 4.85 10*6/uL Normal 3.60-5.00 [facility] Comment on above: Performed By: #### C MP, CK, HS TROP, CBC, BNP #### [facility] [address] Glucose [Mass/volume] in Ser um or PlasmaOrdered By: Lei Saavedra on 05-21-2023 Glucose [Mass/Vol] 197 mg/dL High 70-100 [facility] Comment on above: ADA recommended refe rence rangeRandom Glucose Reference Range is dependent on time and content of last meal. Glucose of more than 200 mg/dL in a nonstressed, ambulatory subject supports the diagnosis of Diabetes Mellitus. Result Comment: [place] om Glucose Reference Range is dependent on time and content of last meal. Glucose of more than 200 mg/dL in a nonstressed, ambulatory subject supports the diagnosis of Diabetes Mellitus. ADA recommended reference range Performed By: #### C MP, CK, HS TROP, CBC, BNP #### [address] Hematocrit [Volume Fraction] of Blood by Automated countOrdered By: Lei Saavedra on 05-21-2023 Hematocrit (Bld) [Volume fraction] 46.7 % High 34.0-46.4 [facility] Comment on above: Performed By: #### C MP, CK, HS TROP, CBC, BNP #### [address] Hemoglobin [Mass/volume] in BloodOrdered By: Lei Saavedra on 05-21-2023 Hemoglobin (Bld) [Mass/Vol] 15.2 g/dL Normal 11.8-15.4 [facility] Comment on above: Performed By: #### C MP, CK, HS TROP, CBC, BNP #### [address] Lactate [Moles/volume] in Se rum or PlasmaOrdered By: Lei Saavedra on 05-21-2023 Lactate [Moles/Vol] 2.1 mmol/L Off scale high 0.5-2.2 [facility] Comment on above: Critical Result : Ca lled to and read back by: BUDDY ORNELAS at: 05/21/2023 22:37:16 by:[id number] Result Comment: Crit ical Result : Called to and read back by: BUDDY ORNELAS at: 05/21/2023 22:37:16 by:[id number] PERFORMED BY: [place] [address] PATHOLOGIST MEDICAL PHYSICS TEACHER RENNY PEREZ M.D. Performed By: #### C MP, CK, HS TROP, CBC, BNP #### [address] Leukocytes [#/volume] correc minoo for nucleated erythrocytes in Blood by Automated counOrdered By: Lei Saavedra on 05-21-2023 WBC corrected for nucl RBC Auto (Bld) [#/Vol] 11.0 10*3/uL 3.8-11.6 [facility] Leukocytes [#/volume] in Blo od by Automated countOrdered By: Lei Saavedra on 05-21-2023 WBC (Bld) [#/Vol] 11.0 10*3/uL Normal 3.8-11.6 [facility] Comment on above: Performed By: #### C MP, CK, HS TROP, CBC, BNP #### [facility] [address] Lymphocytes [#/volume] in Bl ood by Automated countOrdered By: Lei Saavedra on 05-21-2023 Lymphocytes (Bld) [#/Vol] 2.4 10*3/uL Normal 1.00-4.8 [facility] Comment on above: Performed By: #### C MP, CK, HS TROP, CBC, BNP #### [facility] [address] Lymphocytes/100 leukocytes i n Blood by Automated countOrdered By: Lei Saavedra on 05-21-2023 Lymphocytes/100 WBC (Bld) 22.0 % Normal . [facility] Comment on above: Performed By: #### C MP, CK, HS TROP, CBC, BNP #### [address] MCH [Entitic mass] by Automa minoo countOrdered By: Lei Saavedra on 05-21-2023 MCH (RBC) [Entitic mass] 31.3 pg Normal 24.7-34.3 [facility] Comment on above: Performed By: #### C MP, CK, HS TROP, CBC, BNP #### [facility] [address] MCHC Auto (RBC) [Mass/Vol]Or dered By: Lei Saavedra on 05-21-2023 MCHC (RBC) [Mass/Vol] 32.5 g/dL 32.0-35.0 [facility] MCV [Entitic volume] by Auto mated countOrdered By: Lei Saavedar on 05-21-2023 MCV (RBC) [Entitic vol] 96.3 fL Normal 80-100 [facility] Comment on above: Performed By: #### C MP, CK, HS TROP, CBC, BNP #### [facility] [address] Monocyte distribution width [Entitic volume] in Blood by AutomatedOrdered By: Lei Saavedra on 05-21-2023 Monocyte distribution width Auto (Bld) [Entitic vol] 19.20 % 0.00-20.00 [facility] Neutrophils [#/volume] in Bl ood by Automated countOrdered By: Lei Saavedra on 05-21-2023 Neutrophils (Bld) [#/Vol] 7.2 10*3/uL Normal 1.8-7.7 [facility] Comment on above: Performed By: #### C MP, CK, HS TROP, CBC, BNP #### [address] No Panel InformationOrdered By: Lei Saavedra on 05-21-2023 Estimated GFR (CKD-EPI) > 60.0 mL/Min [facility] Creatinine Clearance (Chem 71.51 [facility] Nucleated erythrocytes [Pres ence] in Blood by Automated countOrdered By: Lei Saavedra on 05-21-2023 Nucleated RBC Auto Ql (Bld) 0.0 /100{WBC} 0-0.5 [facility] Platelet mean volume [Entiti c volume] in Blood by Automated countOrdered By: Lei Saavedra on 05-21-2023 Platelet mean volume (Bld) [Entitic vol] 7.9 fL Normal 6.3-10.7 [facility] Comment on above: Performed By: #### C MP, CK, HS TROP, CBC, BNP #### [facility] [address] [place] [address] [place] Platelets [#/volume] in Bloo d by Automated countOrdered By: Lei Saavedra on 05-21-2023 Platelets (Bld) [#/Vol] 248 10*3/uL Normal 150-450 [facility] Comment on above: Performed By: #### C MP, CK, HS TROP, CBC, BNP #### [address] Potassium [Moles/volume] in Serum or PlasmaOrdered By: Lei Saavedra on 05-21-2023 Potassium [Moles/Vol] 4.5 mmol/L Normal 3.5-5.1 [facility] Comment on above: Performed By: #### C MP, CK, HS TROP, CBC, BNP #### [facility] [address] Protein [Mass/volume] in Ser um or PlasmaOrdered By: Lei Saavedra on 05-21-2023 Protein [Mass/Vol] 6.6 g/dL Normal 6.4-8.9 [facility] Comment on above: Performed By: #### C MP, CK, HS TROP, CBC, BNP #### [facility] [address] Respiratory (Upper) Panel, P CRon 05-21-2023 Respiratory (Upper) Panel, PCR Adenovirus Not detected Bordetella parapertussis Not detected Chlamydia pneumoniae Not detected Coronavirus 229E Not detected Coronavirus HKU1 Not detected Coronavirus NL63 Not detected Coronavirus OC43 Not detected Influenza A Not detected Influenza B Not detected Human Metapneumovirus Not detected Mycoplasma pneumoniae Not detected Parainfluenza Virus 1 Not detected Parainfluenza Virus 2 Not detected Parainfluenza Virus 3 Not detected Parainfluenza Virus 4 Not detected Bordetella pertussis-ptxP Not detected Human Rhino/Enterovirus Not detected Resp. Syncytial Virus Not detected COVID-19 Detected/Not Detected Not detected Blank Space ------ FLUA TEST INCLUDES Influenza A tests for the following clinically FLUA TEST INCLUDES significant subtypes: FLUA TEST INCLUDES - Influenza A FLUA TEST INCLUDES - Influenza A H1 FLUA TEST INCLUDES - Influenza A H1 2009 FLUA TEST INCLUDES - Influenza A H3 Blank Space ------ PERFORMED BY: [place] [address] PATHOLOGIST MEDICAL PHYSICS TEACHER RENNY PEREZ M.D. Normal [facility] Comment on above: Performed By: #### C MP, CK, HS TROP, CBC, BNP #### [address] Respiratory pathogens DNA an d RNA panel - Nasopharynx by ADALBERTO with non-probe detectionOrdered By: Lei Saavedra on 05-21-2023 Respiratory pathogens DNA and RNA panel ADALBERTO+non-probe (Nph) [facility] Serum globulin measurement b y calculation (mass/volume)Ordered By: Lei Saavedra on 05-21-2023 Globulin (S) [Mass/Vol] 2.8 g/dL [facility] Comment on above: Performed By: #### C MP, CK, HS TROP, CBC, BNP #### [address] Serum or plasma albumin/glob ulin mass ratioOrdered By: Lei Saavedra on 05-21-2023 Albumin/Globulin [Mass ratio] 1.4 {ratio} [facility] Comment on above: Performed By: #### C MP, CK, HS TROP, CBC, BNP #### [address] Serum or plasma anion gap de terminationOrdered By: Lei Saavedra on 05-21-2023 Anion gap [Moles/Vol] 11.3 mmol/L Normal 6.0-15.0 [facility] Comment on above: Performed By: #### C MP, CK, HS TROP, CBC, BNP #### [address] Sodium [Moles/volume] in Ser um or PlasmaOrdered By: Lei Saavedra on 05-21-2023 Sodium [Moles/Vol] 140 mmol/L Normal 136-145 [facility] Comment on above: Performed By: #### C MP, CK, HS TROP, CBC, BNP #### [address] Troponin I High Sensitivityo n 05-21-2023 Troponin I High Sensitivity 189.7 pg/mL Off scale high 0.0-15.0 [facility] Comment on above: Result Comment: Crit ical Result : Called to and read back by: BUDDY ORNELAS at: 05/21/2023 22:46:03 by:[id number] PERFORMED BY: [place] [address] PATHOLOGIST MEDICAL PHYSICS TEACHER RENNY PEREZ M.D. Performed By: #### C MP, CK, HS TROP, CBC, BNP #### [address] Troponin I.cardiac [Mass/vol ume] in Serum or Plasma by Detection limit <= 0.01 ng/Ordered By: Lei Saavedra on 05-21-2023 Troponin I.cardiac DL <= 0.01 ng/mL [Mass/Vol] 189.7 pg/mL 0.0-15.0 [facility] Comment on above: Critical Result : Ca lled to and read back by: BUDDY ORNELAS at: 05/21/2023 22:46:03 by:[id number] Urea nitrogen [Mass/volume] in Serum or PlasmaOrdered By: Lei Saavedra on 05-21-2023 Urea nitrogen [Mass/Vol] 9 mg/dL Normal 04-06 [facility] Comment on above: Performed By: #### C MP, CK, HS TROP, CBC, BNP #### [facility] [address] [place] [address] Alanine aminotransferase [En zymatic activity/volume] in Serum or PlasmaOrdered By: Jaquan Richard on 03-22-2023 ALT [Catalytic activity/Vol] 19 U/L 7-52 [facility] Albumin [Mass/volume] in Ser um or Plasma by Bromocresol green (BCG) dye binding methoOrdered By: Jaquan Richard on 03-22-2023 Albumin BCG dye [Mass/Vol] 3.9 g/dL 3.5-5.7 [facility] Alkaline phosphatase [Enzyma tic activity/volume] in Serum or PlasmaOrdered By: Jaquan Richard on 03-22-2023 ALP [Catalytic activity/Vol] 55 U/L 34-104 [facility] Aspartate aminotransferase [ Enzymatic activity/volume] in Serum or PlasmaOrdered By: Jaquan Richard on 03-22-2023 AST [Catalytic activity/Vol] 24 U/L 13-39 [facility] Automated erythrocytes count in urine sediment (number/area)Ordered By: Jaquan Richard on 03-22-2023 RBC Auto (Urine sed) [#/Area] 0-1 [HPF] 0-4 [facility] Automated leukocytes count i n urine sediment (number/area)Ordered By: Jaquan Richard on 03-22-2023 WBC Auto (Urine sed) [#/Area] 3-4 [HPF] 0-4 [facility] [facility] Basophils Auto (Bld) [#/Vol] Ordered By: Jaquan Richard on 03-22-2023 Basophils (Bld) [#/Vol] 0.1 10*3/uL 0.0-0.2 [facility] Basophils/100 WBC Auto (Bld) Ordered By: Jaquan Richard on 03-22-2023 Basophils/100 WBC (Bld) 0.7 % . [facility] Bilirubin Test strip Ql (U)O rdered By: Jaquan Richard on 03-22-2023 Bilirubin Ql (U) Negative Negative [facility] Bilirubin.total [Mass/volume ] in Serum or PlasmaOrdered By: Jaquan Richard on 03-22-2023 Bilirubin [Mass/Vol] 0.3 mg/dL 0.3-1.0 [facility] Calcium [Mass/volume] in Ser um or PlasmaOrdered By: Jaquan Richard on 03-22-2023 Calcium [Mass/Vol] 9.5 mg/dL 8.6-10.3 [facility] Carbon dioxide, total [Moles /volume] in Serum or PlasmaOrdered By: Jaquan Richard on 03-22-2023 CO2 [Moles/Vol] 26.7 mmol/L 21.0-31.0 [facility] Chloride [Moles/volume] in S rex or PlasmaOrdered By: Jaquan Richard on 03-22-2023 Chloride [Moles/Vol] 103 mmol/L 98-107 [facility] Cholesterol [Mass/volume] in Serum or PlasmaOrdered By: Jaquan Richard on 03-22-2023 Cholesterol [Mass/Vol] 266 mg/dL 140-200 [facility] Comment on above: Chol less than 200 m g/dl low riskChol 201-239 mg/dl borderline riskChol 240 mg/dl and greater high risk Cholesterol in LDL Calc [Mas s/Vol]Ordered By: Jaquan Richard on 03-22-2023 Cholesterol in LDL [Mass/Vol] 167 mg/dL 0-100 [facility] Comment on above: LDL ATP III CLASSIFI CATIONLDL less than 100 mg/dL OptimalLDL 100-129 mg/dL Near or above optimalLDL 130-159 mg/dL Borderline highLDL 160-189 mg/dL HighLDL greater than 189 mg/dL Very high Cholesterol in VLDL Calc [Ma ss/Vol]Ordered By: Jaquan Richard on 03-22-2023 Cholesterol in VLDL [Mass/Vol] 28 mg/dL [facility] Color Auto (U)Ordered By: Bunny Richard on 03-22-2023 Color (U) Yellow Yellow [facility] Creatinine [Mass/volume] in Serum or PlasmaOrdered By: Jaquan Richard on 03-22-2023 Creatinine [Mass/Vol] 0.73 mg/dL 0.60-1.20 [facility] Eosinophils Auto (Bld) [#/Vo l]Ordered By: Jaquan Richard on 03-22-2023 Eosinophils (Bld) [#/Vol] 0.2 10*3/uL 0.0-0.45 [facility] Eosinophils/100 WBC Auto (Bl d)Ordered By: Jaquan Richard on 03-22-2023 Eosinophils/100 WBC (Bld) 2.2 % . [facility] Erythrocyte distribution wid th Auto (RBC) [Ratio]Ordered By: Jaquan Richard on 03-22-2023 Erythrocyte distribution width (RBC) [Ratio] 14.4 % 11.9-15.3 [facility] Folate [Mass/volume] in Seru m or PlasmaOrdered By: Jaquan Richard on 03-22-2023 Folate [Mass/Vol] 39.0 ng/mL >5.9 [facility] Comment on above: Folate reference ran ge: >5.9 ng/mlThe WHO technical consultation on folate and vitamin [id number] has determined that folate concentrations lessthan 4 ng/ml are considered deficient. Globulin Calc (S) [Mass/Vol] Ordered By: Jaquan Richard on 03-22-2023 Globulin (S) [Mass/Vol] 2.7 g/dL [facility] Glucose [Mass/volume] in Ser um or PlasmaOrdered By: Jaquan Richard on 03-22-2023 Glucose [Mass/Vol] 120 mg/dL 70-100 [facility] Comment on above: ADA recommended refe rence rangeRandom Glucose Reference Range is dependent on time and content of last meal. Glucose of more than 200 mg/dL in a nonstressed, ambulatory subject supports the diagnosis of Diabetes Mellitus. Glucose mean value [Mass/vol ume] in Blood Estimated from glycated hemoglobinOrdered By: Jaquan Richard on 03-22-2023 Average glucose Estimated from glycated hemoglobin (Bld) [Mass/Vol] 146 mg/dL [facility] Hematocrit Auto (Bld) [Volum e fraction]Ordered By: Jaquan Richard on 03-22-2023 Hematocrit (Bld) [Volume fraction] 43.7 % 34.0-46.4 [facility] Hemoglobin A1c percentageOrd ered By: Jaquan Richard on 03-22-2023 HbA1c (Bld) [Mass fraction] 6.7 % 4.3-5.6 [facility] Comment on above: Increased risk for d iabetes: 5.7 - 6.4diabetes: >6.4glycemic control for adults with diabetes: <7.0 Hemoglobin [Mass/volume] in BloodOrdered By: Jaquan Richard on 03-22-2023 Hemoglobin (Bld) [Mass/Vol] 14.4 g/dL 11.8-15.4 [facility] Ketones Auto test strip (U) [Mass/Vol]Ordered By: Jaquan Richard on 03-22-2023 Ketones (U) [Mass/Vol] Negative Negative [facility] - UrinalysisOrder ed By: Jaquan Richard on 03-22-2023 Hyaline casts LM Ql (Urine sed) 0-8 [LPF] 0-8 [facility] Leukocytes [#/volume] correc minoo for nucleated erythrocytes in Blood by Automated counOrdered By: Jaquan Richard on 03-22-2023 WBC corrected for nucl RBC Auto (Bld) [#/Vol] 8.5 10*3/uL 3.8-11.6 [facility] Lymphocytes Auto (Bld) [#/Vo l]Ordered By: Jaquan Richard on 03-22-2023 Lymphocytes (Bld) [#/Vol] 2.1 10*3/uL 1.00-4.8 [facility] Lymphocytes/100 WBC Auto (Bl d)Ordered By: Jaquan Richard on 03-22-2023 Lymphocytes/100 WBC (Bld) 24.1 % . [facility] MCH Auto (RBC) [Entitic mass ]Ordered By: Jaquan Richard on 03-22-2023 MCH (RBC) [Entitic mass] 31.8 pg 24.7-34.3 [facility] MCHC Auto (RBC) [Mass/Vol]Or dered By: Jaquan Richard on 03-22-2023 MCHC (RBC) [Mass/Vol] 33.0 g/dL 32.0-35.0 [facility] MCV Auto (RBC) [Entitic vol] Ordered By: Jaquan Richard on 03-22-2023 MCV (RBC) [Entitic vol] 96.4 fL 80-100 [facility] Monocytes Auto (Bld) [#/Vol] Ordered By: Jaquan Richard on 03-22-2023 Monocytes (Bld) [#/Vol] 0.8 10*3/uL 0.0-0.8 [facility] Monocytes/100 WBC Auto (Bld) Ordered By: Jaquan Richard on 03-22-2023 Monocytes/100 WBC (Bld) 9.6 % . [facility] Neutrophils Auto (Bld) [#/Vo l]Ordered By: Jaquan Richard on 03-22-2023 Neutrophils (Bld) [#/Vol] 5.4 10*3/uL 1.8-7.7 [facility] Neutrophils/100 WBC Auto (Bl d)Ordered By: Jaquan Richard on 03-22-2023 Neutrophils/100 WBC (Bld) 63.4 % . [facility] Nitrite Test strip Ql (U)Ord ered By: Jaquan Richard on 03-22-2023 Nitrite Ql (U) Negative Negative [facility] No Panel InformationOrdered By: Jaquan Richard on 03-22-2023 Estimated GFR (CKD-EPI) > 60.0 mL/Min [facility] Creatinine Clearance (Chem N/A [facility] Nucleated erythrocytes [Pres ence] in Blood by Automated countOrdered By: Jaquan Richard on 03-22-2023 Nucleated RBC Auto Ql (Bld) 0.2 /100{WBC} 0-0.5 [facility] Platelet mean volume Auto (B ld) [Entitic vol]Ordered By: Jaquan Richard on 03-22-2023 Platelet mean volume (Bld) [Entitic vol] 9.9 fL 6.3-10.7 [facility] Platelets Auto (Bld) [#/Vol] Ordered By: Jaquan Richard on 03-22-2023 Platelets (Bld) [#/Vol] 326 10*3/uL 150-450 [facility] Potassium [Moles/volume] in Serum or PlasmaOrdered By: Jaquan Richard on 03-22-2023 Potassium [Moles/Vol] 4.5 mmol/L 3.5-5.1 [facility] Protein Auto test strip (U) [Mass/Vol]Ordered By: Jaquan Richard on 03-22-2023 Protein (U) [Mass/Vol] Negative Negative [facility] Protein [Mass/volume] in Ser um or PlasmaOrdered By: Jaquan Richard on 03-22-2023 Protein [Mass/Vol] 6.6 g/dL 6.4-8.9 [facility] RBC Auto (Bld) [#/Vol]Ordere d By: Jaquan Richard on 03-22-2023 RBC (Bld) [#/Vol] 4.53 10*6/uL 3.60-5.00 [facility] Serum or plasma albumin/glob ulin mass ratioOrdered By: Jaquan Richard on 03-22-2023 Albumin/Globulin [Mass ratio] 1.4 {ratio} [facility] Serum or plasma anion gap de terminationOrdered By: Jaquan Richard on 03-22-2023 Anion gap [Moles/Vol] 15.8 mmol/L 6.0-15.0 [facility] Serum or plasma high density lipoprotein (HDL) cholesterol measurementOrdered By: Jaquan Richard on 03-22-2023 Cholesterol in HDL [Mass/Vol] 71 mg/dL 23-92 [facility] Comment on above: HDL CHOL ATP-III CLA SSIFICATION Cardiovascular RiskHDL > or equal to 60 mg/dL LOWHDL < 40 mg/dL HIGH Serum or plasma total choles terol/high density lipoprotein (HDL) cholesterol mass ratOrdered By: Jaquan Richard on 03-22-2023 Cholesterol.total/Chol esterol in HDL [Mass ratio] 3.7 {ratio} <5.0 [facility] Sodium [Moles/volume] in Ser um or PlasmaOrdered By: Jaquan Richard on 03-22-2023 Sodium [Moles/Vol] 141 mmol/L 136-145 [facility] Specific gravity Auto test s trip (U) [Rel density]Ordered By: Jaquan Richard on 03-22-2023 Specific gravity (U) [Rel density] 1.011 1.001-1.03 0 [facility] Squamous epithelial cells de tection in urine sediment by light microscopyOrdered By: Jaquan Richard on 03-22-2023 Epithelial cells.squamous LM Ql (Urine sed) 5-9 [HPF] 0-2 [facility] Triglyceride [Mass/volume] i n Serum or PlasmaOrdered By: Jaquan Richard on 03-22-2023 Triglyceride [Mass/Vol] 141 mg/dL 0-149 [facility] Comment on above: TRIG ATP III CLASSIF ICATIONTRIG less than 150 mg/dL NormalTRIG 150-199 mg/dL Borderline highTRIG 200-500 mg/dL High TRIG greater than 500 mg/dL Very highStandard traceable to the Center for Disease Conrtrol and Prevention (CDC) test method. Urea nitrogen [Mass/volume] in Serum or PlasmaOrdered By: Jaquan Richard on 03-22-2023 Urea nitrogen [Mass/Vol] 7 mg/dL 7-25 [facility] Urine bacteria detection by automated methodOrdered By: Jaquan Richard on 03-22-2023 Bacteria Auto Ql (U) 1+ None Seen [facility] Urine clarity by refractomet ry automatedOrdered By: Jaquan Richard on 03-22-2023 Clarity Refractometry automated (U) Clear Clear [facility] Urine culture routineOrdered By: Jaquan Richard on 03-22-2023 Bacteria identified Cx Nom (U) 2 Days [facility] Urine glucose measurement by automated test strip (mass/volume)Ordered By: Jaquan Richard on 03-22-2023 Glucose Auto test strip (U) [Mass/Vol] Normal mg/dL Normal [facility] Urine hemoglobin detection b y automated test stripOrdered By: Jaquan Richard on 03-22-2023 Hemoglobin Auto test strip Ql (U) Negative Negative [facility] Urine leukocyte esterase det ection by automated test stripOrdered By: Jaquan Richard on 03-22-2023 Leukocyte esterase Auto test strip Ql (U) Negative Negative [facility] Urobilinogen Auto test strip (U) [Mass/Vol]Ordered By: Jaquan Richard on 03-22-2023 Urobilinogen (U) [Mass/Vol] Normal mg/dL Normal [facility] Vitamin B12 ser/plasOrdered By: Jaquan Richard on 03-22-2023 Cobalamin (Vitamin B12) [Mass/Vol] 431 pg/mL 180-914 [facility] Vitamin D+Metabolites [Mass/ volume] in Serum or PlasmaOrdered By: Jaquan Richard on 03-22-2023 Vitamin D+Metabolites [Mass/Vol] 24.1 ng/mL 30-100 [facility] Comment on above: VITAMIN D STATUS 25( [place])VITAMIN D RANGE (ng/mL) Deficient <20 Insufficient 20 to <30Sufficient 30 to 100Reference: Aracely MF,Dominique NC, Nikky RICHARD, et al. Evaluation,treatment, and prevention of vitamin D deficiency; an Endocrine Society clinical practice guideline. JCEM. 2010; 96(7):1911-30. WBC Auto (Bld) [#/Vol]Ordere d By: Jaquan Richard on 03-22-2023 WBC (Bld) [#/Vol] 8.5 10*3/uL 3.8-11.6 [facility] pH Auto test strip (U)Ordere d By: Jaquan Richard on 03-22-2023 pH (U) 7.5 [pH] 5.0-9.0 [facility] Thyrotropin [Units/volume] i n Serum or PlasmaOrdered By: Jaquan Richard on 12-29-2022 TSH Qn 0.50 m[IU]/L 0.45-5.33 [facility] Thyroxine (T4) free [Mass/vo lume] in Serum or PlasmaOrdered By: Jaquan Richard on 12-29-2022 Free T4 [Mass/Vol] 1.04 ng/dL 0.61-1.12 [facility] Triiodothyronine (T3) Free [ Mass/volume] in Serum or PlasmaOrdered By: Jaquan Richard on 12-29-2022 Free T3 [Mass/Vol] 3.28 pg/mL 2.50-3.90 [facility] Free T4 (Free Thyroxine)on 11-01-2021 Free T4 [Mass/Vol] 0.96560054 ng/dL Normal 0.61- 1.12 ng/dL [facility] Other TSH DL <= 0.005 mIU/L QnOrde red By: Jaquan Richard on 08-31-2022 TSH Qn 12.71 m[IU]/L 0.45-5.33 [facility] Thyroid Stimulating Hormoneo n 08-31-2022 TSH Qn 12.04387299591 m[IU]/L High 0.45- 5.33 u[iU]/mL [facility] Other Thyroxine (T4) free [Mass/vo lume] in Serum or PlasmaOrdered By: Jaquan Richard on 08-31-2022 Free T4 [Mass/Vol] 0.80 ng/dL 0.61-1.12 [facility] Triiodothyronine (T3) Freeon 08-31-2022 Triiodothyronine (T3) Free 3.18 pg/mL Normal 2.50-3.90 pg/mL [facility] Other Triiodothyronine (T3) Free [ Mass/volume] in Serum or PlasmaOrdered By: Jaquan Richard on 08-31-2022 Free T3 [Mass/Vol] 3.18 pg/mL 2.50-3.90 [facility] No Panel InformationOrdered By: Flex Atkinson on 06-05-2022 Total Triiodothyronine 1.00 ng/mL 0.87-1.78 [facility] Serum or plasma thyroxine (T 4) measurement (mass/volume)Ordered By: Flex Atkinson on 06-05-2022 T4 [Mass/Vol] 8.35 ug/dL 5.39-11.82 [facility] TSH DL <= 0.005 mIU/L QnOrde red By: Flex Atkinson on 06-05-2022 TSH Qn 1.78 m[IU]/L 0.45-5.33 [facility] Basophils Auto (Bld) [#/Vol] Ordered By: Jaquan Richard on 05-26-2022 Basophils (Bld) [#/Vol] 0.0 10*3/uL 0.0-0.2 [facility] Basophils/100 WBC Auto (Bld) Ordered By: Jaquan Richard on 05-26-2022 Basophils/100 WBC (Bld) 0.6 % . [facility] Blood hemoglobin measurement (mass/volume)Ordered By: Jaquan Richard on 05-26-2022 Hemoglobin (Bld) [Mass/Vol] 14.1 g/dL 11.8-15.4 [facility] Blood leukocytes automated c ount (number/volume)Ordered By: Jaquan Richard on 05-26-2022 WBC (Bld) [#/Vol] 6.9 10*3/uL 4.5-11.0 [facility] Body fluid albumin measureme nt (mass/volume)Ordered By: Jaquan Richard on 05-26-2022 Albumin (Body fld) [Mass/Vol] 3.5 g/dL 3.2-5.5 [facility] Cholesterol [Mass/volume] in Serum or PlasmaOrdered By: Jaquan Richard on 05-26-2022 Cholesterol [Mass/Vol] 266 mg/dL 140-200 [facility] Comment on above: Chol less than 200 m g/dl low risk Chol 201-239 mg/dl borderline risk Chol 240 mg/dl and greater high risk Cholesterol in LDL Calc [Mas s/Vol]Ordered By: Jaquan Richard on 05-26-2022 Cholesterol in LDL [Mass/Vol] 170 mg/dL 0-100 [facility] Comment on above: LDL ATP III CLASSIFI CATION LDL less than 100 mg/dL Optimal LDL 100-129 mg/dL Near or above optimal LDL 130-159 mg/dL Borderline high LDL 160-189 mg/dL High LDL greater than 189 mg/dL Very high Cholesterol in VLDL Calc [Ma ss/Vol]Ordered By: Jaquan Richard on 05-26-2022 Cholesterol in VLDL [Mass/Vol] 23 mg/dL [facility] Creatinine and Glomerular fi ltration rate.predicted panel (S/P/Bld)Ordered By: Jaquan Richard on 05-26-2022 Creatinine [Mass/Vol] 0.79 mg/dL 0.44-1.03 [facility] Eosinophils Auto (Bld) [#/Vo l]Ordered By: Jaquan Richard on 05-26-2022 Eosinophils (Bld) [#/Vol] 0.2 10*3/uL 0.0-0.45 [facility] Eosinophils/100 WBC Auto (Bl d)Ordered By: Jaquan Richard on 05-26-2022 Eosinophils/100 WBC (Bld) 2.4 % . [facility] Erythrocyte distribution wid th Auto (RBC) [Ratio]Ordered By: Jaquan Richard on 05-26-2022 Erythrocyte distribution width (RBC) [Ratio] 15.1 % 11.9-15.3 [facility] Estimated glomerular filtrat ion rate (GFR) non- AmericanOrdered By: Jaquan Richard on 05-26-2022 GFR/1.73 sq M.predicted among non-blacks MDRD (S/P/Bld) [Vol rate/Area] > 60 mL/Min [facility] Folate [Mass/volume] in Seru m or PlasmaOrdered By: Jaquan Richard on 05-26-2022 Folate [Mass/Vol] 20.2 ng/mL >5.9 [facility] Comment on above: Folate reference ran ge: >5.9 ng/ml The WHO technical consultation on folate and vitamin b12 deficiencies has determined that folate concentrations less than 4 ng/ml are considered deficient. Globulin Calc (S) [Mass/Vol] Ordered By: Jaquan Richard on 05-26-2022 Globulin (S) [Mass/Vol] 2.9 g/dL [facility] Glucose mean value [Mass/vol ume] in Blood Estimated from glycated hemoglobinOrdered By: Jaquan Richard on 05-26-2022 Average glucose Estimated from glycated hemoglobin (Bld) [Mass/Vol] 140 mg/dL [facility] Hematocrit Auto (Bld) [Volum e fraction]Ordered By: Jaquan Richard on 05-26-2022 Hematocrit (Bld) [Volume fraction] 43.7 % 34.0-46.4 [facility] Hemoglobin A1c percentageOrd ered By: Jaquan Richard on 05-26-2022 HbA1c (Bld) [Mass fraction] 6.5 % 4.3-5.6 [facility] Comment on above: Increased risk for d iabetes: 5.7 - 6.4 diabetes: >6.4 glycemic control for adults with diabetes: <7.0 Laboratory - Chemistry and C hemistry - challengeOrdered By: Jaquan Richard on 05-26-2022 Cobalamin (Vitamin B12) [Mass/Vol] 340 pg/mL 180-914 [facility] - Hematology and Cell countsOrdered By: Jaquan Richard on 05-26-2022 Nucleated RBC/100 WBC (Bld) [Ratio] 0.2 % 0-0.5 [facility] Lymphocytes Auto (Bld) [#/Vo l]Ordered By: Jaquan Richard on 05-26-2022 Lymphocytes (Bld) [#/Vol] 1.9 10*3/uL 1.00-4.8 [facility] Lymphocytes/100 WBC Auto (Bl d)Ordered By: Jaquan Richard on 05-26-2022 Lymphocytes/100 WBC (Bld) 27.4 % . [facility] MCH Auto (RBC) [Entitic mass ]Ordered By: Jaquan Richard on 05-26-2022 MCH (RBC) [Entitic mass] 32.3 pg 24.7-34.3 [facility] MCHC Auto (RBC) [Mass/Vol]Or dered By: Jaquan Richard on 05-26-2022 MCHC (RBC) [Mass/Vol] 32.3 g/dL 32.0-35.0 [facility] MCV Auto (RBC) [Entitic vol] Ordered By: Jaquan Richard on 05-26-2022 MCV (RBC) [Entitic vol] 99.8 fL 80-100 [facility] Monocytes Auto (Bld) [#/Vol] Ordered By: Jaquan Richard on 05-26-2022 Monocytes (Bld) [#/Vol] 0.7 10*3/uL 0.0-0.8 [facility] Monocytes/100 WBC Auto (Bld) Ordered By: Jaquan Richard on 05-26-2022 Monocytes/100 WBC (Bld) 10.5 % . [facility] Neutrophils Auto (Bld) [#/Vo l]Ordered By: Jaquan Richard on 05-26-2022 Neutrophils (Bld) [#/Vol] 4.1 10*3/uL 1.8-7.7 [facility] Neutrophils/100 WBC Auto (Bl d)Ordered By: Jaquan Richard on 05-26-2022 Neutrophils/100 WBC (Bld) 59.1 % . [facility] No Panel InformationOrdered By: Jaquan Richard on 05-26-2022 25-Hydroxy Vitamin D Total 35.4 ng/mL 30-100 [facility] Comment on above: VITAMIN D STATUS 25( [place])VITAMIN D RANGE (ng/mL) Deficient <20 Insufficient 20 to <30 Sufficient 30 to 100 Reference: Aracely MF,Dominique NC, Nikky RICHARD, et al. Evaluation,treatment, and prevention of vitamin D deficiency; an Endocrine Society clinical practice guideline. JCEM. 2010; 96(7):1911-30. Estimated GFR () > 60 mL/Min [facility] Comment on above: GFR estimated refere nce range: According to KDOQI guidelines, <60 ml/min/1.73m2 is sufficient to diagnose a patient with chronic kidney disease. Pharmacy Creatinine Clearance (Chem N/A [facility] Platelet mean volume Auto (B ld) [Entitic vol]Ordered By: Jaquan Richard on 05-26-2022 Platelet mean volume (Bld) [Entitic vol] 8.8 fL 6.3-10.7 [facility] Platelets Auto (Bld) [#/Vol] Ordered By: Jaquan Richard on 05-26-2022 Platelets (Bld) [#/Vol] 344 10*3/uL 150-450 [facility] Protein [Mass/volume] in Ser um or PlasmaOrdered By: Jaquan Richard on 05-26-2022 Protein [Mass/Vol] 6.4 g/dL 6.1-7.9 [facility] RBC Auto (Bld) [#/Vol]Ordere d By: Jaquan Richard on 05-26-2022 RBC (Bld) [#/Vol] 4.38 10*6/uL 3.60-5.00 [facility] Serum or plasma alanine lemus otransferase measurement without P-5'-P (enzymatic activiOrdered By: Jaquan Richard on 05-26-2022 ALT No additional P-5'-P [Catalytic activity/Vol] 32 U/L 10-60 [facility] Serum or plasma albumin/glob ulin mass ratioOrdered By: Jaquan Richard on 05-26-2022 Albumin/Globulin [Mass ratio] 1.2 {ratio} [facility] Serum or plasma alkaline darrell sphatase measurement (enzymatic activity/volume)Ordered By: Jaquan Richard on 05-26-2022 ALP [Catalytic activity/Vol] 53 U/L 32-92 [facility] Serum or plasma anion gap de terminationOrdered By: Jaquan Richard on 05-26-2022 Anion gap [Moles/Vol] 15.0 mmol/L 6.0-15.0 [facility] Serum or plasma aspartate am inotransferase measurement (enzymatic activity/volume)Ordered By: Jaquan Richard on 05-26-2022 AST [Catalytic activity/Vol] 34 U/L 10-42 [facility] Serum or plasma calcium karishma urement (mass/volume)Ordered By: Jaquan Richard on 05-26-2022 Calcium [Mass/Vol] 9.5 mg/dL 8.2-10.2 [facility] Serum or plasma chloride krunal surement (moles/volume)Ordered By: Jaquan Richard on 05-26-2022 Chloride [Moles/Vol] 101 mmol/L 95-114 [facility] Serum or plasma glucose karishma urement (mass/volume)Ordered By: Jaquan Richard on 05-26-2022 Glucose [Mass/Vol] 109 mg/dL 70-100 [facility] Comment on above: ADA recommended refe rence range Random Glucose Reference Range is dependent on time and content of last meal. Glucose of more than 200 mg/dL in a nonstressed, ambulatory subject supports the diagnosis of Diabetes Mellitus. Serum or plasma high density lipoprotein (HDL) cholesterol measurementOrdered By: Jaquan Richard on 05-26-2022 Cholesterol in HDL [Mass/Vol] 73 mg/dL 35-85 [facility] Comment on above: HDL CHOL ATP-III CLA SSIFICATION Cardiovascular Risk HDL > or equal to 60 mg/dL LOW HDL < 40 mg/dL HIGH Serum or plasma potassium me asurement (moles/volume)Ordered By: Jaquan Richard on 05-26-2022 Potassium [Moles/Vol] 3.9 mmol/L 3.5-5.1 [facility] Serum or plasma sodium measu rement (moles/volume)Ordered By: Jaquan Richard on 05-26-2022 Sodium [Moles/Vol] 140 mmol/L 136-146 [facility] Serum or plasma total biliru bin measurement (mass/volume)Ordered By: Jaquan Richard on 05-26-2022 Bilirubin [Mass/Vol] 0.6 mg/dL 0.3-1.2 [facility] Serum or plasma total carbon dioxide measurement (moles/volume)Ordered By: Jaquan Richard on 05-26-2022 CO2 [Moles/Vol] 27.9 mmol/L 22.0-30.0 [facility] Serum or plasma total choles terol/high density lipoprotein (HDL) cholesterol mass ratOrdered By: Jaquan Richard on 05-26-2022 Cholesterol.total/Chol esterol in HDL [Mass ratio] 3.6 {ratio} <5.0 [facility] Serum or plasma urea nitroge n measurement (mass/volume)Ordered By: Jaquan Richard on 05-26-2022 Urea nitrogen [Mass/Vol] 8 mg/dL 9- [facility] TSH DL <= 0.005 mIU/L QnOrde red By: Jaquan Richard on 05-26-2022 TSH Qn 6.76 m[IU]/L 0.45-5.33 [facility] Thyroxine (T4) free [Mass/vo lume] in Serum or PlasmaOrdered By: Jaquan Richard on 05-26-2022 Free T4 [Mass/Vol] 0.85 ng/dL 0.61-1.12 [facility] Triglyceride [Mass/volume] i n Serum or PlasmaOrdered By: Jaquan Richard on 05-26-2022 Triglyceride [Mass/Vol] 115 mg/dL 35-149 [facility] Comment on above: TRIG ATP III CLASSIF ICATION TRIG less than 150 mg/dL Normal TRIG 150-199 mg/dL Borderline high TRIG 200-500 mg/dL High TRIG greater than 500 mg/dL Very high Standard traceable to the Center for Disease Conrtrol and Prevention (CDC) test method. Triiodothyronine (T3) Free [ Mass/volume] in Serum or PlasmaOrdered By: Jaquan Richard on 05-26-2022 Free T3 [Mass/Vol] 2.90 pg/mL 2.50-3.90 [facility] US Thyroidon 11-28-2021 US Thyroid HISTORY: Thyroid nod ules COMPARISON: Thyroid ultrasound 05/14/2021 TECHNIQUE: Ultrasound examination was performed of the thyroid gland. FINDINGS: The right lobe measures 4.0 x 1.6 x 1.7 cm. Normal blood flow identified to the right lobe of the thyroid gland. A nodule within the right lobe measures 1.6 x 1.8 x 1.5 cm, is solid, hypoechoic, wider than tall with ill-defined borders and no echogenic foci compatible with TIRADS level 4 nodule. This appears stable in size to mildly enlarged when compared to prior examination given differences in imaging technique. The left lobe measures 2.8 x 1.1 x 1.2 cm. Normal blood flow identified to the right lobe of the thyroid gland. A nodule within the left lobe measures 0.5 x 0.3 x 0.2 cm, is solid, hypoechoic, wider than tall with smooth borders and no echogenic foci compatible with TIRADS level 4 nodule. The isthmus measures 0.2 cm. IMPRESSION: TIRADS level 4 nodules as detailed. FNA recommended of the right lobe nodule. TI-RADS 1: Benign. No FNA required TI-RADS 2: Not suspicious. No FNA required TI-RADS 3: Mildly suspicious. FNA if greater than or equal to 2.5 cm. Follow-up if greater than or equal to 1.5 cm at 1, 3, and 5 years. TI-RADS 4: Moderately suspicious. FNA if greater than or equal to 1.5 cm. Follow-up if greater than or equal to 1 cm at 1, 2, 3, and 5 years. TI-RADS 5: Highly suspicious. FNA if greater than or equal to 1 cm. Follow-up if greater than or equal to 0.5 cm annually for up to 5 years. Report reported and signed by Mikael Gordon on 12/01/[address] [facility] Heart Nurse XR pelvis 1-2Von 06-11-2021 XR pelvis 1-2V [facility] [employer] Other XR pelvis 1-2V [facility] [employer] Other XR pelvis 1-2V [address] [place] [address] [employer] Other XR pelvis 1-2[place] [address] No rt [employer] Other XR pelvis 1-2V XRay Report [employer] Other XR pelvis 1-2V Signed [employer] Other XR pelvis 1-2V Patient: Bia Garcia MR#: [id number] [employer] Other XR pelvis 1-2V 97 [employer] Other XR pelvis 1-2V : 1950 Acct:[id number] [employer] Other XR pelvis 1-2V Age/Sex: 71 / F ADM Date: 06/11/21 [employer] Other XR pelvis 1-2V Loc: [facility] Room: Type : [facility] [employer] Other XR pelvis 1-2V Attending Dr: Mikael Hughes II, MD [employer] Other XR pelvis 1-2V Ordering Provider: Mikael Hughes MD [employer] Other XR pelvis 1-2V Date of Service: 06/11/21 [employer] Other XR pelvis 1-2V XR/XR knee BI 4V: Pain in right knee;Pain in left knee [employer] Other XR pelvis 1-2V ([id number]) XR/XR pelvis 1-2V: Pain in right knee;Pain in left knee [employer] Other XR pelvis 1-2V Copies to: Mikael Hughes MD [employer] Other XR pelvis 1-2V [address] ain film [employer] Other XR pelvis 1-2V COMPARISON:01/23/20 N [employer] Other XR pelvis 1-2V HISTORY:Bilateral kn ee pain [employer] Other XR pelvis 1-2V Ohvy-zb-bvev contact of the lateral compartment of the RIGHT knee. Marked narrowing of the medial [employer] Other XR pelvis 1-2V compartment of LEFT knee. Tricompartmental marginal spurring bilaterally. Moderate LEFT [employer] Other XR pelvis 1-2V suprapatellar effusi on. No significant RIGHT joint effusion. No fracture or dislocation. [employer] Other XR pelvis 1-2V X R/XR knee BI 4V [employer] Other XR pelvis 1-2V IMPRESSION:Degenerat brian change. No acute bony findings. Moderate degenerative LEFT joint effusion. [employer] Other XR pelvis 1-2V Single view pelvis No rt [employer] Other XR pelvis 1-2V HISTORY: Bilateral k nee pain. [employer] Other XR pelvis 1-2V Hip joint space is adequate. Articular surfaces preserved. Spurring of the greater trochanters [employer] Other XR pelvis 1-2V present. Mild SI shara nt generation seen bilaterally. Mild lower lumbar degeneration. No acute bony [employer] Other XR pelvis 1-2V findings. [employer] Other XR pelvis 1-2V IMPRESSION: Unremark able hip joints. Degenerative change. Greater trochanter spurring. [employer] Other XR pelvis 1-2V Impression dictated by: Conrado Hendricks M.D.06/11/2021 4:03 PM [employer] Other XR pelvis 1-2V Dictation Location: [place] [address] [employer] Other XR pelvis 1-2V Transcribed By: PWS 06/11/21 1603 [employer] Other XR pelvis 1-2V Dictated By: Conrado Hendricks DO 06/11/21 1600 [employer] Other XR pelvis 1-2V Signed By: [employer] Other XR pelvis 1-2V 06/11/21 1603 [employer] Other No Panel Information [facility] Vital Signs Date Time Vital Sign Value Performing Clinician Facility 04-13-2024 11:40-0400 Body height 161.3 cm Alex Jeffries MD Work Phone: [facility] 04-13-2024 11:40-0400 Heart rate 67 /min Alex Jeffries MD Work Phone: [facility] 04-13-2024 11:40-0400 SaO2% (BldA) [Mass fraction] 97 % Alex Jeffries MD Work Phone: [facility] 02-04-2024 18:02-0400 Body height 161.29 cm DO Jaquan Richard Work Phone: [facility] 02-04-2024 18:02-0400 Body temperature 97.7 [degF] DO Jaquan Richard Work Phone: [facility] 02-04-2024 18:02-0400 Body weight 103.87 kg DO Jaquan Richard Work Phone: [facility] 02-04-2024 18:02-0400 Diastolic blood pressure 72 mm[Hg] DO Jaquan Richard Work Phone: [facility] 02-04-2024 18:02-0400 Heart rate 72 /min DO Jaquan Richard Work Phone: [facility] 02-04-2024 18:02-0400 Respiratory rate 18 /min DO Jaquan Richard Work Phone: [facility] 02-04-2024 18:02-0400 SaO2% (BldA) [Mass fraction] 95 % DO Jaquan Richard Work Phone: [facility] 02-04-2024 18:02-0400 Systolic blood pressure 118 mm[Hg] DO Jaquan Richard Work Phone: [facility] 11-30-2023 20:00-0400 Diastolic blood pressure 84 mm[Hg] DO Jaquan Richard Work Phone: [facility] 11-30-2023 20:00-0400 Heart rate 81 /min DO Jaquan Richard Work Phone: [facility] 11-30-2023 20:00-0400 SaO2% (BldA) [Mass fraction] 96 % DO Jaquan Richard Work Phone: [facility] 11-30-2023 20:00-0400 Systolic blood pressure 182 mm[Hg] DO Jaquan Richard Work Phone: [facility] 11-30-2023 19:36-0400 Respiratory rate 18 /min DO Jaquan Richard Work Phone: [facility] 11-30-2023 17:04-0400 Body height 160.02 cm DO Jaquan Richard Work Phone: [facility] 11-30-2023 17:04-0400 Body temperature 97.9 [degF] DO Jaquan Richard Work Phone: [facility] 11-30-2023 17:04-0400 Body weight 103 kg DO Jaquan Richard Work Phone: [facility] 10-14-2023 09:10-0500 Body height 161.29 cm Jaquan Richard Other [facility] 08-27-2023 12:00-0500 Body height 161.29 cm Mikael Pulaski II Other [employer] Other 08-27-2023 12:00-0500 Body mass index (BMI) [Ratio] 40.8 kg/m2 Mikael Pulaski II Other [employer] Other 08-27-2023 12:00-0500 Body weight 106.14 kg Mikael Pulaski II Other [employer] Other 07-19-2023 14:40-0500 Body height 161.29 cm Jaquan Richard Other [employer] Other 07-19-2023 14:40-0500 Body mass index (BMI) [Ratio] 40.88 kg/m2 Jaquan Carlito Other [employer] Other 07-19-2023 14:40-0500 Body temperature 98 [degF] Jaquan Richard Other [employer] Other 07-19-2023 14:40-0500 Body weight 106.37 kg Jaquan Carlito Other [employer] Other 07-19-2023 14:40-0500 Diastolic blood pressure 84 mm[Hg] Jaquan Richard Other [employer] Other 07-19-2023 14:40-0500 Respiratory rate 20 /min Jaquan Richard Other [facility] [employer] Other 07-19-2023 14:40-0500 SaO2% (BldA) [Mass fraction] 94 % Jaquan Richard Other [facility] [employer] Other 07-19-2023 14:40-0500 Systolic blood pressure 124 mm[Hg] Jaquan Richard Other [facility] [employer] Other 05-27-2023 09:23-0400 Body temperature 97.88 [degF] Text Entry Free [facility] [place] 05-27-2023 09:23-0400 Diastolic blood pressure 87 mm[Hg] Text Entry Free [facility] 05-27-2023 09:23-0400 Heart rate 85 /min Text Entry Free [facility] 05-27-2023 09:23-0400 Respiratory rate 18 /min Text Entry Free [facility] [place] 05-27-2023 09:23-0400 SaO2% (BldA) [Mass fraction] 93 % Text Entry Free [facility] 05-27-2023 09:23-0400 Systolic blood pressure 154 mm[Hg] Text Entry Free [facility] 05-22-2023 01:03-0400 Diastolic blood pressure 80 mm[Hg] DO Jaquan Richard Work Phone: [facility] 05-22-2023 01:03-0400 Heart rate 135 /min DO Jaquan Richard Work Phone: [facility] 05-22-2023 01:03-0400 Inhaled oxygen flow rate 6 L/min DO Jaquan Richard Work Phone: [facility] 05-22-2023 01:03-0400 Respiratory rate 24 /min DO Jaquan Richard Work Phone: [facility] 05-22-2023 01:03-0400 SaO2% (BldA) [Mass fraction] 95 % DO Jaquan Richard Work Phone: [facility] 05-22-2023 01:03-0400 Systolic blood pressure 139 mm[Hg] DO Jaquan Richard Work Phone: [facility] 05-21-2023 21:20-0400 Body height 160.02 cm DO Jaquan Richard Work Phone: [facility] 05-21-2023 21:20-0400 Body temperature 97.2 [degF] DO Jaquan Richard Work Phone: [facility] 05-21-2023 21:20-0400 Body weight 110.7 kg DO Jaquan Richard Work Phone: [facility] 04-15-2023 11:50-0400 Body height 161.29 cm Jaquan Richard Other [employer] Other 04-15-2023 11:50-0400 Body mass index (BMI) [Ratio] 42.28 kg/m2 Jaquan Kuojessica Other [employer] Other 04-15-2023 11:50-0400 Body temperature 98.5 [degF] Jaquan Richard Other [employer] Other 04-15-2023 11:50-0400 Body weight 110 kg Jaquan Carlito Other [employer] Other 04-15-2023 11:50-0400 Diastolic blood pressure 88 mm[Hg] Jaquan Richard Other [employer] Other 04-15-2023 11:50-0400 Respiratory rate 20 /min Jaquan Richard Other [employer] Other 04-15-2023 11:50-0400 SaO2% (BldA) [Mass fraction] 96 % Jaquan Richard Other [employer] Other 04-15-2023 11:50-0400 Systolic blood pressure 148 mm[Hg] Jaquan Richard Other [employer] Other 03-24-2023 13:20-0400 Body height 161.29 cm Jaquan Richard Other [employer] Other 09-30-2022 13:40-0500 Body height 161.29 cm Jaquan Richard Other [employer] Other 07-13-2022 14:40-0400 Body height 161.29 cm Jaquan Richard Other [employer] Other 07-13-2022 14:40-0400 Body mass index (BMI) [Ratio] 43.5 kg/m2 Jaquan Richard Other [employer] Other 07-13-2022 14:40-0400 Body temperature 97.5 [degF] Jaquan Richard Other [employer] Other 07-13-2022 14:40-0400 Body weight 113.17 kg Jaquan Richard Other [employer] Other 07-13-2022 14:40-0400 Diastolic blood pressure 84 mm[Hg] Jaquan Richard Other [employer] Other 07-13-2022 14:40-0400 Respiratory rate 18 /min Jaquan Richard Other [employer] Other 07-13-2022 14:40-0400 SaO2% (BldA) [Mass fraction] 95 % Jaquan Richard Other [employer] Other 07-13-2022 14:40-0400 Systolic blood pressure 128 mm[Hg] Jaquan Richard Other [employer] Other 03-25-2022 14:20-0400 Body height 161.29 cm Jaquan Richard Other [employer] Other 02-12-2022 12:13-0400 Body weight 113.4 kg William Hope MD Work Phone: [facility] 02-12-2022 12:13-0400 Diastolic blood pressure 82 mm[Hg] William Hope MD Work Phone: [facility] 02-12-2022 12:13-0400 Heart rate 66 /min William Hope MD Work Phone: [facility] 02-12-2022 12:13-0400 Systolic blood pressure 128 mm[Hg] William Hope MD Work Phone: [facility] 11-20-2021 13:30-0500 Body height 161.29 cm Jaquan Richard Other [employer] Other 11-20-2021 13:30-0500 Body mass index (BMI) [Ratio] 42.63 kg/m2 Jaquan Richard Other [employer] Other 11-20-2021 13:30-0500 Body temperature 98.4 [degF] Jaquan Richard Other [employer] Other 11-20-2021 13:30-0500 Body weight 110.91 kg Jaquan Richard Other [employer] Other 11-20-2021 13:30-0500 Diastolic blood pressure 98 mm[Hg] Jaquan Richard Other [employer] Other 11-20-2021 13:30-0500 Respiratory rate 20 /min Jaquan Richard Other [employer] Other 11-20-2021 13:30-0500 SaO2% (BldA) [Mass fraction] 98 % Jaquan Richard Other [employer] Other 11-20-2021 13:30-0500 Systolic blood pressure 142 mm[Hg] Jaquan Richard Other [employer] Other 08-28-2021 14:00-0500 Body height 161.29 cm Mikael Correiale II Other [employer] Other 08-28-2021 14:00-0500 Body mass index (BMI) [Ratio] 44.28 kg/m2 Mikael Correiale II Other [employer] Other 08-28-2021 14:00-0500 Body weight 115.21 kg Mikael Correiale II Other [employer] Other 07-22-2021 14:00-0500 Body height 161.29 cm Kirk Aguilera Jr. Other [employer] Other 07-22-2021 14:00-0500 Body mass index (BMI) [Ratio] 44.34 kg/m2 Kirk Aguilera Jr. Other [employer] Other 07-22-2021 14:00-0500 Body weight 115.35 kg Kirk Aguilera Jr. Other [employer] Other 07-22-2021 14:00-0500 Diastolic blood pressure 84 mm[Hg] Kirk Aguilera Jr. Other [employer] Other 07-22-2021 14:00-0500 Respiratory rate 18 /min Kirk Aguilera Jr. Other [employer] Other 07-22-2021 14:00-0500 SaO2% (BldA) [Mass fraction] 97 % Kirk Aguilera Jr. Other [employer] Other 07-22-2021 14:00-0500 Systolic blood pressure 130 mm[Hg] Kirk Aguilera Jr. Other [employer] Other 06-11-2021 15:30-0400 Body height 161.29 cm Mikael Correiale II Other [employer] Other 06-11-2021 15:30-0400 Body mass index (BMI) [Ratio] 44.11 kg/m2 Mikael Correiale II Other [employer] Other 06-11-2021 15:30-0400 Body weight 114.76 kg Mikael Correiale II Other [employer] Other Encounters Encounter Date Encounter Type Care Provider Facility Start: 05-18-2024 End: 05-18-2024 ambulatory Jaquan Richard [facility] Work Phone: Start: 05-18-2024 End: 05-18-2024 Patient encounter procedure MD Vince Asencio Work Phone: [facility] Work Phone: Start: 05-02-2024 End: 05-02-2024 ambulatory DO Jaquan Richard Work Phone: [facility] Work Phone: Start: 05-02-2024 End: 05-02-2024 Patient encounter procedure DO Jaquan Richard Work Phone: [facility] [place] Work Phone: Start: 04-26-2024 End: 04-26-2024 ambulatory DO Jaquan Richard Work Phone: [facility] Work Phone: Start: 04-26-2024 End: 04-26-2024 Patient encounter procedure DO Jaquan Richard Work Phone: [facility] [place] Work Phone: Start: 04-17-2024 End: 04-21-2024 Pre-admission assessment Carter Davila [facility] Start: 04-15-2024 Telephone encounter William canales MD Work Phone: Rheumatology Comment on above: Results Start: 04-13-2024 Non-patient / Non-visit DO Contreras Richard Work Phone: [facility] Work Phone: Start: 04-13-2024 End: 04-13-2024 ambulatory WILLIAM HOPE Facility:[facility] Start: 04-13-2024 End: 04-13-2024 ambulatory JAQUAN KUOJESSICA Facility:[facility] Start: 04-13-2024 End: 04-13-2024 Patient encounter procedure Alex Jeffries MD Work Phone: Pain Management Comment on above: Primary osteoarthrit is of both knees Start: 03-23-2024 ambulatory Alex menon MD Work Phone: Pain Management Comment on above: Pain Questionnaire Start: 03-23-2024 E-mail encounter fro m caregiver Alex Jeffries MD Work Phone: Pain Management Start: 03-06-2024 End: 03-14-2024 Pre-admission assessment Marleen Damon [facility] Start: 02-29-2024 End: 02-29-2024 ambulatory JAQUAN RICHARD Facility:[facility] Start: 02-29-2024 End: 02-29-2024 Patient encounter procedure Jalil Kiran DO Work Phone: Orthopaedics Comment on above: Primary osteoarthrit is of both knees (Primary Dx) Start: 02-04-2024 End: 02-04-2024 Emergency department patient visit DO Jaquan Carlito Work Phone: [facility] Work Phone: Start: 02-03-2024 Telephone encounter William canales MD Work Phone: Rheumatology Start: 02-03-2024 End: 02-03-2024 ambulatory Keyana Summers APRN.GEOLOGICAL SURVEY FIELD ASSISTANT Work Phone: Rheumatology Comment on above: Inflammatory arthrit is (Primary Dx); Vitamin D deficiency; Vitamin B12 deficiency; DENG positive; Hyperuricemia; Joint stiffness of multiple sites; Psoriasis Start: 02-03-2024 End: 02-03-2024 Telemedicine consultation with patient Keyana Summers APRN.GEOLOGICAL SURVEY FIELD ASSISTANT Work Phone: Rheumatology Start: 01-21-2024 End: 01-21-2024 ambulatory DO Jaquan Richard Work Phone: [facility] Work Phone: Start: 01-21-2024 End: 01-21-2024 Patient encounter procedure DO Jaquan Richard Work Phone: [facility] Work Phone: Start: 01-07-2024 Non-patient / Non-visit DO Contreras Richard Work Phone: [facility] Work Phone: Start: 12-22-2023 End: 12-22-2023 ambulatory JAQUAN RICHARD Facility:[facility] Start: 12-22-2023 End: 12-22-2023 Patient encounter procedure Jalil Kiran DO Work Phone: Orthopaedics Comment on above: Primary osteoarthrit is of knees, bilateral (Primary Dx) Start: 12-06-2023 Telephone encounter Jalil santiago DO Work Phone: Orthopaedics Comment on above: Patient Question Start: 11-30-2023 End: 11-30-2023 Emergency department patient visit DO Jaquan Richard Work Phone: [facility] Work Phone: Start: 11-01-2023 Non-patient / Non-visit DO Contreras id Carlito Work Phone: [facility] Work Phone: Start: 10-26-2023 Non-patient / Non-visit DO Contreras id Girjessica Work Phone: [facility] Work Phone: Start: 10-19-2023 End: 10-19-2023 ambulatory Jaquan Richard Other [employer] Other Start: 10-19-2023 Telephone encounter Jaquan Richard [facility] Start: 10-14-2023 End: 10-14-2023 ambulatory Jaquan Richard Other [employer] Other Start: 10-14-2023 Telephone encounter Jaquan Richard [facility] Start: 10-14-2023 End: 10-14-2023 Patient encounter procedure DO Jaquan Richard Work Phone: [facility]- Start: 10-12-2023 Telephone encounter Jaquan Richard [facility] Start: 10-12-2023 End: 10-12-2023 Patient encounter procedure DO Jaquan Richard Work Phone: [facility] [place] Work Phone: Start: 10-12-2023 End: 10-12-2023 ambulatory DO Jaquan Richard Work Phone: [employer] Other Start: 10-11-2023 End: 10-11-2023 ambulatory Jaquan Richard Other [employer] Other Start: 10-11-2023 Telephone encounter Jaquan Richard [facility] [place] Start: 10-05-2023 Non-patient / Non-visit DO Contreras luiza Carlito Work Phone: [facility] [place] Work Phone: Start: 10-04-2023 End: 10-04-2023 ambulatory Jaquan Richard Other [employer] Other Start: 10-04-2023 Telephone encounter Jaquan Richard [facility] [place] Start: 09-28-2023 End: 09-28-2023 ambulatory Jaquan Richard Other [place] [employer] Other Start: 09-28-2023 Telephone encounter Jaquan Richard [facility] [place] Start: 09-21-2023 End: 09-21-2023 ambulatory Jaquan Richard Other [place] [employer] Other Start: 09-21-2023 Telephone encounter Jaquan Richard [facility] [place] Start: 09-07-2023 End: 09-07-2023 ambulatory Jaquan Richard Other [employer] Other Start: 09-07-2023 Telephone encounter Jaquan Richard [facility] [place] Start: 08-31-2023 End: 08-31-2023 ambulatory Jaquan Richard Other [place] [employer] Other Start: 08-31-2023 Telephone encounter Jaquan Richard [facility] [place] Start: 08-27-2023 Office outpatient vi sit 25 minutes Mikael Hughes II [facility] Start: 08-27-2023 End: 08-27-2023 Patient encounter procedure DO Jaquan Richard Work Phone: [facility] Start: 08-27-2023 End: 08-27-2023 ambulatory Jaquan Richard [facility] [employer] Other Start: 08-27-2023 End: 08-27-2023 Patient encounter procedure DO Jaquan Kuojessica Work Phone: [facility] Work Phone: Start: 08-24-2023 End: 08-24-2023 ambulatory Jaquan Richard Other [employer] Other Start: 08-24-2023 Telephone encounter Jaquan Richard [facility] [place] Start: 08-10-2023 End: 08-10-2023 ambulatory Jaquan Richard Other [employer] Other Start: 08-10-2023 Telephone encounter Jaquan Richard [facility] [place] Start: 08-05-2023 Refill William Hope MD Work Phone: Rheumatology Comment on above: Refill Request Start: 07-27-2023 End: 07-27-2023 ambulatory Jaquan Richard Other [employer] Other Start: 07-27-2023 Telephone encounter Jaquan Richard [facility] [place] Start: 07-19-2023 End: 07-19-2023 ambulatory Jaquan Richard Other [employer] Other Start: 07-19-2023 Office outpatient vi sit 15 minutes Jaquan Richard [facility] [place] Start: 07-19-2023 End: 07-19-2023 Patient encounter procedure DO Jaquan Richard Work Phone: [facility] [place] Work Phone: Start: 07-13-2023 End: 07-13-2023 ambulatory Jaquan Richard Other [employer] Other Start: 07-13-2023 Telephone encounter Jaquan Richard [facility] [place] Start: 07-06-2023 End: 07-06-2023 ambulatory Jaquan Richard Other [employer] Other Start: 07-06-2023 Telephone encounter Jaquan Richard [facility] [place] Start: 06-29-2023 End: 06-29-2023 ambulatory Jaquan Richard Other [employer] Other Start: 06-29-2023 Telephone encounter Jaquan Kuojessica [facility] [place] Start: 06-28-2023 End: 06-28-2023 ambulatory [facility] Start: 06-25-2023 End: 06-25-2023 ambulatory Jaquan Richard Other [employer] Other Start: 06-25-2023 Telephone encounter Jaquan Richard [facility] [place] Start: 06-22-2023 End: 06-22-2023 ambulatory Jaquan Richard Other [employer] Other Start: 06-22-2023 Telephone encounter Jaquan Richard [facility] [place] Start: 06-15-2023 End: 06-15-2023 ambulatory Jaquan Richard Other [employer] Other Start: 06-15-2023 Telephone encounter Jaquan Kuojessica [facility] [place] Start: 06-08-2023 End: 06-08-2023 ambulatory Jaquan Richard Other [employer] Other Start: 06-08-2023 Telephone encounter Jaquan Richard [facility] [place] Start: 05-25-2023 End: 05-25-2023 ambulatory Jaquan Richard Other [employer] Other Start: 05-25-2023 Telephone encounter Jaquan Richard [facility] [place] Start: 05-24-2023 Telephone encounter Jaquan Richard [facility] [place] Start: 05-24-2023 End: 05-24-2023 ambulatory UNKNOWN PROVIDER [employer] Other Start: 05-22-2023 End: 05-27-2023 Evaluation and management of inpatient Varija Krys [facility] Tracie [address] Start: 05-21-2023 End: 05-22-2023 Emergency department patient visit DO Jaquan Richard Work Phone: [facility] Work Phone: Start: 05-19-2023 End: 05-19-2023 ambulatory Jaquan Richard Other [employer] Other Start: 05-19-2023 Telephone encounter Jaquan [facility] [facility] Start: 05-12-2023 End: 05-12-2023 ambulatory Jaquan Richard Other [employer] Other Start: 05-12-2023 Telephone encounter Jaquan Richard [facility] Start: 05-05-2023 End: 05-05-2023 ambulatory Jaquan Richard Other [employer] Other Start: 05-05-2023 Telephone encounter Jaquan Richard [facility] Start: 04-28-2023 End: 04-28-2023 ambulatory Jaquan Richard Other [employer] Other Start: 04-28-2023 Telephone encounter Jaquan Richard [facility] Start: 04-20-2023 End: 04-20-2023 Patient encounter procedure Jalil Kiran DO Work Phone: Orthopaedics Comment on above: Primary osteoarthrit is of knees, bilateral (Primary Dx) Start: 04-15-2023 End: 04-15-2023 ambulatory Jaquan Richard Other [employer] Other Start: 04-15-2023 Office outpatient vi sit 15 minutes Jaquan Richard [facility] Start: 03-24-2023 End: 03-24-2023 ambulatory Jaquan Richard Other [employer] Other Start: 03-24-2023 Telephone encounter Jaquan Richard [facility] Start: 03-22-2023 End: 03-22-2023 ambulatory DO Jaquan Richard Work Phone: [facility] Work Phone: Start: 03-22-2023 End: 03-22-2023 Patient encounter procedure DO Jaquan Richard Work Phone: [facility] [place] Work Phone: Start: 02-24-2023 End: 02-24-2023 ambulatory Jaquan Richard Other [employer] Other Start: 02-24-2023 Telephone encounter Jaquan Richard [facility] Start: 01-20-2023 End: 01-20-2023 ambulatory Jaquan Richard Other [employer] Other Start: 01-20-2023 Telephone encounter Jaquan Richard [facility] Start: 12-29-2022 End: 12-29-2022 Patient encounter procedure DO Jaquan Richard Work Phone: [facility] [place] Work Phone: Start: 12-25-2022 End: 12-25-2022 ambulatory Jaquan Richard Other [employer] Other Start: 12-25-2022 Telephone encounter Jaquan Richard [facility] Start: 12-24-2022 Telephone encounter Jalil Kim tel DO Work Phone: Orthopaedics Comment on above: Patient Question Start: 12-17-2022 End: 12-17-2022 ambulatory Shahid Cherry Other [employer] Other Start: 12-17-2022 Telephone encounter Shahid RITTER G [employer] Director Intelligence Officer Start: 11-27-2022 End: 11-27-2022 ambulatory Jaquan Richard Other [employer] Other Start: 11-27-2022 Telephone encounter Jaquan Richrad [facility] Start: 11-05-2022 End: 11-05-2022 ambulatory Jaquan Richard Other [employer] Other Start: 11-05-2022 Telephone encounter Jaquan Richard [facility] Start: 10-29-2022 End: 10-29-2022 ambulatory Jaquan Richard Other [employer] Other Start: 10-29-2022 Telephone encounter Jaquan Richard [facility] Start: 10-01-2022 End: 10-01-2022 ambulatory Shahid Cherry Other [employer] Other Start: 10-01-2022 Telephone encounter Shahid Cherry [facility] [place] Start: 09-30-2022 End: 09-30-2022 ambulatory Jaquan Richard Other [employer] Other Start: 09-30-2022 Telephone encounter Jaquan Richard [facility] Start: 09-28-2022 End: 09-28-2022 ambulatory Jaquan Richard Other [employer] Other Start: 09-28-2022 Telephone encounter Jaquan Richard [facility] Start: 09-03-2022 End: 09-03-2022 Patient encounter procedure Jalil Kiran DO Work Phone: Orthopaedics Comment on above: Primary osteoarthrit is of knees, bilateral (Primary Dx) Start: 08-31-2022 End: 08-31-2022 ambulatory DO Jaquan Richard Work Phone: [facility] Work Phone: Start: 08-31-2022 End: 08-31-2022 Patient encounter procedure DO Jaquan Richard Work Phone: [facility] Start: 08-28-2022 End: 08-28-2022 ambulatory Jaquan Richard Other [employer] Other Start: 08-28-2022 Telephone encounter Jaquan Richard [facility] Start: 07-30-2022 End: 07-30-2022 ambulatory Jaquan Richard Other [employer] Other Start: 07-30-2022 Telephone encounter Jaquan Richard [facility] Start: 07-13-2022 End: 07-13-2022 ambulatory Jaquan Richard Other [employer] Other Start: 07-13-2022 Office outpatient vi sit 25 minutes Jaquan Richard [facility] Start: 07-02-2022 End: 07-02-2022 ambulatory Jaquan Richard Other [employer] Other Start: 07-02-2022 Telephone encounter Jaquan Richard [facility] Start: 06-23-2022 Telephone encounter Jo-Ann yost DO Work Phone: Pain Management Comment on above: Appointment (Pain ma nagement) Start: 06-05-2022 End: 06-05-2022 Patient encounter procedure MD Vince Asencio Work Phone: [facility] Start: 06-03-2022 End: 06-03-2022 ambulatory Jaquan Richard Other [employer] Other Start: 06-03-2022 Telephone encounter Jaquan Kuojessica [facility] Start: 05-27-2022 End: 05-27-2022 Patient encounter procedure Jalil Kiran DO Work Phone: Orthopaedics Comment on above: Primary osteoarthrit is of knees, bilateral (Primary Dx) Start: 05-26-2022 End: 05-26-2022 Patient encounter procedure MD Vince Asencio Work Phone: [facility] [place] Start: 05-13-2022 End: 05-13-2022 ambulatory Mikael Hughes II Other [employer] Other Start: 05-13-2022 Telephone encounter Mikael Hughes II [facility] Start: 05-04-2022 End: 05-04-2022 ambulatory Jaquan Richard Other [employer] Other Start: 05-04-2022 Telephone encounter Jaquan Richard [facility] Start: 04-06-2022 End: 04-06-2022 ambulatory Jaquan Richard Other [employer] Other Start: 04-06-2022 Telephone encounter Jaquan Richard [facility] Start: 03-25-2022 End: 03-25-2022 ambulatory Jaquan Richard Other [employer] Other Start: 03-25-2022 Telephone encounter Jaquan Richard [facility] Start: 03-18-2022 End: 03-18-2022 ambulatory Jaquan Richard Other [employer] Other Start: 03-18-2022 Telephone encounter Jaquan Richard [facility] Start: 03-05-2022 End: 03-05-2022 ambulatory Jaquan Richard Other [employer] Other Start: 03-05-2022 Telephone encounter Jaquan Richard [facility] Start: 02-15-2022 Telephone encounter William canales MD Work Phone: Rheumatology Comment on above: Results Start: 02-13-2022 Refill William Hope MD Work Phone: Rheumatology Start: 02-12-2022 End: 02-12-2022 Patient encounter procedure William Hope MD Work Phone: Rheumatology Comment on above: Inflammatory arthrit is (Primary Dx); DENG positive; Psoriasis; Joint stiffness of multiple sites; Long-term use of high-risk medication; Fibromyalgia; Chronic pain of both shoulders; Bilateral hand pain; Chronic bilateral low back pain without sciatica; Chronic pain of both knees; Bilateral wrist pain; Elevated sed rate; Vitamin D deficiency; Pain in both hands Start: 02-02-2022 End: 02-02-2022 ambulatory Jaquan Richard Other [employer] Other Start: 02-02-2022 Telephone encounter Jaquan Richard [facility] Start: 12-31-2021 End: 12-31-2021 ambulatory Jaquan Richard Other [employer] Other Start: 12-31-2021 Telephone encounter Jaquan Richard [facility] Start: 12-03-2021 End: 12-03-2021 ambulatory Jaquan Richard Other [employer] Other Start: 12-03-2021 Telephone encounter Jaquan Richard [facility] Start: 11-28-2021 End: 11-28-2021 ambulatory Jaquan Richard Other [employer] Other Start: 11-28-2021 Telephone encounter Jaquan Richard [facility] Start: 11-21-2021 End: 11-21-2021 ambulatory Jaquan Richard Other [employer] Other Start: 11-21-2021 Telephone encounter Jaquan Richard [facility] Start: 11-20-2021 End: 11-20-2021 ambulatory Jaquan Richard Other [employer] Other Start: 11-20-2021 Office outpatient vi sit 25 minutes Jaquan Richard [facility] Start: 11-13-2021 End: 11-13-2021 ambulatory Mikael Hughes II Other [employer] Other Start: 11-13-2021 Office outpatient vi sit 25 minutes Mikael Pulaski II [facility] Start: 10-29-2021 End: 10-29-2021 ambulatory Jaquan Richard Other [employer] Other Start: 10-29-2021 Telephone encounter Jaquan Richard [facility] [place] Start: 10-02-2021 End: 10-02-2021 ambulatory Jaquan Richard Other [employer] Other Start: 10-02-2021 Telephone encounter Jaquan Richard [facility] [place] Start: 09-15-2021 End: 09-15-2021 ambulatory Jaquan Richard Other [employer] Other Start: 09-15-2021 Telephone encounter Jaquan Richard [facility] [place] Start: 09-11-2021 End: 09-11-2021 ambulatory Jaquan Richard Other [employer] Other Start: 09-11-2021 Telephone encounter Jaquan Richard [facility] [place] Start: 09-02-2021 End: 09-02-2021 ambulatory Jaclyn Munoz Other [employer] Other Start: 09-02-2021 Telephone encounter Jaclyn Wesleylelo [facility] Start: 09-01-2021 End: 09-01-2021 ambulatory Jaquan Richard Other [employer] Other Start: 09-01-2021 Telephone encounter Jaquan Richard [facility] Start: 08-28-2021 End: 08-28-2021 ambulatory Mikael Correiale II Other [employer] Other Start: 08-28-2021 Office outpatient vi sit 15 minutes Mikael Pulaski II [facility] Start: 08-11-2021 End: 08-11-2021 ambulatory Jaquan Richard Other [employer] Other Start: 08-11-2021 Telephone encounter Jaquan Carlito [facility] Start: 08-04-2021 End: 08-04-2021 ambulatory Jaquan Richard Other [employer] Other Start: 08-04-2021 Telephone encounter Jaquan Carlito [facility] Start: 07-23-2021 End: 07-23-2021 ambulatory Kirk Aguilera Jr. Other [employer] Other Start: 07-23-2021 Telephone encounter Kirk denson [facility] Start: 07-22-2021 End: 07-22-2021 ambulatory Kirk Aguilera Jr. Other [employer] Other Start: 07-22-2021 Nutrition therapy Kirk Aguilera Jr. 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 Start: 06-23-2021 Telephone encounter Jaquan Richard [facility] Start: 06-17-2021 [facility] Start: 06-11-2021 Office outpatient ne w 45 minutes Mikael Hughes II [facility] Start: 08-29-2019 End: 08-29-2019 Patient encounter procedure Vince Asencio [facility] [place] Start: 04-18-2019 End: 04-18-2019 Admission to day surgery [facility] Start: 08-30-2018 End: 08-30-2018 Patient encounter procedure Vince Asencio [facility] [place] Start: 03-02-2017 End: 03-03-2017 Ambulatory DEFAULT PHYSICIAN Facility:[facility] Start: 01-07-2004 Evaluation and management of inpatient Vince Asencio -4 [facility] Surgical Procedures Date Procedure Procedure Detail Performing Clinician Start: 02-29-2024 Arthrocentesis aspir &/inj major jt/bursa w/o us Jalil Kiran DO Work Phone: Start: 02-04-2024 Radiologic examinati on of knee DO Jaquan Richard Work Phone: Start: 12-22-2023 Arthrocentesis aspir &/inj major jt/bursa w/o us Jalil D Kiran DO Work Phone: Start: 11-30-2023 Plain X-ray of right hand DO Jaquan Richard Work Phone: Start: 08-27-2023 Pelvis X-ray DO Jaquan vargas Work Phone: Start: 08-27-2023 X-ray of both knees DO Jaquan Richard Work Phone: Start: 05-22-[address] Jasper Corrigan Comment on above: Performed By: #### C BCDF #### [facility] [address] [facility] [address] Start: 05-21-2023 Respiratory Panel (PCR) DO Jaquan Richard Work Phone: Start: 04-20-2023 Arthrocentesis aspir &/inj major jt/bursa w/o us Jalil D Kiran DO Work Phone: Start: 03-22-2023 Urine culture DO Jaquan Richard Work Phone: Start: 09-03-2022 Arthrocentesis aspir &/inj major jt/bursa w/o us Jalil D Kiran DO Work Phone: Start: 05-27-2022 Arthrocentesis aspir &/inj major jt/bursa w/o us Jalil D Kiran DO Work Phone: Start: 07-01-2021 Adult depression scr eening assessment William Hope MD Work Phone: Appendectomy Carter Davila Cervical arthrodesis Blessing Davila section Carter medrano Colonoscopy Carter Davila Curettage Carter Davila Decompression of med elizabeth nerve Carter Davila Release of trigger finger Br rosanna Davila Tonsillectomy Carter Davila Urine culture MD Vince roche Work Phone: Plan of Treatment Date Care Activity Detail Author Start: 04-13-2027 [facility] Start: 05-25-2026 [facility] Start: 02-12-2025 DIABETES SCREEN DIABETES SCREEN [facility] Start: 02-12-2025 [facility] Start: 11-18-2024 DIABETES SCREEN DIABETES SCREEN [facility] Start: 10-20-2024 End: 10-20-2024 Patient encounter procedure 10/20/2024 6:40 AM EST Office Visit Rheumatology [address] [place] [address] William Hope MD [address] [facility] [address] [place] [address] Inflammatory arthritis Rheumatology Comment on above: Inflammatory arthrit is Start: 05-27-2024 Pneumococcal Vaccine : 65+ (2 of 2 - PCV) Pneumococcal Vaccine: 65+ (2 of 2 - PCV) [facility] Start: 05-18-2024 [facility] Start: 05-18-2024 End: 04-17-2025 C reactive protein [Mass/volume] in Serum or Plasma C-REACTIVE PROTEIN Lab Routine Elevated sed rate Elevated C-reactive protein (CRP) Expected: 05/18/2024 (Approximate), Expires: 04/17/2025 [facility] Comment on above: Expected: 05/18/2024 (Approximate), Expires: 04/17/2025 Start: 05-18-2024 End: 04-17-2025 CBC panel - Blood by Automated count COMPLETE BLOOD COUNT Lab Routine Anemia of chronic disease Expected: 05/18/2024 (Approximate), Expires: 04/17/2025 [facility] Comment on above: Expected: 05/18/2024 (Approximate), Expires: 04/17/2025 Start: 05-18-2024 End: 04-17-2025 Comprehensive metabolic 2000 panel - Serum or Plasma COMPREHENSIVE METABOLIC PANEL Lab Routine Elevated LFTs Expected: 05/18/2024 (Approximate), Expires: 04/17/2025 [facility] Work Phone: Comment on above: Expected: 05/18/2024 (Approximate), Expires: 04/17/2025 Start: 05-18-2024 End: 04-17-2025 Erythrocyte sedimentation rate SEDIMENTATION RATE, WESTERGREN Lab Routine Elevated sed rate Elevated C-reactive protein (CRP) Expected: 05/18/2024 (Approximate), Expires: 04/17/2025 [facility] Comment on above: Expected: 05/18/2024 (Approximate), Expires: 04/17/2025 Start: 05-14-2024 Influenza vaccination Influenza Vacc ine (#1) [facility] Start: 04-13-2024 End: 04-13-2024 Patient encounter procedure 04/13/2024 11:30 AM EDT Office Visit Pain Management [address] [place] [address] Alex Jeffries MD [address] [place] [address] bilat knee pain Pain Management Comment on above: bilat knee pain Start: 02-29-2024 End: 02-29-2024 Patient encounter procedure 02/29/2024 2:00 PM EDT Office Visit Orthopaedics [address] [place] [address] Jalil Kiran, DO [address] [place] [address] Bilateral Knee Gel injection Orthopaedics Comment on above: Bilateral Knee Gel i njection Start: 02-17-2024 End: 05-18-2024 25-hydroxyvitamin D3 [Mass/volume] in Serum or Plasma VITAMIN D 25 HYDROXY Lab Routine Inflammatory arthritis Vitamin D deficiency Expected: 02/17/2024 (Approximate), Expires: 05/18/2024 [facility] Comment on above: Expected: 02/17/2024 (Approximate), Expires: 05/18/2024 Start: 02-17-2024 End: 05-18-2024 C reactive protein [Mass/volume] in Serum or Plasma C-REACTIVE PROTEIN Lab Routine Inflammatory arthritis Expected: 02/17/2024 (Approximate), Expires: 05/18/2024 [facility] Work Phone: Comment on above: Expected: 02/17/2024 (Approximate), Expires: 05/18/2024 Start: 02-17-2024 End: 05-18-2024 CBC W Auto Differential panel - Blood COMPLETE BLOOD COUNT AND DIFFERENTIAL Lab Routine Inflammatory arthritis Expected: 02/17/2024 (Approximate), Expires: 05/18/2024 [facility] Comment on above: Expected: 02/17/2024 (Approximate), Expires: 05/18/2024 Start: 02-17-2024 End: 05-18-2024 Cobalamin (Vitamin B12) [Mass/volume] in Serum or Plasma VITAMIN B12 Lab Routine Inflammatory arthritis Vitamin B12 deficiency Expected: 02/17/2024 (Approximate), Expires: 05/18/2024 [facility] Comment on above: Expected: 02/17/2024 (Approximate), Expires: 05/18/2024 Start: 02-17-2024 End: 05-18-2024 Comprehensive metabolic 2000 panel - Serum or Plasma COMPREHENSIVE METABOLIC PANEL Lab Routine Inflammatory arthritis Expected: 02/17/2024 (Approximate), Expires: 05/18/2024 [facility] Comment on above: Expected: 02/17/2024 (Approximate), Expires: 05/18/2024 Start: 02-17-2024 End: 05-18-2024 Erythrocyte sedimentation rate SEDIMENTATION RATE, WESTERGREN Lab Routine Inflammatory arthritis Expected: 02/17/2024 (Approximate), Expires: 05/18/2024 [facility] Comment on above: Expected: 02/17/2024 (Approximate), Expires: 05/18/2024 Start: 02-17-2024 End: 05-18-2024 Urate [Mass/volume] in Serum or Plasma URIC ACID Lab Routine Inflammatory arthritis Expected: 02/17/2024 (Approximate), Expires: 05/18/2024 [facility] Comment on above: Expected: 02/17/2024 (Approximate), Expires: 05/18/2024 Start: 02-17-2024 End: 02-17-2024 ambulatory 02/17/2024 11:45 AM EDT Results Only [facility] [address] [place] [address] Marizol [facility] Comment on above: Marizol Start: 09-13-2023 Advance Directive Discussion Advance Directive Discussion [facility] Start: 09-13-2023 Behavioral Health Screening Behavioral Health Screening [facility] Start: 09-13-2023 Depression Assessment Depression Ass essment [facility] Start: 06-28-2023 Patient encounter procedure [facility] Start: 05-27-2023 End: 05-27-2024 Losartan 50 mg Oral Tablet Daily ; Tablet (COZAAR)DOSE = 50 mg Oral Daily Start: 27-May-2023 End: 26-May-2024 Ordered: 27-May-2023 Lesa Augustin Intent [facility] Start: 05-23-2023 End: 05-23-2024 Melatonin 5 mg Oral Tablet Daily 1800 ; TabletDOSE = 5 mg Oral Daily 1800, PRN Insomnia Start: 23-May-2023 End: 22-May-2024 Ordered: 23-May-2023 Goyo Moore Intent [facility] Start: 05-22-2023 End: 05-22-2024 Perflutren Lipid Microsphere (Activated) 1.3 mL / NaCL 0.9% T.V. 10 mL Injectable . ; DOSE = 0.5 mL IntraVenous Push OnceClinician Notes: 1. Dilute 1.3 mL of activated DEFINITY with 8.7 mL of normal saline in a 10 mL syringe.2. Inject 0.5 mL of diluted DEFINITY when notified the images/film are unclear to enhance view of Left Ventricular borders.3. Repeat 0.5 mL of DEFINITY until clear images are obtained, not to exceed 10 mLs.4. Once images are obtained or limit of medication is reached, flush line with 10 mL of Normal Saline. Start: 22-May-2023 End: 21-May-2024 Ordered: 22-May-2023 Deng Mabry Intent Comments: 1. Dilute 1.3 mL of activated DEFINITY with 8.7 mL of normal saline in a 10 mL syringe.2. Inject 0.5 mL of diluted DEFINITY when notified the images/film are unclear to enhance view of Left Ventricular borders.3. Repeat 0.5 mL of DEFINITY until clear images are obtained, not to exceed 10 mLs.4. Once images are obtained or limit of medication is reached, flush line with 10 mL of Normal Saline. [facility] Comment on above: 1. Dilute 1.3 mL of activated DEFINITY with 8.7 mL of normal saline in a 10 mL syringe.2. Inject 0.5 mL of diluted DEFINITY when notified the images/film are unclear to enhance view of Left Ventricular borders.3. Repeat 0.5 mL of DEFINITY until clear images are obtained, not to exceed 10 mLs.4. Once images are obtained or limit of medication is reached, flush line with 10 mL of Normal Saline. Start: 05-22-2023 [facility] Start: 05-21-2023 CT angiography of thorax CT angio chest PE protocol [facility] Start: 05-21-2023 CT Chest [facility] Start: 05-21-2023 Bacteria identified in Blood by Culture [facility] Start: 05-14-2023 Influenza vaccination C [facility] Start: 03-22-2023 [facility] Start: 03-22-2023 Bacteria identified in Urine by Culture Urine Culture [facility] Start: 09-13-2022 ADVANCE DIRECTIVE DISCUSSION ADVANCE DIRECTIVE DISCUSSION [facility] Start: 09-13-2022 DEPRESSION ASSESSMENT DEPRESSION ASS ESSMENT [facility] Start: 07-01-2022 Adult depression screening assessment DEPRESSION SCREENING [facility] Start: 05-26-2022 [facility] Work Phone: Start: 05-18-2022 End: 02-15-2023 C reactive protein [Mass/volume] in Serum or Plasma C-REACTIVE PROTEIN (CRP) Lab Routine Elevated sed rate Elevated C-reactive protein (CRP) Expected: 05/18/2022 (Approximate), Expires: 02/15/2023 [facility] Work Phone: Comment on above: Expected: 05/18/2022 (Approximate), Expires: 02/15/2023 Start: 05-18-2022 End: 02-15-2023 CBC panel - Blood by Automated count CBC Lab Routine Anemia of chronic disease Expected: 05/18/2022 (Approximate), Expires: 02/15/2023 [facility] Work Phone: Comment on above: Expected: 05/18/2022 (Approximate), Expires: 02/15/2023 Start: 05-18-2022 End: 02-15-2023 Comprehensive metabolic 2000 panel - Serum or Plasma COMP METABOLIC PANEL Lab Routine Elevated LFTs Expected: 05/18/2022 (Approximate), Expires: 02/15/2023 [facility] Work Phone: Comment on above: Expected: 05/18/2022 (Approximate), Expires: 02/15/2023 Start: 05-18-2022 End: 02-15-2023 Erythrocyte sedimentation rate SED RATE WESTERGREN Lab Routine Elevated sed rate Elevated C-reactive protein (CRP) Expected: 05/18/2022 (Approximate), Expires: 02/15/2023 [facility] Work Phone: Comment on above: Expected: 05/18/2022 (Approximate), Expires: 02/15/2023 Start: 05-18-2022 End: 02-15-2023 VITAMIN D 25 HYDROXY VITAMIN D 25 HYDROXY Lab Routine Vitamin D deficiency Expected: 05/18/2022 (Approximate), Expires: 02/15/2023 [facility] Work Phone: Comment on above: Expected: 05/18/2022 (Approximate), Expires: 02/15/2023 Start: 05-14-2022 Influenza vaccination C [facility] Start: 09-13-2021 ADVANCE DIRECTIVE DISCUSSION ADVANCE DIRECTIVE DISCUSSION [facility] Start: 09-13-2021 DEPRESSION ASSESSMENT DEPRESSION ASS ESSMENT [facility] Start: 01-09-2021 COVID-19 VACCINE (3 - Moderna risk series) COVID-19 VACCINE (3 - Moderna risk series) [facility] Start: 2015 BONE DENSITY BONE DENS[address] [facility] Start: 2015 Bone Density Screening Bone Density Screening [facility] Start: 2015 Screening for osteoporosis Bone Density Screening [facility] Start: 2010 RSV Vaccine (1 - 1-d ose 60+ series) RSV Vaccine (1 - 1-dose 60+ series) [facility] Start: 2000 SHINGRIX VACCINE (1 of 2) SHINGRIX VACCINE (1 of 2) [facility] Start: 1995 COLOGUARD (FIT-DNA) COLOGUARD (FIT-D NA) [facility] Start: [address] [facility] Start: 1995 COLORECTAL CANCER SCREENING COLORECTAL CANCER SCREENING [facility] Start: [address] COLONOGRAPHY [facility] Start: 1995 FECAL OCCULT BLOOD FECAL OCCULT BLOO D [facility] Start: 1995 Lipid 1996 panel - Serum or Plasma Lipid Screening [facility] Start: 1995 Lipid panel Lipid Screening [facility] Start: 1995 LIPID SCREEN LIPID SCREEN [facility] Start: 1995 Screening for malign ant neoplasm of colon [facility] Start: 1995 SIGMOIDOSCOPY SIGMOIDOSCOPY [facility] Start: [address] [facility] Start: 1990 Screening for malign ant neoplasm of breast Mammogram Screening [facility] Start: 1969 SHINGRIX VACCINE (1 of 2) SHINGRIX VACCINE (1 of 2) [facility] Start: [address] [facility] Start: 1968 Anxiety Screening Anxiety Screening [facility] Start: 1968 Depression Screening Depression Scre ening [facility] Start: 1968 HEPATITIS C SCREENING HEPATITIS C [facility] Start: 1968 Hepatitis C screening Hepatitis C [facility] Start: 1961 Screening for malign ant neoplasm of cervix Cervical Cancer Screening [facility] Start: 1956 Pneumococcal Vaccine : 65+ (1 - PCV) Pneumococcal Vaccine: 65+ (1 - PCV) [facility] Start: 1956 Pneumococcal Vaccine : 65+ (1 of 2 - PCV) Pneumococcal Vaccine: 65+ (1 of 2 - PCV) [facility] Start: 1956 PNEUMOCOCCAL: 65+ (1 - PCV) PNEUMOCOCCAL: 65+ (1 - PCV) [facility] Start: 1955 COVID-19 VACCINE (#1) COVID-19 VACCI NE (#1) [facility] Glucose measurement estimated from glycated hemoglobin [facility] Work Phone: Glucose measurement estimated from glycated hemoglobin [facility] Glucose measurement estimated from [facility] hemoglobin [facility] Hemoglobin A1c/Hemoglobin.total in Blood [facility] Work Phone: Injection aa&/strd other peripheral nerve/branch INJECT ANESTH AGENT Procedures Routine Primary osteoarthritis of both knees Ordered: 04/13/2024 [facility] Work Phone: Comment on above: Ordered: 04/13/2024 Patient Education [facility] Work Phone: Patient referral [facility] Work Phone: [facility] Immunizations Immunization Date Immunization Notes Care Provider Fa cility 05-27-2023 pneumococcal polysaccharide vaccine, 23 valent Text Entry Free [facility] 05-23-2023 influenza, high dose seasonal, preservative-free Text Entry Free [facility] 05-23-2023 influenza virus vaccine, unspecified formulation Alex Jeffries MD Work Phone: [facility] 06-11-2021 Kenalog -40 mg Mikael neumann II Other [employer] Other 12-12-2020 COVID-19 Vaccine Moderna - Documentation Purposes Only Mikael Hughes II Other [facility] 11-14-2020 COVID-19 Vaccine Moderna - Documentation Purposes Only Mikael Saul II Other [facility] 09-22-2012 influenza virus vaccine, unspecified formulation William Hope MD Work Phone: [facility] Payers Date Payer Category Payer Self-pay [id number] 2018 Medicare HUMANA MEDICARE HU[employer]NA GOLD PLUS [id number] 2018-Present [phone] [address] [address] [place] [address] O [id number] 2018 Medicare [id number] 2018 Private Health Insurance [id number] 1950 Unknown [id number] 1950 Unknown [id number] 1950 Unknown [id number] Private Health Insurance Self Pay [facility] [id number] Unknown Unknown [id number] Unknown HCAP/HFA/FAP Active [id number] Unknown [id number] Unknown [id number] Unknown [id number] Social History Date Type Detail Facility Start: 04-18-2019 End: 04-26-2024 Tobacco smoking status NHIS Ex-smoker (finding) [facility] Start: 1950 Sex Assigned At Female [facility] Start: 04-12-2017 End: 09-10-2017 Tobacco smoking status NHIS Never smoked tobacco [facility] Start: 04-12-2017 End: 09-10-2017 Tobacco use and exposure Smokeless tobacco non-user [facility] Start: 02-12-2022 End: 02-03-2024 Alcohol intake Current non-drinker of alcohol (finding) [facility] Start: 1950 Sex Assigned At Not on file [facility] Start: 02-02-2022 End: 02-12-2022 Exposure to SARS-CoV-2 (event) Unable to assess [facility] Start: 02-12-2022 End: 04-20-[address] [facility] Start: 12-05-2021 End: 02-04-2024 Tobacco smoking status NHIS Unknown if ever smoked [facility] Start: 05-17-2022 End: 05-27-2022 Exposure to SARS-CoV-2 (event) Not sure [facility] Start: 02-12-2022 End: 04-20-2023 History of [address] [facility] Adult Depression Screening Assessment 5 [facility] Tobacco smoking status No Smokin g Status Entered [facility] Goals Date Patient Goal Desired Activity /State Functional Status Date Assessment Result Facility Functional observable [facility] Mental Status Date Assessment Result Facility 05-25-2023 Cognitive functions 0239:20 [facility] Clinical Notes 06-11-2021 to 04-26-2024 Note Date & Type Note Facility 04-26-2024 Evaluation note Authored April 26, 2024 1: 59pm The above note written by __ _Sonali Burciaga____ acting as human recorder, note dictated by Dr. Guillaume .I performed the above HPI, ROS, and Examination. I formulated and dictated the treatment plan and was present for entire encounter. Jaquan Richard D.O.Ambulation is unassisted and appears normal Author Jaquan Richard [facility] Authored May 02, 2024 2: 33pm The above note written by __ _Sonali Burciaga____ acting as human recorder, note dictated by Dr. Guillaume . [facility] Work Phone: 1(488) 321-285908-14-2024 Evaluation note* Author Jaquan Richard [facility] Authored April 26, 2024 1: 59pm The above note written by __ _Sonali Burciaga____ acting as human recorder, note dictated by Dr. Guillaume .I performed the above HPI, ROS, and Examination. I formulated and dictated the treatment plan and was present for entire encounter. Jaquan Richard D.O.Ambulation is unassisted and appears normal Author Jaquan Richard [facility] Authored May 02, 2024 2: 35pm The above note written by __ _Sonali Burciaga____ acting as human recorder, note dictated by Dr. Guillaume .I performed the above HPI, ROS, and Examination. I formulated and dictated the treatment plan and was present for entire encounter. Jaquan Richard D.O. [facility] Work Phone: 1(594) 293-415908-05-2024 Telephone encounter Note* Telephone Encounter - Misa Villafuerte RN - 04/17/2024 2:21 PM EDT Pt identified by name and Pt given message below Stated understanding Will walkin for labs [facility]08-05-2024 Miscellaneous Notes* Telephone Encounter - Misa Villafuerte RN - 04/17/2024 2:21 PM EDT Pt identified by name and Pt given message below Stated understanding Will walkin for labs * Telephone Encounter - William Hope MD - 04/17/2024 2:00 PM EDT Please call patient. Thank you for the update. Sorry to hear about your discomfort. May restart methotrexate 8tabs once a week, daily folic acid. New script sent to pharmacy. Notify office if medication change is not tolerated. Recheck nonfasting labs in 1month, orders have been placed. Hope you feel better soon! Warm regards, :) Patient's request for medication is as follows: Requested Prescriptions Signed Prescriptions Disp Refills methotrexate 2.5 mg tablet 40 tablet 11 Sig: TAKE 8 TABLETS BY MOUTH ONCE A WEEK WITH FOOD. NO ALCOHOL. HOLD IF ILL OR ON ANTIBIOTICS Authorizing Provider: WILLIAM HOPE folic acid 1 mg tablet 90 tablet 0 Sig: Take 1 tablet by mouth once daily. Authorizing Provider: WILLIAM HOPE Prescription(s) as above. Please process accordingly. William Hope MD * Telephone Encounter - Dimitry Moe MA - 04/17/2024 9:52 AM EDT Spoke to pt aware of results and recommendations. Pt states she would like to get back on the mtx because she is having a lot of pain and stiffness. * Telephone Encounter - William Hope MD - 04/15/2024 4:16 PM EDT Please Call patient if MyChart note not read to review results/released to My Chart if tests completed at PSYCHIATRIC: One mildly high inflammatory test- maybe associated with being off rheumatology medication, will monitor. Stable rest of labs. Continue same daily vitamin D with food. Happy to further review and discuss at follow up visit. Continue rest of treatment plan per instructions at last office visit. Thank you. 04/13/24 high esr 44, uric acid 6.5;normal cbc, cmp, crp 0.7, vitamin D 42.4, vitamin b12-418; 04/13/24 saw pain clinic equivocal benefit of gel injections of knees, thus trial a LEFT and RIGHT knee genicular block 02/29/24 saw ortho b/l knee 3 mL hyaluronate sodium, stabilized 60 mg/3 mL 02/22/24 patient quit methotrexate due to cancer risk 02/03/24 saw rheum worsening L>R knee pain/swelling 02/12/22 high esr 35(27);NL cbc, cmp, crp 0.7, uric acid 6.1, vitamin D 53.7; [facility] Telephone encounter Note * Telephone Encounter - William Hope MD - 04/17/2024 2:00 PM EDT Please call patient. Thank you for the update. Sorry to hear about your discomfort. May restart methotrexate 8tabs once a week, daily folic acid. New script sent to pharmacy. Notify office if medication change is not tolerated. Recheck nonfasting labs in 1month, orders have been placed. Hope you feel better soon! Warm regards, :) Patient's request for medication is as follows: Requested Prescriptions Signed Prescriptions Disp Refills methotrexate 2.5 mg tablet 40 tablet 11 Sig: TAKE 8 TABLETS BY MOUTH ONCE A WEEK WITH FOOD. NO ALCOHOL. HOLD IF ILL OR ON ANTIBIOTICS Authorizing Provider: WILLIAM HOPE folic acid 1 mg tablet 90 tablet 0 Sig: Take 1 tablet by mouth once daily. Authorizing Provider: WILLIAM HOPE Prescription(s) as above. Please process accordingly. William Hope MD [facility]08-05-2024 Telephone encounter Note* Telephone Encounter - Dimitry Moe MA - 04/17/2024 9:52 AM EDT Spoke to pt aware of results and recommendations. Pt states she would like to get back on the mtx because she is having a lot of pain and stiffness. [facility]08-03-2024 Telephone encounter Note* Telephone Encounter - William Hope MD - 04/15/2024 4:16 PM EDT Please Call patient if MyChart note not read to review results/released to My Chart if tests completed at PSYCHIATRIC: One mildly high inflammatory test- maybe associated with being off rheumatology medication, will monitor. Stable rest of labs. Continue same daily vitamin D with food. Happy to further review and discuss at follow up visit. Continue rest of treatment plan per instructions at last office visit. Thank you. 04/13/24 high esr 44, uric acid 6.5;normal cbc, cmp, crp 0.7, vitamin D 42.4, vitamin b12-418; 04/13/24 saw pain clinic equivocal benefit of gel injections of knees, thus trial a LEFT and RIGHT knee genicular block 02/29/24 saw ortho b/l knee 3 mL hyaluronate sodium, stabilized 60 mg/3 mL 02/22/24 patient quit methotrexate due to cancer risk 02/03/24 saw rheum worsening L>R knee pain/swelling 02/12/22 high esr 35(27);NL cbc, cmp, crp 0.7, uric acid 6.1, vitamin D 53.7; [facility]08-01-2024 History of Present illness Narrative* Alex Jeffries MD - 04/13/2024 11:30 AM EDT SUBJECTIVE: Ms. Garcia a 73 year old female referred by Jalil Schilling DO presents with the complaint ofbilateral knee pain. Patient reports the date of onset of symptoms as years and describes the location of the pain as both knees. The pain is chronic, aching, burning, cramping, sharp, and shooting, and rated as moderate, withoutradiation. PAIN RATIO: (back:leg): left knee is greater Patient reports that pain is increased by standing and walking and relieved by sitting. Ambulation distance (before needing to sit): not at all Standing time (before needing to sit): not at all OTHER BACK PAIN SYMPTOMS: NIGHT PAIN: Yes - unable to stay asleep PARESTHESIA: No POOR SLEEP: Yes BOWEL/BLADDER INCONTINENCE OR RETENTION: No ACTIVITY LIMITATIONS: ADLs PREVIOUS TREATMENTS LASTING SIX WEEKS IN THE LAST SIX MONTHS Active conservative therapy lasting 6 weeks in the last six months (see below) 1. Physical therapy: No 2. Home exercise program after PT: 3. Occupational therapy: No 4. A physician supervised home exercise program (HEP): No 5. Pants Busheler: No Passive conservative therapy lasting 6 weeks in the last six months (see below) 1. Medical devises: No 2. Acupuncture: No 3. Tens unit: No 4. Prescription pain medication: 5. 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 . MUSCULOSKELETAL: SKIN: Negative for lesions, rash, and itching PSYCH: Negative for sleep disturbance, mood disorder and recent psychosocial stressors. HEMATOLOGY/LYMPHOLOGY Negative for prolonged bleeding, bruising easily or swollen nodes ENDOCRINE: Negative for cold or heat intolerance, polyuria, polydipsia and goiter PAST MEDICAL HISTORY No date: Anxiety No date: Arthritis No date: Asthma No date: Borderline diabetes mellitus No date: COPD (chronic obstructive pulmonary disease) (HCC) No date: Fibromyalgia No date: High cholesterol No date: HTN (hypertension) No date: Hyperlipidemia No date: Post-menopausal bleeding No date: Thyroid disease PAST MEDICAL HISTORY No date: Anxiety No date: Arthritis No date: Asthma No date: Borderline diabetes mellitus No date: COPD (chronic obstructive pulmonary disease) (HCC) No date: Fibromyalgia No date: High cholesterol No date: HTN (hypertension) No date: Hyperlipidemia No date: Post-menopausal bleeding No date: Thyroid disease PAST SURGICAL HISTORY No date: ANESTH, SECTION Comment: x3 No date: APPENDECTOMY HX 04/18/2019: HYSTEROSCOPY No date: PAST SURGICAL HISTORY OF Comment: cervical spine surgery. No date: TONSILLECTOMY AND ADENOIDECTOMY HX EXAMINATION: Pulse 67 Ht 161.3 cm (5' 3.5 ) SpO2 97% BMI 43.59 kg/m [id number]: Scoliosis: No Pelvic Tilt: No Leg Length discrepancy: LATERAL: Cervical Lordosis: No Thoracic Kyphosis: No Lumbar Lordosis: No RANGE OF MOTION CERVICAL: Flexion: Not Limited Extension: Not Limited Rotation L: Not Limited Rotation R: Not Limited Side Bending R: Not Limited Side Bending L: Not Limited LUMBAR: Flexion: Not Limited Extension: Not Limited Rotation L: Not Limited Rotation R: Not Limited Side Bending R: Not Limited Side Bending L: Not Limited FINGER TO FLOOR DISTANCE: na Gait: antalgic REFLEXES R L symetric STRENGTH (0-5): R L no focal deficits SLR: Seated - Right Negative, Left Negative HIP: ROM without pain in flexion, and internal rotation. JENNY TEST 1) Tenderness: Appropriate 2) Simulation/Axial Loading/ROT: Appropriate 3) Distraction: Seated SLR: Appropriate 4) Reqional Disturbances: Appropriate 5) Overreaction: Appropriate PHYSICAL EXAMINATION: GENERAL APPEARANCE: Well appearing, in no acute distress SKIN: Skin color, texture, turgor normal. No rashes or lesions. HEAD: Normocephalic. No masses, lesions, tenderness or abnormalities EYES: Conjunctivae/corneas clear. Pupils are equally round and reactive to light. Extraocular movements are intact. NECK: Neck supple, no adenopathy; thyroid symmetric, normal size, no bruits. LUNGS: Lungs clear to auscultation, No wheezing or rhonchi HEART: negative. RRR without murmur, gallop, or rubs. No ectopy. ABDOMEN: Abdomen soft, non-tender. Bowel sounds normal. No masses, organomegaly EXTREMITIES: Extremities normal. No deformities, edema, or skin discoloration. Good capillary refill. PULSES: Normal lower extremity pulses. NEURO: Gait normal. Reflexes normal and symmetric. Sensation grossly intact. Xray Knee 04/23/2021 Moderate to severe narrowing of the right knee lateral joint compartment is again noted. Moderate narrowing of the left knee medial and lateral joint compartments. Mild narrowing of the patellofemoral joints are also noted. Bilateral moderate osteophytosis in all 3 compartments. Bilateral small to moderate-sized knee joint effusions. No acute fracture or dislocation. No other significant abnormality. IMPRESSION: Primary osteoarthritis of both knees 73 yo with severe bilateral knee oA. most symptomatic on LEFT. Has had steroid and viscous supplements in the past. Last gel shot was 2 months ago - was equivocal benefit for a short time. OPtion to trial a LEFT and RIGHT knee genicular block - if + response by >80% the day of block there is the option for RFA of genicular nerves. She is on Xarelto . PLAN: Discussed the above findings and potential options with the patient. She understands the diagnsotic nature of genicualr nerv block - wishes to proceed. No need to stop xarelto for genicular nerve block (would need to stop for RFA). Thus far we have checked and [employer] consider this experimental so do not provide coverage. The above exam has been completed by me and the pertinent and negative systems have been updated. I spent a total of 30 minutes on the date of the service which included preparing to see the patient, [id number] patient care, completing clinical documentation, obtaining and/or reviewing separately obtained history, performing a medically appropriate examination, counseling and educating the pat ient/family/caregiver, ordering medications, tests, or procedures, communicating with other HCPs (not separately reported), and independently interpreting results (not separately reported). Alex Jeffries MD [facility] NoteHNO ID: [id number] Author: ALEX JEFFRIES MD Service: ? Author Type: Physician Type: Progress Notes Filed: 04/21/2024 16:03 Note Text: SUBJECTIVE: Ms. Garcia a 73 year old female referred by Jalil Schilling, presents with the complaint of bilateral knee pain. Patient reports the date of onset of symptoms as years and describes the location of the pain as both knees. The pain is chronic, aching, burning, cramping, sharp, and shooting, and rated as moderate, without radiation. PAIN RATIO: (back:leg): left knee is greater Patient reports that pain is increased by standing and walking and relieved by sitting. Ambulation distance (before needing to sit): not at all Standing time (before needing to sit): not at all OTHER BACK PAIN SYMPTOMS: NIGHT PAIN: Yes - unable to stay asleep PARESTHESIA: No POOR SLEEP: Yes BOWEL/BLADDER INCONTINENCE OR RETENTION: No ACTIVITY LIMITATIONS: ADLs PREVIOUS TREATMENTS LASTING SIX WEEKS IN THE LAST SIX MONTHS Active conservative therapy lasting 6 weeks in the last six months (see below) 1. Physical therapy: No 2. Home exercise program after PT: 3. Occupational therapy: No 4. A physician supervised home exercise program (HEP): No 5. Pants Busheler: No Passive conservative therapy lasting 6 weeks in the last six months (see below) 1. Medical devises: No 2. Acupuncture: No 3. Tens unit: No 4. Prescription pain medication: 5. 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 . MUSCULOSKELETAL: SKIN: Negative for lesions, rash, and itching PSYCH: Negative for sleep disturbance, mood disorder and recent psychosocial stressors. HEMATOLOGY/LYMPHOLOGY Negative for prolonged bleeding, bruising easily or swollen nodes ENDOCRINE: Negative for cold or heat intolerance, polyuria, polydipsia and goiter PAST MEDICAL HISTORY No date: Anxiety No date: Arthritis No date: Asthma No date: Borderline diabetes mellitus No date: COPD (chronic obstructive pulmonary disease) (HCC) No date: Fibromyalgia No date: High cholesterol No date: HTN (hypertension) No date: Hyperlipidemia No date: Post-menopausal bleeding No date: Thyroid disease PAST MEDICAL HISTORY No date: Anxiety No date: Arthritis No date: Asthma No date: Borderline diabetes mellitus No date: COPD (chronic obstructive pulmonary disease) (HCC) No date: Fibromyalgia No date: High cholesterol No date: HTN (hypertension) No date: Hyperlipidemia No date: Post-menopausal bleeding No date: Thyroid disease PAST SURGICAL HISTORY No date: ANESTH, SECTION Comment: x3 No date: APPENDECTOMY HX 04/18/2019: HYSTEROSCOPY No date: PAST SURGICAL HISTORY OF Comment: cervical spine surgery. No date: TONSILLECTOMY AND ADENOIDECTOMY HX EXAMINATION: Pulse 67 Ht 161.3 cm (5' 3.5 ) SpO2 97% BMI 43.59 kg/m? [id number]: Scoliosis: No Pelvic Tilt: No Leg Length discrepancy: LATERAL: Cervical Lordosis: No Thoracic Kyphosis: No Lumbar Lordosis: No RANGE OF MOTION CERVICAL: Flexion: Not Limited Extension: Not Limited Rotation L: Not Limited Rotation R: Not Limited Side Bending R: Not Limited Side Bending L: Not Limited LUMBAR: Flexion: Not Limited Extension: Not Limited Rotation L: Not Limited Rotation R: Not Limited Side Bending R: Not Limited Side Bending L: Not Limited FINGER TO FLOOR DISTANCE: na Gait: antalgic REFLEXES R L symetric STRENGTH (0-5): R L no focal deficits SLR: Seated - Right Negative, Left Negative HIP: ROM without pain in flexion, and internal rotation. JENNY TEST 1) Tenderness: Appropriate 2) Simulation/Axial Loading/ROT: Appropriate 3) Distraction: Seated SLR: Appropriate 4) Reqional Disturbances: Appropriate 5) Overreaction: Appropriate PHYSICAL EXAMINATION: GENERAL APPEARANCE: Well appearing, in no acute distress SKIN: Skin color, texture, turgor normal. No rashes or lesions. HEAD: Normocephalic. No masses, lesions, tenderness or abnormalities EYES: Conjunctivae/corneas clear. Pupils are equally round and reactive to light. Extraocular movements are intact. NECK: Neck supple, no adenopathy; thyroid symmetric, normal size, no bruits. LUNGS: Lungs clear to auscultation, No wheezing or rhonchi HEART: negative. RRR without murmur, gallop, or rubs. No ectopy. ABDOMEN: Abdomen soft, non-tender. Bowel sounds normal. No masses, organomeg (more content not included)...[facility]06-18-2024 NoteHNO ID: [id number] Author: JALIL KIRAN, DO Service: ? Author Type: Physician Type: Progress Notes Filed: 02/29/2024 14:27 Note Text: Patient presents for a bilateral knee durolane injection. Large Joint Arthro/Inj: bilateral knee joints Informed Consent Consent Obtained: Verbal [place] Protocol A moment to CARE was completed. SIGN IN Personnel directly involved with the procedure wore the appropriate PPE. Special Equipment: N/A Patient/Surrogate Stated/Verified: Patient name, Date of , Relevant allergies and Intended procedure TIME OUT Intended patient and procedure match the source document(s). Relevant labs, photos, and/or imaging studies have been reviewed. Correct side/site marked and visible. Medications required for procedure verified. No fire risk assessment and interventions applicable. No implant(s) inserted. 02/29/2024 2:27 PM The procedure site was prepped in the usual sterile fashion. Site: bilateral knee joints Medications (Right): 3 mL hyaluronate sodium, stabilized 60 mg/3 mL Medications (Left): 3 mL hyaluronate sodium, stabilized 60 mg/3 mL Outcome: Tolerated well, no immediate complications Post-injection instructions were reviewed with the patient and the patient voiced understanding of these instructions. SIGN OUT All instruments, equipment, possible retained foreign bodies accounted for. Post-procedure follow-up management communicated and Plan of Care Visit completed when applicable (M17.0) Primary osteoarthritis of both knees (primary encounter diagnosis) Jalil Kiran DO 02/29/2024[facility]06-18-2024 History of Present illness Narrative* Jalil Kiran DO - 02/29/2024 2:26 PM EDTAssociated Order(s): Large Joint Arthro/Inj: bilateral knee joints Post-Procedure Diagnose(s): Primary osteoarthritis of both knees Patient presents for a bilateral knee durolane injection. Large Joint Arthro/Inj: bilateral knee joints Informed Consent Consent Obtained: Verbal [place] Protocol A moment to CARE was completed. SIGN IN Personnel directly involved with the procedure wore the appropriate PPE. Special Equipment: N/A Patient/Surrogate Stated/Verified: Patient name, Date of , Relevant allergies and Intended procedure TIME OUT Intended patient and procedure match the source document(s). Relevant labs, photos, and/or imaging studies have been reviewed. Correct side/site marked and visible. Medications required for procedure verified. No fire risk assessment and interventions applicable. No implant(s) inserted. 02/29/2024 2:27 PM The procedure site was prepped in the usual sterile fashion. Site: bilateral knee joints Medications (Right): 3 mL hyaluronate sodium, stabilized 60 mg/3 mL Medications (Left): 3 mL hyaluronate sodium, stabilized 60 mg/3 mL Outcome: Tolerated well, no immediate complications Post-injection instructions were reviewed with the patient and the patient voiced understanding of these instructions. SIGN OUT All instruments, equipment, possible retained foreign bodies accounted for. Post-procedure follow-up management communicated and Plan of Care Visit completed when applicable (M17.0) Primary osteoarthritis of both knees (primary encounter diagnosis) Jalil Kiran DO 02/29/2024 [facility] Tele[facility] encounter Note * Telephone Encounter - Keyana Summers APRN.JANNET - 02/03/2024 4:42 PM EDT I spoke with patient Patient will need to be seen in ER Painful left knee , redness, swelling, sore on knee she is unsure where this is from She will update office after to schedule below [facility] Miscellaneous Notes* Telephone Encounter - Keyana Summers APRN.JANNET - 02/03/2024 4:42 PM EDT I spoke with patient Patient will need to be seen in ER Painful left knee , redness, swelling, sore on knee she is unsure where this is from She will update office after to schedule below * Telephone Encounter - Kita Johnson - 02/03/2024 2:44 PM EDT Return labs in 2 weeks, for soonest with Dr. Hope per patient request Spoke with Beba and was able to schedule lab appointment. No sooner appointment w/ Dr. Hope available. Added to waitlist. Beba wanted Keyana to know that she missed her knee appointment today. Just wasn't able to get up and ready in time. She states she will go to the ER tomorrow. GERARDO Hamilton [facility] Telephone encounter Note * Telephone Encounter - Kita Johnson - 02/03/2024 2:44 PM EDT Return labs in 2 weeks, for soonest with Dr. Hope per patient request Spoke with Beba and was able to schedule lab appointment. No sooner appointment w/ Dr. Hope available. Added to waitlist. Beba wanted Keyana to know that she missed her knee appointment today. Just wasn't able to get up and ready in time. She states she will go to the ER tomorrow. Kita Johnson, PSS [facility] History of Present illness Narrative* Keyana Summers, CASE MANAGEMENT RN.GEOLOGICAL SURVEY FIELD ASSISTANT - 02/03/2024 1:00 PM EDT Images from the original note were not included. FOLLOW UP VISIT- [facility] Patient agreed Telephone visit DO Bia Sinhae Fernando Jose is a 73 year old year old patient here today for follow up of +DENG/psoriasis/inflammatory arthritis/ degenerative joint disease/ CTS Interim History: More trouble with knees Can not straighten left leg Has sore on the knee Knees getting worse Thought dog scratched her knee with his nail Was given atb per pcp Fell on the knee Talked to them over the phone Went to [place] ER almost 1 week ago Xray knee - was told it is arthritis and has bakers cyst Taking percocet for pain - from pcp Using wheelchair Has been worsening over last 2 weeks no better She is worried it is infected She is unsure if any recent fever Stopped mtx she was scared she would get cancer She is asking if she should restart Pain knee and neck Went to chiropractor Now back feels worse Swelling- left knee AM stiffness whole Patient will message with update after ortho Review of Systems CONSTITUTION: HEENT: Negative for: Nosebleeds, Mouth sores, Trouble swallowing, Dry mouth RESPIRATORY: Negative for: Cough, Shortness of breath, Pain with breathing, Coughing up blood GASTROINTESTINAL: MUSCULOSKELETAL: Positive for: Arthralgias, Joint swelling and Morning Joint Stiffness NEUROLOGICAL: Negative for: Headaches, Numbness, Memory loss, SKIN: Negative for: Rashes, Sun sensitive rashes, Skin color changes, Hair loss, Nail changes EYES: Negative for: Eye pain, Eye redness, Visual disturbance, Eye dryness CARDIOVASCULAR: Negative for: Chest pain, Leg swelling, Arrhythmia, Presyncope GENITOURINARY: Negative for: Dysuria, Hematuria, Ulceration HEMATOLOGIC/LYMPHATIC: Negative for: Swollen glands Past Medical Hx, Past Surgical Hx. Social Hx and Family Hx: reviewed ACTIVE PROBLEM LIST Bilateral Wrist Pain - 06/13/2018 Primary Osteoarthritis of Knees, Bilateral - 09/20/2017 Chronic Pain of Both Knees - 09/11/2017 Inflammatory Arthritis - 04/12/2017 Deng Positive - 04/12/2017 Psoriasis - 04/12/2017 Chronic Bilateral Low Back Pain Without Sciatica - 04/12/2017 Bilateral Hand Pain - 04/12/2017 Cigarette Nicotine Dependence in Remission - 04/12/2017 Elevated Sed Rate - 04/12/2017 Hyperuricemia - 04/12/2017 Fibromyalgia - 04/12/2017 Long-Term Use of High-Risk Medication - 04/12/2017 PHYSICAL EXAM: VS:There were no vitals taken for this visit. Changed to telephone visit Latest Ref Rng & Units 12/09/2020 03/20/2021 11/18/2021 02/12/2022 CBC WBC 3.70 - 11.00 k/uL 7.29 6.22 12.43 8.44 Hemoglobin 11.5 - 15.5 g/dL 14.1 13.9 15.8 15.1 Hematocrit 36.0 - 46.0 % 43.8 43.7 48.3 47.0 Platelet Count 150 - 400 k/uL 260 280 366 264 Latest Ref Rng & Units 12/09/2020 03/20/2021 11/18/2021 02/12/2022 CMP Sodium 136 - 144 mmol/L 141 142 137 140 Potassium 3.7 - 5.1 mmol/L 4.0 4.2 4.1 3.9 Chloride 97 - 105 mmol/L 103 103 102 99 CO2 22 - 30 mmol/L 30 30 24 29 Glucose 74 - 99 mg/dL 142 115 115 107 BUN 7 - 21 mg/dL 16 10 22 11 Creatinine 0.58 - 0.96 mg/dL 1.29 0.87 0.83 0.77 Calcium 8.5 - 10.2 mg/dL 9.6 9.2 9.2 9.8 AST 13 - 35 U/L 30 27 24 30 ALT 7 - 38 U/L 30 24 26 30 Alkaline Phosphatase 34 - 123 U/L 66 59 67 63 Latest Ref Rng & Units 09/10/2017 06/13/2018 12/09/2018 02/12/2022 Uric Acid Uric Acid 2.5 - 6.6 mg/dL 6.7 6.5 5.9 6.1 Latest Ref Rng & Units 12/09/2020 03/20/2021 11/18/2021 02/12/2022 ESR, WSR WSR 0 - 20 mm/hr 30 37 27 35 Latest Ref Rng & Units 12/09/2020 03/20/2021 11/18/2021 02/12/2022 CRP CRP <0.9 mg/dL 0.7 0.8 <0.3 0.7 Latest Ref Rng & Units 01/17/2018 TB Screen TB Interpretation No evidence of current or previous infection with Mycobacterium tuberculosis. TB Result Negative Negative Prior Test results discussed with patient. Per Dr. Hope last office visit note Wfemale (mother-inflammatory arthritis;sister-fibromyalgia)with PMH thyroid disease, depression, gerd, Asthma/copd, MARYANN hsa BIPAP, diverticulosis, s/p R cts release 2001, appy, s/p cervical fusion/cage 2006, s/p 7 trigger finger releases, csections, R knee cyst removed, s/p T&A presents with 30years psoriasis elbows/knees/behind ears, 2009 joint pain all over, High stress son , depressed,gained 70-80lbs, High stress daughter drug overdose, granddaughter into drugs, caring for with two kinds of cancer, caring for grandson, Cherry Log better with steroids, Hip xrays/hand xrays- normal, Constant headaches my whole body , getting unbearable X years, bilat arm pain, brenda wrist and thumbs pain 03/22, 02/2017 high esr 38 (NL0-30mm/hr), uric acid 6.7, +DENG 1:1280/speckled Has findings consistent with inflammatory arthritis with psoriasis, hyperuricemia (on diuretic), generalized pain due to chronic fibromyalgia (sites of pain all over), here with chronic polyarthralgias, high stress, chronic memory changes, more L CTS symptoms, more joint pain in knees, hands/back pain Doing all the house hold chores and errands caring for family. skin changes UE for years. Daughters help shop for patient. Better with weather improvement. Back on rheum meds. Due for EMILE but postponed due to stay at home orders. Lowered thyroid medication. Skin improved. fell on R side tripped on steps for 3dogs to climb onto bed. Hug bruise on R side of thigh. R knee pain/calf pain/swelling.Not active. Sits all day. Depressed . Best friend from COVID. Many other family members . Uses cane. Not drinking much water. saw ortho 04/23/21 steroid injections of both knees. Had gel injections of R knee 01/2021. Wants to try the gel injections again. taking methotrexate 10tab weekly (was off for sinus infection/COVID infection), vitamin D 4000 International Units daily with food (completed vitamin D script), calcium 2tabs daily. Chronic current pain in both knees, L>Rthumbs, R>L shoulder, back, hands. Reports pain 3-10. minimal AM stiffness. brusies and scratches on forearms when dog scratches her when greeting her. Went to ED when taking BP medication. 08/2021 had COVID19 infection. COVID vaccine Moderna December and January 2021. More eye changes, worsening cataracts, retina changes on right side. S/p ptosis surgery ~11/2021. Feels safe at home. Has enough food, supplies and medications. Overall mildly uncomfortable but happy with rheum care. IMPRESSION/DIAGNOSIS/PLAN M19.90 Inflammatory arthritis (primary encounter diagnosis) E55.9 Vitamin D deficiency E53.8 Vitamin B12 deficiency R76.8 DENG positive E79.0 Hyperuricemia M25.60 Joint stiffness of multiple sites L40.9 Psoriasis At today's visit the patient's +DENG/psoriasis/inflammatory arthritis/ degenerative joint disease/ CTS C/o more knee pain - following with ortho Recent ER visit to [facility] - on atb for left knee - has appt with ortho today- ? Left knee infection Patient will update office after ortho appointment Some chronic back pain. Am stiffness whole body. No other joint swelling. No rash. Off mtx - worried about cancer risk Hard to assess over the telephone and patient had to end call to get to appointment Will need updated labs and in person visit Discussed medications dosage, usage, goals of therapy and side effects. Patient instructed to notify provider of any changes in medical condition. Patient in agreement and in understanding of plan. Follow up: needs in office visit Keyana Summers APRN.GEOLOGICAL SURVEY FIELD ASSISTANT I spent a total of 20 minutes on the date of the service which included telephone call. Portions of this note have been copied from my previous note and have been updated to reflect today's visit note February 03, 2024 all reflect current medical decision making from date of this visit. Recommendations to share with referring physician/Primary care physician : Dear Dr. Richard I had the pleasure of seeing your patient, Beba Garcia. I have enclosed a copy of my clinic note with my assessment and recommendations for this patient. Recommendations for your consideration as you deem necessary: -Continuous follow up with Primary care physician for cardiovascular disease prevention, for age appropriate cancer screening and routine health maintenance and wellness, and infection precautions and age appropriate immunization recommended. Thank you for allowing me to participate in the care of your patient. CC: Jaquan Richard DO [facility] NoteHNO ID: [id number] Author: KEYANA SUMMERS APRN.JANNET Service: ? Author Type: Nurse Practitioner Type: Progress Notes Filed: 02/03/2024 13:52 Note Text: FOLLOW UP VISIT- [facility] Patient agreed Telephone visit Jaquan Richard DO Beba Garcia is a 73 year old year old patient here today for follow up of +DENG/psoriasis/inflammatory arthritis/ degenerative joint disease/ CTS Interim History: More trouble with knees Can not straighten left leg Has sore on the knee Knees getting worse Thought dog scratched her knee with his nail Was given atb per pcp Fell on the knee Talked to them over the phone Went to [place] ER almost 1 week ago Xray knee - was told it is arthritis and has bakers cyst Taking percocet for pain - from pcp Using wheelchair Has been worsening over last 2 weeks no better She is worried it is infected She is unsure if any recent fever Stopped mtx she was scared she would get cancer She is asking if she should restart Pain knee and neck Went to chiropractor Now back feels worse Swelling- left knee AM stiffness whole Patient will message with update after ortho Review of Systems CONSTITUTION: HEENT: Negative for: Nosebleeds, Mouth sores, Trouble swallowing, Dry mouth RESPIRATORY: Negative for: Cough, Shortness of breath, Pain with breathing, Coughing up blood GASTROINTESTINAL: MUSCULOSKELETAL: Positive for: Arthralgias, Joint swelling and Morning Joint Stiffness NEUROLOGICAL: Negative for: Headaches, Numbness, Memory loss, SKIN: Negative for: Rashes, Sun sensitive rashes, Skin color changes, Hair loss, Nail changes EYES: Negative for: Eye pain, Eye redness, Visual disturbance, Eye dryness CARDIOVASCULAR: Negative for: Chest pain, Leg swelling, Arrhythmia, Presyncope GENITOURINARY: Negative for: Dysuria, Hematuria, Ulceration HEMATOLOGIC/LYMPHATIC: Negative for: Swollen glands Past Medical Hx, Past Surgical Hx. Social Hx and Family Hx: reviewed ACTIVE PROBLEM LIST Bilateral Wrist Pain - 06/13/2018 Primary Osteoarthritis of Knees, Bilateral - 09/20/2017 Chronic Pain of Both Knees - 09/11/2017 Inflammatory Arthritis - 04/12/2017 Deng Positive - 04/12/2017 Psoriasis - 04/12/2017 Chronic Bilateral Low Back Pain Without Sciatica - 04/12/2017 Bilateral Hand Pain - 04/12/2017 Cigarette Nicotine Dependence in Remission - 04/12/2017 Elevated Sed Rate - 04/12/2017 Hyperuricemia - 04/12/2017 Fibromyalgia - 04/12/2017 Long-Term Use of High-Risk Medication - 04/12/2017 PHYSICAL EXAM: VS:There were no vitals taken for this visit. Changed to telephone visit Latest Ref Rng AND Units 12/09/2020 03/20/2021 11/18/2021 02/12/2022 CBC WBC 3.70 - 11.00 k/uL 7.29 6.22 12.43 8.44 Hemoglobin 11.5 - 15.5 g/dL 14.1 13.9 15.8 15.1 Hematocrit 36.0 - 46.0 % 43.8 43.7 48.3 47.0 Platelet Count 150 - 400 k/uL 260 280 366 264 Latest Ref Rng AND Units 12/09/2020 03/20/2021 11/18/2021 02/12/2022 CMP Sodium 136 - 144 mmol/L 141 142 137 140 Potassium 3.7 - 5.1 mmol/L 4.0 4.2 4.1 3.9 Chloride 97 - 105 mmol/L 103 103 102 99 CO2 22 - 30 mmol/L 30 30 24 29 Glucose 74 - 99 mg/dL 142 115 115 107 BUN 7 - 21 mg/dL 16 10 22 11 Creatinine 0.58 - 0.96 mg/dL 1.29 0.87 0.83 0.77 Calcium 8.5 - 10.2 mg/dL 9.6 9.2 9.2 9.8 AST 13 - 35 U/L 30 27 24 30 ALT 7 - 38 U/L 30 24 26 30 Alkaline Phosphatase 34 - 123 U/L 66 59 67 63 Latest Ref Rng AND Units 09/10/2017 06/13/2018 12/09/2018 02/12/2022 Uric Acid Uric Acid 2.5 - 6.6 mg/dL 6.7 6.5 5.9 6.1 Latest Ref Rng AND Units 12/09/2020 03/20/2021 11/18/2021 02/12/2022 ESR, WSR WSR 0 - 20 mm/hr 30 37 27 35 Latest Ref Rng AND Units 12/09/2020 03/20/2021 11/18/2021 02/12/2022 CRP CRP <0.9 mg/dL 0.7 0.8 <0.3 0.7 Latest Ref Rng AND Units 01/17/2018 TB Screen TB Interpretation No evidence of current or previous infection with Mycobacterium tuberculosis. TB Result Negative Negative Prior Test results discussed with patient. Per Dr. Hope last office visit note Wfemale (mother-inflammatory arthritis;sister-fibromyalgia)with PMH thyroid disease, depression, gerd, Asthma/copd, MARYANN hsa BIPAP, diverticulosis, s/p R cts release 2001, appy, s/p cervical fusion/cage 2006, s/p 7 trigger finger releases, csections, R knee cyst removed, s/p TANDA presents with 30years psoriasis elbows/knees/behind ears, 2008 joint pain all over, High stress son , depressed, gained 70-80lbs, High stress daughter drug overdose, granddaughter into drugs, caring for with two kinds of cancer, caring for grandson, Cherry Log better with steroids, Hip xrays/hand xrays- normal, Constant headaches my whole body , getting unbearable X years, bilat arm pain, brenda wrist and thumbs pain 03/22, 02/2017 high esr 38 (NL0-30mm/hr), uric acid 6.7, +DENG 1:1280/speckled Has findings consistent with inflammatory arthritis with psoriasis, hyperuricemia (on diuretic), generalized pain due to chronic fibromyalgia (sites of pain all over), here with chronic polyarth (more content not included)... [facility]05-10-2024 Evaluation note* Author Jaquan Richard [facility] Authored January 21, 2024 12:49 pm The above note written by __ _Sonlai Burciaga____ acting as human recorder, note dictated by Dr. Guillaume .I performed the above HPI, ROS, and Examination. I formulated and dictated the treatment plan and was present for entire encounter. Jaquan Richard D.O. [facility] Work Phone: [phone]) 137-248004-10-2024 NoteHNO ID: [id number] Author: JALIL KIRAN DO Service: ? Author Type: Physician Type: Progress Notes Filed: 12/22/2023 13:37 Note Text: Beba Garcia is a patient of Jaquan Richard DO. CHIEF COMPLAINT: Beba Garcia is a 73 year old female who presents today for follow up of bilateral knee pain. HISTORY OF PRESENT ILLNESS: PAIN EVALUATION 12/22/2023 1308 Pain Level: 9 Pain Location: Knee-Left right knee Description: Aching;Burning;Sharp;Sore;Stabbing;Stiffness;Tightness Duration Amount of Time: 1 Duration Units: Weeks Frequency: Continuous Intervention/Comfort measure: Medication Comments: Started predisone last week Follow-up of the bilateral knees Last seen about 8 months ago Received CSI at that time Helped temporarily About 1 month after CSI, she was found to have pulmonary embolus PHYSICAL EXAMINATION: Specific MSK Exam No effusion noted TTP over the medial joint lines No decreased ROM of the knees IMAGING: No imaging was performed today. CLINICAL IMPRESSION / ASSESSMENT: (M17.0) Primary osteoarthritis of knees, bilateral (primary encounter diagnosis) PLAN: Discussed with her about treatment options Will proceed with CSI to both knees at this time Will also obtain approval for visco as well Follow-up as needed Large Joint Arthro/Inj: bilateral knee joints Informed Consent Consent Obtained: Verbal [place] Protocol A moment to CARE was completed. SIGN IN Personnel directly involved with the procedure wore the appropriate PPE. Special Equipment: N/A Patient/Surrogate Stated/Verified: Patient name, Date of , Relevant allergies and Intended procedure TIME OUT Intended patient and procedure match the source document(s). Relevant labs, photos, and/or imaging studies have been reviewed. Correct side/site marked and visible. Medications required for procedure verified. No fire risk assessment and interventions applicable. No implant(s) inserted. 12/22/2023 1:36 PM The procedure site was prepped in the usual sterile fashion. Site: bilateral knee joints Medications (Right): 40 mg triamcinolone acetonide 40 mg/mL Medications (Left): 40 mg triamcinolone acetonide 40 mg/mL Anesthetics (Right): 4 mL lidocaine (PF) 10 mg/mL (1 %) Anesthetics (Left): 4 mL lidocaine (PF) 10 mg/mL (1 %) Outcome: Tolerated well, no immediate complications Post-injection instructions were reviewed with the patient and the patient voiced understanding of these instructions. SIGN OUT All instruments, equipment, possible retained foreign bodies accounted for. Post-procedure follow-up management communicated and Plan of Care Visit completed when applicable Rationale for Viscosupplementation: Renewal Request As a part of a multimodal treatment plan, we are requesting authorization of hyaluronic acid viscosupplementation injections for the improvement of symptoms related to osteoarthritis. Authorization is being requested for treatment of Bilateral knees. Rationale for authorization of these injections is based on the following elements: Signs and Symptoms Length of symptoms > 3 months Pain interferes with ADLs? Yes Radiographic evidence of OA? Yes Previous Treatments Bracing attempted? No Formal Physical Therapy (PT)/ Home Exercise Program (HEP) attempted? Patient completed a comprehensive PT program with compliance to HEP NSAID medication attempted? Yes Corticosteroid injection attempted? Patient has had a previous CSI with intermittent relief Weight management attempted? Yes Prior Viscosupplementation Prior viscosupplementation? Yes Prior viscosupplementation improved symptoms? Yes Prior viscosupplementation improved symptoms at least 6 months? Yes Patient continues to be symptomatic despite above treatment attempts. Requested Viscosupplementation Preferred product: Durolane Alternative product: Euflexxa or payor preferred Jalil Kiran [facility]04-10-2024 History of Present illness Narrative* Jalil Kiran, DO - 12/22/2023 1:10 PM EDTAssociated Order(s): Large Joint Arthro/Inj: bilateral knee joints Post-Procedure Diagnose(s): Primary osteoarthritis of knees, bilateral Images from the original note were not included. Beba Garcia is a patient of Jaquan Richard DO. CHIEF COMPLAINT: Beba Garcia is a 73 year old female who presents today for follow up of bilateral knee pain. HISTORY OF PRESENT ILLNESS: PAIN EVALUATION 12/22/2023 1308 Pain Level: 9 Pain Location: Knee-Left right knee Description: Aching;Burning;Sharp;Sore;Stabbing;Stiffness;Tightness Duration Amount of Time: 1 Duration Units: Weeks Frequency: Continuous Intervention/Comfort measure: Medication Comments: Started predisone last week Follow-up of the bilateral knees Last seen about 8 months ago Received CSI at that time Helped temporarily About 1 month after CSI, she was found to have pulmonary embolus PHYSICAL EXAMINATION: Specific MSK Exam No effusion noted TTP over the medial joint lines No decreased ROM of the knees IMAGING: No imaging was performed today. CLINICAL IMPRESSION / ASSESSMENT: (M17.0) Primary osteoarthritis of knees, bilateral (primary encounter diagnosis) PLAN: Discussed with her about treatment options Will proceed with CSI to both knees at this time Will also obtain approval for visco as well Follow-up as needed Large Joint Arthro/Inj: bilateral knee joints Informed Consent Consent Obtained: Verbal [place] Protocol A moment to CARE was completed. SIGN IN Personnel directly involved with the procedure wore the appropriate PPE. Special Equipment: N/A Patient/Surrogate Stated/Verified: Patient name, Date of , Relevant allergies and Intended procedure TIME OUT Intended patient and procedure match the source document(s). Relevant labs, photos, and/or imaging studies have been reviewed. Correct side/site marked and visible. Medications required for procedure verified. No fire risk assessment and interventions applicable. No implant(s) inserted. 12/22/2023 1:36 PM The procedure site was prepped in the usual sterile fashion. Site: bilateral knee joints Medications (Right): 40 mg triamcinolone acetonide 40 mg/mL Medications (Left): 40 mg triamcinolone acetonide 40 mg/mL Anesthetics (Right): 4 mL lidocaine (PF) 10 mg/mL (1 %) Anesthetics (Left): 4 mL lidocaine (PF) 10 mg/mL (1 %) Outcome: Tolerated well, no immediate complications Post-injection instructions were reviewed with the patient and the patient voiced understanding of these instructions. SIGN OUT All instruments, equipment, possible retained foreign bodies accounted for. Post-procedure follow-up management communicated and Plan of Care Visit completed when applicable Rationale for Viscosupplementation: Renewal Request As a part of a multimodal treatment plan, we are requesting authorization of hyaluronic acid viscosupplementation injections for the improvement of symptoms related to osteoarthritis. Authorization is being requested for treatment of Bilateral knees. Rationale for authorization of these injections is based on the following elements: Signs and Symptoms Length of symptoms > 3 months Pain interferes with ADLs? Yes Radiographic evidence of OA? Yes Previous Treatments Bracing attempted? No Formal Physical Therapy (PT)/ Home Exercise Program (HEP) attempted? Patient completed a comprehensive PT program with compliance to HEP NSAID medication attempted? Yes Corticosteroid injection attempted? Patient has had a previous CSI with intermittent relief Weight management attempted? Yes Prior Viscosupplementation Prior viscosupplementation? Yes Prior viscosupplementation improved symptoms? Yes Prior viscosupplementation improved symptoms at least 6 months? Yes Patient continues to be symptomatic despite above treatment attempts. Requested Viscosupplementation Preferred product: Durolane Alternative product: Euflexxa or payor preferred Jalil Kiran DO documented in this encounterSt[facility] Miscellaneous Notes* Telephone Encounter - Maty Romero - 12/07/2023 9:28 AM EDT Contacted patient and scheduled an appointment with Dr. Kiran on 12/22/23. * Telephone Encounter - Julissa Jain - 12/07/2023 9:06 AM EDT Pt calling back as she forgot to mention that she is currently taking Xarelto. Wanting to make surethis would not interfere with injections. * Telephone Encounter - Kitty Ballesteros MA - 12/07/2023 9:03 AM EDT Spoke with patient and gave her the message. She would like to proceed with the injections. I will have Maty reach out to her to schedule. She expressed understanding. * Telephone Encounter - Jalil Kiran DO - 12/07/2023 7:28 AM EDT It is not likely the injections caused blood clots 1 month later. I would be fine with doing injections again if she wants to proceed. Jalil Kiran DO * Telephone Encounter - Kamryn Knapp - 12/06/2023 4:01 PM EDT Beba is calling Jalil Kiran DO today saying she had injections in her knees around last April and in May she was hospitalized with lung embolisms and they thought it might be from injectionsbut they did not know. Patient is in a lot of pain with her knees and wants to know what you think about other injections for her knees. Please advise. Patient has been identified by name and birthdate. Duration of symptoms: N/A Person calling: self Call patient at: on cell [phone] (cell) Was an appointment scheduled: No Closing statement: Results or non-symptom based questions: Thank you for [facility], your call will be returned within the next business day. Kamryn Suresh documented in this encounterSt. [facility]02-[facility] Evaluation note* Encounter Date Diagnosis Assessment Notes Treatment Notes Treatment Clinical Notes Oct, Lumbar pain (ICD-10 - M54.50) [facility] Other [id number] Evaluation note* Encounter Date Diagnosis Assessment Notes Treatment Notes Treatment Clinical Notes Oct, Hypothyroidism (ICD-10 - E03.9) Discussed thyroid results with patient today. TSH is 1.35. Free T3 is 2.86. Free T4 is 1.05. I would like her to continue with the same dose of Levothyroxine. Oct, Diabetes mellitus, type 2 (ICD-10 - E11.9) We discussed that her blood sugar is not controlled. Her overall control has worsened dramatically. Taking Prednisone contributes to the elevated blood sugar. She had been taking steroids for a month or more. Her glucose level is 127. HgA1C is up from 6.7 to 8.0. She is unable to be active like she was previously due to her knees and back pain. I suspect that her blood sugar is elevated due to the Prednisone. She is encouraged to cut back on her intake of carbs and sugars. She admits that there is alot of ice cream in the home. I did recommend that we treat her blood sugar. She is unable to take Metformin (her sister had Sandra Zachery syndrome with this medication). She was on Farxiga in the past. She did see Dr. Aguilera in 2020 and was given Ozempic but does not recall ever starting this medicine. She is willing to start the medication. Guidance is given on how to take the medication. Anticipate that this will help to lower her blood sugar readings. Side effects/risks/bene fits of medication were reviewed. She may feel nauseous, sick, have an upset stomach after using which is normal for this medication. She should eat small meals throughout the day. If her insurance denies this medication she will be contacted and she will contact her [employer] nurse to help get this covered. We discussed that this medication will help with weight loss which will help her joints. Oct, Acute sinusitis (ICD-10 - J01.90) She voices that she is slowly getting better. She has completed the course of Prednisone that was called in. She is to finish the antibiotic as directed. Her right ear and right cheek continue to hurt but each day she feels like it is improving. I can provide her with another five days of Prednisone. Side effects/risks/bene fits of medication were reviewed. Oct, Lumbar pain (ICD-10 - M54.50) She does continue to use and benefit from the above medication. She can continue to call for refills weekly. An OARRS report was printed and reviewed, no discrepancies noted. Frequent appointments needed due to addiction potential of medication. Pain inventory sheet completed and reviewed if opiod medication given. Pain contract is on file if pertinent. Patient will have office visits every three months for evaluation or sooner if needed. I discussed addiction potential of medication with the patient. Discussed with the patient and provided a treatment plan including the use of non-opiod analgesics and non-pharmacologica l intervention with patient if treated for pain. We have discussed realistic benefits and known risks of opiod/controlled therapy and the expected benefits for both pain and function. These benefits outweigh the risks. Patient has been counselled on the dangers of combining opiods/controlled prescriptions with alcohol or other sedatives and counseled on the safe storage and disposal of opiods/controlled prescriptions. Do not drive or operate heavy machinery after taking opiod/controlled medication. I have verified that no current substance abuse treatments are being prescribed. Oct, Hypertension (ICD-10 - I10) She has only been taking one of the Losartan (50 MG) tablets a day since she was discharged from the hospital in May (2022). Oct, Pulmonary embolism (ICD-10 - I26.99) She voices that she was told that she would need to be on the Xarelto for at least a year. She follows with a vascular doctor at this time. We discussed her having a colonoscopy but she will need to get clearance from her specialist first. Once she knows that she can have this procedure done she can call for a referral. She voices that right now she cannot even go to the dentist. Oct, Hyperlipidemia (ICD-10 - E78.5) Discussed cholesterol results with patient today. Total is 225. HDL is 71. LDL is 121. Triglycerides are 165. VLDL is 33. I would like her to continue with above medication daily as directed. Her triglyceride level goes hand in hand with blood sugar. Again, recommend she watch her intake of carbs and sugars. Oct, Asthma (ICD-10 - J45.909) Use above medication as directed. Oct, Atrial fibrillation (ICD-10 - I48.91) Continue with above medication as directed. Oct, Depression (ICD-10 - F32.9) She is currently only taking one tablet of Sertraline daily. Oct, Psoriatic arthritis (ICD-10 - L40.50) Continue with above medication as directed. Oct, Macrocytosis (ICD-10 - D75.89) Her Vitamin B12 is 429. Folate is 17.7. I would like her to continue with the B12 supplement. Oct, Vitamin D deficiency (ICD-10 - E55.9) Her Vitamin D level was 43.4. Continue with the Vitamin D supplement. Oct, Other termination clerk (current) drug therapy (ICD-10 - Z79.899) Oct, Other 9:29 AM - 9:50 AM [facility] Other 01-30-2024 Evaluation note* Encounter Date Diagnosis Assessment Notes Treatment Notes Treatment Clinical Notes Sep, Lumbar pain (ICD-10 - M54.50) [facility] Other 01-22-2024 Evaluation note* Encounter Date Diagnosis Assessment Notes Treatment Notes Treatment Clinical Notes Sep, Lumbar pain (ICD-10 - M54.50) [facility] Other 01-16-2024 Evaluation note* Encounter Date Diagnosis Assessment Notes Treatment Notes Treatment Clinical Notes Sep, Lumbar pain (ICD-10 - M54.50) [facility] Other 01-09-2024 Evaluation note* Encounter Date Diagnosis Assessment Notes Treatment Notes Treatment Clinical Notes Sep, Lumbar pain (ICD-10 - M54.50) [facility] Other 12-26-2023 Evaluation note* Encounter Date Diagnosis Assessment Notes Treatment Notes Treatment Clinical Notes Aug, Lumbar pain (ICD-10 - M54.50) [facility] Other 12-19-2023 Evaluation note* Encounter Date Diagnosis Assessment Notes Treatment Notes Treatment Clinical Notes Aug, Lumbar pain (ICD-10 - M54.50) [facility] Other 12-15-2023 Evaluation note* Encounter Date Diagnosis Assessment Notes Treatment Notes Treatment Clinical Notes Aug, Primary osteoarthritis of right knee (ICD-10 - M17.11) Aug, Primary osteoarthritis of left knee (ICD-10 - M17.12) Aug, History of pulmonary embolus (PE) (ICD-10 - Z86.711) Aug, Current chronic use of systemic steroids (ICD-10 - Z79.52) Aug, Chronic, continuous use of opioids (ICD-10 - F11.90) Aug, Other We had a long discussion regarding her bilateral knee primary osteoarthritis. She does have ijqo-dx-yxdg arthritis but is responded well to injections in the past. At this point I recommended bilateral steroid injections again. She agreed. After consent was obtained, the right and left knees were injected with 2cc Kenalog and 8cc bupivicaine using sterile technique. Patient tolerated the injections well. Long-term, ultimately at some point the steroid injections are going to work for her pain relief was and she may be a candidate for radiofrequency nerve ablation. At this point in time I do not feel she is a great clinical candidate for a total knee replacement. 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 I feel that she needs to work on some of these in order to be a better candidate for a total knee replacement. In the meantime we can continue with injections as long as she can tolerate them and get some relief. I think that we should certainly explore radiofrequency nerve ablations in the future. [facility] Other 12-12-2023 Evaluation note* Encounter Date Diagnosis Assessment Notes Treatment Notes Treatment Clinical Notes Aug, Lumbar pain (ICD-10 - M54.50) [facility] Other 11-28-2023 Evaluation note* Encounter Date Diagnosis Assessment Notes Treatment Notes Treatment Clinical Notes Jul, Lumbar pain (ICD-10 - M54.50) [facility] Other 11-27-2023 Miscellaneous Notes* Telephone Encounter - Preethi Le - 08/09/2023 10:25 AM EST Called patient LVM and sent letter in regards to scheduling as directed below. Preethi Le August 09, 2023 10:26 AM * Telephone Encounter - William Hope MD - 08/07/2023 11:48 AM EST Not seen since 02/2022. Due for labs. May schedule follow up phone/virtual or office visit with FREELANCE WRITER or me and complete labs for refill. Otherwise, please defer medication refills to current provider Thank you. * Telephone Encounter - Mo Gallegos MA - 08/06/2023 11:26 AM EST Most recent Rheumatology visit: 02/12/2022 (with William Hope) Recent Office Visits - This Specialty 02/12/2022 Inflammatory arthritis Rheumatology William Hope MD 12/12/2020 Inflammatory arthritis Rheumatology William Hope MD 12/28/2019 Inflammatory arthritis Rheumatology William Hope MD Upcoming Rheumatology Appointments - Next 365 Days No appointments to display CBC: None on file in the last 6 months Vitamin D: None on file in the last 6 months LFT: None on file in the last 6 months Hepatic Function: Creatinine: None on file in the last 6 months ESR/CRP: None on file in the last 6 months Uric Acid: None on file in the last 6 months Open Standing (Multiple Instance) Lab Orders None Open Future (Single Instance) Lab Orders Expected Expires Ordered COMP METABOLIC PANEL [SQCMP] 05/12/23 05/12/24 05/12/23 Auth. provider: William Hope MD Assoc. diagnoses: Elevated LFTs CBC [SQCBC] 05/12/23 05/12/24 05/12/23 Auth. provider: William Hope MD Assoc. diagnoses: Anemia of chronic disease VITAMIN D 25 HYDROXY [SQVITD] 05/12/23 05/12/24 05/12/23 Auth. provider: William Hope MD Assoc. diagnoses: Vitamin D deficiency VITAMIN B12 BLOOD [SQB12] 05/12/23 05/12/24 05/12/23 Auth. provider: William Hope MD Assoc. diagnoses: Vitamin B12 deficiency URIC ACID BLOOD [SQURIC] 05/12/23 05/12/24 05/12/23 Auth. provider: William Hope MD Assoc. diagnoses: Hyperuricemia SED RATE WESTERGREN [SQWSR] 05/12/23 05/12/24 05/12/23 Auth. provider: William Hope MD Assoc. diagnoses: Elevated sed rate, Elevated C-reactive protein (CRP) C-REACTIVE PROTEIN (CRP) [SQCRP] 05/12/23 05/12/24 05/12/23 Auth. provider: William Hope MD Assoc. diagnoses: Elevated sed rate, Elevated C-reactive protein (CRP) documented in this encounterSt[facility] Evaluation note* Encounter Date Diagnosis Assessment Notes Treatment Notes Treatment Clinical Notes Jul, Lumbar pain (ICD-10 - M54.50) Jul, Psoriatic arthritis (ICD-10 - L40.50) [facility] Other 11-06-2023 Evaluation note* Encounter Date Diagnosis Assessment Notes Treatment Notes Treatment Clinical Notes Jul, Psoriatic arthritis (ICD-10 - L40.50) She voices that it is very difficult for her to get in to see her identity management developer and when she was scheduled to see her she was in the hospital for her pulmonary embolism. I did recommend that she call and schedule an appointment to be seen. She would like to have Prednisone on hand to use to help provide her with relief. I did explain to her that there are side effects from Prednisone and this should be prescribed under the guidance of a identity management developer. I am willing to provide her with a prednisone burst and then put her on a small dose but she does need to make an appointment with her identity management developer. She is in agreement. She understands that the steroid is not risk free and still would like to take the medication. She is to call in nine days for the lower dose of medication. Jul, Lumbar pain (ICD-10 - M54.50) She voices that she is always in a great deal of pain. If she has to leave her home she has to take two pain pills. She is low on her pain medication and is not due for a refill until tomorrow (11-7-23). She was cautioned against taking more pain medication then she should. She is to call for a refill tomorrow 07-20-23. An OARRS report was printed and reviewed, no discrepancies noted. Frequent appointments needed due to addiction potential of medication. Pain inventory sheet completed and reviewed if opiod medication given. Pain contract is on file if pertinent. Patient will have office visits every three months for evaluation or sooner if needed. I discussed addiction potential of medication with the patient. Discussed with the patient and provided a treatment plan including the use of non-opiod analgesics and non-pharmacologica l intervention with patient if treated for pain. We have discussed realistic benefits and known risks of opiod/controlled therapy and the expected benefits for both pain and function. These benefits outweigh the risks. Patient has been counselled on the dangers of combining opiods/controlled prescriptions with alcohol or other sedatives and counseled on the safe storage and disposal of opiods/controlled prescriptions. Do not drive or operate heavy machinery after taking opiod/controlled medication. I have verified that no current substance abuse treatments are being prescribed. Jul, Fibromyalgia (ICD-10 - M79.7) Jul, Bakers cyst of knee, left (ICD-10 - M71.22) She was told she had a Bakers Cyst behind her left knee. She has to be on a a blood thinner for at least a year so nothing can be done for this right now. She was told that sometimes these will absorb and resolve. I did explain to her that the steroid may help this issue. [facility] Other 10-31-2023 Evaluation note* Encounter Date Diagnosis Assessment Notes Treatment Notes Treatment Clinical Notes Jun, Lumbar pain (ICD-10 - M54.50) [facility] Other 10-24-2023 Evaluation note* Encounter Date Diagnosis Assessment Notes Treatment Notes Treatment Clinical Notes Jun, Lumbar pain (ICD-10 - M54.50) [facility] Other 10-17-2023 Evaluation note* Encounter Date Diagnosis Assessment Notes Treatment Notes Treatment Clinical Notes Jun, Lumbar pain (ICD-10 - M54.50) [facility] Other 10-13-2023 Evaluation note* Encounter Date Diagnosis Assessment Notes Treatment Notes Treatment Clinical Notes Jun, Pulmonary embolism (ICD-10 - I26.99) She was in [facility] in [place] when she had a saddle embolism. She was sent home on a blood thinner and voices that she had her choice of taking shots followed by a pill or just taking pills. She started with the shots but is now going to run out of her injections tomorrow and does not have any oral blood thinners. I explained to her that this is serious and she cannot go without medication until she is seen by her specialist. I cannot recommend that she stop her medication or go without her medication and if she does this it would be against medical advice. She has an appointment with a vascular specialist on Wednesday06-28-23 (Dr. Florez). It is a Wednesday afternoon and our office closes in 1/2 hour, at this point she was unable to speak with someone at her vascular doctors office but she left a detailed message and she is hoping that they call her back by 4 PM a few hours from now, she has enough Lovenox to get through at least tomorrow morning and if she does not hear from the vascular specialist by then she will go through the ER to get enough treatment through Wednesday when she is seen by the vascular specialist. Jun, Depression with anxiety (ICD-10 - F41.8) She can stop the Paroxetine at this point. She is still crying alot. I recommend that she see how her mood is once she is off the Paroxetine, if her mood is still poor she should increase the Zoloft to 1 & 1/2 tablet daily. She is to keep me posted with how she is doing. Jun, Knee osteoarthritis (ICD-10 - M17.9) She is not eligible to have injections in her knees until July (2022). Jun, Cervical pain (ICD-10 - M54.2) She is complaining about neck pain, I suspect this is due to arthritis. She is to continue to monitor. Jun, Atrial fibrillation (ICD-10 - I48.91) Continue with above medication. Jun, Hypertension (ICD-10 - I10) Continue with above medication daily as directed. Jun, Lumbar pain (ICD-10 - M54.50) She does continue to use and benefit from the pain medication. She is to continue to call weekly for refills on her medication. An OARRS report was printed and reviewed, no discrepancies noted. Frequent appointments needed due to addiction potential of medication. Pain inventory sheet completed and reviewed if opiod medication given. Pain contract is on file if pertinent. Patient will have office visits every three months for evaluation or sooner if needed. I discussed addiction potential of medication with the patient. Discussed with the patient and provided a treatment plan including the use of non-opiod analgesics and non-pharmacologica l intervention with patient if treated for pain. We have discussed realistic benefits and known risks of opiod/controlled therapy and the expected benefits for both pain and function. These benefits outweigh the risks. Patient has been counselled on the dangers of combining opiods/controlled prescriptions with alcohol or other sedatives and counseled on the safe storage and disposal of opiods/controlled prescriptions. Do not drive or operate heavy machinery after taking opiod/controlled medication. I have verified that no current substance abuse treatments are being prescribed. Jun, Other 1:23 PM - 2:05 PM She voices that she slipped and fell in the tub and hurt her shoulder. She thinks she may have a rotator cuff injury but she will continue to monitor. [facility] Other 10-10-2023 Evaluation note* Encounter Date Diagnosis Assessment Notes Treatment Notes Treatment Clinical Notes Jun, Lumbar pain (ICD-10 - M54.50) [facility] Other 10-03-2023 Evaluation note* Encounter Date Diagnosis Assessment Notes Treatment Notes Treatment Clinical Notes Jun, Lumbar pain (ICD-10 - M54.50) [facility] Other 09-26-2023 Evaluation note* Encounter Date Diagnosis Assessment Notes Treatment Notes Treatment Clinical Notes May, Lumbar pain (ICD-10 - M54.50) [facility] Other 09-19-2023 NoteSend Summary: Discharge Summary Providers: Provider RoleProvider Name ReferringCorrect Info, Needed PrimaryFree, Text Entry Note Recipients: Correct Info, Needed, Free, Text Entry, Discharge: Summary: Admission Date: .22-May-2023 02:29:00 Discharge Date: 27-May-2023 Attending Physician at Discharge: Brad Marcano Admission Reason: pulmonary embolism(1) Final Discharge Diagnoses: Pulmonary embolism Acute hypoxic resp failure from PE Depression HTN Procedures: Date: 23-May-2023 15:49:00 Procedure Name: percutaneous mechanical thrombectomy Condition at Discharge: Fair Disposition at Discharge: .Home Vital Signs: Date: Weight/Scale Type:Height: 22-May-2023 02:45067.8 kg / vuw522.8 cm Physical Exam: General: awake, alert, conversant, appears stated age HEENT: pupils equal and round, no scleral icterus Skin: no suspect lesions or rashes noted on visible skin Chest: ctab, not on supplemental oxygen, mild expiratory wheezing appreciated on exam bilaterally Cardiac: regular rate, normal s1, s2, no M/R/G Abdomen: soft, ND, NT, no involuntary guarding : no flank pain or indwelling urinary catheter EXT: no peripheral edema, no asymmetry noted MSK: no focal joint swelling noted Neuro: AOx4, moving all limbs spontaneously, follows commands Psych: coherent thought process, appropriate mood and affect Hospital Course: Ms. Garcia is a 72 year old female with past medical history of DENG positive joint pain/psoriasis (dx >30 years ago), on methotrexate, depression, cataracts, fibromyalgia, and osteoarthritis admitted for submassive pulmonary embolism. She presented to at outside hospital with 1 week of progressively worsening shortness of breath and associated calf pain. She was saturating 79% on room air with HR 130s on arrival to ED. Found to have submassive PE with evidence of right heart strain on CT, PERT team called and patient was then transferred to [facility] for evaluation for mechanical thrombectomy. CT PE performed showed saddle embolism. Vascular and interventional cardiology was consulted and recommend management with therapeutic heparin initially. While in the MICU, patient remained stable, with decreasing O2 requirement, stable respiratory rate, and downtrending troponins (initially 596). An echo was performed which showed normal LV systolic fxn but severly enlarged RV with volume overload and severely reduced RV systolic function. Given these findings and persistent tachycardia, patient underwent mechanical thrombectomy on 05/23/23. Psych consulted and recommended music therapy consult. Following thrombectomy, patients respiratory status improved greatly and was able to be weaned to room air and without need for homegoing O2. Patient will be discharged on lovenox 100mg BID for 4-6 weeks and then will follow up with vascular medicine in clinic after discharge to determine future anticoagulation and total duration. PT evaluated patient and recommended SNF, however patient refused. Offered home care but patient refused this as well. Patient will be discharged home. For follow up after discharge: - Vascular medicine: - Discharging on lovenox 100mg BID. Will decide future anticoagulation and duration of anticoagulation at future follow up clinic appointment. Based on walking pulse ox patient did not need homegoing oxygen - Patient also discharged with albuterol inhaler and also 5 day course of Prednisone 40mg for her shortness of breath symptoms - PCP: - Patients HCTZ and PRN Lasix were held on admission and instructed patient to stop these medications until she follows up with PCP given her stable blood pressures during the hospitalization while off antihypertensives. Patient was instructed to only restart Losartan 50mg ONCE daily in regards to her hypertension. - In addition, given the new submassive PE, patient should undergo outpatient age/gender cancer screening outpatient - Psychiatry: During hospitalization, pts paroxetine was decreased from 20mg to 10mg daily and she was started on sertraline 25mg daily. The goal, per psychiatry consult, is to slowly taper patient off paroxetine and transition to sertraline. Immunizations: Immunizations: 23-May-2023 .Influenza- Influenza Virus: Immunizations, 23-May-2023 Pneumonia- Pneumococcal polysaccharide vaccine: Immunizations, 27-May-2023 Discharge Information: and Continuing Care: Lab Results - Pending: None Radiology Results - Pending: None Discharge Instructions: Activity: activity with assistance. Nutrition/Diet: regular Additional Orders: Additional Instructions: Dear Ms. Garcia and family, You were admitted to [facility] for management of your pulmonary embolism. You originally presented to an outside hospital on 05/22 with complaints of shortness of breath and calf pain. Imaging revealed th (more content not included)...[facility]09-12-2023 Evaluation note* Encounter Date Diagnosis Assessment Notes Treatment Notes Treatment Clinical Notes May, Lumbar pain (ICD-10 - M54.50) May, Depression (ICD-10 - F32.9) [facility] Other 09-10-2023 NotePre-procedure Verification and Time Out: Pre-Procedure Verification and Time Out: Procedure Locationprocedure area HUDDLE - Pre-procedure Verificationcompleted TIME OUT - Final Verificationcompleted immediately prior to procedure start DEBRIEFcompleted General Information: Anesthesia Critical Care: Non-Anesthesia Date/Time of Procedure: 23-May-2023 15:50 Indication(s)/Pre Procedure Diagnoses: submassive PE Post-Procedure Diagnosis: Submassive PE Procedure Name: percutaneous mechanical thrombectomy Findings: grossly normal anatomy Procedure performed by: me Dr. Hawkins Mandrel Maker(s): Dr. Walter Estimated Blood Loss (mL): 100 cc Specimen: no Informed Consent: written consent obtained Procedure Details: Procedure Details: Indication: SUbmassive PE. Procedure: Right femoral vein access 24 Fr sheath closed with flowstasis. successful percutaneous aspiration mechanical thrombectomy with significant amount retrieved plan - c/w heparin drip - bedrest for overnight - remove flowstasis tomorrow by one of our team members. Complications: None Attestation: Note Completion: I am a:Resident/Fellow Attending AttestationI was present for the entire procedure Electronic Signatures: Barry Walter (Fellow)) (Signed 23-May-2023 15:54) Authored: Pre-procedure Verification and Time Out, General Information, Procedure Details, Note Completion Chris Saez) (Signed 31-May-2023 10:51) Authored: Note Completion Co-Signer: Pre-procedure Verification and Time Out, General Information, Procedure Details, Note Completion Last Updated: 31-May-2023 10:51 by Chris Saez)[facility]09-10-2023 NoteReferral Information: Consult requested by (Attending Name): Dr. Corrigan Reason: depression History of Present Illness: Admission Reason: pulmonary embolism HPI: Beba Garcia is a 72 year old woman with past medical history of hypertension, hyperlipidemia, T2DM, MARYANN, hypothyroidism, osteoarthritis, chronic joint pain 2/2 psoriasis (on methotrexate), fibromyalgia, and depression who was initially presented to OSH for progressively worsening shortness of breath due to submassive PE with evidence of right heart strain on CT. Patient was subsequently transferred to [facility] for evaluation for mechanical thrombectomy after PERT call. Psychiatry was consulted on 05/23/23 for depression. On interview, patient reported feeling extremely depressed and said, (I cry all the time. (She reported that she has been depressed for a long time as she has lost a lot of immediate family members. She said her son in 2007, daughter in 2012, granddaughter in 2015, brother in 2018, and her and sister in 2019. She reported anhedonia, decreased interest in activities, and hypersomnia. She said the only time she is happy is when she is asleep because she always has good dreams. She takes paroxetine for depression which she has been on for the last 30 years. She said that dose has been increased and decreased over the years. It is managed by her primary care physician. She used to take alprazolam for sleep but has not been prescribed in over a year. Additionally, she said in the past she tried to get off of paroxetine but then she experienced electric shock like sensations in her lower extremities. She has participated in therapy in the past but has not found it useful because she has had poor experiences with various therapists. She last tried to attend therapy approximately 6 months ago. She lives at home with her or with her 17-year-old grandson and younger brother who was unable to walk and requires a lot of assistance. She has 2 other daughters that live nearby and provide support as needed. She denied any history of suicidal ideation or, self-harm, or suicide attempts. She denied any current suicidal ideation, intent or plan. Past Psychiatric History: Prior Diagnoses: depression Prior Hospitalizations: denies Hx of suicide attempts/self-harm: denies Hx of violence: denies Hx of trauma: denies Current Psychiatrist/Mental Health Agency: none Current psychiatric medications: paroxetine 20mg Past psychiatric medications: alprazolam Past psychiatric treatments/ECT: denies Family psychiatric history: bipolar disorder (daughter) SOCIAL HISTORY Currently lives: lives in a house with her grandson and brother in [place] (between [place] and [place]) Education: graduated high school, attended [employer] but never finished Work/Finances: 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 she has 4 adult daughters Social support: family Legal History: denies History: denies Access to Weapons: yes, she said that when her he left a lot of firearms. she gifted some firearms to various family members and has the others locked up at home. SUBSTANCE USE HISTORY Alcohol: denies Tobacco: former smoker Cannabis: denies Illicit substances: denies Prior Substance Abuse Treatment: denies Social History: Smoking Status: never smoker (1) Allergies: ciprofloxacin: Other (Mild) Dilantin: Swelling/Edema lisinopril: Other tetanus immune globulin: Other Wellbutrin SR: Other Hycodan: Other Keflex: Other doxycycline: Other Medications Prior to Admission: Vitamin D3 1250 mcg (50,000 intl units) oral capsule: 1 cap(s) orally once a week Vitamin B12 1000 mcg oral tablet: 1 tab(s) orally once a day hydroCHLOROthiazide 12.5 mg oral capsule: 1 cap(s) orally once a day losartan 50 mg oral tablet: 1 tab(s) orally 2 times a day ProAir HFA 90 mcg/inh inhalation aerosol: 2 puff(s) inhaled every 6 hours, As Needed levothyroxine 112 mcg (0.112 mg) oral tablet: 1 tab(s) orally once a day PARoxetine 20 mg oral tablet: 1 tab(s) orally once a day Lasix 40 mg oral tablet: 1 tab(s) orally once a day, As Needed folic acid 1 mg oral tablet: 1 tab(s) orally once a day atorvastatin 10 mg oral tablet: 1 tab(s) orally once a day oxycodone-acetaminophen 7.5 mg-300 mg oral tablet: 1 tab(s) orally every 6 hours, As Needed. OARRS Review: OARRS checked: yes OARRS Comments: OD risk score 220; weekly and previously monthly refills of oxycodone-acetaminophen and distant fills of alprazolam (last on 03/03/22) Review of Systems: Eyes: NEGATIVE: Redness ENMT: NEGATIVE: Nasal Congestion Respiratory: POSITIVE: Shortness of Breath Musculoskeletal: POSITIVE: Pain Neurological: NEGATIVE: Confusion Psychiatric: POSITIV (more content not included)...[facility] 05-23-2023 NoteHistory & Physical Reviewed: I have reviewed the History and Physical dated: 22-May-2023 History and Physical reviewed and relevant findings noted. Patient examined to review pertinent physical findings.: No significant changes Home Medications Reviewed: no changes noted Allergies Reviewed: no changes noted ERAS (Enhanced Recovery After Surgery): ERAS Patient: no Consent: COVID-19 Consent: COVID-19 Risk ConsentSurgeon has reviewed kinsey risks related to the risk of tamie COVID-19 and if they contract COVID-19 what the risks are. Attestation: Note Completion: I am a: Resident/Fellow Attending AttestationI saw and evaluated the patient. I personally obtained the kinsey and critical portions of the history and physical exam or was physically present for kinsey and critical portions performed by the resident/fellow. I reviewed the resident/fellows documentation and discussed the patient with the resident/fellow. I agree with the resident/fellows medical decision making as documented in the note. I personally evaluated the patient [id number] Electronic Signatures: Barry Walter (Fellow)) (Signed 23-May-2023 14:06) Authored: History & Physical Reviewed, ERAS, Consent, Note Completion Chris Saez) (Signed 31-May-2023 10:50) Authored: Note Completion Co-Signer: History & Physical Reviewed, ERAS, Consent, Note Completion Last Updated: 31-May-2023 10:50 by Chris Saez)[facility]09-09-2023 Hospital Discharge instructions* Activity:activity with assistance. * Additional Orders:Additional Instructions: Dear Ms. Garcia and family, You were admitted to [facility] for management of your pulmonary embolism. You originally presented to an outside hospital on 05/22 with complaints of shortness of breath and calf pain. Imaging revealed that youhad a large blood clot in your lungs. Here you underwent a procedure called a mechanical thrombectomy where they go in and suck out the blood clot from the lungs. After this procedure, your breathing significantly improved and you reported to us that you were feeling much better. You were also seen by our vascular medicine service who decided to start a blood thinner medication called lovenox, which you will inject twice a day at 8am and 8pm at home. Our nursing staff gave you teaching on how to do this yourself and luckily your daughter is a nurse who agreed to help you as well. You willstay on this medication for about 4-6 weeks and follow up in vascular medicine clinic after you re discharged. Psychiatry also saw you while you were hospitalized and recommended a change in your medications to help with your depression; we will discharge you home on these changes. Additionally, itis important that you follow up with your primary care doctor and complete your cancer screenings, s uch as a colonoscopy and mammogram. Below I have detailed all of your new medications and upcoming appointments. New medications:- Paroxetine 10mg daily (decreased from home 20mg)- Sertraline 25mg daily- Lovenox 100mg BID (for blood clot)- Prednisone 40mg for 5 days- Albuterol inhaler as needed for shortness of breath- Losartan 50mg ONCE daily (changed from home twice daily)Medications stopped:- Hydrochlorothiazide 12.5mg- Lasix 40mg as neededUpcoming appointments:- Primary care physician: Dr. Richard. We placed an order to schedule a follow up appointment, however if you do not hear from the schedulers, please call to make an appointment. The number is [phone] or [phone]- Vascularmedicine: 06/28/23 @11:10am with Dr. Florez at [facility] - Psychiatry: office requests patient to call to schedule appointment and office will schedule closest location to patient, so call [phone] to schedule appointmentIf you develop any new or concerning symptoms, please feel free to come back to the emergency room and we would be happy to treat you.Take care,Your Care TeamEnoxaparin (Lovenox ) is a blood thinner used to treat blood clots.Enoxaparin (Lovenox ) is administered only by injection under the skin using a small needle and syringe. Injections will be given twice a day.It is important that you give the injections at the same time each day.It is important that you continue your Enoxaparin injections until told to stop.Let everyone involved in your care, such as a dentist or other provider, know that you are taking Enoxaparin (Lovenox ).Side Effects: - Skin bruises, itching, and bleeding around the injection site, can occur.- If bleeding does occur, it maytake a little longer than usual to stop. Let your doctor know if you develop a rash of dark red spots under the skin.Signs of bleeding that you should call your doctor: - Gums that bleed after brushing your teeth lasting more than 15 minutes.- A nose bleed that lasts for more than 15 minutes.- Bleeding from a cut that does not stop in 15 minutes.- Urine that looks red, or urine that is dark like coffee.- Stool (BMs) that are covered with blood, or are black.- Vomit that is bright red or vomit that looks like coffee.How to administer the injection:1. Wash your hands with soap and water. Dry your hands.2. Sit down or lie flat in a comfortable position.3. Select an area on the right or left side of your stomach (at least 2 inches away from your belly button), the back of your upper arm or side of your upper thigh.4. Clean the area with an alcohol swabs. Allow the area to dry.5. Carefully pull off the needle cap from the syringe and discard cap. Leave the air bubble in the syringe. 6. Hold the syringe like a pencil in the hand you write with.7. With your other hand, gently pinch around the cleansed area to make a fold in the skin. Continue to hold the skin fold throughout the injection.8. Press the needle straight down and all the way into the skin fold.9. Press down on the plunger as far as it will go with your finger until the syringe is empty.10. Remove the needle by pulling itstraight out.11. DO NOT rub the injection site.12. Point the needle down and away from yourself andothers. Push down on the plunger to release the safety shield.13. Drop the used syringe into a thick plastic disposable container. * Call Provider If:Any new concerning symptoms. * Follow Up Appointment 1:Physician/Dept/Service: Dr. Jaquan Richard - Primary CareLocation: [address], [place] [address] Vxfzf Number: [phone]: Office requests to call patient directly to schedule appointment * Follow Up Appointment 2:Physician/Dept/Service: Dr. Kieran Florez - Vascular MedicineReason for Referral: PEScheduled Date/Time: 28-Jun-2023 11:10Location[facility] [place] [address] [address] [place], [place] [address]Dbdxj Number: [phone] * Follow Up Appointment 3:Physician/Dept/Service: PsychiatryPhone Number: [phone]: office requests patient to call to schedule appointment and office will schedule closest location to patient [facility]09-09-2023 NoteService: Critical Care Service: ServiceMICU History of Present Illness: HPI: Beba Garcia is a 72 year old female with past medical history of DENG positive joint pain/psoriasis (dx >30 years ago), on methotrexate, depression, cataracts, fibromyalgia, and osteoarthritis. She presented to OSH with 1 week of progressively worsening shortness of breath and associated calf pain. She was saturating 79% on room air with HR 130s on arrival to ED. Found to have submassive PE with evidence of right heart strain on CT and transferred to [facility] for evaluation for mechanical thrombectomy after PERT call. On arrival patient occasionally tearful. Relays she has had a difficult time over the past few yars. 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 Her son also passed a few years ago and recently she had a sibling pass away. Her 2 years ago and she was very depressed after that. She had recently begun feeling a bit better but now has a PE. She denies any recent travel on planes/trains/cars. She is very sedentary and has not had much change in her activity level lately. Upon arrival to the unit: - Vitals: T 35.3C, HR 119, BP 105/72, RR 12, SpO2 99% on 6L NC - Labs: CBC: WBC 11.0, Hgb 15.2, plt 248 BMP: Na 140, K 4.5, Cl 101, HCO3 32.2, BUN 9, Cr 0.85, glu 197 LFT: Ca 9.4, tprot 6.6, alb 3.8, alkphos 51, AST 22, ALT 22, tbili 0.3 BNP 50, lactate 2.1, creatine kinase 54, troponin 189.7 UA: negative LE, negative nitrite, negative ketones, 3-4 WBC, 0-1 RBC, 5-9 squamous epithelials, 1+ bacteria. UCx: bacterial skin contaminants Respiratory viral panel: negative, covid negative, influenza negative - Imaging: CT PE 9/8: CDs sent to radiology lab to be uploaded into [facility] CT Angio Chest 05/21/23 WET READ: Large saddle embolus noted in main pulmonary artery. This extends into multiple bilateral branches. Right heart failure suspected with RV/LV 1.2-1.4. Bilateral patchy ground-glass consolidation, greater on right. Finding may be secondary to pulmonary emboli. Pneumonia is also on the differential. Please correlate clinically. Right middle lobe and left lingular atelectasis. No significant mediastinal or hilar adenopathy. No free pleural fluid noted. Cervical fusion hardware partially visualized. Degenerative change throughout thoracic spine. No bony abnormality. Cholelithiasis. Thoracic aorta normal caliber without dissection, Heart size normal. Great vessel origins patent. No coronary calcifications. EKG 05/21: S1Q3T3 onted on EKG. Sinus tachycardia, left axis deviation, low voltage QRS, inferior infarct, age undetermined. Possible anterolateral infarct, age undetermined. QTc 426 PMH: DENG positive joint pain/psoriasis (dx >30 years ago) previously on methotrexate, depression, cataracts, fibromyalgia, remote seizure disorder, DMT2, MARYANN, HTN and osteoarthritis SurgHx: appendectomy 2004, cervical spine surgery 2006, carpal tunnel release 2006, hysteroscopy, tonsillectomy/adenoidectomy, x3 Allergies: ciprofloxacin- SOB, Dilantin swelling, doxycycline mouth sores/rash mouth/tongue swollen, tetanus IgG unknown, Keflex- N/D/thrush, metformin- sister had sandra zachery syndrome, wellbutrin- hx seizures, Hycodan- kept patient awake/alert, Lisinopril swollen legs SocHx: has 2 dogs (dimitriiff, maria a), chronically ill passed in 2020. Ex-smoker, 4 cigs/day x 10 years, denies illicits, denies alcohol. Lives at home with brother, nephew and grandson. FamHx: daughter and granddaughter with IVDU, daughter with liver cancer, daughter diabetes, father- heart disease, HTN. Mother- diabetes, sister diabetes Home Medications Methotrexate 2.5mg 10 tabs once a week with food Vitamin D3 50,000 IU once a week Vitamin B12 1000mcg daily HCTZ 12.5mg daily Losartan 50mg BID ProAir inhaler 2 puffs q4h prn Magnesium 30mg daily Levothyroxine 112mcg daily Paroxetine 20mg daily Lasix 40mg daily prn Folic acid 1mg daily Atorvastatin 10mg daily Prednisone 20mg daily stopped 1 week prior to admission Oxycodone-acetaminophen 7.5-325 mg 1 tab orally qid for 7 days (start date 05/19/23) Comorbidities: Comorbidites: Comorbid Conditionsdiabetes Diabetes TypeType 2 Insulin Dependentno DM Acuity or Statusunknown DM Complicationsunknown Social History: Social History: Smoking Statusnever smoker (1) Allergies: ciprofloxacin: Other (Mild) Dilantin: Swelling/Edema lisinopril: Other tetanus immune globulin: Other Wellbutrin SR: Other Hycodan: Other Keflex: Other doxycycline: Other Medications Prior to Admission: Vitamin D3 1250 mcg (50,000 intl units) oral capsule: 1 cap(s) orally once a week Vitamin B12 1000 mcg oral tablet: 1 tab(s) orally once a day hydroCHLOROthiazide 12.5 mg oral capsule: 1 cap(s) orally once a day losartan 50 mg oral tablet: 1 tab(s) (more content not included)...[facility]09-06-2023 Evaluation note* Encounter Date Diagnosis Assessment Notes Treatment Notes Treatment Clinical Notes May, Lumbar pain (ICD-10 - M54.50) [facility] Other 08-30-2023 Evaluation note* Encounter Date Diagnosis Assessment Notes Treatment Notes Treatment Clinical Notes Apr, Lumbar pain (ICD-10 - M54.50) [facility] Other 08-23-2023 Evaluation note* Encounter Date Diagnosis Assessment Notes Treatment Notes Treatment Clinical Notes Apr, Lumbar pain (ICD-10 - M54.50) [facility] Other 08-16-2023 Evaluation note* Encounter Date Diagnosis Assessment Notes Treatment Notes Treatment Clinical Notes Apr, Lumbar pain (ICD-10 - M54.50) [facility] Other 08-08-2023 History of Present illness Narrative* Jalil Kiran DO - 04/20/2023 1:37 PM EDTAssociated Order(s): Large Joint Arthro/Inj: bilateral knee joints Post-Procedure Diagnose(s): Primary osteoarthritis of knees, bilateral Images from the original note were not included. Beba Garcia is a patient of Jaquan Richard DO. CHIEF COMPLAINT: Beba Garcia is a 72 year old female who presents today for follow up of bilateral knee pain. HISTORY OF PRESENT ILLNESS: PAIN EVALUATION 04/20/2023 1338 Pain Level: 8 Pain Location: Knee-Left bilateral knee pain Description: Sharp Duration Amount of Time: 4 Duration Units: Months Frequency: Continuous Intervention/Comfort measure: Medication Comments: PT here for bilateral knee pain 04/22. PT is requesting cortisone injections today. Follow-up of the knee pain Did have relief from the visco done about 3 months ago Denies any new injury PHYSICAL EXAMINATION: Specific MSK Exam TTP over the medial joint lines No decreased ROM of the knees IMAGING: No imaging was performed today. CLINICAL IMPRESSION / ASSESSMENT: (M17.0) Primary osteoarthritis of knees, bilateral (primary encounter diagnosis) PLAN: Discussed treatment options for the knee OA- CSI, visco, surgery Will proceed with CSI at this time Follow-up in 3 months- can be virtual/phone for visco submission Large Joint Arthro/Inj: bilateral knee joints Informed Consent Consent Obtained: Verbal [place] Protocol A moment to CARE was completed. SIGN IN Personnel directly involved with the procedure wore the appropriate PPE. Special Equipment: N/A Patient/Surrogate Stated/Verified: Patient name, Date of , Relevant allergies and Intended procedure TIME OUT Intended patient and procedure match the source document(s). Relevant labs, photos, and/or imaging studies have been reviewed. Correct side/site marked and visible. Medications required for procedure verified. No fire risk assessment and interventions applicable. No implant(s) inserted. 04/20/2023 1:52 PM The procedure site was prepped in the usual sterile fashion. Site: bilateral knee joints Medications (Right): 40 mg triamcinolone acetonide 40 mg/mL Medications (Left): 40 mg triamcinolone acetonide 40 mg/mL Anesthetics (Right): 4 mL lidocaine (PF) 10 mg/mL (1 %) Anesthetics (Left): 4 mL lidocaine (PF) 10 mg/mL (1 %) Outcome: Tolerated well, no immediate complications Post-injection instructions were reviewed with the patient and the patient voiced understanding of these instructions. SIGN OUT All instruments, equipment, possible retained foreign bodies accounted for. Jalil Kiran DO [facility]* Encounter Date Diagnosis Assessment Notes Treatment Notes Treatment Clinical Notes Apr, Psoriatic arthritis (ICD-10 - L40.50) She has not seen Dr. Hope for evaluation since last year (2021). She believes she has an appointment in May (2022) but stopped taking the Methotrexate so she is not sure she wants to keep the appointment. The medicine makes her sick and nauseous so she does not like to take them. She read about the side effects and talked to Dr. Hope about this and she was told that her disease will cause her to have cancer and not the medicine. Apr, Polyarthralgia (ICD-10 - M25.50) She is currently hurting all over, everything hurts. Her joints and muscles hurt. She started Vitamin D which did seem to help some of her pain. Her pain is in her arm, shoulders, neck. She has trouble holding her head up when she has bad spells. She voices that she was going to attend PT after she was seen last but then she started feeling poorly. I would like to place her on a low dose of Prednisone to see if this helps improve her pain. Side effects/risks/soni efits of medication were reviewed. I would like her to take the Prednisone daily until she is seen by Dr. Hope. In one month I would have her go down to Prednisone 15 MG and then wean her down from there. She cannot take any NSAID medicine while she is on the Prednisone. Apr, Knee pain (ICD-10 - M25.569) bilateral Dr. Kiran is an orthopedic doctor who will see her for her bilateral knee pain and she will be seeing him on 04-20-23 for injections. She does not feel that the injections help but the last ones were gel injections and they seemed to help for a short time. Apr, Vitamin D deficiency (ICD-10 - E55.9) She did begin using Vitamin D and voices that she started feeling better after she started the medication. Apr, Lumbar pain (ICD-10 - M54.50) She took her last pain pill today so she could make it to her appointment. She voices that she cannot function if she does not take more than she should. She had to have her grand daughter help her get out of bed today to help her get dressed. She is in pain all over her body. She is tearful in the office today. I made it clear that she cannot fill her pain medication early. I will only fill her pain medication weekly from now on because she is using more than she should. She wants a higher dose because she says she cannot get around due to the pain she is in. She had to have two people help her to get into her car. If she goes without pain medicine she has to lay in bed for a week. She says she is not a drug addict, she just wants to live. I will change the dose today but explained to her that it is up to the pharmacist as to whether or not they will fill this for her early. I will provide her with the higher dose written as four a day and she cannot fill this early. I will only give her a 7 day supply, she will need to call next week for a refill. Side effects/risks/soni efits of medication were reviewed. An OARRS report was printed and reviewed, no discrepancies noted. Frequent appointments needed due to addiction potential of medication. Pain inventory sheet completed and reviewed if opiod medication given. Pain contract is on file if pertinent. Patient will have office visits every three months for evaluation or sooner if needed. I discussed addiction potential of medication with the patient. Discussed with the patient and provided a treatment plan including the use of non-opiod analgesics and non-pharmacologica l intervention with patient if treated for pain. We have discussed realistic benefits and known risks of opiod/controlled therapy and the expected benefits for both pain and function. These benefits outweigh the risks. Patient has been counselled on the dangers of combining opiods/controlled prescriptions with alcohol or other sedatives and counseled on the safe storage and disposal of opiods/controlled prescriptions. Do not drive or operate heavy machinery after taking opiod/controlled medication. I have verified that no current substance abuse treatments are being prescribed. Apr, Depression (ICD-10 - F32.9) We discussed putting her on Cymbalta instead of Paxil. She thinks her depression is from her Vitamin D being low. She is crying and tearful in the office but says that this is due to the pain she is in. Apr, Other She voices that she gets pain in the left side of her head, it sounds like a muscle tension headache the way she describes it. She does have vision issues. I did advise her that Prednisone can cause cataracts. She understands this and the risks/benefits of taking Prednisone and is willing to take this medication. She does need to return for a follow up eye exam. [facility] Other 07-12-2023 Evaluation note* Encounter Date Diagnosis Assessment Notes Treatment Notes Treatment Clinical Notes Mar, Hypothyroidism (ICD-10 - E03.9) Her thyroid lab was not drawn with this lab draw. She is to continue with the same dose of Levothyroxine daily. Mar, Hypertension (ICD-10 - I10) At this time she is to continue with above medications daily as directed. Mar, Depression (ICD-10 - F32.9) She voices that she has been in so much pain and has not been able to get out of bed for the last few days. Continue with above medication daily as directed. Mar, Edema (ICD-10 - R60.9) Continue with above medications as needed. Mar, Asthma (ICD-10 - J45.909) Continue with above medication as directed. Mar, Hyperglycemia (ICD-10 - R73.9) Discussed blood sugar results with patient today. Glucose is 120. HgA1C is up from 6.5 to 6.7. Again, we discussed that she should try to eat a healthy diet. She has been drinking Gatorade but recently switched to Life water. I encouraged her to cut back on her intake of carbs and sugars. I did recommend that she start treatment to help lower her blood sugar. Her sister took Metformin and got Sandra Zachery syndrome, so she does not want to take this. She does not eat twice a day, she nibbles here and there. She would like to watch her diet and see how she does again in six months. In the future if she is unable to lower her A1C on her own then we may discuss placing her on Glimepiride. Mar, Hyperlipidemia (ICD-10 - E78.5) Discussed cholesterol results with patient today. Total is 266. HDL is 71. LDL is 67. Triglycerides are 141. VLDL is 28. I would like her to continue with above medication daily as directed. Watch intake of carbs and sugars. Mar, Macrocytosis (ICD-10 - D75.89) Her Vitamin B12 level is 431. Folate is 39. I would like her to continue with the B12 vitamin daily. Mar, Vitamin D deficiency (ICD-10 - E55.9) Her Vitamin D level is 24.1. She admits she ran out of her Vitamin D and is encouraged to return to taking the Vitamin D supplement. 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 She has had pain this significant in her body three times total in her life. The pain did cause her to take more pain medication then she should have. She did also take Prednisone to try to provide some relief, she completed the treatment course of Prednisone and continues to hurt. Mar, Lumbar pain (ICD-10 - M54.50) She voices that due to significant pain in her body she did take more pain medication than she should have which caused her to be out of the medication. She was told that she should not be taking more than four per day. Her pain medication was sent to the pharmacy yesterday but she will have to discuss with the pharmacist when she can fill the prescription. She did not start physical therapy even though she wanted to do this. I did recommend that she consider doing this. Mar, Knee pain (ICD-10 - M25.569) bilateral She voices that she had Prednisone on hand at home and took the medicine which did help her knee pain but it does continue. Mar, Atrial fibrillation (ICD-10 - I48.91) Continue with above medication daily. Mar, Psoriatic arthritis (ICD-10 - L40.50) Continue with above medication, follow with Dr. Hope as scheduled. Mar, Chest pain (ICD-10 - R07.9) She did not have the stress test done since last seen. I did recommend that she have this done. Mar, Other I did recommend that she have a mammogram done, she has the order and is to have this done when she can. 1:28 PM - 1:50 PM [facility] Other 06-14-2023 Evaluation note* Encounter Date Diagnosis Assessment Notes Treatment Notes Treatment Clinical Notes Feb, Lumbar pain (ICD-10 - M54.50) [facility] Other 05-10-2023 Evaluation note* Encounter Date Diagnosis Assessment Notes Treatment Notes Treatment Clinical Notes January, Lumbar pain (ICD-10 - M54.50) [facility] Other 04-14-2023 Evaluation note* Encounter Date Diagnosis Assessment Notes Treatment Notes Treatment Clinical Notes Dec, Lumbar pain (ICD-10 - M54.50) [facility] Other 04-13-2023 Miscellaneous Notes* Telephone Encounter - Kitty Ballesteros MA - 12/24/2022 1:12 PM EDT Responded back to to the patient * Telephone Encounter - Maty Romero - 12/24/2022 1:08 PM EDT Contacted patient and scheduled gel injection with Dr. Kiran. * Telephone Encounter - Leora Schmidt RN - 12/24/2022 11:41 AM EDT Patient calling in to office. Verified by name and . Patient states that she just received a call this morning from the office, but did not receive a message. No encounter in [facility] regarding a call attempt. Patient states that during her recent office visit with Dr. Kiran, further inquiry would be made into gel injections for her knees. Patient inquiring if there is any further information as to where they are in the process of havingapproved by insurance. Please call patient to notify. [facility]* Encounter Date Diagnosis Assessment Notes Treatment Notes Treatment Clinical Notes Nov, Lumbar pain (ICD-10 - M54.50) [facility] Other 02-23-2023 Evaluation note* Encounter Date Diagnosis Assessment Notes Treatment Notes Treatment Clinical Notes Oct, Hypertension (ICD-10 - I10) Oct, Anxiety (ICD-10 - F41.9) [facility] Other 02-16-2023 Evaluation note* Encounter Date Diagnosis Assessment Notes Treatment Notes Treatment Clinical Notes Oct, Lumbar pain (ICD-10 - M54.50) [facility] Other 01-19-2023 Evaluation note* Encounter Date Diagnosis Assessment Notes Treatment Notes Treatment Clinical Notes Sep, Other low back pain (ICD-10 - M54.59) [facility] Other 01-18-2023 Evaluation note* Encounter Date Diagnosis Assessment Notes Treatment Notes Treatment Clinical Notes Sep, Anxiety (ICD-10 - F41.9) Sep, Psoriatic arthritis (ICD-10 - L40.50) [facility] Other 01-18-2023 Evaluation note* Encounter Date Diagnosis Assessment Notes Treatment Notes Treatment Clinical Notes Sep, Hypothyroidism (ICD-10 - E03.9) She did see Dr. Atkinson for evaluation, he sent her for a scan and when she returned for follow up she was told her thyroid was gone . She voices that it was easier for her to swallow and Dr. Atkinson told her that her thyroid was very tiny. Her thyroid dose was raised to 112 MCG daily and we will repeat lab in December (2022). Sep, Anxiety (ICD-10 - F41.9) She does continue to use and benefit from the Xanax. An OARRS report was reviewed no discrepancies noted. Frequent appointments needed due to addiction potential of medication. Side effects/risks/bene fits of medication were reviewed. Sep, Psoriatic arthritis (ICD-10 - L40.50) She voices that she had an appointment to see Dr. Hope tomorrow 10-01-22 but cancelled this because she has to take her brother to have surgery and now she cannot get in for several months. She does not want to take Methotrexate any longer because she does not like the side effects and what she reads about this. She would like to take Prednisone when she needs it. I did advise her that there are side effects to taking Prednisone. If she wants a daily dose of Prednisone this would need to be discussed with Dr. Hope. I did advise her that I am comfortable prescribing Prednisone for her to take 2 tablets a day x5 days but if she does not need the entire five days she does not have to take it. She is to use it as needed. Side effects/risks/bene fits of medication were reviewed. Sep, Lumbar pain (ICD-10 - M54.50) She does continue to use and benefit from the pain medication but admits there are days when her pain is severe and the pain medication does not help. An OARRS report was reviewed, no discrepancies noted. Frequent appointments needed due to addiction potential of medication. Pain inventory sheet completed verbally and reviewed. I will see her back in three months. Side effects/risks/bene fits of medication were reviewed. She voices that she returned to see Dr. Kiran for her back and he will see her back in three months. He advised her to lose weight. He wanted her to have a nerve ablation but she had to put this off because she was in so much pain. She was to schedule an appointment with pain management in [place] but has not done this yet. She is told that she could see Dr. Cherry locally or Dr. Worthington if she would like. I will refer her to Dr. Cherry. Sep, Depression (ICD-10 - F32.9) She voices that she has accepted the of her but there are days when she sits and cries and cannot do anything. She has trouble sleeping at night. She questions Remeron and is told that she cannot be on this and Paroxetine. I do not usually prescribe this medication and am not comfortable prescribing this medication. This medication may be beneficial for her. There is a cross reaction with the Remeron and Doxycycline and with her Paroxetine. I did recommend that she contact [facility] and see if she can see their physchiatrist FREELANCE WRITER for evaluation and to discuss this medicine. She does agree to this and was given their information. She will call and schedule this appointment herself. Patient was NOT given a prescription for Remeron today. Sep, Other 1:08 PM - 1:36 PM She has an appointment to see Dr. Vyas on Wednesday10-05-22. [facility] Other 01-16-2023 Evaluation note* Encounter Date Diagnosis Assessment Notes Treatment Notes Treatment Clinical Notes Sep, Lumbar pain (ICD-10 - M54.50) [facility] Other 12-22-2022 History of Present illness Narrative* Jalil Kiran DO - 09/03/2022 2:24 PM ESTAssociated Order(s): Large Joint Arthro/Inj: bilateral knee joints Post-Procedure Diagnose(s): Primary osteoarthritis of knees, bilateral Images from the original note were not included. Beba Garcia is a patient of Jaquan Richard DO. CHIEF COMPLAINT: Beba Garcia is a 72 year old female who presents today for follow up of bilateral knee pain. HISTORY OF PRESENT ILLNESS: PAIN EVALUATION 09/03/2022 1110 Pain Level: 8 Pain Location: Knee-Left Bilateral Description: Aching;Sharp;Dull;Stabbing;Sore Duration Units: Years Frequency: Continuous Intervention/Comfort measure: Medication;Cold;Heat;Relaxation;Reposition Follow-up of the bilateral knees Last seen about 3 months ago Received CSI to both knees at that time, helped temporarily Did not go to pain management appt because she was nervous about the procedure Denies any new injury SOCIAL HISTORY: Tobacco Use: Never PHYSICAL EXAMINATION: Specific MSK Exam No effusion noted Antalgic gait Nod ecreased ROM IMAGING: No imaging was performed today. CLINICAL IMPRESSION / ASSESSMENT: (M17.0) Primary osteoarthritis of knees, bilateral (primary encounter diagnosis) PLAN: Will proceed with CSI to both knees Again recommended at least a consult with pain management to discuss RFA Follow-up as needed Large Joint Arthro/Inj: bilateral knee joints Informed Consent Consent Obtained: Verbal [place] Protocol A moment to CARE was completed. SIGN IN Personnel directly involved with the procedure wore the appropriate PPE. Special Equipment: N/A Patient/Surrogate Stated/Verified: Patient name, Date of , Relevant allergies and Intended procedure TIME OUT Intended patient and procedure match the source document(s). Consent documented and matches the intended procedure. No relevant labs, photos, and/or imaging studies were applicable for review. Correct side/site marked and visible. Medications required for procedure verified. No fire risk assessment and interventions applicable. No implant(s) inserted. 09/03/2022 2:26 PM The procedure site was prepped in the usual sterile fashion. Site: bilateral knee joints Medications (Right): 40 mg triamcinolone acetonide 40 mg/mL Medications (Left): 40 mg triamcinolone acetonide 40 mg/mL Anesthetics (Right): 4 mL lidocaine (PF) 10 mg/mL (1 %) Anesthetics (Left): 4 mL lidocaine (PF) 10 mg/mL (1 %) Outcome: Tolerated well, no immediate complications Post-injection instructions were reviewed with the patient and the patient voiced understanding of these instructions. SIGN OUT No specimen collected. No instruments, equipment or retained foreign bodies applicable. Post-procedure follow-up management communicated and Plan of Care Visit completed when applicable Jalil Kiran DO documented in this encounterSt[facility]* Encounter Date Diagnosis Assessment Notes Treatment Notes Treatment Clinical Notes Aug, Lumbar pain (ICD-10 - M54.50) Aug, Hypothyroidism (ICD-10 - E03.9) [facility] Other 11-17-2022 Evaluation note* Encounter Date Diagnosis Assessment Notes Treatment Notes Treatment Clinical Notes Jul, Lumbar pain (ICD-10 - M54.50) [facility] Other 10-31-2022 Evaluation note* Encounter Date Diagnosis Assessment Notes Treatment Notes Treatment Clinical Notes Jun, Hypertension (ICD-10 - I10) Her blood pressure is controlled. Continue with above medications daily as directed. Jun, Hypothyroidism (ICD-10 - E03.9) Discussed thyroid results with her today. TSH is 6.76. Free T3 is 2.90. Free T4 is 0.85. She is having a biopsy of her thyroid done on 07-27-[address] Atkinson. I was going to adjust her thyroid dose but I will instead have her show these results to Dr. Atkinson and they can discuss these results and determine if she needs to change her dose or not. Jun, Hyperglycemia (ICD-10 - R73.9) Discussed blood sugar results with patient today. Glucose is 109. HgA1C is 6.5 which is higher than we would like to see. She admits that she could make improvements with her diet. I did recommend that she watch her intake of carbs and sugars. Stay active. Jun, Hyperlipidemia (ICD-10 - E78.5) She voices that she has not taken the statin in a year because her cholesterol level had been good and she was not eating alot of high cholesterol foods. We discussed her cholesterol results today. Total is 266. HDL is 73. LDL is 170. Triglycerides are 115. VLDL is 23. I did recommend that she restart the statin medicine and she agrees. Jun, Anxiety (ICD-10 - F41.9) Continue with above medication daily as directed. Jun, Edema (ICD-10 - R60.9) Continue with above medications as directed. Jun, Asthma (ICD-10 - J45.909) Continue to use above medication as needed. Jun, Macrocytosis (ICD-10 - D75.89) Her Vitamin B12 level is 340. Folate is 20.2. I did recommend that she take the B12 supplement daily. Jun, Depression (ICD-10 - F32.9) She voices that this time of year is difficult for her, she just passed the anniversary of when she lost her . She voices that there are times when she becomes depressed and she cannot leave her home. Jun, Atrial fibrillation (ICD-10 - I48.91) She does take above medication daily. Jun, Psoriatic arthritis (ICD-10 - L40.50) She voices that she rarely takes the Methotrexate but she does take the Folic acid. Jun, Vitamin D deficiency (ICD-10 - E55.9) Her Vitamin D level is 35.4. Jun, Lumbar pain (ICD-10 - M54.50) An OARRS report was reviewed no discrepancies noted. Frequent appointments needed due to addiction potential of medication. She does continue with above medication but does not feel that it works very well to help control her pain. She does need to be seen every three months for evaluation. Side effects/risks/benef its of medication were reviewed. 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 I did recommend physical therapy but due to cost she does not want to do this. She will let me know if/when she changes her mind. Jun, Hematuria (ICD-10 - R31.9) Jun, Other She has bruises on both of her lower arms that she voices are from her dogs. She has a small, medium and large dog all whom she enjoys playing with and they tend to scratch up her arms causing the davis she has on both of her arms today. She will continue to monitor. She is having cataract surgery done soon at the [facility]. [facility] Other 10-20-2022 Evaluation note* Encounter Date Diagnosis Assessment Notes Treatment Notes Treatment Clinical Notes Jun, Lumbar pain (ICD-10 - M54.50) [facility] Other 10-11-2022 Miscellaneous Notes* Telephone Encounter - Yulia Baltazar MA - 06/23/2022 3:28 PM EDT Patient was advised of the following: This is a follow up phone call regarding your appointment with Dr Busch, which you are scheduled to see at [facility] on 06/24/2022. 1) Have you been evaluated and treated by a Pain Management physician currently or in the past? If so, we will need a release of care from your previous physician. 2) Have you had any outside x-rays or MRI's related to the pain you are being seen for? If so, please bring copies to your appointment with you. Also please recall that our physicians will not take over medications. You will need to make sure you have enough pain medications to last until your follow up appointment with your current prescribing physician. Dr. Busch is primarily an interventional pain management provider, which means, they treat with physical therapy, injections and non-narcotic medications. Any questions or you need to reschedule please call us at [phone]. Spoke with patient new patient policy given she voiced understanding Yulia Baltazar MA documented in this encounterSt. [facility]* Encounter Date Diagnosis Assessment Notes Treatment Notes Treatment Clinical Notes May, Lumbar pain (ICD-10 - M54.50) [facility] Other 09-14-2022 History of Present illness Narrative* Jalil Kiran DO - 05/27/2022 2:50 PM EDTAssociated Order(s): Large Joint Arthro/Inj: bilateral knee joints Post-Procedure Diagnose(s): Primary osteoarthritis of knees, bilateral Images from the original note were not included. Beba Garcia is a patient of Jaquan Richard DO. CHIEF COMPLAINT: Beba Garcia is a 71 year old female who presents today for follow up of bilateral knee pain. HISTORY OF PRESENT ILLNESS: PAIN EVALUATION 05/27/2022 1407 Pain Level: 5 Pain Location: Other: See Comment both knees Description: Aching;Sore;Dull Duration Units: Months Frequency: Intermittent Intervention/Comfort measure: Relaxation;Reposition Follow-up of the bilateral knee pain Last seen about 1 year ago Denies any new injury SOCIAL HISTORY: Tobacco Use: Never PHYSICAL EXAMINATION: Specific MSK Exam TTP over the medial and lateral joint line No decreased ROM of the knees IMAGING: No imaging was performed today. CLINICAL IMPRESSION / ASSESSMENT: (M17.0) Primary osteoarthritis of knees, bilateral (primary encounter diagnosis) PLAN: Will proceed with CSI to both knees at this time Consult to pain management placed for consideration of radiofrequency ablation She will try to continue to work on weight loss Follow-up as needed Large Joint Arthro/Inj: bilateral knee joints Informed Consent Consent Obtained: Verbal [place] Protocol A moment to CARE was completed. SIGN IN Personnel directly involved with the procedure wore the appropriate PPE. Special Equipment: N/A Patient/Surrogate Stated/Verified: Patient name, Date of , Relevant allergies and Intended procedure TIME OUT Intended patient and procedure match the source document(s). Consent documented and matches the intended procedure. No relevant labs, photos, and/or imaging studies were applicable for review. Correct side/site marked and visible. Medications required for procedure verified. No fire risk assessment and interventions applicable. No implant(s) inserted. 05/27/2022 2:51 PM The procedure site was prepped in the usual sterile fashion. Site: bilateral knee joints Medications (Right): 40 mg triamcinolone acetonide 40 mg/mL Medications (Left): 40 mg triamcinolone acetonide 40 mg/mL Anesthetics (Right): 4 mL lidocaine (PF) 10 mg/mL (1 %) Anesthetics (Left): 4 mL lidocaine (PF) 10 mg/mL (1 %) Outcome: Tolerated well, no immediate complications Post-injection instructions were reviewed with the patient and the patient voiced understanding of these instructions. SIGN OUT No specimen collected. No instruments, equipment or retained foreign bodies applicable. Post-procedure follow-up management communicated and Plan of Care Visit completed when applicable Jalil Kiran DO documented in this [facility]09-14-2022 Instructions* Patient Instructions* Jalil Kiran DO - 05/27/2022 2:[address] Jeffries or Dr. Busch documented in this [facility]08-22-2022 Evaluation note* Encounter Date Diagnosis Assessment Notes Treatment Notes Treatment Clinical Notes Apr, Lumbar pain (ICD-10 - M54.50) [facility] Other 07-13-2022 Evaluation note* Encounter Date Diagnosis Assessment Notes Treatment Notes Treatment Clinical Notes Mar, Acute sinusitis (ICD-10 - J01.90) She did not take much of the Augmentin because it caused an upset stomach so she continues to have sinus symptoms. I did explain to her that this medication can cause this. I can provide her with a prescription for plain Amoxicillin. Guidance is given on how to take the medication. Eat yogurt daily while on ATB to prevent GI upset. Rest, push fluids. Mar, Knee pain (ICD-10 - M25.569) bilateral She voices that she has to take two pain pills just to get down the steps to get to her vehicle and because of this then she has to go a day without pain medication because she is short on her medication. Her knees hurt and she cannot move her knees when sitting down. She got injections in both her knees last month which helped a little bit but it did not take away the pain. She has to wait every three months to get an injection. She voices that Dr. Kiran told her that she would have to lose weight before surgery could be done. We discussed that she can return to see Dr. Hughes for evaluation and that she may need to consider having knee surgery. She did stop her Atorvastatin but this has not helped her pain. Mar, Hyperlipidemia (ICD-10 - E78.5) She has not been taking the Atorvastatin because she wanted to see if this would help her body wide pain. She is going to have her lab drawn soon and will see where her cholesterol levels are at. Mar, Lumbar pain (ICD-10 - M54.50) An OARRS report was reviewed no discrepancies noted. Frequent appointments needed due to addiction potential of medication. Pain inventory completed and reviewed. She needs to be seen again in three months. Side effects/risks/benef its of medication were reviewed. She is tearful today because she has needed to use more pain medicine then she knows she should due to the amount of pain she is in. Addiction potential was reviewed. She would like to stop the Xanax so that she can have stronger pain medication to help control her pain better. Guidance is given on how to take the Percocet. She is encouraged to fill the prescription as soon as she gets it. Mar, Anxiety (ICD-10 - F41.9) She is not going to take anymore Xanax right now. She feels that the pain she is in takes priority over the anxiety she has so she is willing to stop the Xanax. She says she was only taking the Xanax when she couldn't stop crying. Side effects/risks/benef its of medication were reviewed. An OARRS report was reviewed no discrepancies noted. She does continue to take the Paxil daily. Mar, Depression (ICD-10 - F32.9) She admits she is depressed because her body hurts all over, her knees, her neck and shoulder all hurt. She does not feel that she is crying as much as she was since her . She is taking Paxil daily. Mar, Other 1:34 PM - 1:53 PM She is to have lab drawn soon and then call for results. [facility] Other 07-06-2022 Evaluation note* Encounter Date Diagnosis Assessment Notes Treatment Notes Treatment Clinical Notes Mar, Asthma (ICD-10 - J45.909) [facility] Other 06-23-2022 Evaluation note* Encounter Date Diagnosis Assessment Notes Treatment Notes Treatment Clinical Notes Feb, Lumbar pain (ICD-10 - M54.50) Feb, Anxiety (ICD-10 - F41.9) [facility] Other 06-06-2022 Miscellaneous Notes* Telephone Encounter - Dimitry Moe MA - 02/16/2022 8:19 AM EDT Spoke to pt aware of results and recommendations. * Telephone Encounter - William Hope MD - 02/15/2022 8:00 PM EDT Please Call patient if MyChart note not read to review results/released to My Chart if tests completed at [facility]: One mildly high inflammatory test- likely from recent infection, will monitor. Normal/improved rest of labs. Continue same daily vitamin D with food. Recheck nonfasting labs in 3months.The orders have been placed. Happy to further review and discuss at follow up visit. Continue rest of treatment plan per instructions at last office visit. Thank you. 02/12/22 high esr 35(27);NL cbc, cmp, crp 0.7, uric acid 6.1, vitamin D 53.7; [facility] Miscellaneous Notes* Telephone Encounter - William Hope MD - 02/14/2022 7:21 AM EDT Notify patient medication sent as requested Thank you. Patient's request for medication is as follows: Pending Prescriptions: Disp Refills methotrexate 2.5 mg tablet 40 tablet 11 Sig: TAKE 10 TABLETS BY MOUTH ONCE A WEEK WITH FOOD. NO ALCOHOL. HOLD IF ILL OR ON ANTIBIOTICS DAMIAN: No Prescription(s) as above. Please process accordingly. William Hope MD * Telephone Encounter - Criss Harrell LPN - 02/13/2022 1:37 PM EDT [employer] faxes denial of methotrexate PA based on quantity restrictions. Plan limited to 30 day supply: Pharmacy electronically requests the following refill(s) Pending Prescriptions Disp Refills METHOTREXATE SODIUM 2.5 MG TABLET 40 tablet 11 Sig: TAKE 10 TABLETS BY MOUTH ONCE A WEEK WITH FOOD. NO ALCOHOL. HOLD IF ILL OR ON ANTIBIOTICS DAMIAN: No Criss Harrell LPN [facility] History of Present illness Narrative* William Hope MD - 02/12/2022 12:20 PM EDT Face to face Follow up for+DENG/psoriasis/inflammatory arthritis/ degenerative joint disease/ CTS Today's visit 02/12/22:saw ortho 04/23/21 steroid injections of both knees. Had gel injections of R knee 01/2021. Wants to try the gel injections again. taking methotrexate 10tab weekly (was off for sinus infection/COVID infection), vitamin D 4000 International Units daily with food (completed vitamin D script), calcium 2tabs daily. Chronic current pain in both knees, L>R thumbs, R>L shoulder, back, hands. Reports pain 3-6/10. minimal AM stiffness. brusies and scratches on forearms when dog scratches her when greeting her. Went to ED when taking BP medication. 08/2021 had COVID19 infection.COVID vaccine Moderna December and January 2021. More eye changes, worsening cataracts, retina changes on right side. S/p ptosis surgery ~11/2021. Feels safe at home. Has enough food, supplies and medications. Overall mildly uncomfortable but happy with rheum care. No falls/fx/trauma/illness/oral sores/rash/hairloss/jaw pain/dysphagia/epistaxis/hemoptysis since last visit. No adverse effects with meds. No other complaints. Patient denies fever, chills, cp, dyspnea, nausea, vomiting, night sweats, scalptenderness, visual changes, richard, bowel/bladder changes, weight changes or other complaints. Last visit supportive care, offered grief counseling, decrease stress, follow up with ortho/knee/shoulder/CTS (patient wants to postpone surgeries), follow up neurology/patient request, improved with methotrexate 10tabs once a week, daily folic acid, follow up psychiatry/ primary care provider for depression care, for flares take prednisone marii, prn heat/ice/otc arthritis creams, decrease stress, gout frie ndly diet/start gout med if repeat uric acid high, start low impact weightbearing exercise as tolerated, f/u with Pulm/PCP, offered consult psychiatry/patient declined, avoid aggravating triggers, 12/12/20:fell on R side tripped on steps for 3dogs (pug/mastiff/chihuahua) to climb onto bed. Hug bruise on R side of thigh. R knee pain/calf pain/swelling. Not active. Sits all day. Had 2nd Moderna COVID vaccines today. Depressed . Best friend from COVID. Many other family members . Uses cane. Not drinking much water. Gained weight. Reports pain 3-6/10. Minimal AM stiffness. Chronic hand pain/back/knee/wrist pain.Denies SI/HI. Feels safe at home. Has enough food, supplies and medications. Has not started vitamin D script yet. Same Overall mildly uncomfortable but happy with rheum care. No falls/fx/trauma/illness/oral sores/rash/hairloss/jaw pain/dysphagia/epistaxis/hemoptysis since last visit. No adverse effects with meds. No other complaints. Patient denies fever, chills, cp, dyspnea, nausea, vomiting, night sweats, scalp tenderness, visual changes, richard, bowel/bladder changes, weight changes or other complaints. Last visit supportive care, decrease stress, follow up with ortho/knee/shoulder/CTS (patient wants to postpone surgeries), follow up neurology/patient request, improved with methotrexate 10tabs once a week, daily folic acid, follow up psychiatry/ primary care provider for depression care, for flares take prednisone marii, prn heat/ice/otc arthritis creams, decrease stress, gout friendly diet/start gout med if repeat uric acid high, start low impact weightbearing exercise as tolerated, f/u with Pulm/PCP, offered consult psychiatry/patient declined, avoid aggravating triggers, 12/28/19:safe at home. Has enough food and supplies. Daughters help shop for patient. Had sinus infection treated with antibiotics. Reports pain in wrist/thumb/knees. Better with weather improvement. Back on rheum meds. Due for EMILE but postponed due to stay at home orders. Lowered thyroid medication recently. Taking vitamin D daily. Reports pain 5/10. Minimal AM stiffness. Could not see derm due ot stay at home orders. Skin improved. Overall mildly uncomfortable but happy with rheum care. No falls/fx/trauma/illness/oral sores/rash/hairloss/jaw pain/dysphagia/epistaxis/hemoptysis since last visit. No adverse effects with meds. No other complaints. Patient denies fever, chills, cp, dyspnea, nausea, vomiting, night sweats, scalp tenderness, visual changes, richard, bowel/bladder changes, weight changes or other complaints. Last visit supportive care, decrease stress, follow up with ortho/knee/shoulder/CTS (patient wants to postpone surgeries), follow up neurology/patient request, improved with methotrexate 10tabs once a week, daily folic acid, follow up psychiatry/ primary care provider for depression care, for flares take prednisone marii, prn heat/ice/otc arthritis creams, decrease stress, gout friendly diet/start gout med if repeat uric acid high, start low impact weightbearing exercise as tolerated, f/u with Pulm/PCP, offered consult psychiatry/patient declined, avoid aggravating triggers 06/15/19:skin changes UE for years. Busy caring for ill . Joint pain. Reports pain 03/22. Minimal AM stiffness. Chronic knee and back pain. Had steroid injections of knees with good response 3months ago but pain returning. Due for gel injections if approved. High stress caring for grandson. Overall mildly uncomfortable but happy with rheum care. No falls/fx/trauma/illness/oral sores/rash/hairloss/jaw pain/dysphagia/epistaxis/hemoptysis since last visit. No adverse effects with meds. No other complaints. Patient denies fever, chills, cp, dyspnea, nausea, vomiting, night sweats, scalp tenderness, visual changes, richard, bowel/bladder changes, weight changes or other complaints. Last visit supportive care, decrease stress, follow up with ortho/knee/shoulder/CTS (patient wants to postpone surgeries), follow up neurology/patient request, improved with methotrexate 10tabs once a week, daily folic acid, follow up psychiatry/ primary care provider for depression care, for flares take prednisone marii, prn heat/ice/otc arthritis creams, decrease stress, gout friendly diet/start gout med if repeat uric acid high, start low impact weightbearing exercise as tolerated, f/u with Pulm/PCP, offered consult psychiatry/patient declined, avoid aggravating triggers 12/15/18:more joint pain in knees, hands/back pain. Better with heat and over the counter arthritis creams. High stress with ill bedridden , caring For family when have been abandoned. Doing allthe house hold chores and errands caring for family. More depressed. Denies SI/HI. On rheum meds. No gout attacks since last office visit. Feet pain much better. Reports pain 10. Minimal AM stiffness. Overall mildly uncomfortable but happy with rheum care. No falls/fx/trauma/illness/oral sores/rash/hairloss/jaw pain/dysphagia/epistaxis/hemoptysis since last visit. No adverse effects with meds. No other complaints. Patient denies fever, chills, cp, dyspnea, nausea, vomiting, night sweats, scalp tenderness, visual changes, richard, bowel/bladder changes, weight changes or other complaints. Last visit supportive care, follow up with ortho/knee/shoulder/CTS (patient wants to postpone surgeries), follow up neurology/patient request, improved with methotrexate 10tabs once a week, daily folic acid, f/u psychiatry, for flares take prednisone marii, prn heat/ice/otc arthritis creams, decreasestress, gout friendly diet/start gout med if repeat uric acid high, start low impact weightbearing exercise as tolerated, f/u with Pulm/PCP, offered consult psychiatry/patient declined, avoid aggravating triggers, 06/13/18:reports pain bilat shoulders, wrists, knees and lower back 04/22. Minimal AM stiffness.. Hadknee pain and had injections no response from ortho. Has not had L cts release, postponing surgeries. Numbness and tingling L hand. Depressed. On paxil and xanax. Denies SI/HI. Daughter has liver cancer. Busy caring for ill /copd/cancer, home schooling grandchild with social anxiety. Missed rheum meds a few weeks due to infection. Now infection free. Back on rheum meds. Overall uncomfortable but happy with rheum care. No falls/fx/trauma/illness/oral sores/rash/hairloss/jaw pain/dysphagia/ epistaxis/hemoptysis since last visit. No adverse effects with meds. No other complaints. Patient denies fever, chills, cp, dyspnea, nausea, vomiting, night sweats, scalp tenderness, visual changes, richard, bowel/bladder changes, weight changes or other complaints. Last visit supportive care, consult neurology/patient request, improved with methotrexate 10tabs once a week, daily folic acid, f/u psychiatry, for flares take prednisone marii, start prn heat/ice/otc arthritis creams, decrease stress, start gout friendly diet/start gout med if repeat uric acid high,start low impact weightbearing exercise as tolerated, f/u with Pulm/PCP, avoid aggravating triggers, 01/17/18;reports 10 bilateral arms/knees, right foot. Minimal AM stiffness. had cortisone injections of knees with 1month relief. Knee pain returned. Due for both knee gel injections. Brain fog for several years. High stress with family, ill family members, heroin, etc. Her psoriasis better. Using selsan blue. Recommended for eyelid surgery but postponing due to ill copd /bathes him. Helpsout family member wich neck injury/previously paralyzed. Cherry Log better after taking vitamin D. Declined tablet survey. Overall uncomfortable but happy with rheum care. No falls/fx/trauma/illness/oral sores/rash/hairloss/jaw pain/dysphagia/epistaxis/hemoptysis since last visit. No adverse effects with meds. No other complaints. Patient denies fever, chills, cp, dyspnea, nausea, vomiting, night sweats, scalp tenderness, visual changes, richard, bowel/bladder changes, weight changes or other complaints. Last visit supportive care, improved with methotrexate 10tabs once a week, daily folic acid, f/u psychiatry, for flares take prednisone marii, start prn heat/ice/otc arthritis creams, decrease stress, start gout friendly diet/start gout med if repeat uric acid high, start low impact weightbearing exercise as tolerated, f/u with Pulm/PCP, avoid aggravating triggers See notes 12/12/20-09/10/17 for details on prior visits Methotrexate 02/2017-present 09/10/17:was lost driving to clinic. taking methotrexate 10tabs once a week. Missed 1week due to infection but back on rheum meds. Reports intermittent hand stiffness and soreness 10. Minimal AM stiffness. Barely any psoriasis on scalp. not on steroids. Mood is better. overall feeling better and happy with rheum care. No falls/fx/trauma/illness/oral sores/rash/hairloss/jaw pain/dysphagia/epistaxis/hemoptysis since last visit. No adverse effects with meds. No other complaints. Patient denies fever, chills, cp, dyspnea, nausea, vomiting, night sweats, scalp tenderness, visual changes, richard, bowel/bladder changes, weight changes or other complaints. Last visit supportive care, if xrays stable start methotrexate 4-6tabs once a week, daily folic acid, consult psychiatry, start prednisone amrii, start prn heat/ice/otc arthritis creams, decrease stress, start gout friendly diet/start gout med if repeat uric acid high, start low impact weightbearing exercise as tolerated, f/u with Pulm/PCP, avoid aggravating triggers April 12, 2017 SUBJECTIVE Ms. Garcia is a 66 year old female who presents for +DENG/joint pain eval. 30years psoriasis elbows/knees/behind ears 2009 joint pain all over High stress son , depressed, gained 70-80lbs High stress daughter drug overdose, granddaughter into drugs, caring for with two kinds of cancer, caring for grandson Cherry Log better with steroids Hip xrays/hand xrays- normal Constant headaches my whole body , getting unbearable X years, bilat arm pain, brenda wrist and thumbs pain 03/22. No falls/fx/trauma/illness/oral sores/rash/hairloss/jaw pain/dysphagia/epistaxis/hemoptysis. No adverse effects with meds. No other complaints. Patient denies fever, chills, cp, dyspnea, nausea, vomiting, night sweats, scalp tenderness, visual changes, richard, bowel/bladder changes, weight changes or other complaints. COMPLETE REVIEW OF SYSTEMS: RHEUM. ROS: Joint pain: yes- feet, R>L hips, neck, arms, wrists, thumbs, L>R hands, R>L knee Joint swelling: yes Am stiffness: yes Low back pain: yes Enthesopathy/[place]'s/heel/plantar tenderness: s/p R cts release 2001, Skin thickening, psoriasis, photosensitivity, purpura: se above Alpecia, patchy: yes Eye inflammation: does not wear her glasses SICCA: yes, photosensistivity, dry Oral/nasal/genital ulcers: oral sores from antibiotic/unsure of name GI problems-diarrhea/bleeding/IBD/Gluten intolerence/Dysphagia: gerd Raynaud's phenomenon/digital ulcers: blue Organ inv-Serositis: asthma/copd Lung disease/ILD: asthma/copd Fatigue: yes, sleeps 4-14hr/night, yes snoring PMR/GCA ROS: negative Other ROS:The remainder of the review of systems is negative. All other reviewed and negative other than HPI. PATIENT REPORTS: Cardiac stress test:stable Breast exam:NL Pap exam: NL, last menses 2008, not taking hormones; G4, P4, no miscarriage Colonoscopy: diverticulosis Bone Density:no History of Fractures:no Height Loss: lost 1 IMMUNIZATION HX: Pneumovax yes Flu shot yes Tetanus years ago Had 2nd Moderna COVID vaccine 12/12/20 Last PPD: negative quantiferon tb 01/17/18 PAST MEDICAL HISTORY: PMH thyroid disease, depression, gerd, Asthma/copd, MARYANN hsa BIPAP, diverticulosis, s/p R cts release 2001, appy, s/p cervical fusion/cage 2006, s/p 7 trigger finger releases, csections, R knee cyst removed, s/p T&A PAST SURGICAL HISTORY:s/p R cts release 2001, appy, s/p cervical fusion/cage 2006, s/p 7 trigger finger releases, csections, R knee cyst removed, s/p T&A FAMILY HISTORY: mother- inflammatory arthritis;father- [place], dry skin;sister- arthritis, DM;sister-fibromyalgia SOCIAL HISTORY: 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3, cbc, cmp; 12/09/20 high creat 1.29 (0.72), esr 30 (27), glu 142;low vitamin D 24.2;NL crp 0.7, rest of cbc, cmp; 03/08/20 high esr 27 (26), glucose 192, wbc 11.96;low potassium 3.6, sodium 135;NL rest of cbc, cmp,crp 0.4, vitamin D 37.1; 09/28/19 mildy high esr 26;normal cbc, cmp, crp 0.7, vitamin D 31.6; 06/15/19 low vitamin D 26.9;NL cbc, cmp, crp 0.7;unable to obtain esr test. 03/14/19 high glucose 121;NL rest of cmp, cbc, esr 16, crp 0.7, vitamin D 32.4; 12/09/18 high esr 20 (25);NL rest of cbc, cmp, uric acid 5.9, vitamin D 32.8, crp 0.6; 09/09/18 high glucose 124, esr 25 (21);NL rest of cbc, cmp, crp 0.7, vitamin D 38.7; 06/13/18 high uric acid 6.5 (6.7), glucose 128;NL rest of cmp, cbc, esr 21 (25), crp0.7; 06/13/18 both hand xrays-Degenerative changes in the DIP joints bilaterally with narrowing and osteophyte formation present, degenerative remodeling also involving the first CMC joint in the right hand. 06/13/18 both shoulder xrays-Degenerative changes in the AC joint on both sides. 01/17/18 high esr 25 (17);normal cbc, cmp, crp 0.8;negative quantiferon tb; 11/17/17 NL vit D 34.2;09/10/17 low vit D 22.7, glucose 73;high uric acid 6.7;NL rest of cbc, cmp, esr 17 (25), crp 0.7; 09/10/17 both knee xrays-Small effusion bilaterally. No fracture. There is severe narrowing of the lateral compartment in the right knee with osteophyte formation present. Minimal degenerative changes in the lateral compartment of the left knee. Degenerative changes of the patellofemoral articulation on the left side with osteophyte formation and narrowing. 06/11/17 high glucose 125, esr 25 (27);NL rest of cmp 05/13/17 high esr 27, glucose 119;NL rest of cbc, cmp, crp 0.5; 04/12/17 cxr-There is eventration of the right hemidiaphragm. Scarring in the right middle lobe. 04/12/17 cxr-Lungs and pleura: There is eventration of the right hemidiaphragm. Scarring in the right middle lobe. Outside labs 02/2017 high esr 38 (NL0-30mm/hr), uric acid 6.7, +DENG 1:1280/speckled;NL crp 0.6 (NL,1mg/dL), rf<8.6; PHYSICAL EXAM:reviewed vitals last visit BP 122/68 Pulse 84 Wt 248 lb (112.5kg) SpO2 96% BP 128/82 Pulse 66 Wt 113.4 kg (250 lb) BMI 45.73 kg/m General Appearance: WD/WN, NAD. Appropriate grooming. Very pleasant. Ambulates slowly/stiffly due to pain, with assistance, with cane, denies SI/HI, speaks in full sentences without distress SKIN: ecchymoses RLE, No rash, improved psoriasis, no purpura, no ulcers, no skin thickening/tightness, no telangiectasias. HEENT: No patchy alopecia, normal temporal artery pulsations, non-tender, scalp non-tender, no conjunctival injection or icterus, no oral ulcers, no thrush, normal nasal mucosa, no sinus tenderness, normal TM's. no glasses, fair dentition NECK: neck supple w/o masses, no thyromegaly, no LAD. LUNGS: CTA, Good respiratory effort. HEART: RRR, - m/r/g ABDOMEN: soft, non-tender, no HSM/masses/bruits. EXTREMITIES: Adequate pulses b/l UE ; No clubbing,discoloration,sclerodactyly, periungual erythema,digital ulcers, nail pitting, edema, varicosities. MUSCULOSK: s/p R cts release No joint deformities, no rheumatoid nodules, calcifications or tophi. No SI tenderness, no lashaun's tenderness, no heel/plantar tenderness, lumbar flexion full, negative Diann's test. negative tinel's and lion tests Swoll JTS:no Tend. JTS:R>L knees, thumbs, diffusely RLE, R>L shoulders, R>L hips, neck, arms, both hands/wrists, thumbs, decreased range of motion due to pain; no warmth/erythema No clinical synovitis in the DIP's, PIP's, MCP's, wrists, elbows, shoulders, knees, ankles, midfoot, or toes. no knee effusions bilateral. Shoulder exam:fair range of motion; no warmth/erythema Hip rom without pain LIMITATION of Motion of Joints: yes Thoracic/Lumbar Spine: No percussion tenderness SLR:negative No instability in any upper or lower extremity joints. NEURO: Mental Status: alert and oriented x 3, anxious, CN II - XII grossly intact Motor: 5/5 proximally and distally b/l Sensory: intact to fine touch TENDER POINTS: 08/30 Gait:see above Toe and heel walk normal. Tone: normal IMPRESSION/DIAGNOSIS 02/12/22 M19.90 Inflammatory arthritis (primary encounter diagnosis) R76.8 DENG positive L40.9 Psoriasis M25.60 Joint stiffness of multiple sites Z79.899 Long-term use of high-risk medication M79.7 Fibromyalgia M25.511, G89.29, M25.512 Chronic pain of both shoulders M79.641, M79.642 Bilateral hand pain M54.50, G89.29 Chronic bilateral low back pain without sciatica M25.561, M25.562, G89.29 Chronic pain of both knees M25.531, M25.532 Bilateral wrist pain R70.0 Elevated sed rate E55.9 Vitamin D deficiency M79.641, M79.642 Pain in both hands Ms. Garcia is a 71 year old Wfemale (mother-inflammatory arthritis;sister- fibromyalgia)with PMH thyroid disease, depression, gerd, Asthma/copd, MARYANN hsa BIPAP, diverticulosis, s/p R cts release 2001, appy, s/p cervical fusion/cage 2006, s/p 7 trigger finger releases, csections, R knee cyst removed, s/p T&A presents with 30years psoriasis elbows/knees/behind ears, 2008 joint pain all over, High stress son , depressed, gained 70-80lbs, High stress daughter drug overdose, granddaughter into drugs, caring for with two kinds of cancer, caring for grandson, [place] better with steroids, Hip xrays/hand xrays- normal, Constant headaches my whole body , getting unbearable X years, bilat arm pain, brenda wrist and thumbs pain 03/22, 02/2017 high esr 38 (NL0-30mm/hr), uric acid 6.7, +DENG 1:1280/speckled Has findings consistent with inflammatory arthritis with psoriasis, hyperuricemia (on diuretic), generalized pain due to chronic fibromyalgia (sites of pain all over), here with chronic polyarthralgias, high stress, chronic memory changes, more L CTS symptoms, more joint pain in knees, hands/back pain Doing all the house hold chores and errands caring for family. skin changes UE for years. Daughters help shop for patient. Better with weather improvement. Back on rheum meds. Due for EMILE but postponed due to stay at home orders. Lowered thyroid medication. Skin improved. fell on R side tripped on steps for 3dogs to climb onto bed. Hug bruise on R side of thigh. R knee pain/calf pain/swelling.Not active. Sits all day. Depressed . Best friend from COVID. Many other family members . Uses cane. Not drinking much water. saw ortho 04/23/21 steroid injections of both knees. Had gel injections of R knee 01/2021. Wants to try the gel injections again. taking methotrexate 10tab weekly (was off for sinus infection/COVID infection), vitamin D 4000 International Units daily with food (completed vitamin D script), calcium 2tabs daily. Chronic current pain in both knees, L>Rthumbs, R>L shoulder, back, hands. Reports pain 3-6/10. minimal AM stiffness. brusies and scratches on forearms when dog scratches her when greeting her. Went to ED when taking BP medication. 08/2021 had COVID19 infection. COVID vaccine Moderna December and January 2021. More eye changes, worsening cataracts, retina changes on right side. S/p ptosis surgery ~11/2021. Feels safe at home. Has enough food, supplies and medications. Overall mildly uncomfortable but happy with rheum care. = supportive care, offered grief counseling, decrease stress, follow up with ortho/knee/shoulder/CTS (patient wants to postpone surgeries), follow up neurology/patient request, improved with methotrexate 10tabs once a week, daily folic acid, follow up psychiatry/ primary care provider for depression care, for flares take prednisone marii, prn heat/ice/otc arthritis creams, decrease stress, gout friendly diet/start gout med if repeat uric acid high, start low impact weightbearing exercise as tolerated, f/u with Pulm/PCP, offered consult psychiatry/patient declined, avoid aggravating triggers, answered all questions and concerns, patient voiced understanding. RECOMMENDATION/PLAN: Reviewed labs/tests with patient Provided printed info 02/12/22 check labs as scheduled Modified02/12/22 LOUIS 1, pain 30-60%;12/12/20 LOUIS 1, pain 30-60%;12/28/19 LOUIS 0, pain 50%;06/15/19 LOUIS 0, pain 70%;12/15/18 LOUIS 0, pain 40%;06/13/18 LOUIS 0, pain 80%;01/17/18 LOUIS 0, pain 40%;09/10/17 LOUIS 0, pain 50%;April 12, 2017 HAQ1, pain 70%; May apply over the counter arthritis cream (biofreeze, icy hot, asper cream, tiger balm, capsacin, etc.) to painful joints up to four times a day. Avoid contact with eyes. May take ES acetaminophen 500mg every 4-6hours for joint pain. Do not exceed 3000mg /day. Decrease stress Improve sleep May apply heat/ice 20minutes on and off to areas of pain Avoid aggravating triggers If needed, may take Calcium 1200mg daily with food in DIVIDED doses Vitamin D 4000 International Units daily with food Please take Methotrexate 2.5mg tabs:(HOLD 1-2weeks after vaccines) Take 10tabs by mouth with food once a week Do not drink alcohol while taking methotrexate Have bloodwork every 8-12weeks for monitoring while taking Methotrexate Please take folic acid 1mg tab:Take 1tab by mouth daily Please hold methotrexate if on antibiotics or if you have any signs/symptoms of infection. Recommend goal: exercising 30minutes 3 times a week Recommend weight-bearing aerobic exercises such as walking, dancing, low impact aerobics, elliptical machine, stair climbing, gardening flexibility exercises and strength training exercises Recommend avoiding high impact exercises such as jumping, running or jogging or movements where youbend forward and twist the waist, for instance- touching your toes, sit-ups, using row machine termination clerk pain recommendations per PCP/pain clinic see PCP for depression/anxiety care Additional time spent with patient on healthy lifestyle, healthy food and anti- inflammatory diet (with emphasis on whole plant based diet), avoiding refined carbs/sugars and processed food, appropriate exercise (stretching, cardio and strengthening), good sleep hygiene, stress mgt, and supplementing vital deficiencies and maintaining healthy wt and BMI. Additional information provided with references and educational information. Bone Health Recommendations: -Bone Density: After age 70 yrs, sooner if new clinical risk factors, or systemic steroid use of 3 months or more. -Vitamin D supplementation recommended, optimal dose is the dose necessary to achieve Vitamin D 25-OH blood level in range of 40-60 ng/mL. -Recommended daily dose of calcium: 1000-1200mg total a day in divided doses. Calcium from dietary sources, if not sufficient, or if with h/o calcium nephrolithiasis would recommend Calcium Citrate supplement, as it is recommended to avoid calcium carbonate products, which as main dietary calcium source. The after visit summary has information on dietary calcium and instructions on reading calcium label and converting the %DV to mg. -Regular weight-bearing and muscle-strengthening exercise -Avoidance of tobacco smoking, excessive alcohol intake and excessive caffeine intake. -Fall and fracture precautions -Continued regular dental follow up visits and good dental/gum care Stressed the importance of following up with PCP and specialists for his/her chronic diseases, health, CV, and cancer screening and continued care. Will follow disease activity/progression and adjusttherapeutic regimen to disease activity and severity. Discussed medication dosage, usage, goals of therapy, and side effects. Available test results were reviewed An additional 20minutes were spent outside of the patient visit to review records. Additional time spent with the patient to discuss their questions. Additional time spent with the patient devoted to discussing treatment strategy, planning, and implementation. Discussed findings, impression and plan with patient. Patient understands above plan; questions asked and answered. Patient agrees to plan as noted above. Total time spent on this visit, with more than 50% of time spent in face to face with patient, in consultation, and in addition to Counseling and Coordination of Care, explanation of diagnosis, and planning of further management, I spent a total of 30 minutes on the date of the service which included preparing to see the patient, [id number] patient care, completing clinical documentation, obtaining and/or reviewing separately obtained history, performing a medically appropriate examination, counseling and educating the patient/family/caregiver, ordering medications, tests, or procedures, communicating with other HCPs (not separately reported), independently interpreting results (not separately reported), communicating results to the patient/family/caregiver and care coordination (not separately reported) Follow up 4-6months, earlier if needed Recommendations to share with referring physician/Primary care physician : Dear Dr.David Areli Richard DO : I had the pleasure of seeing your patient, Beba Garcia. I have enclosed a copy of my clinic note with my assessment and recommendations for this patient. Recommendations for your consideration as you deem necessary: -Continuous follow up with Primary care physician for cardiovascular disease prevention, for age appropriate cancer screening and routine health maintenance and wellness, and infection precautions and age appropriate immunization recommended. Thank you for allowing me to participate in the care of your patient. William Hope MD I will relay my findings and recommendations to the physician requesting the consult by letter/electronic shared medical records. cc Jaquan Richard DO documented in this encounterSt[facility]06[facility] Instructions* Patient Instructions* William Hope MD - 02/12/2022 12:20 PM EDT [facility] FACTS LAB HOURS: Lab is open 6am to 5:30pm -, open 6am -5pm on Wednesday and open 8am- 12pm Wednesday. Routine Lab Orders 45 days after they are entered. If your lab orders , you may be required to wait in the lab while they are reinstated FUTURE ORDERS are lab tests to be completed on the EXPECTED date. These orders 45 days afterthe expected date. STANDING ORDERS are recurring orders with an expiration date. The interval will indicate how often the test should be completed. FASTING LAB means nothing to eat or drink (except water) 10-12 hours before your blood is drawn. CT/MRI/IVP If you have one of these radiology exams ordered along with blood work, please complete the blood work at least one day prior to the scheduled exam. My Chart Schedule My Appointment enables you to view your established primary care provider's open schedule and book an appointment online in real-time. This feature is available in internal medicine, family medicine, or pediatrics at any of our rust locations and main campus. [facility] Adult [facility] Care No appointment needed At the [facility], patients 6 years and older can get walk-in medical attention for common healthproblems including: Cold and flu symptoms Conjunctivitis Ear and throat infections Minor bumps and cuts Seasonal allergies Skin rashes Simple sprains and strains Sinus infections Urinary tract infections Upper respiratory tract infections Locations and Times [facility] - [address], [facility], [place] - [address] - Wednesday through Wednesday 6 AM - 9 PM - Wednesday and Wednesday 8 AM - 4 PM Emergency Department [facility] - [id number] (off of [address] [facility]), [facility] [phone] Pharmacy Hours: Wednesday through Wednesday 8 am to 6 pm May apply over the counter arthritis cream (biofreeze, icy hot, asper cream, tiger balm, capsacin, etc.) to painful joints up to four times a day. Avoid contact with eyes. May take ES acetaminophen 500mg every 4-6hours for joint pain. Do not exceed 3000mg /day. Decrease stress Improve sleep May apply heat/ice 20minutes on and off to areas of pain Avoid aggravating triggers If needed, may take Calcium 1200mg daily with food in DIVIDED doses Vitamin D 4000 International Units daily with food Please take Methotrexate 2.5mg tabs (HOLD 1-2weeks after vaccine) Take 10tabs by mouth with food once a week Do not drink alcohol while taking methotrexate Have bloodwork every 8-12weeks for monitoring while taking Methotrexate Please take folic acid 1mg tab:Take 1tab by mouth daily Please hold methotrexate if on antibiotics or if you have any signs/symptoms of infection. Recommend goal: exercising 30minutes 3 times a week Recommend weight-bearing aerobic exercises such as walking, dancing, low impact aerobics, elliptical machine, stair climbing, gardening flexibility exercises and strength training exercises Recommend avoiding high impact exercises such as jumping, running or jogging or movements where youbend forward and twist the waist, for instance- touching your toes, sit-ups, using row machine correction pain recommendations per PCP/pain clinic see PCP for depression/anxiety care see ortho Thank you. FIBROMYALGIA PATIENT INSTRUCTIONS Fibromyalgia syndrome or FMS is a painful, uncomfortable, unpleasant, but otherwise benign disease.This means that it is not life-threatening. The pain of fibromyalgia usually consists of diffuse aching or burning in both the upper and lower body on both the right and left sides. It can change location and there can be sensations of pins and needles or dysesthesia in the arms and legs as well. There are a host of symptoms often associatedwith fibromyalgia including stiffness of the muscles, increased headaches or facial pain, sleep disturbances, gastrointestinal complaints, such as constipation and/or diarrhea and/or cramping known as irritable bowel syndrome or IBS, frequent urinary bladder symptoms including increased frequency or increased urgency among others. Numerous other signs and symptoms have been described including temperature sensitivity, nagging skin complaints, recurrent chest pains, a feeling of imbalance or dysequilibrium and a sensation of restless legs . Importantly, about three-quarters of patients with fibromyalgia also have signs and symptoms consistent with chronic fatigue syndrome or CFS. This is a sense of excessive fatigability with non-restorative sleep that can often be brought on by minor exertion. Seventy-five percent of other patients experience either a past history or a current bout of depression, anxiety or panic. Collectively this is a complex disorder, but one afflicted with fibromyalgiaand/or chronic fatigue syndrome must remember that these symptoms are real, they are not psychological and they are in no way the patient s fault. There is no simple cure for chronic fatigue syndrome or fibromyalgia, but the encouraging news is that the symptoms are, for the most part, reversible. The sobering reality is that there is no quick fix. The treatment program for fibromyalgia consists of multiple modalities. Those treatments that have been shown to be most effective include graded low intensity exercise such as a walking program or an aquatics program and cognitive behavioral therapy which helps people adapt to their symptoms. If there is any history of depression, anxiety or panic, formal assessment and treatment of these bya trained mental health professional is also vital. Frequently, anti-depressants are also used in patients without any history of depression to take advantage of their ability to modify pain, fatigueand mental confusion. Medications frequently used include those to help correct sleep, such as low dose antidepressants or non-habit forming sedatives and mild analgesics, such as Tylenol, nonsteroidal anti-inflammatory drugs, such as ibuprofen or more potent analgesics, such as tramadol (Ultracet). Therapy must be highly individualized. In virtually every major metropolitan area, the [employer] is engaged in a fibromyalgia self-help program and can also direct patients with various forms of rheumatism to active aquatic classes. We encourage contacting the [employer] for proactive involvement. Most signs and symptoms of fibromyalgia can be managed by primary care physicians under the guidance of a specialist. Further information can be obtained from the National Fibromyalgia Partnership Website at www.fmpartnership.org. documented in this encounterSt. [facility]05-[facility] Evaluation note* Encounter Date Diagnosis Assessment Notes Treatment Notes Treatment Clinical Notes January, Lumbar pain (ICD-10 - M54.50) January, Anxiety (ICD-10 - F41.9) [facility] Other 04-20-2022 Evaluation note* Encounter Date Diagnosis Assessment Notes Treatment Notes Treatment Clinical Notes Dec, Lumbar pain (ICD-10 - M54.50) Dec, Anxiety (ICD-10 - F41.9) [facility] Other 03-23-2022 Evaluation note* Encounter Date Diagnosis Assessment Notes Treatment Notes Treatment Clinical Notes Nov, Hypertension (ICD-10 - I10) control not to goal [facility] Other 03-18-2022 Evaluation note* Encounter Date Diagnosis Assessment Notes Treatment Notes Treatment Clinical Notes Nov, Lumbar pain (ICD-10 - M54.50) Nov, Anxiety (ICD-10 - F41.9) [facility] Other 03-10-2022 Evaluation note* Encounter Date Diagnosis Assessment Notes Treatment Notes Treatment Clinical Notes Nov, Lumbar pain (ICD-10 - M54.50) Pain inventory sheet completed and reviewed. Frequent appointments needed due to addiction potential of medication. An OARRS report was reviewed no discrepancies noted. She does continue to use and benefit from the [place]. I will see her back in three months. She is to call when she is due for a refill. Side effects/risks/benef its of medication were reviewed. Nov, Hypertension (ICD-10 - I10) control not to goal She voices that she gets a headache that is severe at times. Her blood pressure is elevated today. I would like to increase her dose of Losartan today. Guidance is given on how to take the new dose, she is to take this two times a day. Nov, Anxiety (ICD-10 - F41.9) An OARRS report was reviewed no discrepancies noted. Frequent appointments needed due to addiction potential of medication. She does continue to use and benefit from the Xanax. Side effects/risks/benef its of medication were reviewed. For now she is going to continue with the Paxil and will try to attend grief counseling through [facility] to see if this helps her depression. Nov, Depression (ICD-10 - F32.9) She is tearful in the office, voices that she cannot find a way to stop blaming herself for things that have happened. She feels her depression is taking over. She does not go to counseling because she has not found a counselor who understands but is considering going to grief counseling at [facility]. She has van in [place] and feels she would not be here without her van. She voices that today she struggled to come to her appointment but her brother drove her to her appointment. She feels she would sit at home alone unless she has to do something. She cannot make herself leave her room. She is not eating alot, but will eat something each day. She does not feel the Xanax makes her depression worse. She voices that she will try grief counseling and see if this helps. She voices that she was crying on her way here today because her brother was showing her the page where he and her used to bee. I am hesitant to switch her medications and she agrees. She is going to see if grief counseling helps first. We discussed her volunteering her time to help her get out of the house and help her feel better. She voices that she has considered this but every time she thinks of this she gets pulled back into her depression. Her best friend from school wants her to go to lunch but she lost her and Beba does not thinks he can handle this because she is still grieving the loss of her own . Nov, Knee pain (ICD-10 - M25.569) b/l She did have bilateral knee injections done per Dr. Hughes. She voices that these most recent injections did not help as much as the first set did. She will return to see Dr. Hughes in three months. Nov, Edema (ICD-10 - R60.9) She had lab drawn that was ordered by Dr. Hope and is told that her kidney function was normal. She voices that Dr. Hughes told her she may have kidney failure because of her lower extremity edema. On exam today her lungs do not sound like she is in congestive heart failure. She can lay flat in bed. Nov, Other She is having surgery on her eyes in February (2021) [facility] Other 03-03-2022 Evaluation note* Encounter Date Diagnosis Assessment Notes Treatment Notes Treatment Clinical Notes Nov, Primary osteoarthritis of left knee (ICD-10 - M17.12) We performed a cortisone injection into the bilateral knee joints under sterile technique. Patient tolerated the injections well without adverse reaction. We discussed and demonstrated gentle motion exericse to be performed daily, multiple times per day. Nov, Primary osteoarthritis of right knee (ICD-10 - M17.11) Nov, Vitamin D deficiency (ICD-10 - E55.9) Nov, Type 2 diabetes mellitus without complication, without long-term current use of insulin (ICD-10 - E11.9) Nov, Obstructive sleep apnea (ICD-10 - G47.33) Nov, Other 1. We had a long discussion with the patient today concerning their right and left knee osteoarthritis. The radiographs do show osteoarthritis of the knees. At this time the patient would like to avoid surgical intervention. We did discuss the risk and benefits of surgical versus nonoperative management. The patient would like to proceed with nonoperative management. We discussed that our options include injections, physical therapy, and the consistent use of anti-inflammatories. All 3 of these options, including their risks and benefits, were discussed at length with the patient. 2. Tylenol: Continue Tylenol as previously discussed 3. NSAIDs: Continue Mobic as previously prescribed 4. Physical therapy: Discussed continuing physical therapy but at this point she would prefer to do Silver sneakers at the [facility] in [place]. 5. Injections: Discussed injections as a treatment option. I informed the patient that the combination of the medication with their diabetes diagnosis could elevate their blood sugar levels temporarily. If they noticed any elevation of their blood sugar levels over the next several days, I recommended they call their PCP for further blood sugar management guidance. Patient understood and still wished to proceed with the injection. After consent was obtained, the right and left knees were injected with 3cc Kenalog and 7cc bupivicaine using sterile technique. Patient tolerated the injections well. 6. I again recommended that the patient follow-up with her primary care provider to discuss her lower extremity swelling. This is actually swelling up into the knees as well. 7. Follow-up 3 months [facility] Other 02-16-2022 Evaluation note* Encounter Date Diagnosis Assessment Notes Treatment Notes Treatment Clinical Notes Oct, Lumbar pain (ICD-10 - M54.5) Oct, Anxiety (ICD-10 - F41.9) [facility] Other 01-20-2022 Evaluation note* Encounter Date Diagnosis Assessment Notes Treatment Notes Treatment Clinical Notes Sep, Lumbar pain (ICD-10 - M54.5) Sep, Anxiety (ICD-10 - F41.9) Sep, Cough (ICD-10 - R05.9) Sep, Acute sinusitis (ICD-10 - J01.90) Sep, Sore throat (ICD-10 - J02.9) [facility] Other 12-30-2021 Evaluation note* Encounter Date Diagnosis Assessment Notes Treatment Notes Treatment Clinical Notes Aug, Anxiety (ICD-10 - F41.9) [facility] Other 12-20-2021 Evaluation note* Encounter Date Diagnosis Assessment Notes Treatment Notes Treatment Clinical Notes Aug, Hypertension (ICD-10 - I10) At this time she is to continue with above medications. Aug, Hypothyroidism (ICD-10 - E03.9) TSH is 0.15. Free T3 is 2.77. Free T4 is 1.17. It appears her thyroid is over replaced at this time. I would like to decrease her Synthroid to 100 MCG daily. Guidance is given on how to take the decrease in dose. Aug, Anxiety (ICD-10 - F41.9) An OARRS report was reviewed no discrepancies noted. She does continue to use and benefit from the Xanax. I will see her back in three months. Side effects/risks/benef its of medication were reviewed. Aug, Lumbar pain (ICD-10 - M54.5) Again, an OARRS report was reviewed no discrepancies noted. Frequent appointments needed due to addiction potential of medication. Pain inventory sheet completed orally and reviewed. She does continue to use and benefit from the [place]. Side effects/risks/benef its of medication were reviewed. Aug, Edema (ICD-10 - R60.9) Aug, Asthma (ICD-10 - J45.909) Use above medication as needed. Aug, Hyperglycemia (ICD-10 - R73.9) Discussed blood sugar results with patient today. Her glucose is 211. Her HgA1C is 6.3. I would like her to continue to monitor her intake of carbs and sugars. She voices that she has been watching her intake of carbs and sugars. She should continue with this. Aug, Hyperlipidemia (ICD-10 - E78.5) Discussed cholesterol results with patient today. Total is 205. HDL is 84. LDL is 109. Triglycerides are 62. I would like to see her LDL between 70-100. She is encouraged to continue watching her intake of carbs and sugars. Aug, Atrial fibrillation (ICD-10 - I48.91) Continue with above medication as directed. Follow with specialist as directed. Aug, Macrocytosis (ICD-10 - D75.89) Her Vitamin B12 is 554. Folate is >22.3. Continue with Vitamin B12 as directed. Aug, Psoriatic arthritis (ICD-10 - L40.50) She voices that she had stopped taking the Methotrexate so she could get the COVID-19 booster but then began to not feel well so she returned to taking it so she has not gotten the booster. Aug, Vitamin D deficiency (ICD-10 - E55.9) Her Vitamin D level is 34.4. Will continue to monitor. Aug, Leukocytosis (ICD-10 - D72.829) Aug, Headache (ICD-10 - R51.9) I did advise her that her lab work results look as if she has COVID-19. She voices that she has not felt well. She has a headache and an upset stomach. She just found out her whole family has COVID-19 and they have all been in her home. One of her grandkids came and laid on her couch for three days and then went home and he has COVID-19. Her brother is there who is ill as well as his daughter who is ill. I did recommend that she quarantine and avoid being around others. She does not want a COVID-19 PCR test done. All questions she has about COVID-19 were answered. She should rest, push fluids. Aug, Hematuria (ICD-10 - R31.9) Aug, Other 3:04 PM - 3:20 PM [facility] Other 12-20-2021 Evaluation note* Encounter Date Diagnosis Assessment Notes Treatment Notes Treatment Clinical Notes Aug, Anxiety (ICD-10 - F41.9) [facility] Other 12-16-2021 Evaluation note* Encounter Date Diagnosis Assessment Notes Treatment Notes Treatment Clinical Notes Aug, Primary osteoarthritis of left knee (ICD-10 - M17.12) Patient was prepped and cortisone injected into the bilateral knee joints under sterile conditions. Patient tolerated well with no adverse reactions. Continue to attempt weight loss by exercise and proper nutrition. Call with questions/conc erns. Aug, Primary osteoarthritis of right knee (ICD-10 - M17.11) Aug, Vitamin D deficiency (ICD-10 - E55.9) Aug, Type 2 diabetes mellitus without complication, without long-term current use of insulin (ICD-10 - E11.9) Aug, Obstructive sleep apnea (ICD-10 - G47.33) Aug, Other 1. After consent was obtained, the right and left knees were injected with 3 cc of Kenalog and 7 cc of bupivacaine using sterile technique. Patient tolerated the injections well. 2. Tylenol: Continue Tylenol as previously prescribed 3. NSAIDs: Continue Mobic as previously prescribed 4. We had a long discussion with the patient today concerning their right and left knee osteoarthritis. The radiographs do show osteoarthritis of the knees. At this time the patient would like to avoid surgical intervention. We did discuss the risk and benefits of surgical versus nonoperative management. The patient would like to proceed with nonoperative management. We discussed that our options include injections, physical therapy, and the consistent use of anti-inflammatories. All 3 of these options, including their risks and benefits, were discussed at length with the patient. 5. I again recommended to the patient to see her PCP regarding her lower extremity edema especially considering that she is not taking her water pill. 6. Again recommended that she work with Dr. Aguilera's team to work on weight loss as her BMI is 44. 7. Provided patient referral to physical therapy for an evaluation so then she can become a member of either the supervised wellness program or the wellness program. She previously reported that when she went over to physical therapy she would have a $40 co-pay for every visit. I spoke specifically with physical therapy here in our office and we also provided her with information on the supervised wellness and wellness program. 8. Follow up in 3 months. [facility] Other 11-29-2021 Evaluation note* Encounter Date Diagnosis Assessment Notes Treatment Notes Treatment Clinical Notes Jul, Hypertension (ICD-10 - I10) Jul, Lumbar pain (ICD-10 - M54.5) [facility] Other 11-22-2021 Evaluation note* Encounter Date Diagnosis Assessment Notes Treatment Notes Treatment Clinical Notes Jul, Anxiety (ICD-10 - F41.9) [facility] Other 11-09-2021 Evaluation note* Encounter Date Diagnosis Assessment Notes Treatment Notes Treatment Clinical Notes Jul, Abnormal weight gain (ICD-10 - R63.5) Jul, Type 2 diabetes estephania itus without complication, without long-term current use of insulin (ICD-10 - E11.9) Jul, Hypertension (ICD-10 - I10) Jul, Hypercholesterolemia (ICD-10 - E78.00) Jul, Depression with anxi ety (ICD-10 - F41.8) Jul, Seizure disorder (IC D-10 - G40.909) Jul, Obstructive sleep ap hortencia (ICD-10 - G47.33) Jul, Hypothyroidism (ICD- 10 - E03.9) Jul, Knee osteoarthritis (ICD-10 - M17.9) Jul, Low back pain (ICD-1 0 - M54.5) Jul, Metabolic syndrome X (ICD-10 - E88.81) [facility] Other 11-01-2021 Evaluation note* Encounter Date Diagnosis Assessment Notes Treatment Notes Treatment Clinical Notes Jul, Lumbar pain (ICD-10 - M54.5) [facility] Other 10-11-2021 Evaluation note* Encounter Date Diagnosis Assessment Notes Treatment Notes Treatment Clinical Notes Jun, Anxiety (ICD-10 - F41.9) [facility] Other 09-29-2021 Evaluation note* Encounter Date Diagnosis Assessment Notes Treatment Notes Treatment Clinical Notes May, Primary osteoarthritis of right knee (ICD-10 - M17.11) The patient is suffering from degenerative arthritis involving the knee. We discussed the conservative treatment options which can be beneficial in relieving pain, including gentle non-impact motion exercise and non-steroidal anti-inflammatory medication. We discussed the use of occasional cortisone injections that can provide pain relief as well as hyaluronan lubricant injection. We performed a cortisone injection into the knee joint under sterile technique. Patient tolerated the injection well without adverse reaction. May, Primary osteoarthritis of left knee (ICD-10 - M17.12) We performed a cortisone injection into the knee joint under sterile technique. Patient tolerated the injection well without adverse reaction. Patient given order for physical therapy. Referral to Dr. Aguilera sent to the office to work on weight loss. Prescription for mobic and acetaminophen sent into patients pharmacy May, Other 1. After consent was obtained, the right and left knees were injected with 3 cc of Kenalog and 7 cc bupivacaine using sterile technique. Patient tolerated the injections well. 2. Tylenol: Discussed taking Tylenol (acetaminophen). Recommended adjusting their dosing to 1000mg by mouth up to 2 times a day. 3. NSAIDs: Prescribed the patient 15 mg Mobic (meloxicam) to be taken by mouth daily. 4. We had a long discussion with the patient today concerning their right and left knee osteoarthritis. The radiographs do show osteoarthritis of the knees. At this time the patient would like to avoid surgical intervention. We did discuss the risk and benefits of surgical versus nonoperative management. The patient would like to proceed with nonoperative management. We discussed that our options include injections, physical therapy, and the consistent use of anti-inflammatories . All 3 of these options, including their risks and benefits, were discussed at length with the patient. 5. Discussed with the patient her bilateral lower extremity swelling. She shared with me that she is no longer taking her Lasix against her PCPs recommendation. I again recommended that she take her water pill as prescribed by her PCP and also recommended that she contact her PCP to discuss her persistent lower extremity swelling and pitting edema. 6. Weight loss management referral to Dr. Aguilera was made. Patient is in agreement to evaluate the service and see if it something that would work for her. 7. Physical therapy for wellness and supervised wellness referral has been made. Patient is in agreement to explore this option for her. 8. Follow-up in 3 months. [facility] Other Evaluation + Plan note No data available for this section [facility] Diagnosis Inflammatory arthritis- Primary Unspecified inflammatory polyarthropathy DENG positive Other and unspecified nonspecific immunological findings Psoriasis Other psoriasis Joint stiffness of multiple sites Stiffness of joints, not elsewhere classified, multiple sites Long-term use of high-risk medication Fibromyalgia Mylagia and myositis, unspecified Chronic pain of both shoulders Pain in joint, shoulder region Bilateral hand pain Pain in limb Chronic bilateral low back pain without sciatica Chronic pain of both knees Bilateral wrist pain Pain in joint, forearm Elevated sed rate Elevated sedimentation rate Vitamin D deficiency Unspecified vitamin D deficiency Pain in both hands [facility] Inflammatory arthritis Unspecified inflammatory polyarthropathy DENG positive Other and unspecified nonspecific immunological findings Psoriasis Other psoriasis [facility]* Diagnosis Inflammatory arthritis- Primary Unspecified inflammatory polyarthropathy Elevated LFTs Other abnormal blood chemistry Anemia of chronic disease Anemia of other chronic disease Elevated sed rate Elevated sedimentation rate Elevated C-reactive protein (CRP) Vitamin D deficiency Unspecified vitamin D deficiency documented in this encounter [facility] noteNo InformationNort [email or web address] Other Evaluation noteNo assessment information available [facility] Work Phone: Evaluation note* Diagnosis Primary osteoarthritis of knees, bilateral- Primary documented in this encounter [facility] note* Diagnosis Primary osteoarthritis of knees, bilateral- Primary documented in this encounter [facility] note* Diagnosis Primary osteoarthritis of knees, bilateral- Primary documented in this encounter [facility] note* Psychological: calm, cooperative and pleasantNeurological: awake, alert and conversantExtremities: warm to touch; palpable bilateral radial and DP pulses; PIV in place; no evidence of BLE or BUE swellingMusculoskeletal: GARVIN strongly and equallyCardiovascular: Normal heart sounds with regular rate and rhythm; not tachycardic; no audible rubs, gallops or murmurs; vital signs are stable.Respiratory/Thorax: Respirations are full and easy with symmetrical chest expansion; breath sounds clear all anterolateral lung villanueva; on Padmini: warm and dryConstitutional: Sitting up in chair in NAD. [facility] Diagnosis Inflammatory arthritis Unspecified inflammatory polyarthropathy DENG positive Other and unspecified nonspecific immunological findings Psoriasis Other psoriasis documented in this encounter [facility] note* Diagnosis Primary osteoarthritis of knees, bilateral- Primary documented in this encounter [facility] note* Author Jaquan Richard [facility] Authored January 21, 2024 12:49 pm The above note written by __ _Sonali Burciaga____ acting as human recorder, note dictated by Dr. Guillaume .I performed the above HPI, ROS, and Examination. I formulated and dictated the treatment plan and was present for entire encounter. Jaquan Richard D.O. [facility] Work Phone: Evaluation note* Diagnosis Inflammatory arthritis- Primary Unspecified inflammatory polyarthropathy Vitamin D deficiency Unspecified vitamin D deficiency Vitamin B12 deficiency Other B-complex deficiencies DENG positive Other and unspecified nonspecific immunological findings Hyperuricemia Other abnormal blood chemistry Joint stiffness of multiple sites Stiffness of joints, not elsewhere classified, multiple sites Psoriasis Other psoriasis [facility]* Diagnosis Primary osteoarthritis of both knees- Primary Primary localized osteoarthrosis, lower leg [facility]* Diagnosis Elevated LFTs- Primary Other abnormal blood chemistry Inflammatory arthritis Unspecified inflammatory polyarthropathy DENG positive Other and unspecified nonspecific immunological findings Psoriasis Other psoriasis Anemia of chronic disease Anemia of other chronic disease Elevated sed rate Elevated sedimentation rate Elevated C-reactive protein (CRP) [facility] this [facility]* Diagnosis Primary osteoarthritis of both knees Primary localized osteoarthrosis, lower leg [facility]* Diagnosis Onset Date Resolution Status Atrial fibrillation acute Cervical pain acute Cough acute Knee pain, left acute Lumbar pain acute Rheumatoid arthritis acute Shoulder pain, right acute Type 2 diabetes mellitus without complications acute [facility] Work Phone: History general Narrative - Reported* Type Description Date Medical History asthma Medical History Atrial fibrillation Medical History Hypertension Medical History Hypothyroidism Medical History 1983 pelvic exam done Medical History 2007 mammogram done Medical History 2008 colonoscopy Medical History 2008 CT scan of abdomen Medical History 2007 EKG Medical History Sleep Study 03-08-12; at home thr [facility] Medical History Hx of seizures Medical History rheumatoid arthritis Medical History psoriatic arthritis Medical History depression Medical History anxiety Medical History borderline diabetic Medical History histoplasmosis Medical History sleep apnea Surgical History C section x 3 Surgical History appendectomy 2005 Surgical History cervical fusion 2006 Surgical History carpal tunnel release, right 20 05 Surgical History trigger finger release x 8 Dr.S kelly Surgical History tonsillectomy and adenoidectomy Surgical History spinal fusion Surgical History tubal ligation Surgical History Dr Irving, series of 3 cortisone inj 03/[address] Moore cxr 04/12/17 Surgical History series of 3 cortison inj both k nees Surgical History DEXA 02/2018 Surgical History hystoscopy 2018 Surgical History cyst removed from knee Surgical History eye lid surgery 12/2021 Hospitalization History see above surgical histo ry [facility] Other [employer] general Narrative - Reported* Type Description Date Medical History asthma Medical History Atrial fibrillation Medical History Hypertension Medical History Hypothyroidism Medical History 1984 pelvic exam done Medical History 2007 mammogram done Medical History 2008 colonoscopy Medical History 2008 CT scan of abdomen Medical History 2007 EKG Medical History Sleep Study 03-08-12; at home thr [facility] Medical History Hx of seizures Medical History rheumatoid arthritis Medical History psoriatic arthritis Surgical History C section x 3 Surgical History appendectomy 2005 Surgical History cervical fusion 2006 Surgical History carpal tunnel release 2005 Surgical History trigger finger release x 8 Dr.S kelly Surgical History tonsillectomy and adenoidectomy Surgical History spinal fusion Surgical History tubal ligation Surgical History Dr Irving, series of 3 cortisone inj 03/[address] Oscar patelr 04/12/17 Surgical History series of 3 cortison inj both k nees Surgical History DEXA 02/2018 Surgical History hystoscopy 2019 Hospitalization History see above surgical [email or web address] Other History general Narrative - Reported* Type Description Date Medical History asthma Medical History Atrial fibrillation Medical History Hypertension Medical History Hypothyroidism Medical History 1983 pelvic exam done Medical History 2007 mammogram done Medical History 2008 colonoscopy Medical History 2008 CT scan of abdomen Medical History 2007 EKG Medical History Sleep Study 03-08-12; at home thr [facility] Medical History Hx of seizures Medical History rheumatoid arthritis Medical History psoriatic arthritis Medical History depression Medical History anxiety Medical History borderline diabetic Medical History histoplasmosis Medical History sleep apnea Surgical History C section x 3 Surgical History appendectomy 2005 Surgical History cervical fusion 2006 Surgical History carpal tunnel release, right 20 05 Surgical History trigger finger release x 8 Dr.S kelly Surgical History tonsillectomy and adenoidectomy Surgical History spinal fusion Surgical History tubal ligation Surgical History Dr Irving, series of 3 cortisone inj 03/[address] Oscar escamilla 04/12/17 Surgical History series of 3 cortison inj both k nees Surgical History DEXA 02/2018 Surgical History hystoscopy 2019 Surgical History cyst removed from knee Hospitalization History see above surgical histo [employer] Other History general Narrative - Reported* Type Description Date Medical History asthma Medical History Atrial fibrillation Medical History Hypertension Medical History Hypothyroidism Medical History 1983 pelvic exam done Medical History 2007 mammogram done Medical History 2008 colonoscopy Medical History 2008 CT scan of abdomen Medical History 2007 EKG Medical History [facility]12[facility] Medical History Hx of seizures Medical History rheumatoid arthritis Medical History psoriatic arthritis Medical History depression Medical History anxiety Medical History borderline diabetic Medical History histoplasmosis Medical History sleep apnea Surgical History C section x 3 Surgical History appendectomy 2005 Surgical History cervical fusion 2006 Surgical History carpal tunnel release, right 20 05 Surgical History trigger finger release x 8 Dr.S kelly Surgical History tonsillectomy and adenoidectomy Surgical History spinal fusion Surgical History tubal ligation Surgical History Dr Irving, series of 3 cortisone inj 03/[address] Moore cxr 04/12/17 Surgical History series of 3 cortison inj both k nees Surgical History DEXA 02/2018 Surgical History hystoscopy 2018 Surgical History cyst removed from knee Surgical History eye lid surgery 12/2021 Surgical History cataract surgery bilateral 10/02 23 10/2022 Hospitalization History see above surgical histo ry [facility] Other History general Narrative - Reported* Type Description Date Medical History asthma Medical History Atrial fibrillation Medical History Hypertension Medical History Hypothyroidism Medical History 1983 pelvic exam done Medical History 2007 mammogram done Medical History 2008 colonoscopy Medical History 2008 CT scan of abdomen Medical History 2007 EKG Medical History Sleep Study 03-08-12; at home thru [facility] Medical History Hx of seizures Medical History rheumatoid arthritis Medical History psoriatic arthritis Medical History depression Medical History anxiety Medical History borderline diabetic Medical History histoplasmosis Medical History sleep apnea Surgical History C section x 3 Surgical History appendectomy 2005 Surgical History cervical fusion 2006 Surgical History carpal tunnel release, right 20 05 Surgical History trigger finger release x 8 Dr.S kelly Surgical History tonsillectomy and adenoidectomy Surgical History spinal fusion Surgical History tubal ligation Surgical History Dr Irving, series of 3 cortisone inj 03/[address] Moore cxr 04/12/17 Surgical History series of 3 cortison inj both k nees Surgical History DEXA 02/2018 Surgical History hystoscopy 2018 Surgical History cyst removed from knee Surgical History eye lid surgery 12/2021 Surgical History cataract surgery bilateral 10/02 Hospitalization History see above surgical histo ry Hospitalization History pulmonary embolism [facility] Other Hospital Discharge instructions Additional Instructions Avoid picking, popping, poking area affected Keep area clean Neosporin daily Take antibiotic as instructed until gone Tylenol if needed for pain Return here if any problems persist or worsen Call your doctor tomorrow [facility] Discharge instructions Additional Instructions Ice and elevate Wear Eddy wrap for support Follow-up with your Ortho Dr. Thomas Continue taking your oxycodone that you have at home for [facility] Work Phone: Hospital Discharge instructions No data available for this section [facility] No data available for this section [facility] CenterReason for referral (narrative)* Reason for Referral: SOB and found submassive PE [facility] Summary Purpose Family History No Family History Records Found Relationship Condition Age at Onset Recorded Date/T [place] father Myocardial infarction Unknown Not Specified Diabetes mellitus Unknown sister Diabetes mellitus Unknown Fibromyalgia Unknown brother Diabetes mellitus Unknown brother Osteoarthritis Unknown daughter Diabetes mellitus Unknown Relationship Condition Age at Onset Recorded Date/T [place] father Myocardial infarction Unknown Not Specified Diabetes mellitus Unknown sister Diabetes mellitus Unknown Fibromyalgia Unknown brother Diabetes mellitus Unknown brother Osteoarthritis Unknown daughter Diabetes mellitus Unknown father Unknown Heart disease Unknown Coronary artery disease Unknown family member Family history of other condition Unknow n grandparent Unknown grandparent Hypertension Unknown Unknown natural son Unknown Relationship Condition Age at Onset Recorded Date/T [place] father Myocardial infarction Unknown mother Diabetes mellitus Unknown sister Diabetes mellitus Unknown Fibromyalgia Unknown brother Diabetes mellitus Unknown brother Osteoarthritis Unknown daughter Diabetes mellitus Unknown father Unknown Heart disease Unknown Coronary artery disease Unknown family member Family history of other condition Unknow n grandparent Unknown grandparent Hypertension Unknown Unknown son Unknown Advance Directives No Advanced Directives Records Found Advance Directive Response Recorded Date/ Time Advance Directives No August 20, 2017 12:12pm Advance Directive Response Recorded Date/ Time Advance Directives No August 20, 2017 1:12pm Advance Directive Response Recorded Date/ Time Advance Directives No January 20 12:41pm Advance Directive Response Recorded Date/ Time Advance Directives No April 26, 2024 1:47pm Chief Complaint and Reason for Visit Chief Complaint ^Abdominal Pain Chief Complaint ^Abdominal Pain See order Chief Complaint ^Abdominal Pain See order E04.2 Chief Complaint ^Abdominal Pain E04.2 R13.10 Chief Complaint ^Abdominal Pain e03.9 See order Chief Complaint ^Abdominal Pain See order diff breathing Chief Complaint ^Abdominal Pain Discuss Medications/Arthritis Op Sp Taiwo Knee Pain M17.11 M17.12 CC Adult Risk Stratification E03.9 R73.9 E55.9 E75.89 [id number] Chief Complaint ^Abdominal Pain CC Adult Risk Stratification E03.9 R73.9 E55.9 E75.89 [id number] Review Labs/Med Refill Amb Documentation Amb Documentation rt index finger pain-redness Chief Complaint ^Abdominal Pain Amb Documentation Amb Documentation rt index finger pain-redness Amb Documentation telephone/med refill Reason for Visit Abrasion Balance disorder Knee pain, left Lumbar pain Type 2 diabetes mellitus without complications Chief Complaint ^Abdominal Pain rt index finger pain-redness Amb Documentation telephone/med refill L knee pain, NKI Reason for Visit Abrasion Balance disorder Knee pain, left Lumbar pain Type 2 diabetes mellitus without complications Chief Complaint ^Abdominal Pain L knee pain, NKI telephone/med refill/ review lab Reason for Visit Atrial fibrillation Cervical pain Cough Knee pain, left Lumbar pain Rheumatoid arthritis Shoulder pain, right Type 2 diabetes mellitus without complications Chief Complaint ^Abdominal Pain L knee pain, NKI telephone/med refill/ review lab discuss HH services Reason for Visit Atrial fibrillation Cervical pain Cough Knee pain, left Lumbar pain Rheumatoid arthritis Shoulder pain, right Type 2 diabetes mellitus without complications Degenerative joint disease of cervical spine Gait instability Primary osteoarthritis of left knee Primary osteoarthritis of right knee Psoriatic arthritis Rotator cuff tear arthropathy of right shoulder Type 2 diabetes mellitus without complications Weakness Chief Complaint ^Abdominal Pain telephone/med refill/ review lab discuss HH services Reason for Visit Atrial fibrillation Cervical pain Cough Knee pain, left Lumbar pain Rheumatoid arthritis Shoulder pain, right Type 2 diabetes mellitus without complications Degenerative joint disease of cervical spine Gait instability Primary osteoarthritis of left knee Primary osteoarthritis of right knee Psoriatic arthritis Rotator cuff tear arthropathy of right shoulder Type 2 diabetes mellitus without complications Weakness Assessments No Assessments Information Available Reason for Referral Specialty Diagnoses / Procedures Referred By Contac t Referred To Contact Diagnoses Inflammatory arthritis DENG positive Psoriasis William Hope MD [address] [place] [address] Referral ID Status Reason Start Date Expiration Date Visits Re quested Visits Authorized [id number] Denied 1 1 Referral ID Status Reason Start Date Expiration Date Visits Re quested Visits Authorized [id number] Closed 1 1 Specialty Diagnoses / Procedures Referred By Contac t Referred To Contact Pain Management Diagnoses Primary osteoarthritis of knees, bilateral Procedures CONSULT TO PAIN MGT OFFICE/OUTPATIENT [facility] [place] 60-74 MINUTES Jalil Kiran DO [address] [place] [address] Referral ID Status Reason Start Date Expiration Date Visits Requested Visits Authorized [id number] Pending Review PCP Requested Referral 05/27/2022 05/27/2023 1 1 Reason appt 11/03/22 at 1:30 pm/rescheduled to 11/12/22 at 3:30pm pt needs consult to evaluate lumbar pain Diagnosis 1 Lumbar pain (M54.50) Referral Organization [facility] [place] Referring Provider First Name Jaquan Referring Provider Last Name Carlito Referring Provider Specialty Family Prac samir Referred Organization [facility] Referred Provider Shahid Cherry Referred Address [address] [place], [place],[address] Referred Provider Specialty Pain Medicin e Referral Priority Routine Referral Appointment Date 2022-11-12 General Notes Yulia Mohr 09/30/2022 01:27:10 PM > referral sent p2p. pt understands that she will be contacted to schedule this appt. Yulia Mohr 10/13/2022 10:55:00 AM > appt scheduled on 11/03/22 at 1:30pm Yulia Mohr 11/03/2022 02:34:19 PM > appt rescheduled to 11/12/22 at 3:30pm Specialty Diagnoses / Procedures Referred By Contac t Referred To Contact Pain Management Diagnoses Primary osteoarthritis of both knees Procedures CONSULT TO PAIN MGT OFFICE/OUTPATIENT NEW HIGH MDM 60 MINUTES Jalil Kiran DO [address] [place] [address] Referral ID Status Reason Start Date Expiration Date Visits Requested Visits Authorized [id number] Authorized PCP Requested Referral 02/29/2024 02/28/2025 1 1 Specialty Diagnoses / Procedures Referred By Contac t Referred To Contact Diagnoses Inflammatory arthritis DENG positive Psoriasis William Hope MD [address] [facility] [place] [address] Referral ID Status Reason Start Date Expiration Date Visits Re quested Visits Authorized [id number] Closed 1 1 Medications Administered Section Inactive Administered Medications - up to 3 most recent administrations Medication Order MAR Action Action Date Dose Rate Site lidocaine (PF) 10 mg/mL (1 %) 4 mL injection (XYLOCAINE) 4 mL, Injection - FOR ORTHO USE ONLY, ONE TIME INJECTION, 1 dose, Starting on Wed05/27/22 at 1451, Until Wed05/27/22 at 1451 Given 05/27/2022 2:51 PM EDT 4 mL Knee, Left lidocaine (PF) 10 mg/mL (1 %) 4 mL injection (XYLOCAINE) 4 mL, Injection - FOR ORTHO USE ONLY, ONE TIME INJECTION, 1 dose, Starting on Wed05/27/22 at 1451, Until Wed05/27/22 at 1451 Given 05/27/2022 2:51 PM EDT 4 mL Knee, Right triamcinolone acetonide 40 mg injection (KeNALog 40) 40 mg, Injection - FOR ORTHO USE ONLY, ONE TIME INJECTION, 1 dose, Starting on Wed05/27/22 at 1451, Until Wed05/27/22 at 1451 Given 05/27/2022 2:51 PM EDT 40 mg Knee, Left triamcinolone acetonide 40 mg injection (KeNALog 40) 40 mg, Injection - FOR ORTHO USE ONLY, ONE TIME INJECTION, 1 dose, Starting on Wed05/27/22 at 1451, Until Wed05/27/22 at 1451 Given 05/27/2022 2:51 PM EDT 40 mg Knee, Right Inactive Administered Medications - up to 3 most recent administrations Medication Order MAR Action Action Date Dose Rate Site lidocaine (PF) 10 mg/mL (1 %) 4 mL injection (XYLOCAINE) 4 mL, Injection - FOR ORTHO USE ONLY, ONE TIME INJECTION, 1 dose, Starting on Wed09/03/22 at 1426, Until Wed09/03/22 at 1426 Given 09/03/2022 2:26 PM EST 4 mL Knee, Left lidocaine (PF) 10 mg/mL (1 %) 4 mL injection (XYLOCAINE) 4 mL, Injection - FOR ORTHO USE ONLY, ONE TIME INJECTION, 1 dose, Starting on Wed09/03/22 at 1426, Until Wed09/03/22 at 1426 Given 09/03/2022 2:26 PM EST 4 mL Knee, Right triamcinolone acetonide 40 mg injection (KeNALog 40) 40 mg, Injection - FOR ORTHO USE ONLY, ONE TIME INJECTION, 1 dose, Starting on Wed09/03/22 at 1426, Until Renu 09/03/22 at 1426 Given 09/03/2022 2:26 PM EST 40 mg Knee, Left triamcinolone acetonide 40 mg injection (KeNALog 40) 40 mg, Injection - FOR ORTHO USE ONLY, ONE TIME INJECTION, 1 dose, Starting on Renu 09/03/22 at 1426, Until Renu 09/03/22 at 1426 Given 09/03/2022 2:26 PM EST 40 mg Knee, Right Inactive Administered Medications - up to 3 most recent administrations Medication Order MAR Action Action Date Dose Rate Site lidocaine (PF) 10 mg/mL (1 %) 4 mL injection (XYLOCAINE) 4 mL, Injection - FOR ORTHO USE ONLY, ONE TIME INJECTION, 1 dose, Starting on Wed04/20/23 at 1352, Until Wed04/20/23 at 1352 Given 04/20/2023 1:52 PM EDT 4 mL Knee, Left lidocaine (PF) 10 mg/mL (1 %) 4 mL injection (XYLOCAINE) 4 mL, Injection - FOR ORTHO USE ONLY, ONE TIME INJECTION, 1 dose, Starting on Wed04/20/23 at 1352, Until Wed04/20/23 at 1352 Given 04/20/2023 1:52 PM EDT 4 mL Knee, Right triamcinolone acetonide 40 mg injection (KeNALog 40) 40 mg, Injection - FOR ORTHO USE ONLY, ONE TIME INJECTION, 1 dose, Starting on Wed04/20/23 at 1352, Until Wed04/20/23 at 1352 Given 04/20/2023 1:52 PM EDT 40 mg Knee, Left triamcinolone acetonide 40 mg injection (KeNALog 40) 40 mg, Injection - FOR ORTHO USE ONLY, ONE TIME INJECTION, 1 dose, Starting on Wed04/20/23 at 1352, Until Wed04/20/23 at 1352 Given 04/20/2023 1:52 PM EDT 40 mg Knee, Right Additional Source Comments INFORMATION SOURCE (unrecogn ized section and content) DATE CREATED AUTHOR 03/09/2018 [facility] DATE CREATED AUTHOR AUTHOR'S ORGANIZ ATION 12/02/2021 [facility] Special[facility] DATE CREATED AUTHOR AUTHOR'S ORGANIZ ATION 05/29/2023 [facility] DATE CREATED AUTHOR AUTHOR'S ORGANIZ ATION 06/03/2023 [facility] DATE CREATED AUTHOR AUTHOR'S ORGANIZ ATION 03/09/2024 Baltazar Nash [facility] DATE CREATED AUTHOR AUTHOR'S ORGANIZ ATION 04/05/2024 [facility] DATE CREATED AUTHOR AUTHOR'S ORGANIZ ATION 05/19/2024 [facility] DATE CREATED AUTHOR AUTHOR'S ORGANIZ ATION 05/20/2024 [facility] Source Comments (unrecognize d section and content) In the event this informatio n is protected by the Federal Confidentiality of Alcohol and Drug Abuse Patient Records regulations: The Federal rules restrict any use of the information to criminally investigate or prosecute any alcohol or drug abuse patient.[facility] the event this information is protected by the Federal Confidentiality of Alcohol and Drug Abuse Patient Records regulations: The Federal rules restrict any use of the information to criminally investigate or prosecute any alcohol or drug abuse patient.[facility] the event this information is protected by the Federal Confidentiality of Alcohol and Drug Abuse Patient Records regulations: The Federal rules restrict any use of the information to criminally investigate or prosecute any alcohol or drug abuse patient.[facility] the event this information is protected by the Federal Confidentiality of Alcohol and Drug Abuse Patient Records regulations: The Federal rules restrict any use of the information to criminally investigate or prosecute any alcohol or drug abuse patient.[facility] the event this information is protected by the Federal Confidentiality of Alcohol and Drug Abuse Patient Records regulations: The Federal rules restrict any use of the information to criminally investigate or prosecute any alcohol or drug abuse patient.[facility] the event this information is protected by the Federal Confidentiality of Alcohol and Drug Abuse Patient Records regulations: The Federal rules restrict any use of the information to criminally investigate or prosecute any alcohol or drug abuse patient.[facility] the event this information is protected by the Federal Confidentiality of Alcohol and Drug Abuse Patient Records regulations: The Federal rules restrict any use of the information to criminally investigate or prosecute any alcohol or drug abuse patient.[facility] the event this information is protected by the Federal Confidentiality of Alcohol and Drug Abuse Patient Records regulations: The Federal rules restrict any use of the information to criminally investigate or prosecute any alcohol or drug abuse patient.[facility] the event this information is protected by the Federal Confidentiality of Alcohol and Drug Abuse Patient Records regulations: The Federal rules restrict any use of the information to criminally investigate or prosecute any alcohol or drug abuse patient.[facility] the event this information is protected by the Federal Confidentiality of Alcohol and Drug Abuse Patient Records regulations: The Federal rules restrict any use of the information to criminally investigate or prosecute any alcohol or drug abuse patient.[facility] the event this information is protected by the Federal Confidentiality of Alcohol and Drug Abuse Patient Records regulations: The Federal rules restrict any use of the information to criminally investigate or prosecute any alcohol or drug abuse patient.[facility] the event this information is protected by the Federal Confidentiality of Alcohol and Drug Abuse Patient Records regulations: The Federal rules restrict any use of the information to criminally investigate or prosecute any alcohol or drug abuse patient.[facility] the event this information is protected by the Federal Confidentiality of Alcohol and Drug Abuse Patient Records regulations: The Federal rules restrict any use of the information to criminally investigate or prosecute any alcohol or drug abuse patient.[facility] the event this information is protected by the Federal Confidentiality of Alcohol and Drug Abuse Patient Records regulations: The Federal rules restrict any use of the information to criminally investigate or prosecute any alcohol or drug abuse patient.[facility] the event this information is protected by the Federal Confidentiality of Alcohol and Drug Abuse Patient Records regulations: The Federal rules restrict any use of the information to criminally investigate or prosecute any alcohol or drug abuse patient.[facility] the event this information is protected by the Federal Confidentiality of Alcohol and Drug Abuse Patient Records regulations: The Federal rules restrict any use of the information to criminally investigate or prosecute any alcohol or drug abuse patient.[facility] the event this information is protected by the Federal Confidentiality of Alcohol and Drug Abuse Patient Records regulations: The Federal rules restrict any use of the information to criminally investigate or prosecute any alcohol or drug abuse patient.[facility] Reason for Visit (unrecogniz ed section and content) Reason Comments Knee Pain Specialty Diagnoses / Procedures Referred By Artemio lind Referred To Contact ORTHOPAEDIC SURGERY Diagnoses Bilateral primary osteoarthritis of knee Procedures DUROLANE PER 1MG DUROLANE OR PAYOR PREFERRED Jalil Kiran DO [address] [place] [address] Halima Escobar [address] [place] [address] Referral ID Status Reason Start Date Expiration Date V isits Requested Visits Authorized [id number] Authorized 12/23/2023 09/12/2024 99 99 Reason Comments Follow Up Reason Comments Results Reason Comments Appointment Pain management Reason Comments Injections Follow Up Reason Comments Patient Question Reason Comments Established Patient Knee Pain Reason Comments Refill Request Reason Comments Knee Pain Reason Comments Follow Up Reason Comments Results Reason Comments Consult Bilateral knee pain Specialty Diagnoses / Procedures Referred By Artemio t Referred To Contact Pain Management Diagnoses Primary osteoarthritis of both knees Procedures CONSULT TO PAIN MGT OFFICE/OUTPATIENT [facility] [place] 60 MINUTES Jalil Kiran DO [address] [place] [address] Referral ID Status Reason Start Date Expiration Date V isits Requested Visits Authorized [id number] Closed PCP Requested Referral 02/29/2024 02/28/2025 1 1 Care Teams (unrecognized sec tion and content) Team Status: Active Member Role Status Dates Sonali Burciaga LPN Care Manager Active Team Status: Active Member Role Status Dates Vince Asencio MD Attending Provider Active Sta rt: January 07, 2004 Team Status: Active Member Role Status Tahir Richard DO Primary Care Provider Active S tart: April 13, 2024 XIOMARA ChirinosC Attending Provider Active Start: April 13, 2024 Team Status: Inactive Member Role Status Tahir Richard DO Primary Care Provide r, Attending Provider Active Start: April 26, 2024 End: April 26, 2024 Team Status: Inactive Member Role Status Tahir Richard DO Primary Care Provide r, Attending Provider Active Start: May 02, 2024 End: May 02, 2024 Team Status: Inactive Member Role Status Tahir Richard DO Attending Provider Active Star t: May 18, 2024 End: May 18, 2024 Team Status: Active Member Role Status Tahir Richard DO Primary Care Provider Active Team Status: Active Member Role Status Dates Vince Asencio MD Attending Provider Active Team Status: Inactive Member Role Status Tahir Richard DO Primary Care Provider, Attending Pro vider Active Senior Policy Analyst Relationship Specialty Start Date End Date Jaquan Richard DO [address] [place] [address] PCP - General Family Practice 03/12/17 Senior Policy Analyst Relationship Specialty Start Date End Date Jaquan Richard DO [address] [place] [address] PCP - General Family Practice 03/12/17 Senior Policy Analyst Relationship Specialty Start Date End Date Jaquan Richard, DO [address] [place] [address] PCP - General [facility] Practice 03/12/17 Senior Policy Analyst Relationship Specialty Start Date End Date Jaquan Richard, DO [address] [place] [address] PCP - General Family Practice 03/12/17 Team Status: Inactive Member Role Status Dates Jaquan Richard , Primary Care Provider Active Flex Atkinson , Attending Provider Active Senior Policy Analyst Relationship Specialty Start Date End Date Jaquan Richard, DO [address] [place] [id number] PCP - General Family Medicine 03/12/17 Senior Policy Analyst Relationship Specialty Start Date End Date Jaquan Richard, DO [address] [place] [id number] PCP - General Family Medicine 03/12/17 Senior Policy Analyst Relationship Specialty Start Date End Date Jaquan Richard, DO [address] [place] [id number] PCP - General Family Medicine 03/12/17 Senior Policy Analyst Relationship Specialty Start Date End Date Jaquan Richard DO [address] [place] [address] PCP - General Family Medicine 03/12/17 Team Status: Inactive Member Role Status Dates Jaquan Ricahrd DO Primary Care Provider Active Lei Saavedra DO Emergency Provider Active Senior Policy Analyst Relationship Specialty Start Date End Date Jaquan Richard DO [address] [place] [address] PCP - General Family Medicine 03/12/17 Team Status: Active Member Role Status Tahir Burciaga LPN Care Manager Active Jaquan Richard DO Primary Care Provider Active Team Status: Inactive Member Role Status Tahir Richard DO Attending Provider Active Star t: July 19, 2023 End: July 19, 2023 Team Status: Inactive Member Role Status Dates Mikael Hughes II, MD Attending Provider Active Start: August 27, 2023 End: August 27, 2023 Team Status: Inactive Member Role Status Tahir Richard DO Primary Care Provider Active S tart: August 27, 2023 End: August 27, 2023 Mikael Hughes II, MD Attending Provider Active Start: August 27, 2023 End: August 27, 2023 Team Status: Active Member Role Status Tahir Richard DO Primary Care Provide r, Attending Provider Active Start: October 05, 2023 Team Status: Inactive Member Role Status Tahir Richard DO Primary Care Provide r, Attending Provider Active Start: October 12, 2023 End: October 12, 2023 Team Status: Inactive Member Role Status Tahir Richard DO Attending Provider Active Star t: October 14, 2023 End: October 14, 2023 Team Status: Active Member Role Status Tahir Richard DO Primary Care Provider Active S tart: October 26, 2023 Sonali Burciaga LPN Attending Provider Active St art: October 26, 2023 Team Status: Active Member Role Status Tahir Richard DO Primary Care Provider Active S tart: November 01, 2023 SOWMYA Mckeon Attending Provider Active S tart: November 01, 2023 Team Status: Inactive Member Role Status Tahir Richard DO Primary Care Provider Active S tart: November 30, 2023 End: November 30, 2023 Val Lagunas APRN Emergency Provider Active Start: November 30, 2023 End: November 30, 2023 Senior Policy Analyst Relationship Specialty Start Date End Date Jaquan Richard DO [address] [place] [address] PCP - General Family Medicine 03/12/17 Senior Policy Analyst Relationship Specialty Start Date End Date Jaquan Richard DO [address] [place] [address] PCP - [facility] Medicine 03/12/17 Team Status: Active Member Role Status Dates Jaquan Richard DO Primary Care Provider Active S tart: January 07, 2024 Sonali Burciaga LPN Attending Provider Active St art: January 07, 2024 Team Status: Inactive Member Role Status Dates Jaquan Richard DO Primary Care Provide r, Attending Provider Active Start: January 21, 2024 End: January 21, 2024 Senior Policy Analyst Relationship Specialty Start Date End Date Jaquan Richard DO [address] [place] [address] PCP - [facility] 03/12/17 Senior Policy Analyst Relationship Specialty Start Date End Date Jaquan Richard DO [address] [place] [address] PCP - [facility] 03/12/17 Team Status: Inactive Member Role Status Dates Jaquan Richard DO Primary Care Provider Active S tart: February 04, 2024 End: February 04, 2024 Val Lagunas APRN Emergency Provider Active Start: February 04, 2024 End: February 04, 2024 Senior Policy Analyst Relationship Specialty Start Date End Date Jaquan Richard DO [address] [place] [address] PCP - [facility] 03/12/17 Senior Policy Analyst Relationship Specialty Start Date End Date Jaquan Richard DO [address] [place] [address] PCP - [facility] 03/12/17 Senior Policy Analyst Relationship Specialty Start Date End Date Jaquan Richard DO [address] [place] [address] PCP - General Family Medicine 03/12/17 Senior Policy Analyst Relationship Specialty Start Date End Date Jaquan Ricahrd DO [address] [place] [address] PCP - General Family Medicine 03/12/17 Goals (unrecognized section and content) Goals may be documented in a n alternate section <item> Privacy Markings (unrecogniz ed section and content) Section Author: Bibiana Dinero PROHIBITION ON REDISCLOSURE OF CONFIDENTIAL INFORMATION This notice accompanies a disclosure of information concerning a client made to you with the consent of such client. Inactive Administered Medications - up to 3 most recent administrations Administered Medications (un recognized section and content) Medication Order MAR Action Action Date Dose Rate Site lidocaine (PF) 10 mg/mL (1 %) 4 mL injection (XYLOCAINE) 4 mL, Injection - FOR ORTHO USE ONLY, ONCE, 1 dose, Starting on Wed12/22/23 at 1336, Until Wed12/22/23 at 1336 Given 12/22/2023 1:36 PM EDT 4 mL Knee, Left lidocaine (PF) 10 mg/mL (1 %) 4 mL injection (XYLOCAINE) 4 mL, Injection - FOR ORTHO USE ONLY, ONCE, 1 dose, Starting on Wed12/22/23 at 1336, Until Wed12/22/23 at 1336 Given 12/22/2023 1:36 PM EDT 4 mL Knee, Right triamcinolone acetonide 40 mg injection (KeNALog 40) 40 mg, Injection - FOR ORTHO USE ONLY, ONCE, 1 dose, Starting on Wed12/22/23 at 1336, Until Wed12/22/23 at 1336 Given 12/22/2023 1:36 PM EDT 40 mg Knee, Left triamcinolone acetonide 40 mg injection (KeNALog 40) 40 mg, Injection - FOR ORTHO USE ONLY, ONCE, 1 dose, Starting on Wed12/22/23 at 1336, Until Wed12/22/23 at 1336 Given 12/22/2023 1:36 PM EDT 40 mg Knee, Right FOR RECORDS PERTAINING TO PATIENTS WHO ARE OR HAVE BEEN ENROLLED IN A CHEMICAL DEPENDENCY/SUBSTANCEABUSE PROGRAM, SOME INFORMATION MAY BE OMITTED. This clinical summary was aggregated from multiple sources. Caution should be exercised in using it in the provision of clinical care. This summary normalizes information from multiple sources, and as a consequence, information in this document may materially change the coding, format and clinical context of patient data. In addition, data may be omitted in some cases. CLINICAL DECISIONS SHOULD BE BASED ON THE PRIMARY CLINICAL RECORDS. [facility] [employer] [facility]. provides no warranty or guarantee of the accuracy or completeness of information in this document.
[2024-06-22 21:19] VITALS: BP 167/102
--- NOTE | 2024-06-22 21:31 | CT_ITS ---
The [address] [address] Patient Name: VICKY GARCIA MRN: [id number] date: 1950 Sex: F Assigned Patient Location: ER Current Patient Location: Accession/Order Number: [id number] Exam Date: 06/22/2024 21:54 Report Date: 06/22/2024 23:37 At the request of: RICHELLE BLAKELY Procedure: CT cervical spine wo con CT cervical spine wo con 06/22/2024 8:54 PM CDT: History: Atraumatic pain Neck Pain Comparison: None. Technique: Unenhanced CT imaging of the cervical spine. This CT exam was performed using one or more of the following dose reduction techniques: Automated exposure control, adjustment of the mA and/or KV according to patient size, or use of iterative reconstruction technique. Findings: There has been prior ACDF of C5-C7 with anterior plate and screw fixation device and intervertebral disc spacers. There is no evidence of hardware complication. The cervical vertebral bodies maintain normal height and alignment. There is no fracture or dislocation. The prevertebral soft tissues and predental space are normal. The facet joints are aligned bilaterally. The atlantooccipital articulation is normal bilaterally. There is severe multilevel degenerative disc disease of the cervical spine. CT/CT cervical spine wo con Impression: 1. No acute abnormality of the cervical spine. Electronically authenticated by: EDER OWENS Date: 06/22/2024 23:37
--- NOTE | 2024-06-22 21:31 | CT_ITS ---
The [place] [id number] Patient Name: VICKY GARCIA MRN: [id number] date: 1950 Sex: F Assigned Patient Location: ER Current Patient Location: .[facility] Accession/Order Number: [id number] Exam Date: 06/22/2024 21:54 Report Date: 06/22/2024 23:34 At the request of: RICHELLE BLAKELY Procedure: CT lumbar spine wo con EXAM: CT lumbar spine wo con HISTORY: Atraumatic pain COMPARISON: None. TECHNIQUE: Axial CT scans of the lumbar spine were obtained without contrast. MPR images were obtained. Dose reduction techniques were achieved by using: automated exposure control and/or adjustment of mA and /or kV according to patient size and/or use of iterative reconstruction technique. FINDINGS: At L2-L3, left paracentral and foraminal disc protrusion results in mild stenosis of the left neural foramen. At L3-L4, mild posterior disc bulge and mild to moderate bilateral facet arthropathy with minimal degenerative spondylolisthesis of L3 on L4. At L4-L5, posterior discovertebral complex and, mild facet hypertrophy and ligamentum flavum thickening result in mild central spinal stenosis and moderate to severe stenosis of the right and left lateral recesses. Mild stenosis of the neural foramina secondary to decreased disc height, discovertebral complex and facet hypertrophy. At L5-S1, mild right and [id number] left neural foraminal stenosis secondary to decreased disc height, discovertebral complex and facet hypertrophy. No spondylolysis. No destructive bony lesions. SI joints are intact. The visualized retroperitoneum shows no adenopathy. CT/CT lumbar spine wo con IMPRESSION: Degenerative changes in the lumbar spine, worst at L4-5 with mild central spinal stenosis and moderate to severe stenosis of the right and left L4-L5 lateral recesses as described above. Electronically authenticated by: TITO LOGAN Date: 06/22/2024 23:34
--- NOTE | 2024-06-22 21:32 | ED_ITS ---
HPI HPI - General Adult General Chief complaint: Neck Pain/Injury Stated complaint: Neck and Back Pain Time Seen by Provider: 06/22/24 21:25 Source: patient Mode of arrival: Wheelchair Limitations: no limitations History of Present Illness HPI narrative: 74-year-old female presents to the emergency department for her neck and lower back pain. It has been hurting for about a week. She gives no history of trauma. She has had neck surgery and has been told she has arthritis. She states her doctor has her on oxycodone and he gives her a week supply at a time. She states the pain is severe and is worse when she moves. Related Data Previous Rx's ?Medication ?Instructions ?Recorded walker #1 ea 01/26/24 oxycodone-acetaminophen 5 mg-325 1 tab PO Q6H PRN pain 5 days #20 06/22/24 mg tablet (Percocet) tabs Allergies Allergy/AdvReac Type Severity Reaction Status Date / Time ciprofloxacin (From Cipro) AdvReac Severe Anaphylaxis Verified 06/22/24 18:35 doxycycline AdvReac Severe Swelling Verified 06/22/24 18:35 of Lip/Tongue/Throat Opioid HPI Opioid Management Most Recent Opioid Data: No Data to Display Review of Systems ROS Narrative A ten point review of systems is negative except as noted above. Exam Narrative Exam Narrative: Nurses note and vital signs reviewed and patient is not hypoxic. General: The patient appears in no apparent distress. Patient appears uncomfortable Skin: Warm, dry, no pallor noted. There is no rash noted. Head: Normocephalic, atraumatic Eye: Normal conjunctiva, no drainage Ears, Nose, Mouth, and Throat: oral mucosa is moist. Nares patent. Cardiovascular: Regular Rate and Rhythm Respiratory: Patient is in no distress, no accessory muscle use, lungs are clear to auscultation, no wheezing, rales or rhonchi Back: No bruise or rash or focal area of tenderness. No masses. GI: Obese and nontender Musculoskeletal: The patient has no evidence of calf tenderness, no pitting edema, symmetrical pulses noted bilaterally Neurological: Awake and alert. Upper and lower extremity strength intact. Psychiatric: Cooperative Constitutional Vital Signs, click to edit/add: Last Vital Signs Temp 97.5 F L 06/22/24 18:36 Pulse 100 H 06/22/24 18:36 Resp 20 06/22/24 18:36 BP 167/102 H 06/22/24 21:19 Pulse Ox 96 06/22/24 18:36 O2 Del Method Room Air 06/22/24 18:36 Course Vital Signs Vital signs: Vital Signs Temperature 97.5 F L 06/22/24 18:36 Pulse Rate 100 H 06/22/24 18:36 Respiratory Rate 20 06/22/24 18:36 Blood Pressure 180/110 H 06/22/24 18:36 Pulse Oximetry 96 06/22/24 18:36 Oxygen Delivery Method Room Air 06/22/24 18:36 Temperature 97.5 F L 06/22/24 18:36 Pulse Rate 100 H 06/22/24 18:36 Respiratory Rate 20 06/22/24 18:36 Blood Pressure 167/102 H 06/22/24 21:19 Pulse Oximetry 96 06/22/24 18:36 Oxygen Delivery Method Room Air 06/22/24 18:36 Medical Decision Making MDM Narrative Medical decision making narrative: CT scans do not show any acute findings. She was given IM Norflex here. She seems to be feeling improved. She states she gets a prescription for Percocet every Wednesday from her family doctor but has run out. She states that she does not believe she has a pain contract with her family doctor. She was given a prescription for 20 Percocet but will follow-up promptly with her family doctor. Treatment diagnosis and follow-up were discussed thoroughly. Differential Diagnosis Differential Diagnosis: Arthritis, compression fracture Imaging Data CT C-spine, CT lumbar: Radiologist's impression: ITS Impressions Cervical Spine CT 06/22/24 21:31 Impression: 1. No acute abnormality of the cervical spine. Electronically authenticated by: EDER OWENS Date: 06/22/2024 23:[address] 06/22/24 21:31 IMPRESSION: Degenerative changes in the lumbar spine, worst at L4-5 with mild central spinal stenosis and moderate to severe stenosis of the right and left L4-L5 lateral recesses as described above. Electronically authenticated by: TITO LOGAN Date: 06/22/2024 23:34 Discharge Plan Discharge Chief Complaint: Neck Pain/Injury Clinical Impression: Cervical arthritis, Arthritis, lumbar spine Patient Disposition: Home, Self-Care Time of Disposition Decision: 23:50 Condition: Good Mode of Transportation: Private Vehicle Prescriptions / Home Meds: New oxycodone-acetaminophen [Percocet] 5-325 mg tablet 1 tab PO Q6H PRN (Reason: pain) 5 Days Qty: 20 0RF No Action (DME) antwon Young See Rx Instructions .Route Qty: 1 0RF Rx Instructions: As directed Print Language: Kazakh Instructions: Osteoarthritis (ED), Chronic Neck Pain (DC) Referrals: JAQUAN RICHARD [Primary Care Provider] - 1 week
[2024-06-22] MEDS: ORPHENADRINE 60 MG/ 2 ML VIAL IM (21:40)
[2024-06-23 00:08] VITALS: BP 143/75
== END 2024-06-23 00:08 | disposition home or self-care (01) ==
PROVIDERS: Emergency Provider Emergency Medicine; Family Provider Family Medicine; PCP Family Medicine
DX: M47.812 Spondylosis without myelopathy or radiculopathy, cervical region (principal); M47.816 Spondylosis without myelopathy or radiculopathy, lumbar region
CPT/HCPCS: 72125; 72131; 96372; 99285; J2360